=== PATIENT | female | born 1990 | race Caucasian/White ===

== ENCOUNTER 2023-03-24 23:49 | Inpatient (IN) | payer MEDICAID, SELFPAY ==
[2023-03-24] MEDS: ZIPRASIDONE MESYLATE 20 MG/ML VIAL IM (23:56)
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
[2023-03-25 00:36] LABS: Basophils Absolute Auto 0.1 10^3/uL (0.0-0.1); Basophils Percent Auto 0.4 % (0.2-2.0); Eosinophils Absolute Auto 6.9 10^3/uL (0.0-0.7); Eosinophils Percent Auto 24.6 % (0.9-7.0); Hematocrit 32.7 % (36.0-48.0); Immature Granulocytes Abs Auto 0.32 10^3/uL (0.00-0.03); Immature Granulocytes Pct Auto 1.1 % (0.0-0.5); Lymphocytes Absolute Auto 1.8 10^3/uL (1.2-3.8); Lymphocytes Percent Auto 6.6 % (20.5-60.0); Mean Corpuscular HGB Conc 33.6 g/dL (29.9-35.2); Mean Corpuscular Hemoglobin 28.9 pg (26.7-34.0); Mean Corpuscular Volume 86.1 fL (81.0-99.0); Monocytes Absolute Auto 3.8 10^3/uL (0.3-0.8); Monocytes Percent Auto 13.6 % (1.7-12.0); Neutrophils Percent Auto 53.7 % (43.0-75.0); Platelet Count 284 10^3/uL (150-450); Red Cell Distribution Width 12.6 % (11.0-15.0)
[2023-03-25] MEDS: LORAZEPAM 2 MG/ML 1 ML VIAL IV (00:46)
[2023-03-25 00:49] LABS: Anion Gap 16.4; BUN Creatinine Ratio 14.3; Calcium 9.7 mg/dL (8.5-10.1); Carbon Dioxide 22.6 mmol/L (21.0-32.0); Chloride 106 mmol/L (98-107); Estimated GFR (African America 57 (>=60); Estimated GFR (Non-African Ame 47 (>=60); Glucose 114 mg/dL (74-106); Sodium 141 mmol/L (136-145)
[2023-03-25 01:37] LABS: Bilirubin Urine NEGATIVE (NEGATIVE); Blood Urine NEGATIVE (NEGATIVE); Clarity Urine CLEAR (CLEAR); Color Urine DK. ORANGE (YELLOW); Glucose Urine UA NEGATIVE (NEGATIVE); Ketones Urine TRACE mg/dL (NEGATIVE); Leukocyte Esterase Urine NEGATIVE (NEGATIVE); Nitrite Urine NEGATIVE (NEGATIVE); Protein Urine 30 mg/dL (NEG/TRACE); Specific Gravity Urine >=1.030 (1.005-1.025); Urine Microscopic Indicated YES; Urobilinogen Urine 0.2 EU/dL (0.2-1.0)
[2023-03-25 01:44] LABS: Bacteria Urine SMALL #/HPF (NONE SEEN); Mucus Urine NONE SEEN (NONE SEEN); RBC Urine 0-2 #/HPF (0-2); Squamous Epithelial Cell Urine FEW #/LPF (NONE/RARE); WBC Urine 0-2 #/HPF (NONE SEEN)
[2023-03-25 01:45] LABS: Cast Seen? NONE SEEN #/LPF (NONE SEEN); Crystals Seen? None Seen #/HPF (None Seen); Urine Culture Indicated YES
[2023-03-25 02:16] VITALS: BP 91/62; PULSE 110; RESP 22; TEMP 36.7; O2SAT 100
[2023-03-25 02:21] LABS: Lactate/Lactic Acid 1.2 mmol/L (0.4-2.0)
--- NOTE | 2023-03-25 02:22 | PC.NURSE ---
Patient presented with multiple bruises overall in different stages of healing. On arms legs, feet and under chin.
[2023-03-25 02:39] LABS: Alanine Aminotransferase 35 U/L (14-59); Albumin Level 3.4 g/dL (3.4-5.0); Alkaline Phosphatase 50 U/L (46-116); Aspartate Amino Transferase 83 U/L (15-37); Bilirubin Direct 0.2 mg/dL (0.0-0.2); Globulin 3.4 g/dL; Total Protein 6.8 g/dL (6.4-8.2)
[2023-03-25 02:40] LABS: Myoglobin 2184 ng/mL (9-82)
[2023-03-25 03:25] LABS: Creatine Kinase 4908 U/L (26-192)
[2023-03-25 03:30] VITALS: BP 100/69; PULSE 122; RESP 18; O2SAT 100
[2023-03-25 03:48] LABS: Valproic Acid 67.2 ug/mL (50.0-100.0)
[2023-03-25] MEDS: 0.9 % SODIUM CHLORIDE 1,000 ML 999 ML IV (03:50)
[2023-03-25] MEDS: HALOPERIDOL LACTATE 5 MG/ML VIAL IM (04:44)
[2023-03-25 05:53] VITALS: BP 91/56; PULSE 113; RESP 18; RESP 20; TEMP 37; O2SAT 96; BMI 24.6
[2023-03-25 06:00] VITALS: BP 91/56; PULSE 113; RESP 18; TEMP 37; O2SAT 96
--- NOTE | 2023-03-25 06:50 | PC.NURSE ---
Pt is nonverbal, she will not open her mouth to assess oral cavity, she can become very agitated and wants to get out of bed. pt has been reaching in her mouth and touching her teeth. pt body covered in bruises of varying stages of healing. she responds when in pain or agitated by pinching or throwingherself down, accompanied by periods of no to little sleep.
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
[2023-03-25] MEDS: ZIPRASIDONE MESYLATE 20 MG/ML VIAL IM (09:46)
[2023-03-25] MEDS: 0.9 % SODIUM CHLORIDE 1,000 ML 100 ML IV ×2 (10:53→21:40)
[2023-03-25] MEDS: CEFTRIAXONE 1,000 MG in 0.9 % SODIUM CHLORIDE 50 ML 100 MG IV (10:53)
[2023-03-25] MEDS: LORAZEPAM 2 MG/ML 1 ML VIAL 1 MG IV ×2 (13:37→15:30)
--- NOTE | 2023-03-25 14:41 | PM.HP ---
H&P: HPI History of Present Illness Chief complaint: ALTERED MENTAL STATUS Narrative: 32 y/o female with history of severe MRDD and nonverbal presents from skilled nursing with altered mental status. Currently on augmentin for dental infection over past week. Increased agitation and throwing self on floor. Very combative and hitting staff and self. To ER and given medication for agitation. Labs showed elevated WBC and signs of rhabdo. UA showed possible UTI and admitted. Review of Systems ROS Narrative Unable to obtain, nonverbal. PFSH PFSH Surgical History (Updated 03/25/23 @ 06:47 by Dayton Allen) Family History (Updated 03/25/23 @ 06:50 by Dayton Allen) Grandmother Family history of cancer Grandfather Family history of hypertension Aunt Family history of hypertension Uncle Family history of hypertension Meds Home Medications and Allergies Home Medications Medication Instructions Recorded Confirmed Type acetaminophen 325 mg capsule 650 mg PO Q4H PRN fever 03/25/23 03/25/23 History amoxicillin 875 mg-potassium 1 tab PO Q12H 03/25/23 03/25/23 History clavulanate 125 mg tablet bisacodyl 10 mg rectal suppository 10 mg [place] DAILY PRN constipation 03/25/23 03/25/23 History (Laxative (bisacodyl)) bupropion HCl 100 mg tablet,12 hr 100 mg PO BID 03/25/23 03/25/23 History sustained-release calcium citrate 200 mg 2 tab PO TID 03/25/23 03/25/23 History calcium-vitamin D3 6.25 mcg (250 unit) tablet ([place] Calcium-Vitamin D3) cholecalciferol (vitamin D3) 50 2,000 unit PO DAILY 03/25/23 03/25/23 History mcg (2,000 unit) tablet (Vitamin D3) denosumab 60 mg/mL subcutaneous 60 mg subcut .6months 03/25/23 03/25/23 History syringe (Prolia) divalproex 125 mg capsule,delayed 375 mg PO Q12H 03/25/23 03/25/23 History release sprinkle fluoxetine 10 mg capsule 10 mg PO DAILY 03/25/23 03/25/23 History fluoxetine 20 mg capsule 20 mg PO DAILY 03/25/23 03/25/23 History loratadine 10 mg tablet 10 mg PO Q24H 03/25/23 03/25/23 History montelukast 10 mg tablet 10 mg PO DAILY 03/25/23 03/25/23 History risperidone 1 mg tablet 1 mg PO .QHS 03/25/23 03/25/23 History sennosides 8.6 mg tablet (senna) 17.2 mg PO BID 03/25/23 03/25/23 History Allergies Allergy/AdvReac Type Severity Reaction Status Date / Time meperidine [From Demerol] Allergy Unknown Verified 03/25/23 02:06 methylphenidate Allergy Unknown Verified 03/25/23 02:06 [From Ritalin] Exam Constitutional Vital Signs - 24 hr 03/25/23 02:16 03/25/23 03:30 03/25/23 05:53 Temperature 98.1 F 98.6 F Pulse Rate 113 H Pulse Rate [Monitor] 110 H 122 H Respiratory Rate 22 18 20 Blood Pressure [Right Arm] 91/62 100/69 91/56 L Pulse Oximetry 100 100 96 Oxygen Delivery Method Room Air Room Air Room Air 03/25/23 05:53 03/25/23 05:53 03/25/23 06:00 Temperature 98.6 F Pulse Rate 113 H Pulse Rate [Monitor] 113 H 113 H Respiratory Rate 18 18 Blood Pressure [Right Arm] 91/56 L Pulse Oximetry 96 Oxygen Delivery Method Room Air Room Air Documenting provider has reviewed patient's vital signs: yes Common normals: no apparent distress and alert HENIN Common normals: normocephalic Eye Common normals: PERRL and EOMs intact bilaterally Respiratory Common normals: normal respiratory effort and clear to auscultation bilaterally Cardio Common normals: regular rate, regular rhythm, no gallops, no murmurs and no rub GI Common normals: Normal to inspection, nondistended, normoactive bowel sounds present and non-tender Extremity General: no edema Results Labs Labs: Short CBC 03/25/23 Range/Units 00:27 WBC 28.0 H (4.0-11.0) 10^3/uL Hgb 11.0 L (12.0-16.0) g/dL Hct 32.7 L (36.0-48.0) % Plt Count 284 (150-450) 10^3/uL BMP 03/25/23 00:27 Sodium 141 Potassium 4.0 Chloride 106 Carbon Dioxide 22.6 BUN 19.0 H Creatinine 1.33 H Glucose 114 H Calcium 9.7 Cardiac Enzymes 03/25/23 Range/Units 01:55 Total Creatine Kinase 4908 H* (26-192) U/L Liver Function 03/25/23 Range/Units 01:55 Total Bilirubin 1.0 (0.2-1.0) mg/dL Direct Bilirubin 0.2 (0.0-0.2) mg/dL AST 83 H (15-37) U/L ALT 35 (14-59) U/L Alkaline Phosphatase 50 (46-116) U/L Albumin 3.4 (3.4-5.0) g/dL Urine 03/25/23 Range/Units 01:16 Urine Color Dk. orange (YELLOW) Urine Clarity Clear (CLEAR) Urine pH 6.0 (5.0-9.0) Ur Specific Speed >=1.030 A (1.005-1.025) Urine Protein 30 A (NEG/TRACE) mg/dL Urine Glucose (UA) Negative (NEGATIVE) mg/dL Assessment and Plan Assessment and Plan (1) UTI (urinary tract infection): (2) Rhabdomyolysis: (3) Acute renal failure (ARF): (4) Acute dehydration: (5) Severe intellectual disability: (6) Altered mental status: (7) Seizures: Plan Altered mental status likely related to UTI and rhabdo. Start IV fluids. Start rocephin for UTI. Resume home medication. Will need to sedate with geodon and ativan due to agitation. Monitor labs and vitals. Anticipate 2-3 days in the hospital.
[2023-03-25 15:24] VITALS: BP 96/60; PULSE 102; RESP 18; TEMP 37.2; O2SAT 93
[2023-03-25] MEDS: ACETAMINOPHEN 500 MG TABLET 1000 MG PO (15:30)
[2023-03-25 21:11] VITALS: BP 96/62; PULSE 107; RESP 18; TEMP 37.3; O2SAT 96
[2023-03-25] MEDS: risperiDONE 1 MG TABLET PO (22:54)
[2023-03-25] MEDS: SENNOSIDES 8.6 MG TABLET 17.2 MG PO (22:55)
[2023-03-25] MEDS: BUPROPION HCL 100 MG SR TABLET 12H PO (22:55)
[2023-03-26 05:00] VITALS: RESP 18
[2023-03-26 05:05] LABS: Basophils Percent Auto 0.2 % (0.2-2.0); Eosinophils Absolute Auto 0.1 10^3/uL (0.0-0.7); Eosinophils Percent Auto 0.8 % (0.9-7.0); Hemoglobin 8.5 g/dL (12.0-16.0); Immature Granulocytes Abs Auto 0.08 10^3/uL (0.00-0.03); Immature Granulocytes Pct Auto 0.8 % (0.0-0.5); Lymphocytes Absolute Auto 1.7 10^3/uL (1.2-3.8); Lymphocytes Percent Auto 15.6 % (20.5-60.0); Mean Corpuscular HGB Conc 32.7 g/dL (29.9-35.2); Mean Corpuscular Hemoglobin 28.9 pg (26.7-34.0); Mean Corpuscular Volume 88.4 fL (81.0-99.0); Mean Platelet Volume 9.8 fL (9.5-13.5); Monocytes Absolute Auto 1.4 10^3/uL (0.3-0.8); Monocytes Percent Auto 13.6 % (1.7-12.0); Neutrophils Absolute Auto 7.3 10^3/uL (1.4-6.5); Platelet Count 182 10^3/uL (150-450); Red Blood Count 2.94 10^6/uL (4.20-5.40); Red Cell Distribution Width 12.9 % (11.0-15.0); White Blood Count 10.6 10^3/uL (4.0-11.0)
[2023-03-26 05:23] LABS: Anion Gap 9.8; BUN Creatinine Ratio 16.7; Calcium 7.6 mg/dL (8.5-10.1); Carbon Dioxide 24.6 mmol/L (21.0-32.0); Chloride 110 mmol/L (98-107); Estimated GFR (African America >60 (>=60); Estimated GFR (Non-African Ame >60 (>=60); Glucose 108 mg/dL (74-106); Myoglobin 162 ng/mL (9-82); Potassium 3.4 mmol/L (3.5-5.1); Sodium 141 mmol/L (136-145)
[2023-03-26 05:28] LABS: Creatine Kinase 2363 U/L (26-192)
[2023-03-26 06:33] VITALS: BP 98/64; PULSE 105; RESP 18; TEMP 36.8; O2SAT 92
[2023-03-26] MEDS: 0.9 % SODIUM CHLORIDE 1,000 ML 100 ML IV (08:01)
[2023-03-26] MEDS: CEFTRIAXONE 1,000 MG in 0.9 % SODIUM CHLORIDE 50 ML 100 MG IV (09:12)
[2023-03-26] MEDS: MONTELUKAST SODIUM 10 MG TABLET PO (09:33)
[2023-03-26] MEDS: FLUOXETINE HCL 10 MG CAPSULE PO (09:33)
[2023-03-26] MEDS: CHOLECALCIFEROL (VITAMIN D3) 25 MCG/1,000 UNITS TABLET 50 MCG PO (09:33)
[2023-03-26] MEDS: SENNOSIDES 8.6 MG TABLET 17.2 MG PO (09:33)
[2023-03-26] MEDS: FLUOXETINE HCL 20 MG CAPSULE PO (09:34)
[2023-03-26] MEDS: BUPROPION HCL 100 MG SR TABLET 12H PO (09:34)
[2023-03-26] MEDS: CETIRIZINE HCL 10 MG TABLET PO (09:34)
[2023-03-26] MEDS: ACETAMINOPHEN 500 MG TABLET 1000 MG PO (09:41)
--- NOTE | 2023-03-26 10:24 | PC.NURSE ---
On 03/26/2023 at 0944 [facility] was called. Doctor notified
--- NOTE | 2023-03-26 11:50 | P.DS_ITS ---
DS: Providers Provider Date of admission: 03/25/23 04:17 Primary care physician: MACI HAAS DO DS: Diagnosis Discharge Diagnosis (1) UTI (urinary tract infection): (2) Rhabdomyolysis: (3) Acute renal failure (ARF): (4) Acute dehydration: (5) Severe intellectual disability: (6) Altered mental status: (7) Seizures: Plan Primary diagnosis: Rhabdomyolysis Secondary diagnosis: 1. UTI 2. PITO 3. Dehydration 4. Sever MRDD 5. Altered mental sttus 6. Seizure disorder DS: Summary Hospital Course Hospital Course: Reason for admission: See H&P for details. 32 y/o female with history of severe MRDD and nonverbal presents from senior care with altered mental status.? Currently on augmentin for dental infection over past week.? Increased agitation and throwing self on floor.? Very combative and hitting staff and self.? To ER and given medication for agitation.? Labs showed elevated WBC and signs of rhabdo. UA showed possible UTI and admitted Hospital course: Started IV fluids for rhabdo and Rocehpin for UTI. REsumed home medication. Patient improved. Labs improved and close to normal. Afebrile. Normal WBC. Patient close to baseline and discharged in stable condition. Urine culture negative. Continue home medication as directed including augmentin. Time Spent with Patient Time attestation: Total time spent providing and/or coordinating discharge services: Exam Constitutional Vital Signs - 24 hr 03/25/23 15:24 03/26/23 05:00 03/25/23 21:11 Temperature 99.0 F 99.2 F Pulse Rate 102 H 107 H Pulse Rate [Monitor] Respiratory Rate 18 18 18 Blood Pressure [Right Arm] 96/60 96/62 Pulse Oximetry 93 L 96 Oxygen Delivery Method Room Air Room Air 03/25/23 21:11 03/26/23 06:33 Temperature 98.3 F Pulse Rate 105 H Pulse Rate [Monitor] 107 H Respiratory Rate 18 18 Blood Pressure [Right Arm] 98/64 Pulse Oximetry 92 L Oxygen Delivery Method Room Air Documenting provider has reviewed patient's vital signs: yes Common normals: no apparent distress and alert HENMT Common normals: normocephalic Eye Common normals: PERRL and EOMs intact bilaterally Respiratory Common normals: normal respiratory effort and clear to auscultation bilaterally Cardio Common normals: regular rate, regular rhythm, no gallops, no murmurs and no rub GI Common normals: Normal to inspection, nondistended, normoactive bowel sounds present and non-tender Extremity General: no edema DS: Data Data Completed and Pending Labs on day of discharge: Labs from last 24 hours 03/26/23 04:37 WBC 10.6 RBC 2.94 L Hgb 8.5 L Hct 26.0 L MCV 88.4 MCH 28.9 MCHC 32.7 RDW 12.9 Plt Count 182 MPV 9.8 Neut % (Auto) 69.0 Lymph % (Auto) 15.6 L [place] % (Auto) 13.6 H Eos % (Auto) 0.8 L Baso % (Auto) 0.2 Neut # (Auto) 7.3 H Lymph # (Auto) 1.7 [place] # (Auto) 1.4 H Eos # (Auto) 0.1 Baso # (Auto) 0.0 Abs Immat Gran (auto) 0.08 H Imm/Tot Granulo (auto) 0.8 H Sodium 141 Potassium 3.4 L Chloride 110 H Carbon Dioxide 24.6 Anion Gap 9.8 BUN 10.0 Creatinine 0.60 Est GFR ( Amer) >60 Est GFR (Non-Af Amer) >60 BUN/Creatinine Ratio 16.7 Glucose 108 H Calcium 7.6 L Total Creatine Kinase 2363 H* Myoglobin 162 H Discharge Plan Discharge Disposition: Home, Self-Care Discharge Medications: Continued amoxicillin-pot clavulanate 875-125 mg tablet 1 tab PO Q12H Patient Comments: for 7 days.Started 03/23 bupropion HCl 100 mg tablet sustained-release 12 hr 100 mg PO BID calcium citrate-vitamin D3 [[place] Calcium-Vitamin D3] 200 mg-6.25 mcg (250 unit) tablet 2 tab PO TID Prolia 60 mg/mL syringe 60 mg SUBCUT .6months divalproex 125 mg capsule, delayed rel sprinkle 375 mg PO Q12H fluoxetine 10 mg capsule 10 mg PO DAILY Patient Comments: at HS fluoxetine 20 mg capsule 20 mg PO DAILY loratadine 10 mg tablet 10 mg PO Q24H montelukast 10 mg tablet 10 mg PO DAILY risperidone 1 mg tablet 1 mg PO .QHS Rx Instructions: at HS sennosides [senna] 8.6 mg tablet 17.2 mg PO BID cholecalciferol (vitamin D3) [Vitamin D3] 50 mcg (2,000 unit) tablet 2,000 unit PO DAILY acetaminophen 325 mg capsule 650 mg PO Q4H PRN (Reason: fever) bisacodyl [Laxative (bisacodyl)] 10 mg suppository 10 mg [place] DAILY PRN (Reason: constipation) Rx Instructions: If no BM in 5days Activity: resume usual activities as tolerated Diet: advance to your usual diet Patient Instructions: Urinary Tract Infection in Women (DC) Forms: Portal Instructions Follow Up Appointments: follow up with dr maci haas . [facility] office staff member Stephania states he will be rounding tomorrow and will see pt
[2023-03-26 11:51] VITALS: BMI 24.6
--- NOTE | 2023-03-26 14:07 | SWNOTE1 ---
Pt is from [facility]. Pt discharged before SW could complete assessment with pt or family.
--- NOTE | 2023-03-26 16:03 | CM.NOTE ---
0900- Rounds made with faraz Dalton for discharge back to [facility]. Family will transport pt. No discharge needs identified.
== END 2023-03-26 13:08 | disposition home or self-care (01) | DRG 463 ==
LOC: ER 03-25 04:39 → MS 03-25 05:48
PROVIDERS: Admitting Provider Family Medicine; Emergency Provider Internal Medicine; PCP Family Medicine; Visit Provider Family Medicine
DX: N39.0 Urinary tract infection, site not specified (principal); M62.82 Rhabdomyolysis; N17.9 Acute kidney failure, unspecified; E86.0 Dehydration; F72 Severe intellectual disabilities; R41.82 Altered mental status, unspecified; G40.909 Epilepsy, unspecified, not intractable, without status epilepticus; R45.1 Restlessness and agitation; Z79.899 Other long term (current) drug therapy; Z88.8 Allergy status to other drugs, medicaments and biological substances; Z82.49 Family history of ischemic heart disease and other diseases of the circulatory system; Z80.9 Family history of malignant neoplasm, unspecified; Z78.1 Physical restraint status
CPT/HCPCS: 36415; 51701; 80048; 80076; 80164; 81003; 81015; 82550; 83605; 83874; 85025; 87086; 96361; 96365; 96366; 96372; 96375; 96376; 99285

== ENCOUNTER 2023-03-27 11:18 | Outpatient (REF) | payer MEDICAID, SELFPAY ==
[2023-03-27 11:31] LABS: Bilirubin Urine NEGATIVE (NEGATIVE); Blood Urine NEGATIVE (NEGATIVE); Clarity Urine CLEAR (CLEAR); Color Urine YELLOW (YELLOW); Glucose Urine UA NEGATIVE (NEGATIVE); Ketones Urine NEGATIVE (NEGATIVE); Leukocyte Esterase Urine NEGATIVE (NEGATIVE); Nitrite Urine NEGATIVE (NEGATIVE); Protein Urine NEGATIVE (NEG/TRACE); pH Urine 7.5 (5.0-9.0)
[2023-03-27 11:32] LABS: Urine Microscopic Indicated NO
== END 2023-03-27 11:19 | disposition home or self-care (01) ==
LOC: LAB 11:18
PROVIDERS: PCP Family Medicine; Visit Provider Family Medicine
DX: R34 Anuria and oliguria (principal); R41.82 Altered mental status, unspecified; R82.90 Unspecified abnormal findings in urine
CPT/HCPCS: 81003

== ENCOUNTER 2023-04-04 06:59 | Outpatient (OUT) | payer MEDICAID, SELFPAY ==
[2023-04-04 07:24] LABS: Basophils Absolute Auto 0.1 10^3/uL (0.0-0.1); Basophils Percent Auto 0.7 % (0.2-2.0); Eosinophils Absolute Auto 0.3 10^3/uL (0.0-0.7); Eosinophils Percent Auto 3.1 % (0.9-7.0); Hematocrit 33.3 % (36.0-48.0); Hemoglobin 10.8 g/dL (12.0-16.0); Immature Granulocytes Abs Auto 0.21 10^3/uL (0.00-0.03); Immature Granulocytes Pct Auto 2.4 % (0.0-0.5); Lymphocytes Absolute Auto 2.6 10^3/uL (1.2-3.8); Lymphocytes Percent Auto 29.6 % (20.5-60.0); Mean Corpuscular HGB Conc 32.4 g/dL (29.9-35.2); Mean Corpuscular Volume 89.5 fL (81.0-99.0); Mean Platelet Volume 8.1 fL (9.5-13.5); Monocytes Absolute Auto 0.9 10^3/uL (0.3-0.8); Monocytes Percent Auto 10.8 % (1.7-12.0); Neutrophils Absolute Auto 4.7 10^3/uL (1.4-6.5); Neutrophils Percent Auto 53.4 % (43.0-75.0); Platelet Count 466 10^3/uL (150-450); Red Blood Count 3.72 10^6/uL (4.20-5.40); Red Cell Distribution Width 14.3 % (11.0-15.0); White Blood Count 8.7 10^3/uL (4.0-11.0)
[2023-04-04 07:40] LABS: Alanine Aminotransferase 23 U/L (14-59); Albumin Globulin Ratio 0.9; Albumin Level 3.2 g/dL (3.4-5.0); Alkaline Phosphatase 79 U/L (46-116); Anion Gap 10.8; Aspartate Amino Transferase 15 U/L (15-37); BUN Creatinine Ratio 10.4; Bilirubin Total 0.4 mg/dL (0.2-1.0); Calcium 8.9 mg/dL (8.5-10.1); Carbon Dioxide 29.5 mmol/L (21.0-32.0); Chloride 104 mmol/L (98-107); Creatine Kinase 75 U/L (26-192); Estimated GFR (African America >60 (>=60); Estimated GFR (Non-African Ame >60 (>=60); Globulin 3.6 g/dL; Glucose 105 mg/dL (74-106); Potassium 4.3 mmol/L (3.5-5.1); Sodium 140 mmol/L (136-145); Total Protein 6.8 g/dL (6.4-8.2)
[2023-04-06 17:52] LABS: Myoglobin 34 ng/mL (9-82)
== END 2023-04-04 07:00 | disposition home or self-care (01) ==
LOC: LAB 06:59
PROVIDERS: PCP Family Medicine; Visit Provider Family Medicine
DX: D89.89 Other specified disorders involving the immune mechanism, not elsewhere classified (principal)
CPT/HCPCS: 36415; 80053; 82550; 83874; 85025

== ENCOUNTER 2024-02-27 09:42 | Outpatient (OUT) | payer MEDICAID, SELFPAY ==
--- NOTE | 2024-02-27 09:49 | XR_ITS ---
[place] [id number] Patient Name: NIC SANDHU MRN: [id number] date: 1990 Sex: F Assigned Patient Location: [facility] Current Patient Location: [facility] Accession/Order Number: [id number] Exam Date: 02/27/2024 10:10 Report Date: 02/27/2024 10:35 At the request of: KIANA HAAS Procedure: XR DEXA axial skeleton EXAMINATION: XR DEXA axial skeleton HISTORY: Osteoporosis COMPARISON: DEXA bone densitometry 01/15/2019 TECHNIQUE: Dual-energy X-ray absorptiometry (DXA) was performed. FINDINGS: SPINE ANALYSIS: Average bone mineral density is 1.162 g/cm2. T-score (standard deviation relative to young adult mean): -0.3 . +6.0% change since prior study. HIP ANALYSIS: Lowest bone mineral density is within the left femoral neck, 0.806 g/cm2. T-score (standard deviation relative to young adult mean): -1.7 . XR/XR DEXA axial skeleton IMPRESSION: [employer] Classification: Osteopenia - Moderate Fracture Risk FRAX: Cannot be calculated. Electronically authenticated by: RINA CARRANZA Date: 02/27/2024 10:35
== END 2024-02-27 09:43 | disposition home or self-care (01) ==
LOC: RAD 09:44
PROVIDERS: PCP Family Medicine; Visit Provider Family Medicine
DX: M81.0 Age-related osteoporosis without current pathological fracture (principal); M85.80 Other specified disorders of bone density and structure, unspecified site
CPT/HCPCS: 77080

== ENCOUNTER 2024-05-02 09:08 | Outpatient (OUT) | payer MEDICAID, SELFPAY ==
--- NOTE | 2024-05-02 09:13 | US_ITS ---
[address] [address] Patient Name: NIC SANDHU MRN: [id number] date: 1990 Sex: F Assigned Patient Location: [place] Current Patient Location: Accession/Order Number: [id number] Exam Date: 05/02/2024 09:15 Report Date: 05/06/2024 06:23 At the request of: KIANA HAAS Procedure: US thyroid EXAMINATION: US thyroid HISTORY: Autoimmune Disorder, History Goiter COMPARISON: No relevant comparison available. FINDINGS: RIGHT LOBE: Grossly normal size and echotexture. Contains a 9 mm TR 4 nodule within mid body. Lobe size: Could not fully obtain. LEFT LOBE: Grossly normal size and echotexture. No appreciable nodules. Lobe size: Could not fully obtain. ISTHMUS: Normal thickness and echogenicity. Thickness: 4 mm US/US thyroid IMPRESSION: 1. Very limited examination due to patient's altered mental status and noncooperative. 2. Right lobe contains a 9 mm TR 4 nodule. TR4 (moderately suspicious): If > 1.0 cm, follow-up ultrasound in 1, 2, 3, and 5 years. If > 1.5 cm, fine needle aspiration (FNA). Electronically authenticated by: RINA CARRANZA Date: 05/06/2024 06:23
--- OUTSIDE RECORDS SUMMARY | 2024-05-02 09:29 | XMS_ITS | CCD ---
Author Organization [facility] Care Team Providers Care Collarette Separator Name Role Phone Cruz Adler Unavailable Unavailable HaasSimon Unavailable Unavailable Emma Plummer Unavailable Unavailable HaasSimon Unavailable Unavailable Unavailable Unavailable Primary Care Provider Unavailabl e HAAS, DR SIMON Louis Primary Care Unavailable HAAS, DR SIMON Louis Admitting Unavailable HAAS, DR SIMON Louis Attending Unavailable HAAS, DR SIMON Luois Primary Care Unavailable HAAS, DR SIMON Louis Admitting Unavailable HAAS, DR SIMON Louis Attending Unavailable HAAS, DR SIMON Louis Consulting Unavailable ZIEBER, DR RINA Shoemaker Consulting Unavailable HAAS, DR SIMON Louis Primary Care Unavailable HAAS, DR SIMON Louis Admitting Unavailable HAAS, DR SIMON Louis Attending Unavailable HAAS, DR SIMON Louis Consulting Unavailable HAAS, DR SIMON Louis Primary Care Unavailable HAAS, DR SIMON Louis Admitting Unavailable HAAS, DR SIMON Louis Attending Unavailable HAAS, DR SIMON Louis Consulting Unavailable HAAS, DR SIMON Louis Primary Care Unavailable MISC, DR BERTRAND Attending Unavailable MISC, DR BERTRAND Consulting Unavailable MISC, DR BERTRAND Admitting Unavailable HaasDO Simon Primary Care Provider [phone] MD Vanessa Munoz Emergency Provider Simon Haas Primary Care Unavailable Vanessa Munoz Admitting Unavailable Vanessa Munoz Attending Unavailable Haas, Dr. Simon Beckwith Referring Unava blake PEDRO, REENA GUILLEN Attending Unavailable Haas, Dr. Simon Beckwith Primary Care Unava ilDr. Cruz Castillo Attending Unavailable Haas, Dr. Simon Beckwith Primary Care Unava ilable Dr. Cruz Adler Attending Unavailable Dr. Simon Haas Primary Care Unava ilable Unavailable Primary Care Provider Unavailabl e PROVIDER, UNKNOWN Attending Unavailable PROVIDER, UNKNOWN Admitting Unavailable SIMON HAAS Attending Unavailable SIMON HAAS Admitting Unavailable Simon Haas DO Primary Care Provider Cruz Adler MD Unavailable CRUZ ADLER Attending Unavailable SIMON HAAS Primary Care Unavailab le Allergies Allergy Classification Reported Allergen(s) Allergy Type Date of Onset Reaction(s) Facility (14 sources) Meperidine; Translations: [Demerol TABS] Drug Allergy 06-03-20 15 Other [facility] (1 source) Meperidine Drug Allergy 10-10-19 22 [facility] (1 source) Methylphenidate Drug Allergy 10-10-19 22 [facility] (1 source) Pseudoephedrine Drug Allergy 10-10-19 22 [facility] (3 sources) Meperidine; Translations: [meperidine] Drug Allergy 06-03-20 15 Unknown Reaction [facility] (2 sources) Methylphenidate; Translations: [methylphenidate] Drug Allergy 03-29-20 23 Unknown Reaction [facility] (1 source) Meperidine; Translations: [Demerol HCl] Drug Allergy [facility] Rep[facility] (1 source) ALLERGIES NOT ON FILE; Translations: [ALLERGIES NOT ON FILE] Propensity to adverse reactions (disorder) [facility] Medications Current Medications Medication Drug Class(es) Dates Sig (Normalized) Sig (Original) acetaminophen 300 mg / HYDROcodone bitartrate 5 mg oral tablet (1 source) Opioid Agonist Start: 03-30-2023 take 1 tablet by mouth every eight hours Hydrocodone-Aceta minophen Active 1 TAB PO Q8H 6 March 30, 2023 Start: 03-30-2023 take 1 tablet by lee th every eight hours Hydrocodone-Acetaminophen Active 1 TAB P O Q8H 6 March 30, 2023 bisacodyl 10 mg rectal suppository (2 sources) Stimulant Laxative take 10 mg rectal route once daily as needed for constipation bisacodyl (BISCOLAX) 10 MG suppository Insert 10 mg in the rectum daily as needed for Constipation. 0 Active buPROPion hydrochloride 100 mg oral tablet (15 sources) Aminoketone take 1 tablet by mouth twice daily buPROPion (Wellbutrin) 100 mg tablet Take 1 tablet (100 mg) by mouth twice a day. 0 Active take 1 tablet by mouth twice justo ly buPROPion HCl ER (SR) 100 MG Oral Tablet Extended Release 12 Hour TAKE 1 TABLET TWICE DAILY. Quantity: 0 Refills: 0 Ordered: 03-Sep-2014 DO Active cholecalciferol 0.05 mg oral capsule (15 sources) Vitamin D cholecalciferol (Vitamin D-3) 50 mcg (2,000 unit) capsule Take by mouth. 0 Active Cholecalciferol (VITAMIN D3) 2000 UNITS CAPS Take by mouth. 0 Active Vitamin D3 50 MC G (2000 UT) Oral Tablet Quantity: 0 Refills: 0 Ordered: 03-Sep-2014 DO Active 1 ml denosumab 60 mg/ml prefilled syringe (9 sources) RANK Ligand Inhibitor Start: 07-12-2021 Prolia 6 0 mg/mL syringe Inject under the skin. 0 07/12/2021 Active docusate sodium 100 mg oral capsule (9 sources) docusate sodium (Colace) 100 mg capsule Take by mouth. 0 Active Docusate Sodium 100 MG Oral Capsule Quantity: 0 Refills: 0 Ordered: 03-Sep-2014 DO Active FLUoxetine 40 mg oral capsule (17 sources) Serotonin Reuptake Inhibitor Start: 12-04-2023 take 1 capsule by mouth at bedtime FLUoxetine (PROzac) 40 mg capsule TAKE ONE CAPSULE BY MOUTH AT BEDTIME PROZAC 0 12/04/2023 Active take 1 tablet by mouth once [place]in[place] y fluoxetine (PROZAC) 20 MG tablet Take 20 mg by mouth daily. 0 Active take 1 capsule by mouth twice da colette fluoxetine (PROZAC) 10 MG capsule Take 10 mg by mouth 2 times daily. 0 Active take 2 capsules by mouth once da colette FLUoxetine HCl - 20 MG Oral Capsule TAKE 2 CAPSULE Daily Quantity: 60 Refills: 0 Ordered: 01-Feb-2017 Vitor BENTLEY, Max Active 60 actuat fluticasone propionate 0.1 mg/actuat / salmeterol 0.05 mg/actuat dry powder inhaler (2 sources) Corticosteroid, beta2-Adrenergic Agonist take 1 puff(s) by inhalation twice daily fluticasone-salmeterol (ADVAIR DISKUS) 100-50 MCG/DOSE inhaler Inhale 1 Puff 2 times daily. 0 Active ibuprofen 800 mg oral tablet (3 sources) Nonsteroidal Anti-inflammatory Drug Start : 03-30 take 800 mg by mouth three times daily Ibuprofen Active 800 MG PO Three times daily March 30, 2023 12:00am ibuprofen (MOTRI N) 200 MG tablet Take 200-400 mg by mouth every 6 hours as needed for Pain. 0 Active LORazepam 1 mg oral tablet (2 sources) Benzodiazepine Start: 03-29-2023 take 1 tablet by mouth three times daily as needed LORazepam (Ativan) 1 mg tablet TAKE ONE TABLET BY MOUTH THREE TIMES A DAY NEEDED FOR AGITATION 0 03/30/2023 Active Sennosides (SENNA LAX ORAL) (2 sources) take 2 tablets by mouth twice daily Sennosides (SENNA LAX ORAL) Indications: take two tablets twice a day Take by mouth Indications: take two tablets twice a day. 0 Active Completed/Discontinued Medications Medication Drug Class(es) Dates Sig (Normalized) Sig (Original) calcium citrate 950 mg / cholecalciferol 250 unt oral tablet (8 sources) Vitamin D Start: 08-30-2021 take 200-250 tablets by mouth three times daily [place] Calcium/Vitamin D 200-250 MG-UNIT TABS TAKE TWO TABLETS BY MOUTH 3 TIMES DAILY Quantity: 84 Refills: 0 Ordered: 02-Jan-2022 DO Start : 30-Aug-2021 Active fluticasone propionate 0.05 mg/actuat metered dose nasal spray (3 sources) Corticosteroid Start: 07-04-2022 take 2 spray(s) nasal route once daily Fluticasone Propionate 50 MCG/ACT Nasal Suspension INSTILL 2 SPRAYS INTO EACH NOSTRIL ONCE DAILY FOR 2 WEEKS Quantity: 16 Refills: 0 Ordered: 04-Jul-2022 DO Start : 04-Jul-2022 Active guaiFENesin 400 mg oral tablet (10 sources) Start: 05-20-2021 take 1 tablet by mouth twice daily as needed for cough Chest Congestion Relief 400 MG Oral Tablet TAKE ONE TABLET BY MOUTH TWICE A DAY NEEDED FOR CONGESTION OR COUGH Quantity: 20 Refills: 0 Ordered: 20-May-2021 DO Start : 20-May-2021 Active take 1 tablet by mouth twice justo ly guaifenesin (MUCINEX) 600 MG SR tablet Take 600 mg by mouth 2 times daily. 0 Active loratadine 10 mg oral tablet (10 sources) Start: 08-30-2021 take 1 tablet by mouth once daily Loratadine 10 MG Oral Tablet TAKE ONE TABLET BY MOUTH ONCE DAILY Quantity: 14 Refills: 0 Ordered: 02-Jan-2022 DO Start : 30-Aug-2021 Active 1 ml medroxyPROGESTERone acetate 150 mg/ml prefilled syringe (20 sources) Progestin Start: 05-11-2020 inject 1 mL by intramuscular injection every three months medroxyPROGESTERone Acetate 150 MG/ML Intramuscular Suspension Prefilled Syringe INJECT 1ML INTRAMUSCULARLY EVERY 3 MONTHS Quantity: 1 Refills: 0 Ordered: 24-Jan-2021 DO Start : 11-May-2020 Active medroxyPROGESTER one (DEPO-PROVERA) 150 MG/ML injection Inject 150 mg into the muscle once. 0 Active MedroxyPROGESTER one Acetate 150 MG/ML Intramuscular Suspension Quantity: 0 Refills: 0 Ordered: 03-Sep-2014 DO Active MedroxyPROGESTER one Acetate 150 MG/ML Intramuscular Suspension Quantity: 0 Refills: 0 Ordered: 03-Sep-2014 DO Active MedroxyPROGESTER one Acetate 150 MG/ML Intramuscular Suspension Refills: 0 Active montelukast 10 mg oral tablet (14 sources) Leukotriene Receptor Antagonist Start: 10-01-2014 Montelukast Sodium 1 0 MG Oral Tablet Quantity: 7 Refills: 0 Start : 01-Oct-2014 Active Start: 10-01-2014 Montelukast So dium 10 MG Oral Tablet Quantity: 7 Refills: 0 Ordered: 01-Oct-2014 DO Start : 01-Oct-2014 Active risperiDONE 0.5 mg oral tablet (20 sources) Atypical Antipsychotic Start: 04-05-2021 risperi DONE 0.5 MG Oral Tablet TAKE ONE TABLET BY MOUTH AT 8AM AND ONE TABLET AT 4PM RISPERDAL Quantity: 28 Refills: 0 Ordered: 02-Jan-2022 DO Start : 05-Apr-2021 Active take 1 tablet by mouth at bedtim e risperiDONE (RisperDAL) 1 mg tablet TAKE ONE TABLET BY MOUTH AT BEDTIME RISPERDAL 0 Active take 1 tablet by mouth three patricia es daily risperiDONE 1 MG Oral Tablet TAKE 1 TABLET 3 times daily Quantity: 0 Refills: 0 Ordered: 03-Sep-2014 DO Active Senna Leaves (10 sources) Senna Lax TABS Quantity: 0 Refills: 0 Ordered: 03-Sep-2014 DO Active Senna Lax TABS (2 sources) Senna Lax TABS Refills: 0 Active divalproex sodium 125 mg delayed release oral capsule (15 sources) Mood Stabilizer, Anti-epileptic Agent Start: 04-05-2021 take 3 capsules by mouth twice daily Divalproex Sodium 125 MG Oral Capsule Delayed Release Sprinkle TAKE 3 CAPSULES BY MOUTH TWICE A DAY DEPAKOTE Quantity: 84 Refills: 0 Ordered: 02-Jan-2022 DO Start : 05-Apr-2021 Active take 3 tablets by mouth twice da colette divalproex (Depakote) 125 mg EC tablet Take 3 tablets (375 mg) by mouth twice a day. 0 Active Divalproex Sodiu m 125 MG CPSP SPRINKLE 4 CAPSULE Twice daily Quantity: 0 Refills: 0 Ordered: 03-Sep-2014 DO Active Problems Active Problems Problem Classification Problem Date Documented Da te Episodic/Chronic Anxiety disorders (18 sources) Anxiety disorder; Translations: [Anxiety state, unspecified] Onset: 10-06-2022 12-06-2023 Chronic Comment on above: Added by Problem Lis t Migration; 2013-09-21; Attention-deficit conduct and disruptive behavior disorders (13 sources) Disruptive behavior disorder; Translations: [Unspecified disturbance of conduct] Onset: 12-06-2023 12-06-2023 Chronic Comment on above: Added by Problem Lis t Migration; 2013-09-21; Attention-deficit, conduct, and disruptive behavior disorders (1 source) Conduct disorder, unspecified; Translations: [Conduct disorder, unspecified] Onset: 11-30-2022 Chronic Developmental disorders (12 sources) Intellectual disability; Translations: [Unspecified intellectual disabilities] Onset: 11-30-2022 12-06-2023 Chronic Diseases of white blood cells (1 source) Leukocytosis; Translations: [Elevated white blood cell count, unspecified] 10-19-2021 Chronic Disorders usually diagnosed in infancy, childhood, or adolescence (1 source) Autistic disorder; Translations: [Autistic disorder] 03-29-2023 Chronic Epilepsy; convulsions (18 sources) Epilepsy; Translations: [Epilepsy, unspecified, without mention of intractable epilepsy] Onset: 10-06-2022 12-06-2023 Chronic Epilepsy; convulsions (12 sources) Seizure; Translations: [Other convulsions] Episodic Mood disorders (16 sources) Mood disorder; Translations: [Unspecified episodic mood disorder] Onset: 12-06-2023 12-06-2023 Chronic Osteoporosis (5 sources) Age-related osteoporosis without current pathological fracture; Translations: [AGE-REL OSTEOPOR W/O CURR PATH FX] Onset: 09-02-2022 Chronic Other female genital disorders (12 sources) H/O: dysmenorrhea; Translations: [Personal history of other genital system and obstetric disorders] Episodic Other fractures (1 source) Fracture of rib; Translations: [Fracture of one rib, unspecified side, initial encounter for closed fracture] 03-30-2023 Episodic Other fractures (1 source) Fracture of sacrum; Translations: [Unspecified fracture of sacrum, initial encounter for closed fracture] 03-30-2023 Episodic Other fractures (1 source) Fracture of one rib, unspecified side, initial encounter for closed fracture; Translations: [Fracture of one rib, unspecified side, initial encounter for closed fracture] Onset: 03-29-2023 Episodic Other fractures (1 source) Unspecified fracture of sacrum, initial encounter for closed fracture; Translations: [Unspecified fracture of sacrum, initial encounter for closed fracture] Onset: 03-29-2023 Episodic Other gastrointestinal disorders (5 sources) Constipation; Translations: [Constipation, unspecified] Episodic Other nutritional; endocrine; and metabolic disorders (2 sources) Developmental delay; Translations: [History of Development delay] Chronic Other nutritional; endocrine; and metabolic disorders (10 sources) Developmental delay; Translations: [Lack of normal physiological development, unspecified] Episodic Other screening for suspected conditions (not mental disorders or infectious disease) (1 source) Abnormal findings on diagnostic imaging of other specified body structures; Translations: [ABNORML FIND DX IMG OTH BODY STRUC] Onset: 02-21-2023 Chronic Residual codes; unclassified (6 sources) Restlessness and agitation; Translations: [RESTLESSNESS AND AGITATION] Onset: 08-25-2022 Chronic Residual codes; unclassified (1 source) Restlessness and agitation; Translations: [Restlessness and agitation] 03-29-2023 Chronic Residual codes; unclassified (12 sources) Impulsive character; Translations: [Impulsiveness] Episodic Thyroid disorders (4 sources) Iodine-deficiency related diffuse (endemic) goiter; Translations: [IODINE-DEFIC REL DIFFUSE GOITER] Onset: 02-13-2023 Chronic Past or Other Problems Problem Classification Problem Date Documented Da te Episodic/Chronic Disorders of teeth and jaw (2 sources) Dental caries; Translations: [Dental caries, unspecified] Onset: 11-25-2020 11-25-2020 Episodic Genitourinary symptoms and ill-defined conditions (5 sources) Anuria and oliguria; Translations: [ANURIA AND OLIGURIA] Onset: 08-26-2022 Episodic Other aftercare (5 sources) Other intermediate (current) drug therapy; Translations: [OTH PRISON CURRENT DRUG THERAPY] Onset: 08-29-2022 Episodic Other nervous system disorders (1 source) Unsteadiness on feet; Translations: [UNSTEADINESS ON FEET] Onset: 09-02-2022 Episodic Unclassified (2 sources) Intellectual disability; Translations: [Intellectual disability] NEGATED: Highlighted row has not occurred!Residual codes; unclassified (11 sources) Disease Episodic Results Test Name Value Interpretation Reference Range Facility T3 Freeon 09-28-2023 Free T3 [Mass/Vol] 2.8 pg/mL Invalid Interpretation Code 2.0-4.4 [facility] Comment on above: Result Comment: Perf ormed at: [facility] [address] [id number] PhD Zhang Connell Performed By: #### 2 876328, 13728702, 61529708, 5028757, [id number], 9655724, 1698891, 5817970, 7896272 ####[facility] [address] [place] [address] CMPon 09-27-2023 Albumin [Mass/Vol] 4.0 g/dL Normal 3.3-5.0 [facility] Comment on above: Performed By: #### 2 466667, 46255286, 36261830, 6345127, 884307970, 0701601, 6501136, 0193400, 9055082 #### [facility] [address] [place] [address] Albumin/Globulin [Mass ratio] 1.5 {ratio} Normal 1.1-2.2 [facility] Comment on above: Performed By: #### 2 914294, 31713332, 96868877, 6029567, 561287483, 0505732, 6923889, 5988977, 5459692 #### [facility] [address] [place] [address] Alk Phos 40 Int._Unit/L Normal 21-98 [facility] Comment on above: Performed By: #### 2 365157, 09935791, 34403957, 9175355, 613649708, 5344472, 9924770, 6259394, 8363566 #### [facility] [address] [place] [address] ALT 12 Int._Unit/L Normal 6-46 [facility] Comment on above: Performed By: #### 2 434601, 86119039, 14808283, 4285730, 530566836, 7552653, 1857162, 7431331, 8982838 #### [facility] [address] [place] [address] Anion gap [Moles/Vol] 14 mmol/L Normal 6-16 [facility] Comment on above: Performed By: #### 2 892665, 69451026, 73384148, 5408857, 830709917, 5054543, 6848026, 8034486, 0320789 #### [facility] [address] [place] [address] AST 18 Int._Unit/L Normal 5-43 [facility] Comment on above: Performed By: #### 2 763424, 71892628, 42653593, 1322397, 254088566, 7690444, 6350960, 5289600, 7045521 #### [facility] [address] [place] [address] Bili Total 0.5 mg/dL Normal 0.0-1.1 [facility] Comment on above: Performed By: #### 2 660456, 64680494, 34107901, 5089498, 290632376, 5885140, 0734451, 8955130, 6259431 #### [facility] [address] [place] [address] BUN/Creat Ratio 16 No Units Normal 10-20 [facility] Comment on above: Performed By: #### 2 900032, 52845055, 26734190, 9850840, 421177573, 4942030, 7993713, 3951276, 0118939 #### [facility] [address] [place] [address] Calcium [Mass/Vol] 9.4 mg/dL Normal 8.9-11.1 [facility] Comment on above: Performed By: #### 2 762795, 19727703, 18467794, 0226798, 309606524, 7797884, 6044315, 9488844, 3416050 #### [facility] [address] [place] [address] Chloride [Moles/Vol] 106 mmol/L Normal 101-111 [facility] Comment on above: Performed By: #### 2 483863, 23173715, 53956598, 9638527, 369851309, 4571161, 8389837, 0935175, 8954602 #### [facility] [address] [place] [address] CO2 [Moles/Vol] 25 mmol/L Normal 21-31 [facility] Comment on above: Performed By: #### 2 053074, 02457523, 97082330, 6005710, 511781739, 5146525, 4084448, 8730344, 7669245 #### [facility] [address] [place] [address] Creatinine [Mass/Vol] 0.7 mg/dL Normal 0.5-1.3 [facility] Comment on above: Performed By: #### 2 281164, 30769339, 26449618, 7597176, 798288929, 4138256, 9343444, 5320200, 0880840 #### [facility] [address] [place] [address] Globulin (S) [Mass/Vol] 2.7 g/dL Normal 1.4-4.0 [facility] Comment on above: Performed By: #### 2 448201, 65803932, 75693760, 3082090, 632510378, 2081879, 0263432, 7391695, 3909949 #### [facility] [address] [place] [address] Glucose [Mass/Vol] 86 mg/dL Normal 55-199 [facility] Comment on above: Performed By: #### 2 011971, 26813647, 69723713, 6693481, 730746243, 7298129, 4880409, 5177955, 6038924 #### [facility] [address] [place] [address] Potassium [Moles/Vol] 4.5 mmol/L Normal 3.5-5.3 [facility] Comment on above: Performed By: #### 2 447928, 35416346, 08793737, 2697733, 622393087, 2351693, 6233292, 5679757, 5261682 #### [facility] [address] [place] [address] Protein [Mass/Vol] 6.7 g/dL Normal 6.0-7.8 [facility] Comment on above: Performed By: #### 2 391880, 46227509, 83556400, 8060158, 702908798, 3291966, 9696177, 1037125, 7276992 #### [facility] [address] [place] [address] Sodium [Moles/Vol] 140 mmol/L Normal 135-145 [facility] Comment on above: Performed By: #### 2 606845, 68201496, 26826041, 3125774, 106714183, 4116900, 0284928, 0717857, 4405123 #### [facility] [address] [place] [address] Urea nitrogen [Mass/Vol] 11 mg/dL Normal 5-21 [facility] Comment on above: Performed By: #### 2 551146, 51985862, 69598102, 8908471, 973815344, 9821227, 5216308, 9943868, 9541706 #### [facility] [address] [place] [address] Free T4on 09-27-2023 Free T4 [Mass/Vol] 0.80 ng/dL Normal 0.58-1.64 [facility] Comment on above: Performed By: #### 2 994234, 79077952, 87021755, 1360303, 955233740, 6216799, 5851046, 5488999, 4872932 #### [facility] [address] [place] [address] Prealbuminon 09-27-2023 Prealbumin [Mass/Vol] 24 mg/dL Normal 17-42 [facility] Comment on above: Performed By: #### 2 822511, 69753105, 36121258, 9185668, 661032797, 0234963, 9209678, 0823200, 6415940 #### [facility] [address] [place] [address] TSHon 09-27-2023 TSH Qn 0.97 m[IU]/L Normal 0.34-5.60 [facility] Comment on above: Performed By: #### 2 214659, 25893356, 89505020, 4824283, 502300401, 9063059, 8018311, 5622894, 4166755 #### [facility] [address] [place] [address] Vitamin D 25 Hydroxyon 09-27 Vitamin D 25 Hydroxy 44.5 ng/mL Normal 30.0-100.0 [facility] Comment on above: Performed By: #### 2 054831, 94678223, 70368747, 6496218, 545909800, 1472767, 0038688, 8226883, 7345625 #### [facility] [address] [place] [address] eGFRon 09-27-2023 GFR/1.73 sq M.predicted among non-blacks MDRD (S/P/Bld) [Vol rate/Area] mL/min/{1.73_m2} Normal >=59 [facility] Comment on above: Order Comment: Order added by Discern Expert. Performed By: #### 2 517225, 92965304, 81166942, 1209422, 541415220, 8893975, 7105090, 3577028, 0573871 #### [facility] [address] [place] [address] CBC w/Indiceson 09-26-2023 Erythrocyte distribution width (RBC) [Ratio] 13.8 % Normal 10.9-14.2 [facility] Comment on above: Performed By: #### 2 751330, 35081055, 74383680, 6134364, 841754185, 4662749, 5133054, 1119040, 6645418 #### [facility] [address] [place] [address] Hematocrit (Bld) [Volume fraction] 40.2 % Normal 34.0-46.0 [facility] Comment on above: Performed By: #### 2 600117, 17433312, 27731077, 1051290, 517219876, 4033481, 4013616, 6913580, 4921877 #### [facility] [address] [place] [address] Hemoglobin (Bld) [Mass/Vol] 13.6 g/dL Normal 12.0-16.0 [facility] Comment on above: Performed By: #### 2 522756, 65462706, 06658694, 5627759, 488786381, 3842488, 8480265, 1259435, 3186678 #### [facility] [address] [place] [address] MCH (RBC) [Entitic mass] 30.3 pg Normal 27.0-34.0 [facility] Comment on above: Performed By: #### 2 645348, 21792744, 21293930, 9103262, 572172433, 5915519, 2136450, 1826129, 2658291 #### [facility] [address] [place] [address] MCHC (RBC) [Mass/Vol] 34.0 g/dL Normal 31.4-36.0 [facility] Comment on above: Performed By: #### 2 116483, 32092488, 62400233, 8827698, 388898920, 7428781, 2899259, 5539232, 7542101 #### [facility] [address] [place] [address] MCV (RBC) [Entitic vol] 89.0 fL Normal 80.0-100.0 [facility] Comment on above: Performed By: #### 2 014362, 99052856, 54343981, 7654569, 787154972, 6811523, 5192188, 0969847, 5586891 #### [facility] [address] [place] [address] Platelet mean volume (Bld) [Entitic vol] 7.9 fL Normal 6.4-10.8 [facility] Comment on above: Performed By: #### 2 334993, 82563368, 00132540, 9027538, 173506948, 9481399, 5528626, 3692710, 5392535 #### [facility] [address] [place] [address] Platelets (Bld) [#/Vol] 336.0 E9/L Normal 150.0-500.0 [facility] Comment on above: Performed By: #### 2 945907, 95073967, 04316777, 4791858, 884958787, 7226161, 4021790, 9807428, 2143995 #### [facility] [address] [place] [address] RBC (Bld) [#/Vol] 4.5 E12/L Normal 4.3-5.9 [facility] Comment on above: Performed By: #### 2 668694, 90209922, 13775582, 4961407, 520486519, 4379233, 1879806, 8868653, 3272702 #### [facility] Laboratory [address] [place] [address] WBC corrected for nucl RBC Auto (Bld) [#/Vol] 9.6 E9/L Normal 4.0-11.0 [facility] Comment on above: Performed By: #### 2 [id number], [id number], [id number], [id number], [id number], [id number], [id number], [id number], [id number] #### [facility] Laboratory [address] [place] [address] Physician Orderon 09-26-2023 Physician Order [id number] 6#1.00TIFF Normal [facility] Valproic Acidon 09-26-2023 Valpro Acid Lvl 50 microgram/mL Normal 50-99 [facility] Comment on above: Performed By: #### 2 [id number], [id number], [id number], [id number], [id number], [id number], [id number], [id number], [id number] #### [facility] Laboratory [address] [place] [address] [employer] 024 Workers Comp Forms [id number] 4#1.00TIFF Normal [facility] Progress Noteson 08-09-2023 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 N/C per pt. Patient is accompanied by caregiver for today's appointment. Patient did not cooperate for any examination. It is best suited that this patient have full comprehensive examination, radiographs and treatment completed in the OR setting. Explained that the patient will be added to our OR waiting list, and the legal guardian will be contacted once a time slot becomes available. Legal Guardian: Brody and/or Altagracia Sandhu home;[phone] dad; [phone] 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 No seizures are noted. Upsets were likely related to her dental problems and associated discomfort. She has a later bedtime on some days (related to staffing) that may make her tired. These factors may be contributing to the behavioral change reported by her parents.. 1. No change in medication except consider using the fluoxetine 40 mg capsule to lessen pill number (unless there is a cost issue). 2. After her dental work, consider decreasing nighttime risperidone to 0.5 mg and seeing what happens. 3. See how the dental work and a normal sleep pattern impact her behaviors when home. 4. Follow up in 6 months.. Chief Complaint An interactive audio and video telecommunication system which permits real time communications between the patient (at the originating site) and provider (at the distant site) was utilized to provide this telehealth service. Verbal consent was requested and obtained for minor from Mother (parent/guardian) on this date, 06/07/2023 10:40 AM , for a telehealth visit. follow up office visit Accompanied by mother and [facility] staff. History of Present Illness [facility]. All issues as below were discussed and addressed but no physical exam was performed. If it was felt that the patient should be evaluated in clinic then they were directed there. The patient's mother verbally consented to the visit. Amena is a 33 year old young woman with seizures, cognitive impairment and anxiety. Affect and anxiety are stable. She is normally in a good mood. She is sensitive to commotion and change in the [facility] house and different/changing staff members. She is in a day program 2 days weekly (Sunday and Sunday). She eats and sleeps well. Parents are concerned about her behavior at home. She spends more time in her room (and may open/close the door) rather than with the family when she visits. She sits with the family at mealtime and plays with her toys (less play than in the past). Amena gets Colace and Senna for bowel function with improved function. She is seizure free. She takes bupropion 100 mg SR BID, Depakote sprinkles 3 BID (level 53.5 ugm/ml), Risperidone 1 mg qHS (lower dose with no change), and fluoxetine 40 mg daily. No medication side effects (with the exception of an increased appetite) are noted. Amena was in the hospital early 2021 due to a problem with her right leg and a diagnosis of rhabdomyolysis. She received IV fluids and medications. within a few days after discharge, she had a refusal to walk and was agitated. She was taken to [facility]. During this time, she was not sleeping at night and was more upset. She slept last Sunday night after receiving Ambien. Testing at [facility] was except an increased WBC count She was better after a fluid load. She was on cefdinir. Amena was admitted to [facility] due to worsening behavior (throw self down, aggression, hitting self). She had a tooth/dental abscess treated with antibiotics. She was readmitted to [facility] for worsening behavior and was found to have a fractured rib and tailbone. Behavior is better at this time. She has a scheduled dental surgery on June 27, 2023. Eber had a gastrointestinal illness in October 2022. Review of Systems A review of systems finds no pertinent positives. She gets Depo-Provera every 3 months. She gets loratadine, montelukast and fluticasone for respiratory issues. 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) Added by Problem List Migration; 2013-09-21 Epilepsy (345.90) (G40.909) Intellectual disability (319) (F79) Mood disorder (296.90) (F39) Past Medical History History of Development delay (783.40) (R62.50) History of Impulsive (799.23) (R45.87) Personal history of dysmenorrhea (V13.29) (Z87.42) History of Seizure (780.39) (R56.9) Family History Family history of mood disorder (V17.0) (Z81.8) Family history of Anxiety Social History Depo-Provera shot Lives in [facility] (V60.6) (Z59.3) Never smoker No alcohol use Allergies Demerol TABS Recorded By: Vanessa Castro; 01/06/2014 2:44:07 PM Current Meds Medication NameInstruction buPROPion HCl ER (SR) 100 MG Oral Tablet Extended Release 12 HourTAKE 1 TABLET TWICE DAILY. Chest Congestion Relief 400 MG Oral TabletTAKE ONE TABLET BY MOUTH TWICE A DAY NEEDED FOR CONGESTION OR COUGH [place] Calcium/Vitamin D 200-250 MG-UNIT TABSTAKE TWO TABLETS BY MOUTH 3 TIMES DAILY Divalproex Sodium 125 MG Oral Capsule (more content not included)... Normal [facility] abdomen pelvis w [facility] CT abdomen pelvis w [facility] [place] [address] [place] [address] CT Scan Report Signed Patient: Amena Sandhu MR#: [id number] : 1990 Acct:[id number] Age/Sex: 32 / F ADM Date: 03/29/23 Loc: ER Room: Type: [facility] ER Attending Dr: Copies to: MD Rocio Durbin APRN Ordering Provider: Rocio Emmanuel APRN Date of Service: 03/29/23 CT/CT abdomen pelvis w con: pain CT Abdomen and Pelvis withcontrast TECHNIQUE: Axial imaging with 2-D reconstruction.90 cc of Isovue-300. The CT exam was performed using one or more the following dose reduction techniques: Automated exposure control, adjustment of the MA and/or Kv according to patient size, or use of the iterative reconstruction technique. COMPARISON: None History: Chest again unremarkable. Agitated. UTI. Leukocytosis. LIMITATIONS: None LOWER THORAX tiny bilateral pleural effusions. Adjacent atelectasis. LIVER: Focal fatty infiltration near the falciform ligament. GALLBLADDER: No gallbladder abnormality identified. BILE DUCTS: No dilatation SPLEEN: Unremarkable PANCREAS: Unremarkable ADRENAL GLANDS: Unremarkable KIDNEYS:Unremarkable AORTA: No abdominal aortic aneurysm identified. RETROPERITONEUM: No significant retroperitoneal abnormalities identified. MESENTERY:Unremarkab le SMALL BOWEL: The small bowel loops are nondistended. APPENDIX: The appendix is normal. COLON: Unremarkable URINARY BLADDER: Urinary bladder is unremarkable. REPRODUCTIVE SYSTEM: Reproductive structures are unremarkable. PNEUMOPERITONEUM: None PERITONEAL FLUID:None BONY STRUCTURES: Acute buckle fracture of the S3 vertebral body with small presacral hematoma. A tiny air bubbles posterior to the S3 vertebral body ABDOMINAL WALL: Unremarkable CT/CT abdomen pelvis w con IMPRESSION: Acute buckle fracture of S3 vertebral body with small presacral hematoma. Acute RIGHT 11th rib fracture. No basilar pneumothorax. Superficial contusion LEFT lateral thigh subcutaneous fat. Trace bilateral pleural effusions. Impression dictated by: Kei Jordan M.D.03/30/2023 8:37 AM Dictation Location: [place] [address] Transcribed By: [facility] 03/30/23 0837 Dictated By: Kei Jordan DO 03/30/23 0832 Signed By: 03/30/23 0837 Normal [facility] XR femur LT 2V*on 03-30-2023 XR femur LT 2V* [facility] [place] [address] [place] [address] XRay Report Signed Patient: Amena Sandhu MR#: [id number] : 1990 Acct:[id number] Age/Sex: 32 / F ADM Date: 03/29/23 Loc: ER Room: Type: [facility] ER Attending Dr: Copies to: Vanessa Munoz MD Ordering Provider: Vanessa Munoz MD Date of Service: 03/30/23 XR/XR femur LT 2V*: Psychiatric Symptoms 2 views LEFTfemur plain film COMPARISON: None HISTORY: LEFT anterior knee bruising. ACUTE FINDINGS: None DEGENERATIVE CHANGE: Unremarkable SOFT TISSUE FINDINGS: Lateral soft tissue swelling. JOINT EFFUSION: None POSTOP CHANGES: None BONE MINERALIZATION: Adequate XR/XR femur LT 2V* IMPRESSION: No acute bony findings. Impression dictated by: Kei Jordan M.D.03/30/2023 8:53 AM Dictation Location: [place] [address] Transcribed By: [facility] 03/30/23 0853 Dictated By: Kei Jordan DO 03/30/23 0852 Signed By: 03/30/23 0853 Normal [facility] Alanine aminotransferase [En zymatic activity/volume] in Serum or PlasmaOrdered By: Rocio Emmanuel on 03-29-2023 ALT [Catalytic activity/Vol] 28 U/L 7-52 [facility] Albumin [Mass/volume] in Ser um or Plasma by Bromocresol green (BCG) dye binding methoOrdered By: Rocio Emmanuel on 03-29-2023 Albumin BCG dye [Mass/Vol] 3.9 g/dL 3.5-5.7 [facility] Alkaline phosphatase [Enzyma tic activity/volume] in Serum or PlasmaOrdered By: Rocio Emmanuel on 03-29-2023 ALP [Catalytic activity/Vol] 47 U/L 34-104 [facility] Amphetamine Screen Ql (U)Ord ered By: Rocio Emmanuel on 03-29-2023 Amphetamines Ql (U) Negative Negative [facility] Aspartate aminotransferase [ Enzymatic activity/volume] in Serum or PlasmaOrdered By: Rocio Emmanuel on 03-29-2023 AST [Catalytic activity/Vol] 25 U/L 13-39 [facility] Automated erythrocytes count in urine sediment (number/area)Ordered By: Rocio Emmanuel on 03-29-2023 RBC Auto (Urine sed) [#/Area] 3-4 [HPF] 0-4 [facility] Automated leukocytes count i n urine sediment (number/area)Ordered By: Rocio Emmanuel on 03-29-2023 WBC Auto (Urine sed) [#/Area] 3-4 [HPF] 0-4 [facility] Band form neutrophils/100 WB C Manual cnt (Bld)Ordered By: Rocio Emmanuel on 03-29-2023 Band form neutrophils/100 WBC (Bld) 1 % 0-5 [facility] Barbiturates [Presence] in U rine by Screen methodOrdered By: Rocio Emmanuel on 03-29-2023 Barbiturates Screen Ql (U) Negative Negative [facility] Basophils Auto (Bld) [#/Vol] Ordered By: Rocio Emmanuel on 03-29-2023 Basophils (Bld) [#/Vol] N/A [facility] Basophils/100 WBC Auto (Bld) Ordered By: Rocio Emmanuel on 03-29-2023 Basophils/100 WBC (Bld) N/A [facility] Basophils/100 WBC Manual cnt (Bld)Ordered By: Rocio Emmanuel on 03-29-2023 Basophils/100 WBC (Bld) 0 % 0-2 [facility] Benzodiazepines Screen Ql (U )Ordered By: Rocio Emmanuel on 03-29-2023 Benzodiazepines Ql (U) Negative Negative [facility] Benzoylecgonine [Presence] i n Urine by Screen methodOrdered By: Rocio Emmanuel on 03-29-2023 Benzoylecgonine Screen Ql (U) Negative Negative [facility] Bilirubin Test strip Ql (U)O rdered By: Rocio Emmanuel on 03-29-2023 Bilirubin Ql (U) Negative Negative [facility] Bilirubin.total [Mass/volume ] in Serum or PlasmaOrdered By: Rocio Emmanuel on 03-29-2023 Bilirubin [Mass/Vol] 1.2 mg/dL 0.3-1.0 [facility] Calcium [Mass/volume] in Ser um or PlasmaOrdered By: Rocio Emmanuel on 03-29-2023 Calcium [Mass/Vol] 9.6 mg/dL 8.6-10.3 [facility] Cannabinoids [Presence] in U rine by Screen methodOrdered By: Rocio Emmanuel on 03-29-2023 Cannabinoids Screen Ql (U) Negative Negative [facility] Comment on above: These are unconfirme d results and should not be used for legal purposes. Drug Cut-Off Concentration: AMPH 1000 ng/mL ADRIA 200 ng/mL MARAH 200 ng/mL COCM 300 ng/mL OP 300 ng/mL PCP 25 ng/mL THC 20 ng/mL Carbon dioxide, total [Moles /volume] in Serum or PlasmaOrdered By: Rocio Emmanuel on 03-29-2023 CO2 [Moles/Vol] 27.9 mmol/L 21.0-31.0 [facility] Casts typing in urine sedime nt by light microscopyOrdered By: Rocio Emmanuel on 03-29-2023 Casts LM Nom (Urine sed) None seen [LPF] None Seen [facility] Chloride [Moles/volume] in S nayana or PlasmaOrdered By: Rocio Emmanuel on 03-29-2023 Chloride [Moles/Vol] 103 mmol/L 98-107 [facility] Color Auto (U)Ordered By: aCnde Emmanuel on 03-29-2023 Color (U) Dark yellow Yellow [facility] Comprehensive Metabolic Pane alexi 03-29-2023 Albumin [Mass/Vol] 3.9 g/dL Normal 3.5-5.7 [facility] Comment on above: Performed By: #### D IFF CBC, CMP, ETOH #### [facility] [address] [place] [address] [place] Albumin/Globulin [Mass ratio] 1.6 {ratio} Normal [facility] Comment on above: Performed By: #### D IFF CBC, CMP, ETOH #### [facility] [address] [place] [id number] [facility] ALP [Catalytic activity/Vol] 47 U/L Normal 34-104 [facility] Comment on above: Performed By: #### D IFF CBC, CMP, ETOH #### [facility] [address] [place] [address] [place] ALT [Catalytic activity/Vol] 28 U/L Normal 7-52 [facility] Comment on above: Performed By: #### D IFF CBC, CMP, ETOH #### [facility] [address] Anion gap [Moles/Vol] 13.0 mmol/L Normal 6.0-15.0 [facility] Comment on above: Performed By: #### D IFF CBC, CMP, ETOH #### [facility] [address] AST [Catalytic activity/Vol] 25 U/L Normal 13-39 [facility] Comment on above: Performed By: #### D IFF CBC, CMP, ETOH #### [facility] [address] Bilirubin [Mass/Vol] 1.2 mg/dL High 0.3-1.0 [facility] Comment on above: Performed By: #### D IFF CBC, CMP, ETOH #### [facility] [address] [place] [address] [place] Calcium [Mass/Vol] 9.6 mg/dL Normal 8.6-10.3 [facility] Comment on above: Performed By: #### D IFF CBC, CMP, ETOH #### [facility] [address] [place] [address] [place] Chloride [Moles/Vol] 103 mmol/L Normal 98-107 [facility] Comment on above: Performed By: #### D IFF CBC, CMP, ETOH #### [facility] [address] [place] [address] [place] CO2 [Moles/Vol] 27.9 mmol/L Normal 21.0-31.0 [facility] Comment on above: Performed By: #### D IFF CBC, CMP, ETOH #### [facility] [address] [place] [address] [place] Creatinine [Mass/Vol] 0.57 mg/dL Low 0.60-1.20 [facility] Comment on above: Performed By: #### D IFF CBC, CMP, ETOH #### [facility] [address] Creatinine Clr Calc Pharmacy 123.48 [facility] Comment on above: Result Comment: PERF ORMED BY: [place] [address] PATHOLOGIST ARMATURE REWINDER BRENDON KANG M.D. Performed By: #### D IFF CBC, CMP, ETOH #### [facility] [address] GFR/1.73 sq M.predicted MDRD (S/P/Bld) [Vol rate/Area] mL/min/{1.73_m2} [facility] Comment on above: Performed By: #### D IFF CBC, CMP, ETOH #### [facility] [address] Globulin (S) [Mass/Vol] 2.4 g/dL Normal [facility] Comment on above: Performed By: #### D IFF CBC, CMP, ETOH #### [address] Glucose [Mass/Vol] 112 mg/dL High 70-100 [facility] Comment on above: Result Comment: [place] Glucose Reference Range is dependent on time and content of last meal. Glucose of more than 200 mg/dL in a nonstressed, ambulatory subject supports the diagnosis of Diabetes Mellitus. ADA recommended reference range Performed By: #### D IFF CBC, CMP, ETOH #### [facility] [address] [place] [address] Potassium [Moles/Vol] 4.9 mmol/L Normal 3.5-5.1 [facility] Comment on above: Performed By: #### D IFF CBC, CMP, ETOH #### [facility] [address] Protein [Mass/Vol] 6.3 g/dL Low 6.4-8.9 [facility] Comment on above: Performed By: #### D IFF CBC, CMP, ETOH #### [facility] [address] [place] [address] Sodium [Moles/Vol] 139 mmol/L Normal 136-145 [facility] Comment on above: Performed By: #### D IFF CBC, CMP, ETOH #### [address] Urea nitrogen [Mass/Vol] 9 mg/dL Normal 7-25 [facility] Comment on above: Performed By: #### D IFF CBC, CMP, ETOH #### [address] Creatine Kinaseon 03-29-2023 CK [Catalytic activity/Vol] 528 U/L High 30 [facility] Comment on above: Result Comment: PERF ORMED BY: [place] [address] PATHOLOGIST ARMATURE REWINDER BRENDON KANG M.D. Performed By: #### C K #### [address] Creatine kinase [Enzymatic a ctivity/volume] in Serum or PlasmaOrdered By: Rocio Emmanuel on 03-29-2023 CK [Catalytic activity/Vol] 528 U/L [facility] Creatinine [Mass/volume] in Serum or PlasmaOrdered By: Rocio Emmanuel on 03-29-2023 Creatinine [Mass/Vol] 0.57 mg/dL 0.60-1.20 [facility] Diff and CBCon 03-29-2023 Band form neutrophils/100 WBC (Bld) 1 % Normal 0-5 [facility] Comment on above: Performed By: #### D IFF CBC, CMP, ETOH #### [facility] [address] [place] [address] [place] Basophils/100 WBC (Bld) 0 % Normal 0-2 [facility] Comment on above: Performed By: #### D IFF CBC, CMP, ETOH #### [facility] [address] [place] [address] [place] Eosinophils/100 WBC (Bld) 1 % Normal 1-3 [facility] Comment on above: Performed By: #### D IFF CBC, CMP, ETOH #### [facility] [address] [place] [address] Erythrocyte distribution width (RBC) [Ratio] 13.2 % Normal 11.9-15.3 [facility] Comment on above: Performed By: #### D IFF CBC, CMP, ETOH #### [address] Hematocrit (Bld) [Volume fraction] 31.5 % Low 34.0-46.4 [facility] Comment on above: Performed By: #### D IFF CBC, CMP, ETOH #### [address] Hemoglobin (Bld) [Mass/Vol] 10.4 g/dL Low 11.8-15.4 [facility] Comment on above: Performed By: #### D IFF CBC, CMP, ETOH #### [address] Lymphocytes/100 WBC (Bld) 25 % Normal 18-42 [facility] Comment on above: Performed By: #### D IFF CBC, CMP, ETOH #### [address] MCH (RBC) [Entitic mass] 28.9 pg Normal 24.7-34.3 [facility] Comment on above: Performed By: #### D IFF CBC, CMP, ETOH #### [address] MCV (RBC) [Entitic vol] 87.2 fL Normal 80-100 [facility] Comment on above: Performed By: #### D IFF CBC, CMP, ETOH #### [address] Mean Corpuscular HGB Conc 33.1 g/dL Normal 32.0-35.0 [facility] Comment on above: Performed By: #### D IFF CBC, CMP, ETOH #### [address] Metamyelocytes 1 % High 0-0 [facility] Comment on above: Performed By: #### D IFF CBC, CMP, ETOH #### [facility] [address] [place] [address] [place] Monocytes/100 WBC (Bld) 7 % Normal 2-11 [facility] Comment on above: Performed By: #### D IFF CBC, CMP, ETOH #### [facility] [address] Myelocytes 1 % High 0-0 [facility] Comment on above: Performed By: #### D IFF CBC, CMP, ETOH #### [facility] [address] Platelet Estimate Increased Normal Normal [facility] Comment on above: Performed By: #### D IFF CBC, CMP, ETOH #### [facility] [address] Platelet mean volume (Bld) [Entitic vol] 6.8 fL Normal 6.3-10.7 [facility] Comment on above: Performed By: #### D IFF CBC, CMP, ETOH #### [address] Platelet Morphology Normal Normal Normal [facility] Comment on above: Result Comment: PERF ORMED BY: [place] [address] PATHOLOGIST ARMATURE REWINDER BRENDON KANG M.D. Performed By: #### D IFF CBC, CMP, ETOH #### [facility] [address] [place] [address] [place] Platelets (Bld) [#/Vol] 525 10*3/uL High 150-450 [facility] Comment on above: Performed By: #### D IFF CBC, CMP, ETOH #### [facility] [address] [place] [address] [place] Polychromasia Slight Normal [facility] Comment on above: Performed By: #### D IFF CBC, CMP, ETOH #### [facility] [address] [place] [address] [place] Promyelocytes 1 % High 0-0 [facility] Comment on above: Performed By: #### D IFF CBC, CMP, ETOH #### [facility] [address] RBC (Bld) [#/Vol] 3.61 10*6/uL Normal 3.60-5.00 [facility] Comment on above: Performed By: #### D IFF CBC, CMP, ETOH #### [facility] [address] [place] [address] Segmented neutrophils/100 WBC (Bld) 63 % Normal 50-70 [facility] Comment on above: Performed By: #### D IFF CBC, CMP, ETOH #### [address] Stomatocytes Slight Normal [facility] Comment on above: Performed By: #### D IFF CBC, CMP, ETOH #### [address] WBC (Bld) [#/Vol] 16.8 10*3/uL High 3.8-11.6 [facility] Comment on above: Performed By: #### D IFF CBC, CMP, ETOH #### [address] Dipstick and Microscopicon 0 03-29-2023 Appearance (U) Clear Normal Clear [facility] Comment on above: Order Comment: Name Collection Type:: Clean-Voided Midstream Performed By: #### U HCG, URDS, ADDONUAPLUS #### [address] Bacteria,Urine None Seen Normal None Seen [facility] Comment on above: Order Comment: Name Collection Type:: Clean-Voided Midstream Performed By: #### U HCG, URDS, ADDONUAPLUS #### [address] Bilirubin,Urine Negative Normal Negative [facility] Comment on above: Order Comment: Name Collection Type:: Clean-Voided Midstream Performed By: #### U HCG, URDS, ADDONUAPLUS #### [address] [place] [address] [place] Color (U) Dark Yellow Critically abnormal Yellow [facility] Comment on above: Order Comment: Name Collection Type:: Clean-Voided Midstream Performed By: #### U HCG, URDS, ADDONUAPLUS #### [facility] [address] [place] [address] Glucose Ql (U) Normal Normal Normal [facility] Comment on above: Order Comment: Name Collection Type:: Clean-Voided Midstream Performed By: #### U HCG, URDS, ADDONUAPLUS #### [address] Hyaline Casts,Urine 1-2 Normal 0-8 [facility] Comment on above: Order Comment: Name Collection Type:: Clean-Voided Midstream Performed By: #### U HCG, URDS, ADDONUAPLUS #### [facility] [address] [place] [address] Ketones Ql (U) Trace High Negative [facility] Comment on above: Order Comment: Name Collection Type:: Clean-Voided Midstream Performed By: #### U HCG, URDS, ADDONUAPLUS #### [facility] [address] [place] [address] Leukocyte esterase Test strip Ql (U) 1+ High Negative [facility] Comment on above: Order Comment: Name Collection Type:: Clean-Voided Midstream Performed By: #### U HCG, URDS, ADDONUAPLUS #### [facility] [address] [place] [address] [place] Nitrite,Urine Negative Normal Negative [facility] Comment on above: Order Comment: Name Collection Type:: Clean-Voided Midstream Performed By: #### U HCG, URDS, ADDONUAPLUS #### [facility] [address] [place] [address] Occult Blood,Urine Negative Normal Negative [facility] Comment on above: Order Comment: Name Collection Type:: Clean-Voided Midstream Performed By: #### U HCG, URDS, ADDONUAPLUS #### [address] Other Casts,Urine None Seen Normal None Seen [facility] Comment on above: Order Comment: Name Collection Type:: Clean-Voided Midstream Performed By: #### U HCG, URDS, ADDONUAPLUS #### [address] pH (U) 6.5 [pH] Normal 5.0-9.0 [facility] Comment on above: Order Comment: Name Collection Type:: Clean-Voided Midstream Performed By: #### U HCG, URDS, ADDONUAPLUS #### [address] Protein,Urine Trace High Negative [facility] Comment on above: Order Comment: Name Collection Type:: Clean-Voided Midstream Performed By: #### U HCG, URDS, ADDONUAPLUS #### [address] RBC,Urine 3-4 Normal 0-4 [facility] Comment on above: Order Comment: Name Collection Type:: Clean-Voided Midstream Performed By: #### U HCG, URDS, ADDONUAPLUS #### [address] Specificy Viola,Urine 1.028 Normal 1.001-1.030 [facility] Comment on above: Order Comment: Name Collection Type:: Clean-Voided Midstream Performed By: #### U HCG, URDS, ADDONUAPLUS #### [address] Squamous Epithelial Cell,Urine 3-4 High 0-2 [facility] Comment on above: Order Comment: Name Collection Type:: Clean-Voided Midstream Performed By: #### U HCG, URDS, ADDONUAPLUS #### [address] Urobilinogen,Urine Normal Normal Normal [facility] Comment on above: Order Comment: Name Collection Type:: Clean-Voided Midstream Performed By: #### U HCG, URDS, ADDONUAPLUS #### [facility] [address] [place] [address] WBC,Urine 3-4 Normal 0-4 [facility] Comment on above: Order Comment: Name Collection Type:: Clean-Voided Midstream Performed By: #### U HCG, URDS, ADDONUAPLUS #### [address] Drug Screen,Urineon 03-29-20 Amphetamine Screen,Urine Negative Normal Negative [facility] Comment on above: Performed By: #### U HCG, URDS, ADDONUAPLUS #### [address] Barbiturate Screen,Urine Negative Normal Negative [facility] Comment on above: Performed By: #### U HCG, URDS, ADDONUAPLUS #### [address] Benzodiazepines Screen,Urine Negative Normal Negative [facility] Comment on above: Performed By: #### U HCG, URDS, ADDONUAPLUS #### [address] Cannabinoid Screen,Urine Negative Normal Negative [facility] Comment on above: Result Comment: Thes e are unconfirmed results and should not be used for legal purposes. Drug Cut-Off Concentration: AMPH 1000 ng/mL ADRIA 200 ng/mL MARAH 200 ng/mL COCM 300 ng/mL OP 300 ng/mL PCP 25 ng/mL THC 20 ng/mL PERFORMED BY: [place] [address] PATHOLOGIST ARMATURE REWINDER BRENDON KANG M.D. Performed By: #### U HCG, URDS, ADDONUAPLUS #### [address] Cocaine Screen,Urine Negative Normal Negative [facility] Comment on above: Performed By: #### U HCG, URDS, ADDONUAPLUS #### [address] Opiate Screen,Urine Negative Normal Negative [facility] Comment on above: Performed By: #### U HCG, URDS, ADDONUAPLUS #### [facility] [address] Phencyclidine Screen,Urine Negative Normal Negative [facility] Comment on above: Performed By: #### U HCG, URDS, ADDONUAPLUS #### [facility] [address] Eosinophils Auto (Bld) [#/Vo l]Ordered By: Rocio Emmanuel on 03-29-2023 Eosinophils (Bld) [#/Vol] N/A [facility] Eosinophils/100 WBC Auto (Bl d)Ordered By: Rocio Emmanuel on 03-29-2023 Eosinophils/100 WBC (Bld) N/A [facility] Eosinophils/100 WBC Manual c nt (Bld)Ordered By: Rocio Emmanuel on 03-29-2023 Eosinophils/100 WBC (Bld) 1 % 1-3 [facility] Erythrocyte distribution wid th Auto (RBC) [Ratio]Ordered By: Rocio Emmanuel on 03-29-2023 Erythrocyte distribution width (RBC) [Ratio] 13.2 % 11.9-15.3 [facility] Ethanol [Mass/volume] in Ser um or PlasmaOrdered By: Rocio Emmanuel on 03-29-2023 Ethanol [Mass/Vol] mg/dL [facility] Ethanol [Mass/Vol] TNP [facility] Comment on above: Test not performed Ethyl Alcohol Profileon Ethanol [Mass/Vol] mg/dL Normal [facility] Comment on above: Performed By: #### D IFF CBC, CMP, ETOH #### [facility] [address] Percent Ethanol Not performed Normal [facility] Comment on above: Result Comment: PERF ORMED BY: [place] [address] PATHOLOGIST ARMATURE REWINDER BRENDON KANG M.D. Performed By: #### D IFF CBC, CMP, ETOH #### [facility] [address] [place] [address] Globulin Calc (S) [Mass/Vol] Ordered By: Rocio Emmanuel on 03-29-2023 Globulin (S) [Mass/Vol] 2.4 g/dL [facility] Glucose [Mass/volume] in Ser um or PlasmaOrdered By: Rocio Emmanuel on 03-29-2023 Glucose [Mass/Vol] 112 mg/dL 70-100 [facility] Comment on above: ADA recommended refe rence rangeRandom Glucose Reference Range is dependent on time and content of last meal. Glucose of more than 200 mg/dL in a nonstressed, ambulatory subject supports the diagnosis of Diabetes Mellitus. HCG ( test) IA.rapi d Ql (U)Ordered By: Rocio Emmanuel on 03-29-2023 HCG ( test) Ql (U) Negative [facility] HCG,Urineon 03-29-2023 Beta HCG ( test) Ql (U) Negative Normal [facility] Comment on above: Order Comment: Name Collection Type:: Clean-Voided Midstream Result Comment: PERF ORMED BY: [place] [address] PATHOLOGIST ARMATURE REWINDER BRENDON KANG M.D. Performed By: #### U HCG, URDS, ADDONUAPLUS #### [address] Hematocrit Auto (Bld) [Volum e fraction]Ordered By: Rocio Emmanuel on 03-29-2023 Hematocrit (Bld) [Volume fraction] 31.5 % 34.0-46.4 [facility] Hemoglobin [Mass/volume] in BloodOrdered By: Rocio Emmanuel on 03-29-2023 Hemoglobin (Bld) [Mass/Vol] 10.4 g/dL 11.8-15.4 [facility] Ketones Auto test strip (U) [Mass/Vol]Ordered By: Rocio Emmanuel on 03-29-2023 Ketones (U) [Mass/Vol] Trace Negative Fi [facility] - UrinalysisOrder ed By: Rocio Emmanuel on 03-29-2023 Hyaline casts LM Ql (Urine sed) 1-2 [LPF] 0-8 [facility] Leukocytes [#/volume] correc leanna for nucleated erythrocytes in Blood by Automated counOrdered By: Rocio Emmanuel on 03-29-2023 WBC corrected for nucl RBC Auto (Bld) [#/Vol] 16.8 10*3/uL 3.8-11.6 [facility] Lymphocytes Auto (Bld) [#/Vo l]Ordered By: Rocio Emmanuel on 03-29-2023 Lymphocytes (Bld) [#/Vol] N/A [facility] Lymphocytes/100 WBC Auto (Bl d)Ordered By: Rocio Emmanuel on 03-29-2023 Lymphocytes/100 WBC (Bld) N/A [facility] Lymphocytes/100 WBC Manual c nt (Bld)Ordered By: Rocio Emmanuel on 03-29-2023 Lymphocytes/100 WBC (Bld) 25 % 18-42 [facility] MCH Auto (RBC) [Entitic mass ]Ordered By: Rocio Emmanuel on 03-29-2023 MCH (RBC) [Entitic mass] 28.9 pg 24.7-34.3 [facility] MCHC Auto (RBC) [Mass/Vol]Or dered By: Rocio Emmanuel on 03-29-2023 MCHC (RBC) [Mass/Vol] 33.1 g/dL 32.0-35.0 [facility] MCV Auto (RBC) [Entitic vol] Ordered By: Rocio Emmanuel on 03-29-2023 MCV (RBC) [Entitic vol] 87.2 fL 80-100 [facility] Metamyelocytes/100 WBC Manua l cnt (Bld)Ordered By: Rocio Emmanuel on 03-29-2023 Metamyelocytes/100 WBC (Bld) 1 % 0-0 [facility] Monocytes Auto (Bld) [#/Vol] Ordered By: Rocio Emmanuel on 03-29-2023 Monocytes (Bld) [#/Vol] N/A [facility] Monocytes/100 WBC Auto (Bld) Ordered By: Rocio Emmanuel on 03-29-2023 Monocytes/100 WBC (Bld) N/A [facility] Monocytes/100 WBC Manual cnt (Bld)Ordered By: Rocio Emmanuel on 03-29-2023 Monocytes/100 WBC (Bld) 7 % 2-11 [facility] Myelocytes/100 WBC Manual cn t (Bld)Ordered By: Rocio Emmanuel on 03-29-2023 Myelocytes/100 WBC (Bld) 1 % 0-0 [facility] Neutrophils Auto (Bld) [#/Vo l]Ordered By: Rocio Emmanuel on 03-29-2023 Neutrophils (Bld) [#/Vol] N/A [facility] Neutrophils/100 WBC Auto (Bl d)Ordered By: Rocio Emmanuel on 03-29-2023 Neutrophils/100 WBC (Bld) N/A [facility] Nitrite Test strip Ql (U)Ord ered By: Rocio Emmanuel on 03-29-2023 Nitrite Ql (U) Negative Negative [facility] No Panel InformationOrdered By: Rocio Emmanuel on 03-29-2023 Estimated GFR (CKD-EPI) > 60.0 mL/Min [facility] Creatinine Clearance (Chem 123.48 [facility] Nucleated erythrocytes [Pres ence] in Blood by Automated countOrdered By: Rocio Emmanuel on 03-29-2023 Nucleated RBC Auto Ql (Bld) N/A [facility] Opiates [Presence] in Urine by Screen methodOrdered By: Rocio Emmanuel on 03-29-2023 Opiates Screen Ql (U) Negative Negative [facility] Phencyclidine Screen Ql (U)O rdered By: Rocio Emmanuel on 03-29-2023 Phencyclidine Ql (U) Negative Negative [facility] Platelet adequacy [Presence] in Blood by Light microscopyOrdered By: Rocio Emmanuel on 03-29-2023 Platelets LM Ql (Bld) Increased Normal [facility] Platelet mean volume Auto (B ld) [Entitic vol]Ordered By: Rocio Emmanuel on 03-29-2023 Platelet mean volume (Bld) [Entitic vol] 6.8 fL 6.3-10.7 [facility] Platelet morphology finding [Identifier] in BloodOrdered By: Rocio Emmanuel on 03-29-2023 Platelet morphology finding Nom (Bld) Normal Normal [facility] Platelets Auto (Bld) [#/Vol] Ordered By: Rocio Emmanuel on 03-29-2023 Platelets (Bld) [#/Vol] 525 10*3/uL 150-450 [facility] Polychromasia [Presence] in Blood by Light microscopyOrdered By: Rocio Emmanuel on 03-29-2023 Polychromasia LM Ql (Bld) Slight [facility] Potassium [Moles/volume] in Serum or PlasmaOrdered By: Rocio Emmanuel on 03-29-2023 Potassium [Moles/Vol] 4.9 mmol/L 3.5-5.1 [facility] Promyelocytes/100 WBC Manual cnt (Bld)Ordered By: Rocio Emmanuel on 03-29-2023 Promyelocytes/100 WBC (Bld) 1 % 0-0 [facility] Protein Auto test strip (U) [Mass/Vol]Ordered By: Rocio Emmanuel on 03-29-2023 Protein (U) [Mass/Vol] Trace mg/dL Negative [facility] Protein [Mass/volume] in Ser um or PlasmaOrdered By: Rocio Emmanuel on 03-29-2023 Protein [Mass/Vol] 6.3 g/dL 6.4-8.9 [facility] RBC Auto (Bld) [#/Vol]Ordere d By: Rocio Emmanuel on 03-29-2023 RBC (Bld) [#/Vol] 3.61 10*6/uL 3.60-5.00 [facility] RBC morphologyOrdered By: Cande Emmanuel on 03-29-2023 RBC morphology finding Nom (Bld) N/A [facility] Red blood cell stomatocyte d etectionOrdered By: Rocio Emmanuel on 03-29-2023 Stomatocytes LM Ql (Bld) Slight [facility] Segmented neutrophils/100 WB C Manual cnt (Bld)Ordered By: Rocio Emmanuel on 03-29-2023 Segmented neutrophils/100 WBC (Bld) 63 % 50-70 [facility] Serum or plasma albumin/glob ulin mass ratioOrdered By: Rocio Emmanuel on 03-29-2023 Albumin/Globulin [Mass ratio] 1.6 {ratio} [facility] Serum or plasma anion gap de terminationOrdered By: Rocio Emmanuel on 03-29-2023 Anion gap [Moles/Vol] 13.0 mmol/L 6.0-15.0 [facility] Sodium [Moles/volume] in Ser um or PlasmaOrdered By: Rocio Emmanuel on 03-29-2023 Sodium [Moles/Vol] 139 mmol/L 136-145 [facility] Specific gravity Auto test s trip (U) [Rel density]Ordered By: Rocio Emmanuel on 03-29-2023 Specific gravity (U) [Rel density] 1.028 1.001-1.030 [facility] Squamous epithelial cells de tection in urine sediment by light microscopyOrdered By: Rocio Emmanuel on 03-29-2023 Epithelial cells.squamous LM Ql (Urine sed) 3-4 [HPF] 0-2 [facility] Urea nitrogen [Mass/volume] in Serum or PlasmaOrdered By: Rocio Emmanuel on 03-29-2023 Urea nitrogen [Mass/Vol] 9 mg/dL 7-25 [facility] Urine bacteria detection by automated methodOrdered By: Rocio Emmanuel on 03-29-2023 Bacteria Auto Ql (U) None seen None Seen [facility] Urine clarity by refractomet ry automatedOrdered By: Rocio Emmanuel on 03-29-2023 Clarity Refractometry automated (U) Clear Clear [facility] Urine glucose measurement by automated test strip (mass/volume)Ordered By: Rocio Emmanuel on 03-29-2023 Glucose Auto test strip (U) [Mass/Vol] Normal mg/dL Normal [facility] Urine hemoglobin detection b y automated test stripOrdered By: Rocio Emmanuel on 03-29-2023 Hemoglobin Auto test strip Ql (U) Negative Negative [facility] Urine leukocyte esterase det ection by automated test stripOrdered By: Rocio Emmanuel on 03-29-2023 Leukocyte esterase Auto test strip Ql (U) 1+ Negative [facility] Urobilinogen Auto test strip (U) [Mass/Vol]Ordered By: Rocio Emmanuel on 03-29-2023 Urobilinogen (U) [Mass/Vol] Normal mg/dL Normal [facility] WBC Auto (Bld) [#/Vol]Ordere d By: Rocio Emmanuel on 03-29-2023 WBC (Bld) [#/Vol] 16.8 10*3/uL 3.8-11.6 [facility] pH Auto test strip (U)Ordere d By: Rocio Emmanuel on 03-29-2023 pH (U) 6.5 [pH] 5.0-9.0 [facility] US THYROIDon 02-13-2023 US THYROID EXAMINATION: US THYROID HISTORY: Goiter COMPARISON: Ultrasound thyroid 02/02/2022 FINDINGS: RIGHT LOBE: Colloid cyst within mid body, 1.5 x 1.3 x 1.0 cm in size; otherwise normal size and echotexture. Lobe size: 4.3 x 2.3 x 1.4 cm LEFT LOBE: Normal size and echotexture. Lobe size: 4.2 x 1.5 x 0.9 cm ISTHMUS: Absent. Thickness: IMPRESSION: 1. Normal thyroid size and echotexture. No suspicious nodules. 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 No seizures are noted. Constipation is better controlled. Upsets can focus on getting food. 1. Consider decreasing risperidone to 0.5 mg in the morning and 1 mg at night. See how she does for 1 month. If stable, then stop the morning dose and keep her on 1 mg at night. If worse, resume the old dose. 2. No change in other medications. 3. For gynecological exams, she may need lorazepam 2 mg. 4. Follow up in 6 months.. Chief Complaint follow up office visit Accompanied by mother and [facility] staff. History of Present Illness Amena is a 32 year old young woman with seizures, cognitive impairment and anxiety. Affect and anxiety are stable. She is normally in a good mood. She is sensitive to commotion in the house and different staff member. She is in a day program 2 days weekly (Sunday and Sunday). Upsets/SIB rarely occur. She eats and sleeps well. She likes to eat. Amena gets Colace and Senna for bowel function with improved function. She is seizure free. She takes bupropion 100 mg SR BID, Depakote sprinkles 3 BID (level 53.5 ugm/ml), Risperidone 0.5-0.5-1 mg, and fluoxetine 30 mg daily. No medication side effects (with the exception of an increased appetite) are noted. Amena was in the hospital early 2021 due to a problem with her right leg and a diagnosis of rhabdomyolysis. She received IV fluids and medications. within a few days after discharge, she had a refusal to walk and was agitated. She was taken to [facility]. During this time, she was not sleeping at night and was more upset. She slept last Sunday night after receiving Ambien. Testing at [facility] was except an increased WBC count She was better after a fluid load. She was on cefdinir. Eber had a gastrointestinal illness in October 2022. Review of Systems A review of systems finds no pertinent positives. She gets Depo-Provera every 3 months. She gets loratadine, montelukast and fluticasone for respiratory issues. 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) Added by Problem List Migration; 2013-09-21 Epilepsy (345.90) (G40.909) Intellectual disability (319) (F79) Mood disorder (296.90) (F39) Past Medical History History of Development delay (783.40) (R62.50) History of Impulsive (799.23) (R45.87) Personal history of dysmenorrhea (V13.29) (Z87.42) History of Seizure (780.39) (R56.9) Family History Family history of mood disorder (V17.0) (Z81.8) Family history of Anxiety Social History Depo-Provera shot Lives in [facility] (V60.6) (Z59.3) Never smoker No alcohol use Allergies Demerol TABS Recorded By: Vanessa Castro; 01/06/2014 2:44:07 PM Current Meds Medication NameInstruction buPROPion HCl ER (SR) 100 MG Oral Tablet Extended Release 12 HourTAKE 1 TABLET TWICE DAILY. Chest Congestion Relief 400 MG Oral TabletTAKE ONE TABLET BY MOUTH TWICE A DAY NEEDED FOR CONGESTION OR COUGH [place]on Calcium/Vitamin D 200-250 MG-UNIT TABSTAKE TWO TABLETS BY MOUTH 3 TIMES DAILY Divalproex Sodium 125 MG Oral Capsule Delayed Release SprinkleTAKE 3 CAPSULES BY MOUTH TWICE A DAY DEPAKOTE FLUoxetine HCl - 20 MG Oral CapsuleTAKE 2 CAPSULE Daily Fluticasone Propionate 50 MCG/ACT Nasal SuspensionINSTILL 2 SPRAYS INTO EACH NOSTRIL ONCE DAILY FOR 2 WEEKS Loratadine 10 MG Oral TabletTAKE ONE TABLET BY MOUTH ONCE DAILY medroxyPROGESTERone Acetate 150 MG/ML Intramuscular Suspension Prefilled SyringeINJECT 1ML INTRAMUSCULARLY EVERY 3 MONTHS MedroxyPROGESTERone Acetate 150 MG/ML Intramuscular Suspension Montelukast Sodium 10 MG Oral Tablet Prolia 60 MG/ML Subcutaneous Solution Prefilled SyringeINJECT SUBCUTANEOUSLY EVERY 6 MONTHS risperiDONE 0.5 MG Oral TabletTAKE ONE TABLET BY MOUTH AT 8AM AND ONE TABLET AT 4PM RISPERDAL risperiDONE 1 MG Oral TabletTAKE 1 TABLET 3 times daily Senna Lax TABS Vitamin D3 50 MCG (1999) Oral Tablet Vitals Vital Signs Recorded: 30Nov2022 10:00AM Height5 ft 3 in Pkjbim564 lb 5.02 oz BMI Pzgyuzhacm07.03 kg/m2 BSA Calculated1.67 Tobacco Usec) Screening not indicated Falls Screening (Age 18+)a) No falls within the last year Physical Exam Awake and alert Eats snacks (looks for the food) Moves well FROM Lets me examine her Signatures Electronically signed by : Cruz Adler MD; Dec 01 2022 9:47AM EST (Author) Normal [employer] CBC AUTO DIFFon 10-04-2022 BASO # 0.0 103/ul Normal 0.0-0.1 [facility] Comment on above: Performed By: #### C BC ####[facility] [address] [place] [address]Dr. Jonathan Garcia Basophils/100 WBC (Bld) 0.4 % Normal 0.2-2.0 [facility] Comment on above: Performed By: #### C BC ####[facility] [address] [place], [place] [address]Dr. Jonathan Garcia EO # 0.1 103/ul Normal 0.0-0.7 [facility] Comment on above: Performed By: #### C BC ####[facility] [address] [place], [place] [address]Dr. Jonathan Garcia Eosinophils/100 WBC (Bld) 1.2 % Normal 0.9-7.0 [facility] Comment on above: Performed By: #### C BC ####[facility] [address] [place], [place] [address]Dr. Jonathan Garcia Erythrocyte distribution width (RBC) [Ratio] 12.5 % Normal 11.0-15.0 [facility] Comment on above: Performed By: #### C BC ####[facility] [address] [place], [place] [address]Dr. Jonathan Garcai Hematocrit (Bld) [Volume fraction] 41.6 % Normal 36.0-48.0 [facility] Comment on above: Performed By: #### C BC ####[facility] [address] [place], [place] [address]Dr. Jonathan Garcia Hemoglobin (Bld) [Mass/Vol] 13.9 g/dL Normal 12.0-16.0 [facility] Comment on above: Performed By: #### C BC ####[facility] [address] [place] [id number]. Jonathan Garcia IG # 0.08 10e3/ul Critically high 0.00-0.03 [facility] Comment on above: Performed By: #### C BC ####[facility] [address] [place] [address]Dr. Jonathan Garcia IG % 0.9 % Critically high 0.0-0.5 [facility] Comment on above: Performed By: #### C BC ####[facility] [address] [place] [address]Dr. Jonathan Jose LYMPH # 3.1 103/ul Normal 1.2-3.8 [facility] Comment on above: Performed By: #### C BC ####[facility] [address] [place] [address]Dr. Jonathan Garcia Lymphocytes/100 WBC (Bld) 33.4 % Normal 20.5-60.0 [facility] Comment on above: Performed By: #### C BC ####[facility] [address] [place] [address]Dr. Shirleylamar Garcia MANUAL DIFF REQ NO Normal [facility] Comment on above: Performed By: #### C BC ####[facility] [address] [place] [address]Dr. Jonathan Garcia MCH (RBC) [Entitic mass] 28.9 pg Normal 26.7-34.0 [facility] Comment on above: Performed By: #### C BC ####[facility] [address] [place] [address]Dr. Jonathan Jose MCHC (RBC) [Mass/Vol] 33.4 g/dL Normal 29.9-35.2 [facility] Comment on above: Performed By: #### C BC ####[facility] [address] [place] [address]Dr. Jonathan Jose MCV (RBC) [Entitic vol] 86.5 fL Normal 81.0-99.0 [facility] Comment on above: Performed By: #### C BC ####[facility] [address] [place] [id number]. Jonathan Garcia MONO # 0.6 103/ul Normal 0.3-0.8 [facility] Comment on above: Performed By: #### C BC ####[facility] [address] [place] [id number]. Jonathan Garcia Monocytes/100 WBC (Bld) 5.9 % Normal 1.7-12.0 [facility] Comment on above: Performed By: #### C BC ####[facility] [address] [place] [id number]. Jonathan Garcia NEUT # 5.4 103/ul Normal 1.4-6.5 [facility] Comment on above: Performed By: #### C BC ####[facility] [address] [place], [place] [address]Dr. Jonathan Garcia Neutrophils/100 WBC (Bld) 58.2 % Normal 43.0-75.0 [facility] Comment on above: Performed By: #### C BC ####[facility] [address] [place] [id number]. Jonathan Garcia Platelet mean volume (Bld) [Entitic vol] 9.4 fL Critically low 9.5-13.5 [facility] Comment on above: Performed By: #### C BC ####[facility] [id number] [id number]. Jonathan Garcia PLT 327 103/ul Normal 150-450 [facility] Comment on above: Performed By: #### C BC ####[facility] [id number] [place], [place] [id number]. Jonathan Garcia RBC 4.81 106/ul Normal 4.20-5.40 [facility] Comment on above: Performed By: #### C BC ####[facility] [id number] [place], [place] [id number]. Jonathan Garcia WBC 9.3 103/ul Normal 4.0-11.0 [facility] Comment on above: Performed By: #### C BC ####[facility] [id number] [place], [place] [address]Dr. Jonathan Garcia DEPAKENE/ VALPROIC ACIDon DEPAKENE 55.8 ug/ml Normal 50.0-100.0 [facility] Comment on above: Performed By: #### C MP, VALP #### [facility] [address] [place] [address] Dr. Jonathan Garcia PROF 14(COMP METB)on 023 Albumin [Mass/Vol] 3.6 g/dL Normal 3.4-5.0 [facility] Comment on above: Performed By: #### C MP, VALP #### [facility] [address] [address] [address] Jonathan Garcia Albumin/Globulin [Mass ratio] 1.0 {ratio} Normal [facility] Comment on above: Performed By: #### C ZOEY, VALP #### [facility] [address] [place] [address] Dr. Jonathan Garcia ALP [Catalytic activity/Vol] 50 U/L Normal 46-116 [facility] Comment on above: Performed By: #### C MP, VALP #### [facility] [address] [address] [address] Jonathan Garcia ALT [Catalytic activity/Vol] 11 U/L Critically low 14-59 [facility] Comment on above: Performed By: #### C ZOEY, VALP #### [facility] [address] [address] [address] Jonathan Garcia Anion gap [Moles/Vol] 10.5 mmol/L Normal [facility] Comment on above: Performed By: #### C MP, VALP #### [facility] [address] [address] [address] Jonathan Garcia AST [Catalytic activity/Vol] 10 U/L Critically low 15-37 [facility] Comment on above: Performed By: #### C MP, VALP #### [facility] [address] [place] [address] Dr. Jonathan Garcia Bilirubin [Mass/Vol] 0.5 mg/dL Normal 0.2-1.0 [facility] Comment on above: Performed By: #### C MP, VALP #### [facility] [address] [address] [address] Jonathan Garcia Calcium [Mass/Vol] 9.1 mg/dL Normal 8.5-10.1 [facility] Comment on above: Performed By: #### C MP, VALP #### [facility] [address] [place] [address] Dr. Jonathan Garcia Chloride [Moles/Vol] 102 mmol/L Normal 98-107 [facility] Comment on above: Performed By: #### C MP, VALP #### [facility] [address] [place] [address] Dr. Jonathan Garcia CO2 [Moles/Vol] 30.7 mmol/L Normal 21.0-32.0 [facility] Comment on above: Performed By: #### C MP, VALP #### [facility] [address] [place] [address] Dr. Jonathan Garcia Creatinine [Mass/Vol] 0.72 mg/dL Normal 0.55-1.02 [facility] Comment on above: Performed By: #### C MP, VALP #### [facility] [address] [place] [address] Dr. Jonathan Garcia EGFR-AF GERMAN >60 Normal >=60 [facility] Comment on above: Performed By: #### C MP, VALP #### [facility] [address] [place] [address] Dr. Jonathan Garcia EGFR-NON AF GERMAN >60 Normal >=60 [facility] Comment on above: Performed By: #### C MP, VALP #### [facility] [address] [place] [address] Dr. Jonathan Garcia Globulin (S) [Mass/Vol] 3.6 g/dL Normal T [facility] Comment on above: Performed By: #### C MP, VALP #### [facility] [address] [place] [address] Dr. Jonathan Garcia Glucose [Mass/Vol] 102 mg/dL Normal 74-106 [facility] Comment on above: Performed By: #### C MP, VALP #### [facility] [address] [address] [address] Jonathan Garcia Potassium [Moles/Vol] 4.2 mmol/L Normal 3.5-5.1 [facility] Comment on above: Performed By: #### C MP, VALP #### [facility] [address] [address] [address] Jonathan Garcia Protein [Mass/Vol] 7.2 g/dL Normal 6.4-8.2 [facility] Comment on above: Performed By: #### C MP, VALP #### [facility] [address] [address] [address] Jonathan Garcia Sodium [Moles/Vol] 139 mmol/L Normal 136-145 [facility] Comment on above: Performed By: #### C MP, VALP #### [facility] [address] [place] [address] Dr. Jonathan Garcia Urea nitrogen [Mass/Vol] 8.0 mg/dL Normal 7.0-18.0 [facility] Comment on above: Performed By: #### C MP, VALP #### [facility] [address] [address] [address] Jonathan Garcia Urea nitrogen/Creatinine [Mass ratio] 11.1 mg/mg Normal [facility] Comment on above: Performed By: #### C MP, VALP #### [facility] [address] [place] [address] Dr. Jonathan Garcia VITAMIN D 25 OHon 10-04-2022 VIT D 25-OH 42.3 ng/mL Normal [facility] Comment on above: Performed By: #### V ITAD ####[facility] [id number] [address]Dr. Jonathan Garcia VIT D RANGES SEE BELOW Normal [facility] Comment on above: Result Comment: <20 ng/mL Vit D deficient 20 - <30 ng/mL Vit D insufficient 30 - 100 ng/mL Vit D sufficient >100 ng/mL Potential Toxicity Performed By: #### V ITAD ####[facility] [id number] [address]Dr. Jonathan Garcia CBC AUTO DIFFon 08-29-2022 BASO # 0.0 103/ul Normal 0.0-0.1 [facility] Comment on above: Performed By: #### C BC #### [facility] [address] [address] [address] Jonathan Garcia Basophils/100 WBC (Bld) 0.4 % Normal 0.2-2.0 [facility] Comment on above: Performed By: #### C BC #### [facility] [address] [address] [address] Jonathan Garcia EO # 0.1 103/ul Normal 0.0-0.7 [facility] Comment on above: Performed By: #### C BC #### [facility] [address] [address] [address] Jonathan Garcia Eosinophils/100 WBC (Bld) 1.0 % Normal 0.9-7.0 [facility] Comment on above: Performed By: #### C BC #### [facility] [address] [address] [address] Jonathan Garcia Erythrocyte distribution width (RBC) [Ratio] 12.6 % Normal 11.0-15.0 [facility] Comment on above: Performed By: #### C BC #### [facility] [address] [place] [address] Dr. Jonathan Garcia Hematocrit (Bld) [Volume fraction] 40.7 % Normal 36.0-48.0 [facility] Comment on above: Performed By: #### C BC #### [facility] [address] [address] [address] Jonathan Garcia Hemoglobin (Bld) [Mass/Vol] 13.6 g/dL Normal 12.0-16.0 [facility] Comment on above: Performed By: #### C BC #### [facility] [address] [address] [address] Jonathan Garcia IG # 0.08 10e3/ul Critically high 0.00-0.03 [facility] Comment on above: Performed By: #### C BC #### [facility] [address] [place] [address] Dr. Jonathan Garcia IG % 0.8 % Critically high 0.0-0.5 [facility] Comment on above: Performed By: #### C BC #### [facility] [address] [place] [address] Dr. Jonathan Garcia LYMPH # 3.7 103/ul Normal 1.2-3.8 [facility] Comment on above: Performed By: #### C BC #### [facility] [address] [place] [address] Dr. Jonathan Garcia Lymphocytes/100 WBC (Bld) 35.9 % Normal 20.5-60.0 [facility] Comment on above: Performed By: #### C BC #### [facility] [address] [place] [address] Dr. Jonathan Garcia MANUAL DIFF REQ NO Normal [facility] Comment on above: Performed By: #### C BC #### [facility] [address] [place] [address] Dr. Jonathan Garcia MCH (RBC) [Entitic mass] 29.1 pg Normal 26.7-34.0 [facility] Comment on above: Performed By: #### C BC #### [facility] [address] [place] [address] Dr. Jonathan Garcia MCHC (RBC) [Mass/Vol] 33.4 g/dL Normal 29.9-35.2 [facility] Comment on above: Performed By: #### C BC #### [facility] [address] [place] [address] Dr. Jonathan Garcia MCV (RBC) [Entitic vol] 87.0 fL Normal 81.0-99.0 [facility] Comment on above: Performed By: #### C BC #### [facility] [address] [place] [address] Dr. Jonathan Garcia MONO # 0.7 103/ul Normal 0.3-0.8 [facility] Comment on above: Performed By: #### C BC #### [facility] [address] [place] [address] Dr. Jonathan Garcia Monocytes/100 WBC (Bld) 6.3 % Normal 1.7-12.0 [facility] Comment on above: Performed By: #### C BC #### [facility] [address] [place] [address] Dr. Jonathan Garcia NEUT # 5.8 103/ul Normal 1.4-6.5 [facility] Comment on above: Performed By: #### C BC #### [facility] [address] [place] [address] Dr. Jonathan Garcia Neutrophils/100 WBC (Bld) 55.6 % Normal 43.0-75.0 [facility] Comment on above: Performed By: #### C BC #### [facility] [address] [place] [address] Dr. Jonathan Garcia Platelet mean volume (Bld) [Entitic vol] 9.4 fL Critically low 9.5-13.5 [facility] Comment on above: Performed By: #### C BC #### [facility] [address] [place] [address] Dr. Jonathan Garcia PLT 317 103/ul Normal 150-450 [facility] Comment on above: Performed By: #### C BC #### [facility] [address] [place] [address] Dr. Jonathan Garcia RBC 4.68 106/ul Normal 4.20-5.40 [facility] Comment on above: Performed By: #### C BC #### [facility] [address] [place] [address] Dr. Jonathan Garcia WBC 10.4 103/ul Normal 4.0-11.0 [facility] Comment on above: Performed By: #### C BC #### [facility] [address] [place] [address] Dr. Jonathan Garcia DEPAKENE/ VALPROIC ACIDon DEPAKENE 59.8 ug/ml Normal 50.0-100.0 [facility] Comment on above: Performed By: #### V ALP, CMP, TSH #### [facility] [address] [place] [address] Dr. Jonathan Garcia FREE T4on 08-29-2022 Free T4 [Mass/Vol] 0.72 ng/dL Critically low 0.76-1.46 Th e [facility] Comment on above: Performed By: #### F T4, VITAD #### [facility] [address] [address] [address] Jonathan Garcia PROF 14(COMP METB)on 022 Albumin [Mass/Vol] 3.6 g/dL Normal 3.4-5.0 [facility] Comment on above: Performed By: #### V ALP, CMP, TSH #### [facility] [address] [address] [address] Jonathan Garcia Albumin/Globulin [Mass ratio] 1.0 {ratio} Normal [facility] Comment on above: Performed By: #### V ALP, CMP, TSH #### [facility] [address] [address] [address] Jonathan Garcia ALP [Catalytic activity/Vol] 56 U/L Normal 46-116 [facility] Comment on above: Performed By: #### V ALP, CMP, TSH #### [facility] [address] [address] [address] Jonathan Garcia ALT [Catalytic activity/Vol] 12 U/L Critically low 14-59 [facility] Comment on above: Performed By: #### V ALP, CMP, TSH #### [facility] [address] [address] [address] Jonathan Garcia Anion gap [Moles/Vol] 7.9 mmol/L Normal [facility] Comment on above: Performed By: #### V ALP, CMP, TSH #### [facility] [address] [address] [address] Jonathan Garcia AST [Catalytic activity/Vol] 12 U/L Critically low 15-37 [facility] Comment on above: Performed By: #### V ALP, CMP, TSH #### [facility] [address] [address] [address] Jonathan Garcia Bilirubin [Mass/Vol] 0.3 mg/dL Normal 0.2-1.0 [facility] Comment on above: Performed By: #### V ALP, CMP, TSH #### [facility] [address] [address] [address] Jonathan Garcia Calcium [Mass/Vol] 9.0 mg/dL Normal 8.5-10.1 [facility] Comment on above: Performed By: #### V ALP, CMP, TSH #### [facility] [address] [address] [address] Jonathan Garcia Chloride [Moles/Vol] 102 mmol/L Normal 98-107 [facility] Comment on above: Performed By: #### V ALP, CMP, TSH #### [facility] [address] [place] [address] Dr. Jonathan Garcia CO2 [Moles/Vol] 32.1 mmol/L Critically high 21.0-32.0 [facility] Comment on above: Performed By: #### V ALP, CMP, TSH #### [facility] [address] [place] [address] Dr. Jonathan Garcia Creatinine [Mass/Vol] 0.77 mg/dL Normal 0.55-1.02 [facility] Comment on above: Performed By: #### V ALP, CMP, TSH #### [facility] [address] [place] [address] Dr. Jonathan Garcia EGFR-AF GERMAN >60 Normal >=60 [facility] Comment on above: Performed By: #### V ALP, CMP, TSH #### [facility] [address] [place] [address] Dr. Jonathan Garcia EGFR-NON AF GERMAN >60 Normal >=60 [facility] Comment on above: Performed By: #### V ALP, CMP, TSH #### [facility] [address] [address] [address] Jonathan Garcia Globulin (S) [Mass/Vol] 3.7 g/dL Normal T [facility] Comment on above: Performed By: #### V ALP, CMP, TSH #### [facility] [address] [address] [address] Jonathan Garcia Glucose [Mass/Vol] 99 mg/dL Normal 74-106 [facility] Comment on above: Performed By: #### V ALP, CMP, TSH #### [facility] [address] [place] [address] Dr. Jonathan Garcia Potassium [Moles/Vol] 4.0 mmol/L Normal 3.5-5.1 [facility] Comment on above: Performed By: #### V ALP, CMP, TSH #### [facility] [address] [place] [address] Dr. Jonathan Garcia Protein [Mass/Vol] 7.3 g/dL Normal 6.4-8.2 [facility] Comment on above: Performed By: #### V ALP, CMP, TSH #### [facility] [address] [place] [address] Dr. Jonathan Garcia Sodium [Moles/Vol] 138 mmol/L Normal 136-145 [facility] Comment on above: Performed By: #### V ALP, CMP, TSH #### [facility] [address] [place] [address] Dr. Jonathan Garcia Urea nitrogen [Mass/Vol] 4.0 mg/dL Critically low 7.0-18.0 [facility] Comment on above: Performed By: #### V ALP, CMP, TSH #### [facility] [address] [place] [address] Dr. Jonathan Garcia Urea nitrogen/Creatinine [Mass ratio] 5.2 mg/mg Normal [facility] Comment on above: Performed By: #### V ALP, CMP, TSH #### [facility] [address] [place] [address] Dr. Jonathan Garcia TSHon 08-29-2022 TSH 1.034 uIU/mL Normal 0.358-3.740 [facility] Comment on above: Performed By: #### V ALP, CMP, TSH #### [facility] [address] [place] [address] Dr. Jonathan Garcia VITAMIN D 25 OHon 08-29-2022 VIT D 25-OH 44.9 ng/mL Normal [facility] Comment on above: Performed By: #### F T4, VITAD #### [facility] [address] [place] [address] Dr. Jonathan Garcia VIT D RANGES SEE BELOW Normal [facility] Comment on above: Result Comment: <20 ng/mL Vit D deficient 20 - <30 ng/mL Vit D insufficient 30 - 100 ng/mL Vit D sufficient >100 ng/mL Potential Toxicity Performed By: #### F T4, VITAD #### [facility] [address] [place] [address] Dr. 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 Jonathan Garcia Clarity (U) CLEAR Normal CLEAR [facility] Comment on above: Performed By: #### U ACSIND #### [facility] [address] [place] [address] Dr. Jonathan Garcia Color (U) DK. YELLOW Normal YELLOW [facility] Comment on above: Performed By: #### U ACSIND #### [facility] [address] [place] [address] Dr. Jonathan Garcia Glucose Ql (U) Negative Normal NEGATIVE [facility] Comment on above: Performed By: #### U ACSIND #### [facility] [address] [place] [address] Dr. Jonathan Garcia Hemoglobin Ql (U) Negative Normal NEGATIVE [facility] Comment on above: Performed By: #### U ACSIND #### [facility] [address] [place] [address] Dr. Jonathan Garcia Ketones Ql (U) TRACE Abnormal NEGATIVE [facility] Comment on above: Performed By: #### U ACSIND #### [facility] [address] [place] [address] Dr. Jonathan Garcia LEUKOCYTES Negative Normal NEGATIVE [facility] Comment on above: Performed By: #### U ACSIND #### [facility] [address] [place] [address] Dr. Jonathan Garcia Nitrite Ql (U) Negative Normal NEGATIVE [facility] Comment on above: Performed By: #### U ACSIND #### [facility] [address] [address] [address] Jonathan Garcia pH (U) 7.0 [pH] Normal 5-9 [facility] Comment on above: Performed By: #### U ACSIND #### [facility] [address] [address] [address] Jonathan Garcia SPEC GRAVITY 1.020 Normal 1.005-<=1.02 5 [facility] Comment on above: Performed By: #### U ACSIND #### [facility] [address] [address] [address] Jonathan Garcia UA PROTEIN Negative Normal NEGATIVE/ TRACE [facility] Comment on above: Performed By: #### U ACSIND #### [facility] [address] [place] [address] Dr. Jonathan Garcia UR MICRO IND NOT INDICATED Normal [facility] Comment on above: Performed By: #### U ACSIND #### [facility] [address] [address] [address] Jonathan Garcia Urobilinogen Qn (U) 0.2 {Christos'U}/dL Normal 0.2 - 1. 0 [facility] Comment on above: Performed By: #### U ACSIND #### [facility] [address] [place] [address] Dr. Jonathan Garcia Peds Gastroenterology - Paresh patrick 07-20-2022 Peds Gastroenterology - Established Diagnoses/Problems Assessed Constipation (564.00) (K59.00) Patient Discussion/Summary Amena Sandhu is a 32 year old young woman with seizures, cognitive impairment and anxiety. I am seeing her for the first time today, July 20, 2022 at the request of Dr. Cruz Adler for concerns of behavioral changes secondary to constipation. Today Cyndi seems to be doing very well with stooling and behavior; improved from her visit with Dr. Adler at the time of referral. For now, we discussed continued use of: Senna 8.8 mg twice a day. If no BM in three days (72 hours) please give an extra 1-2 dose of senna to prevent overfilling of the rectal vault If no BM n 5 days please give a Bisacodyl suppository. Please continue with regular toileting schedule. Please continue with daily fruits and vegetables. Daily exercise. Follow up as needed. Office phone [phone] Office fax [phone] Email [email or web address] Please note: After hours and planning division superintendent [phone] and ask for Pediatric Gastroenterology Fellow second class welder Office visit Scheduling [phone] Radiology Scheduling [phone] I am in clinic M, T, W and may not be able to return call until . Phone calls and email to our office are returned by one of our nurses within 48 business hours. Please call for prescription renewals when you have one week of medication remaining. Please call if you have trouble with insurance company coverage of any medications we prescribe. Reference Documentation See scanned note Fax from care facility. History of Present Illness Amena Sandhu is a 32 year old young woman with seizures, cognitive impairment and anxiety. I am seeing her for the first time today, July 20, 2022 at the request of Dr. Cruz Adler for concerns of behavioral changes secondary to constipation. This visit was completed via [employer]. The patient's mother verbally consented to and participated in the visit. Both parents, Cyndi, and the Caregivers from her Care Center were present for the visit. Her nursing caregiver states that overall, her stooling has improved since previous visit. Her behaviors have improved since previous visit - largely due to ability to get more exercise and interact with the community. Medication and stooling logs were faxed and reviewed. Current medication regimen includes Senna 8.8 m pills twice daily. PRN order for additional senna if no BM in 4 days. PRN order for bisacodyl suppository if no BM in 6 days. Currently passing stool 1-2 times per day in brief. Stool is soft and formed. No streaking in between BM. Will occasionally go for a streak of not passing stool for 2-3 days and then will pass stool. Rarely has to give additional senna. No stool softeners right now. Has used Colace in the past. Uses briefs to pass stool but is on a toileting schedule and will occasionally pass urine and stool in the toilet. No visible signs of withholding. No distress passing stool. Nutrition - Hungry all the time. Eats a fruits and vegetables. Has access to healthy vegetables most of the time. Weight is stable. Meals are carefully monitored for calories, nutrition, and safety. GI symptoms - denies nausea, vomiting, abdominal distension, and gassiness. Neuro - has history of seizures but has been doing well with medications. Sleeping well. Comfortable. Mobility - no issues. Communication - non verbal. Uses some signs. Has a sign for toileting but does not always use. Review of Systems Gastrointestinal: constipation, but as noted in HPI, no dysphagia, no odynophagia, no nausea, no vomiting, no hematemesis, no heartburn, no abdominal pain, no diarrhea, no soiling, no hematochezia and no melena . wears diapers (ongoing). Neurological: as noted in HPI. Psychiatric: as noted in HPI. 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) Added by Problem List Migration; 2013-09-21 Epilepsy (345.90) (G40.909) Intellectual disability (319) (F79) Mood disorder (296.90) (F39) Past Medical History Problems History of Development delay (783.40) (R62.50) History of Impulsive (799.23) (R45.87) Personal history of dysmenorrhea (V13.29) (Z87.42) History of Seizure (780.39) (R56.9) Family History Mother Family history of mood disorder (V17.0) (Z81.8) Sister Family history of Anxiety Social History Problems Depo-Provera shot Lives in [place] (V60.6) (Z59.3) Never smoker No alcohol use Allergies Medication Demerol TABS Recorded By: Vanessa Castro; 01/06/2014 2:44:07 PM Current Meds Medication NameInstruction buPROPion HCl ER (SR) 100 MG Oral Tablet Extended Release 12 HourTAKE 1 TABLET TWICE DAILY. Chest Congestion Relief 400 MG Oral TabletTAKE ONE TABLET BY MOUTH TWICE A DAY NEEDED FOR CONGESTION OR COUGH [place] Calcium/Vitamin (more content not included)... Normal [facility] COMPMETAon 10-21-2021 Albumin/Globulin [Mass ratio] 1.1 {ratio} Normal [facility] Comment on above: Performed By: #### 1 [id number], [id number], [id number] #### [facility] [address] [place] [address] Packing Machine Feeder: Rudy Posey MD GFR AA >60 Normal [facility] Comment on above: Result Comment: Afri can Malaysian GFR Calc Medical judgement is necessary to interpret GFR. The calculated GFR may not accurately reflect renal status in patients >70 years, women, acutely ill hospitalized patients and patients with acute renal failure or known renal disease. The MDRD GFR formula is valid only for adults greater than 18 years of age. Note: Creatinine clearance (not GFR) should be used for drug dosing. Performed By: #### 1 61055, 342329, 339493 #### [facility] [address] [place] [address]76 Packing Machine Feeder: Rudy Posey MD Glomerular Filtration Rate >60 Normal [facility] Comment on above: Result Comment: Non GFR Calc Medical judgement is necessary to interpret GFR. The calculated GFR may not accurately reflect renal status in patients >70 years, women, acutely ill hospitalized patients and patients with acute renal failure or known renal disease. The MDRD GFR formula is valid only for adults greater than 18 years of age. Note: Creatinine clearance (not GFR) should be used for drug dosing. Performed By: #### 1 33151, 570776, 305728 #### [facility] [address] [place] [address] Packing Machine Feeder: Rudy Posey MD Osmolality [Osmolality] 277 mosm/kg Normal 275-295 [facility] Comment on above: Performed By: #### 1 41501, 557205, [id number] #### [facility] [address] [place] [address] Packing Machine Feeder: Rudy Posey MD Urea nitrogen/Creatinine [Mass ratio] 15.9 mg/mg Normal [facility] Comment on above: Performed By: #### 1 10980, 434826, 115033 #### [facility] [address] [place] [address] 95792 Packing Machine Feeder: Rudy Posey MD Albumin [Mass/Vol] 3.6 g/dL Normal 3.4-5.0 [facility] Comment on above: Performed By: #### 1 87816, 656467, 167605 #### [facility] [address] [place] [address]45 Packing Machine Feeder: Rudy Posey MD Alk Phos 60 unit/L Normal 45-117 [facility] Comment on above: Performed By: #### 1 18792, 100598, 881733 #### [facility] [address] [place] [address]456 Packing Machine Feeder: Rudy Posey MD Bilirubin [Mass/Vol] 0.45 mg/dL Normal 0.20-1.00 [facility] Comment on above: Result Comment: Use of this assay is not recommended for patients undergoing treatment with eltrombopag due to the potential for falsely elevated results. Performed By: #### 1 31057, 923721, 280188 #### [facility] [address] [place] [address]19 Packing Machine Feeder: Rudy Posey MD Calcium [Mass/Vol] 9.3 mg/dL Normal 8.5-10.5 [facility] Comment on above: Performed By: #### 1 85737, 775022, 750824 #### [facility] [address] [place] [address] Packing Machine Feeder: Rudy Posey MD Chloride [Moles/Vol] 104 mmol/L Normal 100-109 [facility] Comment on above: Performed By: #### 1 37037, 585935, 410924 #### [facility] [address] [place] [address]15 Packing Machine Feeder: Rudy Posey MD CO2 [Moles/Vol] 28.6 mmol/L Normal 21.0-32.0 [facility] Comment on above: Performed By: #### 1 61503, 323347, 722121 #### [facility] [address] [place] [address]64 Packing Machine Feeder: Rudy Posey MD Creatinine [Mass/Vol] 0.7 mg/dL Normal 0.6-1.0 [facility] Comment on above: Performed By: #### 1 77488, 208070, 373617 #### [facility] [address] [place] [address] Packing Machine Feeder: Rudy Posey MD Globulin (S) [Mass/Vol] 3.2 g/dL Normal [facility] Comment on above: Performed By: #### 1 06806, 226884, 911689 #### [facility] [address] [place], [place] [id number] Packing Machine Feeder: Rudy Posey MD Glucose [Mass/Vol] 106 mg/dL High 72-100 [facility] Comment on above: Result Comment: Charlene puncture should occur prior to sulfasalazine administration due to the potential for falsely depressed results. Venipuncture should occur prior to sulfapyridine administration due to the potential falsely elevated results. Baseline assay values before administration of sulfasalazine and sulfapyridine therapy would not be affected. Performed By: #### 1 13105, 833179, 983530 #### [facility] [address] [place] [address] Packing Machine Feeder: Rudy Posey MD GOT 32 unit/L Normal 15-37 [facility] Comment on above: Result Comment: Charlene puncture should occur prior to sulfasalazine and/or sulfapyridine administration due to the potential for falsely depressed results. Baseline assay values before administration of sulfasalazine and sulfapyridine therapy would not be affected. Performed By: #### 1 55149, 742862, 817880 #### [facility] [address] [place] [address] Packing Machine Feeder: Rudy Posey MD GPT 95 unit/L High 13-56 [facility] Comment on above: Result Comment: Charlene puncture should occur prior to sulfasalazine and/or sulfapyridine administration due to the potential for falsely depressed results. Baseline assay values before administration of sulfasalazine and sulfapyridine therapy would not be affected. Performed By: #### 1 20204, 224246, 148788 #### [facility] [address] [place] [address]658 Packing Machine Feeder: Rudy Posey MD Potassium [Moles/Vol] 4.3 mmol/L Normal 3.5-5.1 [facility] Comment on above: Performed By: #### 1 90374, 355703, 783631 #### [facility] [address] [place] [address] Packing Machine Feeder: Rudy Posey MD Protein [Mass/Vol] 6.8 g/dL Normal 6.0-8.5 [facility] Comment on above: Performed By: #### 1 04924, 448566, 040403 #### [facility] [address] [place] [address] Packing Machine Feeder: Rudy Posey MD Sodium [Moles/Vol] 139 mmol/L Normal 135-145 [facility] Comment on above: Performed By: #### 1 06558, 842371, 850291 #### [facility] [address] [place] [address]23 Packing Machine Feeder: Rudy Posey MD Urea nitrogen [Mass/Vol] 11 mg/dL Normal 10-20 [facility] Comment on above: Performed By: #### 1 83082, 763851, 706369 #### [facility] [address] [place] [address]71 Packing Machine Feeder: Rudy Posey MD HEMOon 10-21-2021 Nucleated RBC 0 /100WBC Normal [facility] Comment on above: Performed By: #### 1 84995, 487626, 961862 #### [facility] [address] [place] [address]60 Packing Machine Feeder: Rudy Posey MD DIFF? Yes Normal [facility] Comment on above: Performed By: #### 1 99915, 545777, 237908 #### [facility] [address] [place] [address]476 Packing Machine Feeder: Rudy Posey MD DxH Actions See Notes Abnormal [facility] Comment on above: Result Comment: Scan Slide. Perform manual diff if needed. Scan. [place] # Path Review if Required. SNV Performed By: #### 1 79175, 678397, 252465 #### [facility] [address] [place] [address] 36689 Packing Machine Feeder: Rudy Posey MD Erythrocyte distribution width (RBC) [Ratio] 14.0 % Normal 11.5-14.5 [facility] Comment on above: Performed By: #### 1 37333, 956542, 789922 #### [facility] [address] [place] [address] 24714 Packing Machine Feeder: Rudy Posey MD Hematocrit (Bld) [Volume fraction] 40.1 % Normal 36.0-46.0 [facility] Comment on above: Performed By: #### 1 67252, 279823, 350013 #### [facility] [address] [place] [address] 29187 Packing Machine Feeder: Rudy Posey MD Hemoglobin (Bld) [Mass/Vol] 13.4 g/dL Normal 12.0-16.0 [facility] Comment on above: Performed By: #### 1 27815, 286938, 300744 #### [facility] [address] [place] [address]27 Packing Machine Feeder: Rudy Posey MD Instr WBC 9.0 Normal [facility] Comment on above: Performed By: #### 1 04892, 232435, 615568 #### [facility] [address] [place] [address] 90783 Packing Machine Feeder: Rudy Posey MD MCH (RBC) [Entitic mass] 29.1 pg Normal 27.0-34.0 [facility] Comment on above: Performed By: #### 1 36943, 496412, 895691 #### [facility] [address] [place] [address] 74125 Packing Machine Feeder: Rudy Posey MD [facility] (RBC) [Mass/Vol] 33.3 g/dL Normal 32.0-37.0 [facility] Comment on above: Performed By: #### 1 97747, 330142, 559788 #### [facility] [address] [place] [address]15 Packing Machine Feeder: Rudy Posey MD MCV (RBC) [Entitic vol] 87.2 fL Normal 80.0-100.0 [facility] Comment on above: Performed By: #### 1 09769, 839619, 131961 #### [facility] [address] [place] [address] 47055 Packing Machine Feeder: Rudy Posey MD Platelet 402 x1000 Normal 150-450 [facility] Comment on above: Performed By: #### 1 97500, 438199, 600115 #### [facility] [address] [place] [address] 93424 Packing Machine Feeder: Rudy Posey MD Platelet mean volume (Bld) [Entitic vol] 7.2 fL Low 7.4-10.4 [facility] Comment on above: Performed By: #### 1 18615, 308983, 061954 #### [facility] [address] [place] [address] 70983 Packing Machine Feeder: Rudy Posey MD RBC 4.60 x10 Normal 4.20-5.40 [facility] Comment on above: Result Comment: Note : RBC morphology is normal unless otherwise stated. Evaluation performed only if differential is requested. Performed By: #### 1 73424, 049721, 879363 #### [facility] [address] [place] [address] 39706 Packing Machine Feeder: Rudy Posey MD WBC 9.0 x10 Normal 4.5-11.0 [facility] Comment on above: Performed By: #### 1 94509, 607019, 726207 #### [facility] [address] [place] [address] 13827 Packing Machine Feeder: Rudy Posey MD CARLISLE DIFFon 10-21-[address] 0.36 x1000 Normal 0.00-0.70 [facility] Comment on above: Performed By: #### 1 21974, 335261, 682686 #### [facility] [address] [place] [address] 33813 Packing Machine Feeder: Rudy Posey MD Absolute Eos Ct 0.18 x1000 Normal 0.00-0.50 [facility] Comment on above: Performed By: #### 1 96586, 246060, 188273 #### [facility] [address] [place] [address] 72699 Packing Machine Feeder: Rudy Posey MD Absolute Lymph Ct 2.07 x1000 Normal 1.20-4.80 [facility] Comment on above: Performed By: #### 1 51140, 470287, 118231 #### [facility] [address] [place] [address] 36300 Packing Machine Feeder: Rudy Posey MD Absolute [place] Ct 0.72 x1000 Normal 0.10-1.00 [facility] Comment on above: Performed By: #### 1 65097, 347459, 390934 #### [facility] [address] [place] [address] 96221 Packing Machine Feeder: Rudy Posey MD Absolute Neutrophil Ct 5.94 x1000 Normal 1.40-8.80 [facility] Comment on above: Performed By: #### 1 24780, 609456, 280843 #### [facility] [address] [place] [address] Packing Machine Feeder: Rudy Posey MD Absolute Seg Ct 5.58 x1000 Normal 1.40-8.80 [facility] Comment on above: Performed By: #### 1 78598, 645149, 548356 #### [facility] [address] [place] [address] 29981 Packing Machine Feeder: Rudy Posey MD Band form neutrophils/100 WBC (Bld) 4 % Normal [facility] Comment on above: Performed By: #### 1 01233, 548001, 576640 #### [facility] [address] [place] [address] 94829 Packing Machine Feeder: Rudy Posey MD Eosinophils/100 WBC (Bld) 2 % Normal [facility] Comment on above: Performed By: #### 1 02121, 356545, 574886 #### [facility] [address] [place] [address] 57392 Packing Machine Feeder: Rudy Posey MD Left Shift Present Abnormal [facility] Comment on above: Performed By: #### 1 01313, 733820, 018681 #### [facility] [address] [place] [address] 93226 Packing Machine Feeder: Rudy Posey MD Lymphocytes/100 WBC (Bld) 23 % Normal [facility] Comment on above: Performed By: #### 1 37348, 438054, 225746 #### [facility] [address] [place] [address] 77836 Packing Machine Feeder: Rudy Posey MD Monocytes/100 WBC (Bld) 8 % Normal [facility] Comment on above: Performed By: #### 1 06265, 777106, 877253 #### [facility] [address] [place] [address] 88993 Packing Machine Feeder: Rudy Posey MD Myelocyte % 1 % Normal [facility] Comment on above: Performed By: #### 1 13506, 485727, 967510 #### [facility] [address] [place] [address] 67046 Packing Machine Feeder: Rudy Posey MD Segmented neutrophils/100 WBC (Bld) 62 % Normal [facility] Comment on above: Performed By: #### 1 27100, 485420, 651481 #### [facility] [address] [place] [address] 64050 Packing Machine Feeder: Rudy Posey MD TAMANNA ACID LEVELon 10-21-2021 Date Last Dose 10/20/2021 Normal [facility] Comment on above: Result Comment: VERI FIED by Discern Expert. Performed By: #### 9 [id number] #### [facility] [address] [place] [address] 79987 Packing Machine Feeder: Rudy Posey MD Time Last Dose 17:00 [facility] Comment on above: Result Comment: VERI FIED by Discern Expert. Performed By: #### 9 [id number] #### [facility] [address] [place] [address] 53187 Packing Machine Feeder: Rudy Posey MD Valproic Acid 58.8 ug/ml Normal 50.0-100.0 [facility] Comment on above: Performed By: #### 9 [id number] #### [facility] [address] [place] [address] 85533 Packing Machine Feeder: Rudy Posey MD Vital Signs Date Time Vital Sign Value Performing Clinician Becca benavides 03-30-2023 02:21-0400 Diastolic blood pressure 59 mm[Hg] DO Simon Haas Work Phone: [facility] 03-30-2023 02:[id number] Heart rate 94 /min DO Simon Haas Work Phone: [facility] 03-30-2023 02:21-0400 Respiratory rate 20 /min DO Simon Haas Work Phone: [facility] 03-30-2023 02:21-0400 SaO2% (BldA) [Mass fraction] 100 % DO Simon Haas Work Phone: [facility] 03-30-2023 02:21-0400 Systolic blood pressure 105 mm[Hg] DO Simon Hasa Work Phone: [facility] 03-30-2023 00:06-0400 Body temperature 97.2 [degF] DO Simon Haas Work Phone: [facility] 03-29-2023 16:32-0400 Body height 157.48 cm DO Simon Haas Work Phone: [facility] 03-29-2023 16:32-0400 Body weight 60.35 kg DO Simon Haas Work Phone: [facility] 11-30-2022 10:00-0500 Body height 160.02 cm Simonryanne Haas Work Phone: ET-Yvbnqkohlb-Nbct na 220 Work Phone: 11-30-2022 10:00-0500 Body mass index (BMI) [Ratio] 25.03 kg/m2 Simonryanne Haas Work Phone: AV-Ifnhppeabe-Ehbo na 220 Work Phone: 11-30-2022 10:00-0500 Body surface area Derived from formula 1.67 m2 Simonryanne Haas Work Phone: VH-Dimnkvetwa-Drza na 220 Work Phone: 11-30-2022 10:00-0500 Body weight 64.1 kg Simonryanne Martinezring Work Phone: ZX-Xrawetxmmv-Ftzb na 220 Work Phone: 01-19-2022 14:38-0400 Body height 160.02 cm Simon Haas Work Phone: BA-Emtytaplth-Cryl na 220 Work Phone: 01-19-2022 14:38-0400 Body mass index (BMI) [Ratio] 25.15 kg/m2 Simon Haas Work Phone: FA-Hnbrdeemnh-Vecb na 220 Work Phone: 01-19-2022 14:38-0400 Body surface area Derived from formula 1.67 m2 Simon Haas Work Phone: LA-Wklxzysmbf-Kttr na 220 Work Phone: 01-19-2022 14:38-0400 Body weight 64.41 kg Simon Haas Work Phone: GU-Hzpzbdzrzp-Vvhc na 220 Work Phone: 07-21-2021 14:30-0400 Body mass index (BMI) [Ratio] 26.35 kg/m2 Simon Haas Work Phone: BJ-Ppbzhwwvps-Fvwk na 220 Work Phone: 07-21-2021 14:30-0400 Body surface area Derived from formula 1.71 m2 Simon Haas Work Phone: GG-Umbgacjcgk-Ikow na 220 Work Phone: 07-21-2021 14:30-0400 Body weight 67.47 kg Simon Haas Work Phone: YF-Zapkiwkjaa-Byqd na 220 Work Phone: 07-03-2019 12:01-0400 BMI (Body Mass Index) 27.86 kg/m2 Max Wiznitzer MG-Pediatr ics-Neur olog-Admin RBC 585 Work Phone: 07-03-2019 12:01-0400 Body weight 70.7 kg Max Wiznitzer NL-Tmedkwldgz-Io ur olog-Admin RBC 585 Work Phone: 07-03-2019 12:01-0400 BSA (Body Surface Area) 1.73 m2 Max Wiznitzer GA-Nggyuatswi-Dxtw olog-Admin RBC 585 Work Phone: 07-03-2019 12:01-0400 Height 159.31 cm Cruz GARNERPediatrics-Ne ur olog-Admin RBC 585 Work Phone: Encounters Encounter Date Encounter Type Care Provider Facility Start: 12-06-2023 End: 12-06-2023 ambulatory CRUZ ADLER [facility] Start: 12-06-2023 End: 12-06-2023 Office outpatient visit 15 minutes Cruz Adler MD Work Phone: [facility] Comment on above: Anxiety disorder, un specified type (Primary Dx); Mood disorder (CMS/HCC); Nonintractable epilepsy without status epilepticus, unspecified epilepsy type (CMS/HCC) Start: 09-26-2023 End: 09-27-2023 ambulatory SIMON HAAS [facility] Start: 08-09-2023 End: 08-14-2023 ambulatory UNKNOWN PROVIDER Facility:[facility] Start: 08-09-2023 End: 08-14-2023 Patient encounter procedure Carolina Trevizo [facility] Work Phone: [facility] Start: 06-07-2023 Office outpatient vi sit 25 minutes Simon Haas Work Phone: YQ-Shenztynul-Xjacylla -Admin RBC 585 Work Phone: Start: 06-07-[address] Cruz Adler [facility] ity:[id number] Start: 03-29-2023 End: 03-30-2023 Emergency department patient visit Simon Haas Facility:[facility] Start: 03-29-2023 End: 03-30-2023 Emergency department patient visit DO Simon Haas Work Phone: [facility] Work Phone: Start: 02-13-2023 End: 02-14-[address] SIMON HAAS Facility: Start: 11-30-2022 Office outpatient vi sit 15 minutes Simon Haas Work Phone: [facility]-Ijszlpjbjj-Rubvpxvo Work Phone: Start: 11-30-2022 Patient encounter procedure Simon Haas Work Phone: BX-Edvekooisz-Szsxcf 220 Work Phone: Start: 11-30-[address] Cruz Adler Facil ity:[id number] Start: 11-03-2022 Letter encounter [facility] Start: 10-04-2022 End: 10-05-[address] SIMON HAAS Facility:[facility] Start: 08-29-2022 End: 08-30-[address] SIMON HAAS Facility:[facility] Start: 08-26-2022 End: 08-26-[address] SIMON HAAS Facility:[facility] Start: 08-25-2022 End: 08-25-[address] SIMON HAAS Facility:[facility] Start: 07-20-2022 Office consultation new/estab patient 40 min Simon Haas Work Phone: [facility] Work Phone: Start: 07-20-[address] Mariela Haas Facility:[facility] Start: 06-01-2022 Office outpatient vi sit 15 minutes Simon Haas Work Phone: VU-Lkeovfoauz-Mxlttdhb y-Admin RBC 585 Work Phone: Start: 06-01-2022 Patient encounter procedure Simon Haas Work Phone: NB-Iasjlgrsed-Qbvdvm 220 Work Phone: Start: 01-19-2022 Office outpatient vi sit 15 minutes Simon Haas Work Phone: SN-Mglxsnvgin-Gsuefqpp y-Admin RBC 585 Work Phone: Start: 01-19-2022 Patient encounter procedure Simon Haas Work Phone: XK-Cnsgbtytcr-Rzatxz 220 Work Phone: Start: 10-20-2021 Office outpatient vi sit 15 minutes Simon Haas Work Phone: BS-Luxkhdbvmx-Caycnhem ook 220 Work Phone: Start: 07-21-2021 Patient encounter procedure Simon Haas Work Phone: LZ-Ywsgispsbm-Dsvpdc 220 Work Phone: Start: 01-22-2020 Patient encounter procedure Max Wiznitzer ZF-Heoxtcwkkr-Nxrazy 220 Work Phone: Start: 07-03-2019 Patient encounter procedure Max Wiznitzer DU-Vuznmlngio-Ibvwpjfu -Admin RBC 585 Work Phone: Start: 01-02-2019 Patient encounter procedure Max Wiznitzer QL-Lzomjcbsub-Awbrfbmx -Admin RBC 585 Work Phone: Start: 11-25-2018 Patient encounter procedure Max Wiznitzer RY-Mqysesykqg-Dlsrtalf -Admin RBC 585 Work Phone: Start: 07-04-2018 Patient encounter procedure Max Wiznitzer TM-Dmonwrnenx-Wtxfiumf -Admin RBC 585 Work Phone: Start: 01-17-2018 Patient encounter procedure Max Wiznitzer OK-Rokkzulnhf-Hbrzcvdp -Admin RBC 585 Work Phone: Start: 07-19-2017 Patient encounter procedure Max Wiznitzer RO-Dkjhyatkma-Pixwqbch -Admin RBC 585 Work Phone: Plan of Treatment Date Care Activity Detail Author Start: 2042 Shingles (RZV) Vaccine (1 of 2) Shingles (RZV) Vaccine (1 of 2) [facility] Start: 2042 Zoster Vaccines (1 of 2) Zoster Vaccines (1 of 2) [facility] Start: 10-31-2026 DTaP/Tdap/Td Vaccines (2 - Td or Tdap) DTaP/Tdap/Td Vaccines (2 - Td or Tdap) [facility] Start: 10-31-2026 Tetanus vaccination Tetanus (Td or Tdap) [facility] Start: 12-06-2023 FUV, Provider: Cruz Adler, Status: Pen, Time: 10:00 AM FUV, Provider: Cruz Adler, Status: Pen, Time: 10:00 AM MV-Gdueemghat-Omkzazlsf -Admin RBC 585 Work Phone: Start: 06-07-2023 FUV, Provider: Cruz Adler, Status: Pen, Time: 10:40 AM FUV, Provider: Cruz Adler, Status: Pen, Time: 10:40 AM ZC-Kchbuthysx-Rwhijz 220 Work Phone: Start: 05-25-2023 COVID-19 Vaccine ( season) COVID-19 Vaccine () [facility] Start: 05-25-2023 COVID-19 Vaccine () COVID-19 Vaccine () [facility] Start: 05-25-2023 Influenza vaccination Influenza Vaccine (#1) [facility] Start: 03-30-2023 Plain X-ray of left femur XR femur LT 2V* [facility] Start: 03-30-2023 XR Femur - left 2 Views [facility] Start: 03-29-2023 [facility] Start: 03-29-2023 Computed tomography of abdomen and pelvis with contrast CT abdomen pelvis w con [facility] Start: 03-29-2023 CT Abdomen and Pelvis W contrast IV [facility] Start: 12-25-2022 End: 12-25-2022 Patient encounter procedure 12/25/2022 Procedure Visit Dentistry Carolina Trevizo, [facility] [address] [place] [address] [facility] Start: 11-30-2022 FUV, Provider: Crzu Adler, Status: Pen, Time: 10:00 AM FUV, Provider: Cruz Adler, Status: Pen, Time: 10:00 AM DT-Uucbhjgyjx-Lwjdjefou -Admin RBC 585 Work Phone: Start: 07-20-2022 FUV, Provider: Yadi Pedro, Status: Pen, Time: 10:00 AM FUV, Provider: Yadi Pedro, Status: Pen, Time: 10:00 AM IJ-Chlwlwxzdo-Kqdwvqubv -Admin RBC 585 Work Phone: Start: 06-24-2022 Influenza vaccination Influenza Vaccine (#1) [facility] Start: 06-01-2022 FUV, Provider: Cruz Adler, Status: Pen, Time: 10:40 AM FUV, Provider: Cruz Adler, Status: Pen, Time: 10:40 AM NH-Tkksugckgt-Mgpochuyi -Admin RBC 585 Work Phone: Start: 05-23-2022 VIRFUVHOME, Provider: Cruz Adler, Status: Pen, Time: 10:20 AM VIRFUVHOME, Provider: Cruz Adler, Status: Pen, Time: 10:20 AM IL-Rtcenkqrxa-Vozgnf 220 Work Phone: Start: 01-19-2022 FUV, Provider: Cruz Adler, Status: Pen, Time: 2:20 PM FUV, Provider: Cruz Adler, Status: Pen, Time: 2:20 PM PX-Ufzqgcoqfw-Wukfnfxty ok 220 Work Phone: Start: 2019 HPV Vaccine (optional start 27-45 years) HPV Vaccine (optional start 27-45 years) [facility] Start: 2013 Screening for malignant neoplasm of cervix [facility] Start: 2010 Hepatitis C screening [facility] Start: 09-08-2009 MMR Vaccines (1 of 1 - Standard series) MMR Vaccines (1 of 1 - Standard series) [facility] Start: 09-08-2009 Varicella vaccination Varicella Vaccines (1 of 2 - 2-dose childhood series) [facility] Start: 2007 HIV screening HIV Test [facility] Start: 1992 Hepatitis B Vaccines (1 of 3 - 3-dose series) Hepatitis B Vaccines (1 of 3 - 3-dose series) [facility] Start: 1992 HIV screening HIV Screening [facility] Start: 1992 Lipid panel Lipid Panel [facility] Start: 1992 Yearly Adult Physical Yearly Adult Physical [facility] Patient Education Rib Fracture (DC) [facility] Work Phone: Patient referral [facility] Work Phone: Immunizations Immunization Date Immunization Notes Care Provider Lois reid 07-20-2021 influenza, injectabl e, quadrivalent, preservative free [facility] 07-20-2021 influenza virus vacc ine, unspecified formulation [facility] 10-26-2020 Pfizer (12+ yrs) CEASAR S-COV-2 (COVID-19) vaccine, mRNA, spike protein, LNP, pres. free, 30 mcg/0.3mL dose (IXT=862) [facility] 10-05-2020 Pfizer (12+ yrs) CEASAR S-COV-2 (COVID-19) vaccine, mRNA, spike protein, LNP, pres. free, 30 mcg/0.3mL dose (CUY=083) [facility] 06-30-2020 influenza, injectabl e, quadrivalent, preservative free [facility] 07-18-2019 influenza, injectabl e, quadrivalent, preservative free [facility] 07-03-2018 influenza, injectabl e, quadrivalent, contains preservative [facility] 07-18-2017 influenza, injectabl e, quadrivalent, contains preservative [facility] 10-31-2016 tetanus toxoid, redu amauri diphtheria toxoid, and acellular pertussis vaccine, adsorbed [facility] 06-28-2016 influenza, seasonal, injectable [facility] 07-15-2015 influenza, injectabl e, quadrivalent, preservative free [facility] 07-30-2014 influenza, injectabl e, quadrivalent, preservative free [facility] 07-22-2013 influenza, seasonal, injectable [facility] 07-17-2012 influenza, seasonal, injectable [facility] 06-07-2011 influenza, seasonal, injectable [facility] 07-20-2010 influenza virus vacc ine, whole virus [facility] 08-11-2009 novel influenza-H1N1 -09, preservative-free, injectable [facility] 06-23-2009 influenza, seasonal, injectable [facility] 07-20-2008 influenza, seasonal, injectable [facility] 07-16-2008 influenza virus vacc ine, whole virus [facility] Payers Date Payer Category Payer Self-pay [id number] 2014 Medicaid [id number] 1992 Unknown [id number] 2.16.84 [id number] 1992 Unknown [id number] 2.16.84 [id number] 1992 Unknown [id number] 2.16.84 [id number] 1992 Unknown [id number] 2.16.84 [id number] 1992 Unknown [id number] 2.16.84 [id number] 1992 Unknown [id number] 2.16. [id number] 1992 Unknown [id number] 2.16.8 [id number] 1992 Unknown [id number] 2.16.8 [id number] 1962 Unknown [id number] 2.16. [id number] 1962 Unknown [id number] 2.16. [id number] 1962 Unknown [id number] 2.16. [id number] 1959 Medicaid [id number] Unknown Unknown [id number] 2.16.8 [id number] Social History Date Type Detail Facility Depo-Provera shot Depo-Provera shot [facility] 220 Work Phone: Tobacco smoking status NHIS [facility] Start: [facility] Start: 03-29-2023 End: 12-06-2023 Tobacco smoking status NHIS Never smoked tobacco (finding) [facility] Start: 1992 Sex Assigned At Female [facility] Gender identity Not on file [facility] Start: 12-06-2023 Tobacco use and exposure Smokeless tobacco non-user [facility] Work Phone: Start: 12-06-2023 Alcohol intake Lifetime non-d juan (finding) [facility] Work Phone: NEGATED: Highlighted row - - JS-Iffqtuyjnh-Tpcewb og -Admin RBC 585 Work Phone: Functional Status Date Assessment Result Facility NEGATED: Highlighted row Functional performance Functional status health issues are not documented Disease FY-Yksupserhm-Vdxom log-Admin RBC 585 Work Phone: Mental Status Date Assessment Result Facility NEGATED: Highlighted row Cognitive function [Interpretation] Cognitive status health issues are not documented Disease IV-Epjzloszjq-Hrnxz log-Admin RBC 585 Work Phone: Clinical Notes 07-21-2021 to 12-06-2023 Cruz Adler MD - 12/06/2023 10:00 AM EDTPatient Felisa Argueta DDS - 08/09/2023 11:21 AM EST Note Date & Type Note Facility 12-06-2023 History of Present illness Narrative An interactive audio and video telecommunication system which permits real time communications between the patient (at the originating site) and provider (at the distant site) was utilized to provide this telehealth service. Verbal consent was requested and obtained from Mother (parent/guardian) on this date for a telehealth visit. Toshia Sandhu is a 33 y.o. woman with anxiety. ELENI Beckwith is a 33 year old young woman with seizures, cognitive impairment and anxiety. Affect and anxiety are stable. She is normally in a good mood. She is sensitive to commotion and change in the [facility] house, such as different/changing staff members. She is in a day program 2 days weekly (Sunday and Sunday). She eats and sleeps well. Parents report good behavior at home. She sits with the family at mealtime and plays with her toys. Amena gets Colace and Senna for bowel function with improved function. She has no seizures. She takes bupropion 100 mg SR BID, Depakote sprinkles 3 BID (level 53.5 ugm/ml), Risperidone 1 mg qHS (lower dose with no change), and fluoxetine 40 mg daily. No medication side effects (with the exception of an increased appetite) are noted. Amena was in the hospital early 2021 due to a problem with her right leg and a diagnosis of rhabdomyolysis. Amena was admitted to [facility] due to worsening behavior (throw self down, aggression, hitting self). She had a tooth/dental abscess treated with antibiotics. She was readmitted to [facility] for worsening behavior and was found to have a fractured rib and tailbone. Behavior is better at this time, including after scheduled dental surgery on June 27, 2023. Review of Systems A review of systems finds no pertinent positives. She gets Depo-Provera every 3 months. She gets loratadine, montelukast and fluticasone for respiratory issues. Objective Neurological Exam Mental Status Awake and alert. Sits quietly . Physical Exam Constitutional: General: She is awake. Neurological: Mental Status: She is alert. Assessment/Plan Jorges mood and behaviors are stable. No seizures are noted. 1. No change in medication 2. Check Depakote level, CBC, CMP and lipids yearly 3. Follow up in 6 months.. documented in this encounter [facility] Work Phone: 12-06-2023 Instructions Cruz Adler MD - 12/06/2023 10:00 AM EDT Jorges mood and behaviors are stable. No seizures are noted. 1. No change in medication 2. Check Depakote level, CBC, CMP and lipids yearly 3. Follow up in 6 months.. 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 N/C per pt. Patient is accompanied by caregiver for today's appointment. Patient did not cooperate for any examination. It is best suited that this patient have full comprehensive examination, radiographs and treatment completed in the OR setting. Explained that the patient will be added to our OR waiting list, and the legal guardian will be contacted once a time slot becomes available. Legal Guardian: Brody and/or Altagracia Sandhu [place];[phone] dad; [phone] [facility]; [phone] Next Visit: OR ----- Signed on July at 1:47:32 PM ----- ----- Provider: [id number] Max Samson DDS -- Clinic: [place] ----- documented in this encounter [facility] 06-07-2023 Chief complaint Narrative - Reported An interactive audio and video telecommunication system which permits real time communications between the patient (at the originating site) and provider (at the distant site) was utilized to provide this telehealth service.Verbal consent was requested and obtained for minor from Mother (parent/guardian) on this date, 06/07/2023 10:40 AM , for a telehealth visit.follow up office visitAccompanied by mother and [facility] staff. QX-Khymycenpj-Ujexfjqkd-Ad min RBC 585 Work Phone: 11-28-2022 History of Present illness Narrative Amena is a 32 year old young woman with seizures, cognitive impairment and anxiety. Affect and anxiety are stable. She is normally in a good mood. She is sensitive to commotion in the house and different staff member. She is in a day program 2 days weekly (Sunday and Sunday). Upsets/SIB rarely occur. She eats and sleeps well. She likes to eat.Amena gets Colace and Senna for bowel function with improved function. She is seizure free. She takes bupropion 100 mg SR BID, Depakote sprinkles 3 BID (level 53.5 ugm/ml), Risperidone 0.5-0.5-1 mg, and fluoxetine 30 mg daily. No medication side effects (with the exception of an increased appetite) are noted.Amena was in the hospital early 2021 due to a problem with her right leg and a diagnosis of rhabdomyolysis. She received IV fluids and medications. within a few days after discharge, she had a refusal to walk and was agitated. She was taken to [facility]. During this time, she was not sleeping at night and was more upset. She slept last Sunday night after receiving Ambien. Testing at [facility] was except an increased WBC count She was better after a fluid load. She was on cefdinir.Eber had a gastrointestinal illness in October 2022. [facility] Work Phone: 11-27-2022 History of Present illness Narrative Amena is a 32 year old young woman with seizures, cognitive impairment and anxiety. Affect and anxiety are stable. She is normally in a good mood. She is sensitive to commotion in the house and different staff member. She is in a day program 2 days weekly (Sunday and Sunday). Upsets/SIB rarely occur. She eats and sleeps well. She likes to eat.Amena gets Colace and Senna for bowel function with improved function. She is seizure free. She takes bupropion 100 mg SR BID, Depakote sprinkles 3 BID (level 53.5 ugm/ml), Risperidone 0.5-0.5-1 mg, and fluoxetine 30 mg daily. No medication side effects (with the exception of an increased appetite) are noted.Amena was in the hospital early 2021 due to a problem with her right leg and a diagnosis of rhabdomyolysis. She received IV fluids and medications. within a few days after discharge, she had a refusal to walk and was agitated. She was taken to [facility]. During this time, she was not sleeping at night and was more upset. She slept last Sunday night after receiving Ambien. Testing at [facility] was except an increased WBC count She was better after a fluid load. She was on cefdinir.Eber had a gastrointestinal illness in October 2022. BX-Vpgwmfpqkv-Bnnezg 220 Work Phone: 07-20-2022 History of Present illness Narrative Amena Sandhu is a 32 year old young woman with seizures, cognitive impairment and anxiety. I am seeing her for the first time today, July 20, 2022 at the request of Dr. Cruz Adler for concerns of behavioral changes secondary to constipation.This visit was completed via [employer].The patient's mother verbally consented to and participated in the visit.Both parents, Cyndi, and the Caregivers from her Care Center were present for the visit.Her nursing caregiver states that overall, her stooling has improved since previous visit.Her behaviors have improved since previous visit - largely due to ability to get more exercise and interact with the community.Medication and stooling logs were faxed and reviewed.Current medication regimen includesSenna 8.8 m pills twice daily.PRN order for additional senna if no BM in 4 days.PRN order for bisacodyl suppository if no BM in 6 days.Currently passing stool 1-2 times per day in brief. Stool is soft and formed. No streaking in between BM. Will occasionally go for a streak of not passing stool for 2-3 days and then will pass stool. Rarely has to give additional senna. No stool softeners right now. Has used Colace in the past.Uses briefs to pass stool but is on a toileting schedule and will occasionally pass urine and stool in the toilet. No visible signs of withholding. No distress passing stool.Nutrition - Hungry all the time. Eats a fruits and vegetables. Has access to healthy vegetables most of the time.Weight is stable. Meals are carefully monitored for calories, nutrition, and safety.GI symptoms - denies nausea, vomiting, abdominal distension, and gassiness.Neuro - has history of seizures but has been doing well with medications. Sleeping well. Comfortable.Mobility - no issues.Communication - non verbal. Uses some signs. Has a sign for toileting but does not always use. [facility] Work Phone: 06-01-2022 Chief complaint Narrative - Reported An interactive audio and video telecommunication system which permits real time communications between the patient (at the originating site) and provider (at the distant site) was utilized to provide this telehealth service.Verbal consent was requested and obtained for minor from Mother and Father (parent/guardian) on this date, 06/01/2022 03:40 PM , for a telehealth visit.Seizure and behavior FUAccompanied by mother and Staff. [facility] 220 Work Phone: 06-01-2022 Chief complaint Narrative - Reported An interactive audio and video telecommunication system which permits real time communications between the patient (at the originating site) and provider (at the distant site) was utilized to provide this telehealth service.Verbal consent was requested and obtained for minor from Mother and Father (parent/guardian) on this date, 06/01/2022 03:40 PM , for a telehealth visit.Seizure and behavior FUAccompanied by mother and Staff. PK-Qrpxkhrjco-Baocestxr-Ad min RBC 585 Work Phone: 01-19-2022 Chief complaint Narrative - Reported An interactive audio and video telecommunication system which permits real time communications between the patient (at the originating site) and provider (at the distant site) was utilized to provide this telehealth service.Verbal consent was requested and obtained for minor from Mother and Father (parent/guardian) on this date, 01/19/2022 02:20 PM , for a telehealth visit.Seizure and behavior FUAccompanied by mother and Staff. [facility] 220 Work Phone: 01-19-2022 Chief complaint Narrative - Reported An interactive audio and video telecommunication system which permits real time communications between the patient (at the originating site) and provider (at the distant site) was utilized to provide this telehealth service.Verbal consent was requested and obtained for minor from Mother and Father (parent/guardian) on this date, 01/19/2022 02:20 PM , for a telehealth visit.Seizure and behavior FUAccompanied by Staff. RV-Jkvtrfujec-Vpnawzgqa-Ad min RBC 585 Work Phone: 10-20-2021 Chief complaint Narrative - Reported An interactive audio and video telecommunication system which permits real time communications between the patient (at the originating site) and provider (at the distant site) was utilized to provide this telehealth service.Verbal consent was requested and obtained for minor from Mother and Father (parent/guardian) on this date, 10/20/2021 02:40 PM , for a telehealth visit.Seizure and behavior FUAccompanied by mother and Staff. OU-Jgsqtocuqe-Bbbgseanjyl 220 Work Phone: 07-21-2021 Chief complaint Narrative - Reported An interactive audio and video telecommunication system which permits real time communications between the patient (at the originating site) and provider (at the distant site) was utilized to provide this telehealth service.Verbal consent was requested and obtained for minor from Mother and Father (parent/guardian) on this date, 07/21/2021 02:00 PM , for a telehealth visit.Seizure and behavior FUAccompanied by mother and Staff. UW-Gcpczdghoo-Jfwish 220 Work Phone: Evaluation note No assessment inform ation available [facility] Work Phone: Evaluation note Diagnosis Anxiety disorder, unspecified type- Primary Mood disorder (CMS/HCC) Unspecified episodic mood disorder Nonintractable epilepsy without status epilepticus, unspecified epilepsy type (CMS/HCC) documented in this encounter [facility] Work Phone: History of Present illness Narrative* This visit was completed via [employer] due to the restrictions of the COVID-19 pandemic. All issues as below were discussed and addressed but no physical exam was performed. If it was felt that the patient should be evaluated in clinic then they were directed there. The patient's mother verbally consented to and participated in the visit. * Amena is a 31 year old young woman with seizures, cognitive impairment and anxiety. Affect is stable. Anxiety is an issue when moving between different surfaces (occasional drops to the floor). When she had a lack of home visits, she did not appear as happy. This also happened when her sister and nephew were present. She was happier at the last visit. At her residential placement, she likes to go to the store. She had her COVID 19 vaccine and is now doing van trips and is allowed to walk inhallways. She eats and sleeps well. * Amena gets Colace and Senna for bowel function but has frequent constipation (with a set treatment plan) She is seizure free. She takes bupropion 100 mg ER BID, Depakote sprinkles 3 BID (level 53.5 ugm/ml), Risperidone 0.5-0.5-1 mg, and fluoxetine 30 mg daily. No medication side effects (with the exception of an increased appetite) are noted. RQ-Rbvwpgevby-Afcctl 220 Work Phone: History of Present illness Narrative* This visit was completed via [employer] due to the restrictions of the COVID-19 pandemic. All issues as below were discussed and addressed but no physical exam was performed. If it was felt that the patient should be evaluated in clinic then they were directed there. The patient's mother verbally consented to and participated in the visit. * Amena is a 31 year old young woman with seizures, cognitive impairment and anxiety. Affect is stable. Anxiety is an issue when moving between different surfaces (occasional drops to the floor). When she had a lack of home visits, she did not appear as happy. This also happened when her sister and nephew were present. She was happier at the last visit. At her residential placement, she likes to go to the store. She had her COVID 19 vaccine and is now doing van trips and is allowed to walk inhallways. She eats and sleeps well. * Amena gets Colace and Senna for bowel function but has frequent constipation (with a set treatment plan) She is seizure free. She takes bupropion 100 mg ER BID, Depakote sprinkles 3 BID (level 53.5 ugm/ml), Risperidone 0.5-0.5-1 mg, and fluoxetine 30 mg daily. No medication side effects (with the exception of an increased appetite) are noted. * Amena was in the hospital due to a problem with her right leg and a diagnosis of rhabdomyolysis. She received IV fluids and medications. within a few days after discharge, she had a refusal to walk and was agitated. She was taken to [facility]. During this time, she was not sleeping at night and was more upset. She slept last Sunday night after receiving Ambien. [facility] She was better after a fluid load.She was on cefdinir. She has been sleeping. Today, she is walking well. [place] [id number] Work Phone: History of Present illness Narrative* This visit was completed via [employer] due to the restrictions of the COVID-19 pandemic. All issues as below were discussed and addressed but no physical exam was performed. If it was felt that the patient should be evaluated in clinic then they were directed there. The patient's mother verbally consented to and participated in the visit. * Amena is a 31 year old young woman with seizures, cognitive impairment and anxiety. Affect and anxiety are stable. She is sensitive to commotion in the house and different staff member. She has not returned to her day program due to COVID restrictions so the home is implementing a program in the home. She is in a good mood. She hesitates with wet floors. Upsets/SIB rarely occur. She eats and sleeps well. * Amena gets Colace and Senna for bowel function but has frequent constipation (with a set treatment plan) She is seizure free. She takes bupropion 100 mg SR BID, Depakote sprinkles 3 BID (level 53.5 ugm/ml), Risperidone 0.5-0.5-1 mg, and fluoxetine 30 mg daily. No medication side effects (with the exception of an increased appetite) are noted. * Amena was in the hospital early 2021 due to a problem with her right leg and a diagnosis of rhabdomyolysis. She received IV fluids and medications. within a few days after discharge, she had a refusal to walk and was agitated. She was taken to [facility]. During this time, she was not sleeping at night and was more upset. She slept last Sunday night after receiving Ambien. Testing at [facility] was except an increased WBC count She was better after a fluid load.She was on cefdinir.She has been sleeping. Today, she is walking well. UI-Tkohbvfqxm-Jorvvm 220 Work Phone: History of Present illness Narrative* This visit was completed via [employer] due to the restrictions of the COVID-19 pandemic. All issues as below were discussed and addressed but no physical exam was performed. If it was felt that the patient should be evaluated in clinic then they were directed there. The patient's mother verbally consented to and participated in the visit. * Amena is a 31 year old young woman with seizures, cognitive impairment and anxiety. Affect and anxiety are stable. She is sensitive to commotion in the house and different staff member. She has not returned to her day program due to COVID restrictions so the home is implementing a program in the home. She is in a good mood. She hesitates with wet floors. Upsets/SIB rarely occur. She eats and sleeps well. * Amena gets Colace and Senna for bowel function but has frequent constipation (with a set treatment plan) She is seizure free. She takes bupropion 100 mg SR BID, Depakote sprinkles 3 BID (level 53.5 ugm/ml), Risperidone 0.5-0.5-1 mg, and fluoxetine 30 mg daily. No medication side effects (with the exception of an increased appetite) are noted. * Amena was in the hospital early 2021 due to a problem with her right leg and a diagnosis of rhabdomyolysis. She received IV fluids and medications. within a few days after discharge, she had a refusal to walk and was agitated. She was taken to [facility]. During this time, she was not sleeping at night and was more upset. She slept last Sunday night after receiving Ambien. Testing at [facility] was except an increased WBC count She was better after a fluid load.She was on cefdinir.She has been sleeping. Today, she is walking well. YZ-Hwotmoprbx-Pfuuhxllo-Admin RBC 585 Work Phone: History of Present illness Narrative* This visit was completed via [employer] due to the restrictions of the COVID-19 pandemic. All issues as below were discussed and addressed but no physical exam was performed. If it was felt that the patient should be evaluated in clinic then they were directed there. The patient's mother verbally consented to and participated in the visit. * Amena is a 32 year old young woman with seizures, cognitive impairment and anxiety. Affect and anxiety are stable. She is normally in a good mood but may slap a caregiver's arm if they don;t movefast enough with her request. She appears more irritable in the mid afternoon with a question if she is hungry due to her activities. She is sensitive to commotion in the house and different staff member. She is in a day program 2 days (Sunday and Sunday). Upsets/SIB rarely occur. She eats and sleeps well. * Amena gets Colace and Senna for bowel function but has frequent constipation (with no bowel movement for the last 5 days) She is seizure free. She takes bupropion 100 mg SR BID, Depakote sprinkles 3 BID (level 53.5 ugm/ml), Risperidone 0.5-0.5-1 mg, and fluoxetine 30 mg daily. No medication side effects (with the exception of an increased appetite) are noted. * Amena was in the hospital early 2021 due to a problem with her right leg and a diagnosis of rhabdomyolysis. She received IV fluids and medications. within a few days after discharge, she had a refusal to walk and was agitated. She was taken to [facility]. During this time, she was not sleeping at night and was more upset. She slept last Sunday night after receiving Ambien. Testing at [facility] was except an increased WBC count She was better after a fluid load. She was on cefdinir. ZJ-Xwgoftlfdw-Mkdtza 220 Work Phone: History of Present illness Narrative* This visit was completed via [employer] due to the restrictions of the COVID-19 pandemic. All issues as below were discussed and addressed but no physical exam was performed. If it was felt that the patient should be evaluated in clinic then they were directed there. The patient's mother verbally consented to and participated in the visit. * Amena is a 32 year old young woman with seizures, cognitive impairment and anxiety. Affect and anxiety are stable. She is normally in a good mood but may slap a caregiver's arm if they don;t movefast enough with her request. She appears more irritable in the mid afternoon with a question if she is hungry due to her activities. She is sensitive to commotion in the house and different staff member. She is in a day program 2 days wekkly (Sunday and Sunday). Upsets/SIB rarely occur. She eats and sleeps well. * Amena gets Colace and Senna for bowel function but has frequent constipation (with no bowel movement for the last 5 days) She is seizure free. She takes bupropion 100 mg SR BID, Depakote sprinkles 3 BID (level 53.5 ugm/ml), Risperidone 0.5-0.5-1 mg, and fluoxetine 30 mg daily. No medication side effects (with the exception of an increased appetite) are noted. * Amena was in the hospital early 2021 due to a problem with her right leg and a diagnosis of rhabdomyolysis. She received IV fluids and medications. within a few days after discharge, she had a refusal to walk and was agitated. She was taken to [facility]. During this time, she was not sleeping at night and was more upset. She slept last Sunday night after receiving Ambien. Testing at [facility] was except an increased WBC count She was better after a fluid load. She was on cefdinir. KJ-Eipipytipl-Ypyzmvnlk-Admin RBC 585 Work Phone: History of Present illness Narrative* This visit was completed [facility]. All issues as below were discussed and addressed but no physicalexam was performed. If it was felt that the patient should be evaluated in clinic then they were directed there. The patient's mother verbally consented to the visit. * Amena is a 33 year old young woman with seizures, cognitive impairment and anxiety. Affect and anxiety are stable. She is normally in a good mood. She is sensitive to commotion and change in the [facility] house and different/changing staff members. She is in a day program 2 days weekly (Sunday and Sunday). She eats and sleeps well. * Parents are concerned about her behavior at home. She spends more time in her room (and may open/close the door) rather than with the family when she visits. She sits with the family at mealtime and plays with her toys (less play than in the past). * Amena gets Colace and Senna for bowel function with improved function. She is seizure free. Shetakes bupropion 100 mg SR BID, Depakote sprinkles 3 BID (level 53.5 ugm/ml), Risperidone 1 mg qHS (lower dose with no change), and fluoxetine 40 mg daily. No medication side effects (with the exception of an increased appetite) are noted. * Amena was in the hospital early 2021 due to a problem with her right leg and a diagnosis of rhabdomyolysis. She received IV fluids and medications. within a few days after discharge, she had a refusal to walk and was agitated. She was taken to [facility]. During this time, she was not sleeping at night and was more upset. She slept last Sunday night after receiving Ambien. Testing at [facility] was except an increased WBC count She was better after a fluid load. She was on cefdinir. * Amena was admitted to [facility] due to worsening behavior (throw self down, aggression,hitting self). She had a tooth/dental abscess treated with antibiotics. She was readmitted to [facility] for worsening behavior and was found to have a fractured rib and tailbone. Behavior isbetter at this time. She has a scheduled dental surgery on June 27, 2023. * Eber had a gastrointestinal illness in October 2022. WM-Hyymqfjeba-Mktlbwxlr-Admin RBC 585 Work Phone: Hospital Discharge instructions Additional Instructions Take Ativan if needed for anxiety/aggression Rest Push fluids Continue home medications as scheduled This important that you follow-up with PCP to see about any further adjustments of medications Continue antibiotics as prescribed Return for any difficulty breathing, vomiting, fever, low blood pressure. [facility] Work Phone: Reason for referral (narrative)* Consultation (Routine) - Authorized Specialty Diagnoses / Procedures Referred By Joann acevse Referred To Contact Pediatric Neurology Diagnoses Anxiety disorder, unspecified type Mood disorder ([facility]/HCC) Procedures Follow [place] [id number] Department [place] [address] Referral ID Status Reason Start Date Expiration Date V isits Requested Visits Authorized [id number] Authorized 12/06/2023 12/05/2024 1 1 [facility] Work Phone: Family History No Family History Records Found Mother Name Dates Details Family history of mood disor murray(V17.0, Z81.8) Status:Active Sister Name Dates Details Family history of Anxiety(30 0.00, F41.9) Status:Active Mother Name Dates Details Family history of mood disor murray(V17.0, Z81.8) Status:Active Sister Name Dates Details Family history of Anxiety(30 0.00, F41.9) Status:Active Unknown Family Member Name Dates Details Anxiety: Sister Status:Active Family history of mood disor murray: Mother(V17.0, Z81.8) Status:Active Unknown Family Member Name Dates Details Anxiety: Sister Status:Active Family history of mood disor murray: Mother(V17.0, Z81.8) Status:Active Unknown Family Member Name Dates Details Family history of mood disor murray: Mother(V17.0, Z81.8) Status:Active Anxiety: Sister Status:Active Unknown Family Member Name Dates Details Family history of mood disor murray: Mother(V17.0, Z81.8) Status:Active Anxiety: Sister Status:Active Unknown Family Member Name Dates Details Family history of mood disor murray: Mother(V17.0, Z81.8) Status:Active Anxiety: Sister Status:Active Unknown Family Member Name Dates Details Family history of mood disor murray: Mother(V17.0, Z81.8) Status:Active Anxiety: Sister Status:Active Unknown Family Member Name Dates Details Anxiety: Sister Status:Active Family history of mood disor murray: Mother(V17.0, Z81.8) Status:Active Unknown Family Member Name Dates Details Anxiety: Sister Status:Active Family history of mood disor murray: Mother(V17.0, Z81.8) Status:Active Unknown Family Member Name Dates Details Anxiety: Sister Status:Active Family history of mood disor murray: Mother(V17.0, Z81.8) Status:Active Summary Purpose Advance Directives No Advanced Directives Records Found Advance Directive Response Recorded Date/ Time Advance Directives No October 19, 2021 6:54pm Chief Complaint * follow up office visit * Accompanied by mother and [facility] staff. * follow up office visit * Accompanied by mother and [facility] staff. Chief Complaint and Reason for Visit Chief Complaint MHP ( UTI ) Additional Source Comments INFORMATION SOURCE (unrecogn ized section and content) DATE CREATED AUTHOR 11/09/2021 [facility] DATE CREATED AUTHOR AUTHOR'S ORGANIZ ATION 03/02/2023 [facility] DATE CREATED AUTHOR AUTHOR'S ORGANIZ ATION 04/05/2023 [facility] DATE CREATED AUTHOR AUTHOR'S ORGANIZ ATION 06/09/2023 [facility] DATE CREATED AUTHOR AUTHOR'S ORGANIZ ATION 06/09/2023 [employer] DATE CREATED AUTHOR AUTHOR'S ORGANIZ ATION 08/16/2023 [facility] DATE CREATED AUTHOR AUTHOR'S ORGANIZ ATION [facility]29/2023 [facility] DATE CREATED AUTHOR AUTHOR'S ORGANIZ ATION 12/07/2023 [facility] Care Teams (unrecognized sec tion and content) Team Status: Active Member Role Status Dates Simon Haas DO Primary Care Provider Active Team Status: Inactive Member Role Status Dates Simon Haas DO Primary Care Provider Active Vanessa Munoz MD Emergency Provider Active Collarette Separator Relationship Specialty Start Date End Date Simon Haas DO [address] [place] [address] PCP - General 12/12/10 [place] [id number] Department [place] [address] PCP - CONTRACT PROJECT MANAGER Medicaid PCP 12/23/22 Goals (unrecognized section and content) Goals may be documented in a n alternate section FOR RECORDS PERTAINING TO PATIENTS WHO ARE OR HAVE BEEN ENROLLED IN A CHEMICAL DEPENDENCY/SUBSTANCEABUSE PROGRAM, SOME INFORMATION MAY BE OMITTED. This clinical summary was aggregated from multiple sources. Caution should be exercised in using it in the provision of clinical care. This summary normalizes information from multiple sources, and as a consequence, information in this document may materially change the coding, format and clinical context of patient data. In addition, data may be omitted in some cases. CLINICAL DECISIONS SHOULD BE BASED ON THE PRIMARY CLINICAL RECORDS. [facility] [employer] [facility]. provides no warranty or guarantee of the accuracy or completeness of information in this document.
== END 2024-05-02 09:09 | disposition home or self-care (01) ==
LOC: US 09:08
PROVIDERS: PCP Family Medicine; Visit Provider Family Medicine
DX: E04.9 Nontoxic goiter, unspecified (principal); D89.89 Other specified disorders involving the immune mechanism, not elsewhere classified
CPT/HCPCS: 76536

== ENCOUNTER 2024-10-07 06:55 | Outpatient (OUT) | payer MEDICAID, SELFPAY ==
--- OUTSIDE RECORDS SUMMARY | 2024-10-07 06:58 | XMS_ITS | CCD ---
Author Organization [facility] Care Team Providers Care Public Information Coordinator Name Role Phone Cruz Adler Unavailable Unavailable HaasSimon Unavailable Unavailable ElianEmma rueda Unavailable Unavailable Haas, Simon Louis Unavailable Unavailable Unavailable Unavailable Primary Care Provider Unavailabl e HAAS, DR SIMON Louis Primary Care Unavailable HAAS, DR SIMON Louis Admitting Unavailable HAAS, DR SIMON Louis Attending Unavailable HAAS, DR SIMON Louis Primary Care [...] Consulting Unavailable MISC, DR BERTRAND Admitting Unavailable Haas, DO Simon Louis Primary Care Provider MD Vanessa Munoz Emergency Provider Simon Haas Primary Care Unavailable Vanessa Munoz Admitting Unavailable Vanessa Munoz Attending Unavailable Haas, Dr. Simon Beckwith Referring Giselleva blake PEDRO, REENA GUILLEN Attending Unavailable Haas, Dr. Simon Beckwith Primary Care Unava blake Adler, Dr. Arroyo Attending Unavailable Haas, Dr. Simon Beckwith Primary Care Unava blake Adler, Dr. Arroyo Attending Unavailable Haas, Dr. Simon Beckwith Primary Care Unava ilable Unavailable Primary Care Provider Unavailabl e PROVIDER, UNKNOWN Attending Unavailable PROVIDER, UNKNOWN Admitting Unavailable SIMON HAAS Attending Unavailable SIMON HAAS Admitting Unavailable HaasSimon berger DO Primary Care Provider Cruz Adler MD Unavailable CRUZ ADLER Attending Unavailable SIMON HAAS Primary Care Unavailab le CRUZ ADLER Attending Unavailable SIMON HAAS Primary Care Unavailab le Allergies Allergy Classification Reported Allergen(s) Allergy Type Date of Onset Reaction(s) Facility (14 sources) Meperidine; Translations: [Demerol TABS] Drug Allergy 06-03-20 15 Other [facility] (1 source) Meperidine Drug Allergy 10-10-19 22 [facility] Rep[facility] (1 source) Methylphenidate Drug Allergy 10-10-19 22 [facility] (1 source) Pseudoephedrine Drug Allergy 10-10-19 22 [facility] (3 sources) Meperidine; Translations: [meperidine] Drug Allergy 06-03-20 15 Unknown Reaction [facility] (2 sources) Methylphenidate; Translations: [methylphenidate] Drug Allergy 03-29-20 23 Unknown Reaction [facility] (1 source) Meperidine; Translations: [Demerol HCl] Drug Allergy [facility] Repository (1 source) ALLERGIES NOT ON FILE; Translations: [ALLERGIES NOT ON FILE] Propensity to adverse reactions (disorder) [facility] Medications Current Medications Medication Drug Class(es) [...] Active buPROPion hydrochloride 100 mg oral tablet (16 sources) Aminoketone take 1 tablet by mouth twice daily buPROPion (Wellbutrin) 100 mg tablet Take 1 tablet (100 mg) by mouth twice a day. Active take 1 tablet by mouth twice justo ly buPROPion HCl ER (SR) 100 MG Oral Tablet Extended Release 12 Hour TAKE 1 TABLET TWICE DAILY. Quantity: 0 Refills: 0 Ordered: 03-Sep-2014 DO Active cholecalciferol 0.05 mg oral capsule (16 sources) Vitamin D cholecalciferol (Vitamin D-3) 50 mcg (2,000 unit) capsule Take by mouth. Active Cholecalciferol (VITAMIN D3) 2000 UNITS CAPS Take by mouth. 0 Active Vitamin D3 50 MC G (2000 UT) Oral Tablet Quantity: 0 Refills: 0 Ordered: 03-Sep-2014 DO Active 1 ml denosumab 60 mg/ml prefilled syringe (10 sources) RANK Ligand Inhibitor Start: 07-12-2021 Prolia 6 0 mg/mL syringe Inject under the skin. 07/12/2021 Active docusate sodium 100 mg oral capsule (10 sources) docusate sodium (Colace) 100 mg capsule Take by mouth. Active Docusate Sodium 100 MG Oral Capsule Quantity: 0 Refills: 0 Ordered: 03-Sep-2014 DO Active FLUoxetine 40 mg oral capsule (18 sources) Serotonin Reuptake Inhibitor Start: 12-04-2023 take 1 capsule by mouth at bedtime FLUoxetine (PROzac) 40 mg capsule TAKE ONE CAPSULE BY MOUTH AT BEDTIME PROZAC 12/04/2023 Active take 1 tablet by mouth [...] 0 Active LORazepam 1 mg oral tablet (3 sources) Benzodiazepine Start: 03-29-2023 take 1 tablet by mouth three times daily as needed LORazepam (Ativan) 1 mg tablet TAKE ONE TABLET BY MOUTH THREE TIMES A DAY NEEDED FOR AGITATION 03/30/2023 Active Sennosides (SENNA LAX ORAL) (2 [...] 200-250 tablets by mouth three times daily [place] Calcium/Vitamin D 200-250 MG-UNIT TABS TAKE TWO [...] ONE TABLET BY MOUTH AT BEDTIME RISPERDAL Active take 1 tablet by mouth three patricia es daily risperiDONE 1 MG Oral Tablet TAKE 1 TABLET 3 times daily Quantity: 0 Refills: 0 Ordered: 03-Sep-2014 DO Active Senna Leaves (10 sources) Senna Lax TABS Quantity: 0 Refills: 0 Ordered: 03-Sep-2014 DO Active Senna Lax TABS (2 sources) Senna Lax TABS Refills: 0 Active divalproex sodium 125 mg delayed release oral capsule (16 sources) Mood Stabilizer, Anti-epileptic Agent Start: 04-05-2021 [...] (375 mg) by mouth twice a day. Active Divalproex Sodiu m 125 MG CPSP SPRINKLE 4 CAPSULE Twice daily Quantity: 0 Refills: 0 Ordered: 03-Sep-2014 DO Active Problems Active Problems Problem Classification Problem Date Documented Da te Episodic/Chronic Anxiety disorders (20 sources) Anxiety disorder; Translations: [Anxiety state, unspecified] Onset: 10-06-2022 12-06-2023 Chronic Comment on above: Added by Problem Lis t Migration; 2013-09-21; Attention-deficit conduct and disruptive behavior disorders (14 sources) Disruptive behavior disorder; Translations: [Unspecified disturbance of conduct] Onset: 12-06-2023 12-06-2023 Chronic Comment on above: Added by Problem Lis t Migration; 2013-09-21; Attention-deficit, conduct, and disruptive behavior disorders (1 source) Conduct disorder, unspecified; Translations: [Conduct disorder, unspecified] Onset: 11-30-2022 Chronic Developmental disorders (14 sources) Intellectual disability; Translations: [Unspecified intellectual disabilities] Onset: 11-30-2022 12-06-2023 Chronic Diseases of white blood cells (1 source) Leukocytosis; Translations: [Elevated white blood cell count, unspecified] 10-19-2021 Chronic Disorders usually diagnosed in infancy, childhood, or adolescence (1 source) Autistic disorder; Translations: [Autistic disorder] 03-29-2023 Chronic Epilepsy; convulsions (20 sources) Epilepsy; Translations: [Epilepsy, unspecified, without mention of intractable epilepsy] Onset: 10-06-2022 12-06-2023 Chronic Epilepsy; convulsions (12 sources) Seizure; Translations: [Other convulsions] Episodic Mood disorders (18 sources) Mood disorder; Translations: [Unspecified episodic mood [...] 08-26-2022 Episodic Other aftercare (5 sources) Other longitudinal float operator (current) drug therapy; Translations: [OTH SAMPLE TESTER CURRENT DRUG THERAPY] Onset: 08-29-2022 Episodic Other nervous system disorders (1 source) Unsteadiness on feet; Translations: [UNSTEADINESS ON FEET] Onset: 09-02-2022 Episodic Unclassified (2 sources) Intellectual disability; Translations: [Intellectual disability] NEGATED: Highlighted row has not occurred!Residual codes; unclassified (11 sources) Disease Episodic Results Test Name Value Interpretation Reference Range Facility T3 Freeon 09-28-2023 Free T3 [Mass/Vol] 2.8 pg/mL Invalid Interpretation Code 2.0-4.[address] [facility] Comment on above: Result Comment: Perf ormed at: [facility] [address] [id number] PhD Zhang Connell Performed By: #### 2 550765, 58093804, 44823916, 0633560, 179156177, 8028171, 3912719, 4774492, 8268794 ####[facility] [address] [place] [address] CMPon 09-27-2023 Albumin [Mass/Vol] 4.0 g/dL Normal 3.3-5.[address] [facility] Comment on above: Performed By: #### 2 592031, 55229582, 84619825, 9616115, 316765573, 6941098, 2072056, 9841926, 0628508 #### [facility] [address] [place] [address] Albumin/Globulin [Mass ratio] 1.5 {ratio} Normal 1.1-2.[address] [facility] Comment on above: Performed By: #### 2 613347, 96456395, 31064956, 0671209, 591352161, 6569775, 5558620, 7002415, 5830337 #### [facility] [address] [place] [address] Alk Phos 40 Int._Unit/L Normal 21-98 [facility] Comment on above: Performed By: #### 2 146431, 95508335, 21744712, 5007186, 842202232, 2978568, 8567430, 4110914, 9221310 #### [facility] [address] [place] [id number] ALT 12 Int._Unit/L Normal 6-46 [facility] Comment on above: Performed By: #### 2 788463, 34337690, 27407650, 9711754, 022000876, 6654153, 6707201, 3264750, 7920062 #### [facility] [address] [place] [address] Anion gap [Moles/Vol] 14 mmol/L Normal 6-16 [facility] Comment on above: Performed By: #### 2 529196, 54423380, 03487260, 9951683, 154374835, 9140217, 0818883, 5182029, 3392994 #### [facility] [address] [place] [address] AST 18 Int._Unit/L Normal 5-43 [facility] Comment on above: Performed By: #### 2 608367, 60785493, 71867345, 5352863, 991436172, 9087766, 2696192, 3683699, 1253395 #### [facility] [address] [place] [address] Bili Total 0.5 mg/dL Normal 0.0-1.[address] [facility] Comment on above: Performed By: #### 2 658972, 75882146, 59126485, 4768284, 511889645, 6424340, 3068452, 5850603, 9484301 #### [facility] [address] [place] [address] BUN/Creat Ratio 16 No Units Normal 10-20 [facility] Comment on above: Performed By: #### 2 431916, 65464941, 89782691, 1991856, 652877521, 7037262, 5614255, 8898568, 5378186 #### [facility] [address] [place] [address] Calcium [Mass/Vol] 9.4 mg/dL Normal 8.9-11.[address] [facility] Comment on above: Performed By: #### 2 066425, 69941920, 28834896, 7179697, 163250206, 0227742, 0388875, 8994069, 9849996 #### [facility] [address] [place] [address] Chloride [Moles/Vol] 106 mmol/L Normal 101-111 [facility] Comment on above: Performed By: #### 2 727780, 72603781, 92380957, 9271599, 656810698, 1640054, 5552604, 6625890, 3928652 #### [facility] [address] [place] [address] CO2 [Moles/Vol] 25 mmol/L Normal 21-31 [facility] Comment on above: Performed By: #### 2 787631, 69979483, 79683193, 9751998, 227893432, 3875113, 9109751, 7621804, 6683186 #### [facility] [address] [place] [address] Creatinine [Mass/Vol] 0.7 mg/dL Normal 0.5-1.3 [facility] Comment on above: Performed By: #### 2 966079, 53505645, 31746777, 5450550, 615230790, 7237281, 2422842, 1209319, 7070701 #### [facility] [address] [place] [address] Globulin (S) [Mass/Vol] 2.7 g/dL Normal 1.4-4.0 [facility] Comment on above: Performed By: #### 2 790675, 17618120, 76328651, 4846714, 008297105, 0447056, 7573450, 5354575, 2503588 #### [facility] [address] [place] [address] Glucose [Mass/Vol] 86 mg/dL Normal 55-[address] [facility] Comment on above: Performed By: #### 2 706455, 10926091, 79561675, 2240231, 899838731, 0543570, 2634971, 2395210, 3621252 #### [facility] [address] [place] [address] Potassium [Moles/Vol] 4.5 mmol/L Normal 3.5-5.3 [facility] Comment on above: Performed By: #### 2 057651, 18834848, 02224689, 4103967, 385838905, 7573103, 5917283, 8245558, 4312110 #### [facility] [address] [place] [address] Protein [Mass/Vol] 6.7 g/dL Normal 6.0-7.[address] [facility] Comment on above: Performed By: #### 2 561814, 20481359, 33393387, 9126638, 259981245, 2931049, 9109406, 1651029, 9585180 #### [facility] [address] [place] [address] Sodium [Moles/Vol] 140 mmol/L Normal 135-[address] [facility] Comment on above: Performed By: #### 2 216771, 68929846, 91833956, 8301000, 660460806, 1506639, 0262802, 8501326, 8169830 #### [facility] [address] [place] [address] Urea nitrogen [Mass/Vol] 11 mg/dL Normal 5-[address] [facility] Comment on above: Performed By: #### 2 991201, 63810520, 59026331, 7483679, 936591158, 8601161, 3963728, 4472950, 8983487 #### [facility] [address] [place] [address] Free T4on 09-27-2023 Free T4 [Mass/Vol] 0.80 ng/dL Normal 0.58-1.[address] [facility] Comment on above: Performed By: #### 2 715578, 77820724, 11407389, 5963177, 714224310, 1288290, 3114188, 3996040, 8445503 #### [facility] [address] [place] [address] Prealbuminon 09-27-2023 Prealbumin [Mass/Vol] 24 mg/dL Normal 17-42 [facility] Comment on above: Performed By: #### 2 220473, 31651189, 15056674, 5613734, 024050120, 4937236, 9225888, 1555276, 1086779 #### [facility] [address] [place] [address] TSHon 09-27-2023 TSH Qn 0.97 m[IU]/L Normal 0.34-5.[address] [facility] Comment on above: Performed By: #### 2 810404, 18018675, 97512469, 8019692, 100930750, 5416534, 0184966, 5894658, 5319506 #### [facility] [address] [place] [address] Vitamin D 25 Hydroxyon 09-27 Vitamin D 25 Hydroxy 44.5 ng/mL Normal 30.0-100.0 [facility] Comment on above: Performed By: #### 2 775641, 06549916, 54278554, 9175505, 784002553, 9334461, 7195228, 4293127, 7211985 #### [facility] [address] [place] [address] eGFRon 09-27-2023 GFR/1.73 sq M.predicted among non-blacks MDRD (S/P/Bld) [Vol rate/Area] mL/min/{1.73_m2} Normal >=[address] [facility] Comment on above: Order Comment: Order added by Discern Expert. Performed By: #### 2 736452, 19911499, 58374849, 0212747, 673882300, 9673849, 4476517, 4477542, 2290433 #### [facility] [address] [place] [address] CBC w/Indiceson 09-26-2023 Erythrocyte distribution width (RBC) [Ratio] 13.8 % Normal 10.9-14.[address] [facility] Comment on above: Performed By: #### 2 734622, 87086614, 77779741, 1383582, 835717987, 5533426, 4142523, 5875429, 2280244 #### [facility] [address] [place] [address] Hematocrit (Bld) [Volume fraction] 40.2 % Normal 34.0-46.[address] [facility] Comment on above: Performed By: #### 2 469826, 70622280, 91771777, 0853908, 279677676, 9353643, 8033328, 3041839, 3359194 #### [facility] [address] [place] [address] Hemoglobin (Bld) [Mass/Vol] 13.6 g/dL Normal 12.0-16.[address] [facility] Comment on above: Performed By: #### 2 803892, 76618782, 69248272, 6262039, 796718242, 4443499, 6739748, 0443252, 9230684 #### [facility] [address] [place] [address] MCH (RBC) [Entitic mass] 30.3 pg Normal 27.0-34.[address] [facility] Comment on above: Performed By: #### 2 444041, 06279670, 53476884, 2261629, 298369838, 3849168, 0558903, 6095500, 6468204 #### [facility] [address] [place] [address] MCHC (RBC) [Mass/Vol] 34.0 g/dL Normal 31.4-36.0 [facility] Comment on above: Performed By: #### 2 988728, 40474238, 74456030, 2237999, 489064642, 6810654, 9388904, 9148990, 2422229 #### [facility] [address] [place] [address] MCV (RBC) [Entitic vol] 89.0 fL Normal 80.0-100.0 [facility] Comment on above: Performed By: #### 2 116133, 69797532, 09613781, 6717431, 611745106, 1601307, 1933034, 1228142, 7643778 #### [facility] [address] [place] [address] Platelet mean volume (Bld) [Entitic vol] 7.9 fL Normal 6.4-10.[address] [facility] Comment on above: Performed By: #### 2 767692, 17793442, 73249832, 4251341, 009560245, 5193632, 2358098, 3127689, 1642887 #### [facility] [address] [place] [address] Platelets (Bld) [#/Vol] 336.0 E9/L Normal 150.0-500.[address] [facility] Comment on above: Performed By: #### 2 289637, 30606483, 82529894, 9668414, 398385455, 0507039, 3394259, 7996010, 6015167 #### [facility] [address] [place] [address] RBC (Bld) [#/Vol] 4.5 E12/L Normal 4.3-5.[address] [facility] Comment on above: Performed By: #### 2 970429, 11880268, 02409809, 3467210, 017815807, 9344475, 1646726, 8879805, 8401306 #### [facility] [address] [place] [address] WBC corrected for nucl RBC Auto (Bld) [#/Vol] 9.6 E9/L Normal 4.0-11.0 [facility] Comment on above: Performed By: #### 2 891684, 79954072, 16804849, 2297746, 046951206, 3752829, 6867846, 9564304, 3639499 #### [facility] [address] [place] [address] Physician Orderon 09-26-2023 Physician Order [id number] 6#1.00TIFF Normal [facility] Valproic Acidon 09-26-2023 Valpro Acid Lvl 50 microgram/mL Normal 50-99 [facility] Comment on above: Performed By: #### 2 850270, 85574166, 62679357, 3056477, 281341022, 1126496, 8347408, 5100648, 4423903 #### [facility] [address] [place] [address] [employer] Forms [id number] 4#1.00TIFF Normal [facility] Progress Noteson 08-09-2023 Color Developer Authentication Interface Message Text ----- July at 12:29:46 PM ----- ----- Provider: Graham Bradshaw, Resident -- Clinic: [place] ----- OR EVALUATION Patient presents for evaluation [...] becomes available. Legal Guardian: Brody and/or Altagracia Singleton home;[phone] dad; [phone] [facility]; [phone] Next Visit: OR ----- Signed on , August 09, 2023 at 1:47:32 PM ----- ----- Provider: Dev Samson DDS -- Clinic: [place] ----- Normal [facility] Office Visit (Pediatric Neur ology)on 06-07-2023 Follow-up visit Diagnoses/Problems Anxiety disorder (300.00) [...] up office visit Accompanied by mother and jail staff. History of Present Illness This visit was completed [facility]. All issues as below were discussed and [...] and was agitated. She was taken to [facility]. During this time, she was not sleeping at night and was more upset. She slept last Sunday night after receiving Ambien. Testing at [facility] was except an increased WBC count She was better after a fluid load. She was on cefdinir. Amena was admitted to [facility] due to worsening behavior (throw self down, aggression, hitting self). She had a tooth/dental abscess treated with antibiotics. She was readmitted to [facility] for worsening behavior and was found to [...] Anxiety Social History Depo-Provera shot Lives in jail (V60.6) (Z59.3) Never smoker No alcohol use Allergies Demerol TABS Recorded By: Vanessa Castro; 01/06/2014 2:44:07 PM Current Meds Medication NameInstruction buPROPion HCl ER (SR) 100 MG Oral Tablet Extended Release 12 HourTAKE 1 TABLET TWICE DAILY. Chest Congestion Relief 400 MG Oral TabletTAKE ONE TABLET BY MOUTH TWICE A DAY NEEDED FOR CONGESTION OR COUGH [place] Calcium/Vitamin D 200-250 MG-UNIT TABSTAKE TWO TABLETS BY MOUTH 3 TIMES DAILY Divalproex Sodium 125 MG Oral Capsule (more content not included)... Normal [place] [facility] abdomen pelvis w [facility] [place] [address] [place] [address] CT Scan Report Signed Patient: Amena Singleton MR#: [id number] : 1990 Acct:[id number] Age/Sex: 32 / F ADM Date: 03/29/23 Loc: ER Room: Type: [facility] ER Attending Dr: Copies to: [...] Kei Jordan M.D.03/30/2023 8:37 AM Dictation Location: [place] [address] Transcribed By: [facility] 03/30/23 0837 Dictated By: Kei Jordan DO 03/30/23 0832 Signed By: 03/30/23 0837 Normal [facility] XR femur LT 2V*on 03-30-2023 XR femur LT 2V* [facility] [place] [address] [place], [place] [address] XRay Report Signed Patient: Amena Singleton MR#: [id number] : 1990 Acct:[id number] Age/Sex: 32 / F ADM Date: 03/29/23 Loc: ER Room: Type: [facility] ER Attending Dr: Copies to: [...] Kei Jordan M.D.03/30/2023 8:53 AM Dictation Location: [place] [address] Transcribed By: [facility] 03/30/23 0853 Dictated By: Kei Jordan DO 03/30/23 0852 Signed By: 03/30/2353 Normal [facility] Alanine aminotransferase [En zymatic activity/volume] in Serum or PlasmaOrdered By: Rocio Emmanuel on 03-29-2023 ALT [Catalytic activity/Vol] 28 U/L 7-52 [facility] Albumin [Mass/volume] in Ser um or Plasma by Bromocresol green (BCG) dye binding methoOrdered By: Rocio Emmanuel on 03-29-2023 Albumin BCG dye [Mass/Vol] 3.9 g/dL 3.5-5.7 [facility] Alkaline phosphatase [Enzyma tic activity/volume] in Serum or PlasmaOrdered By: Rocio Emmanuel on 03-29-2023 ALP [Catalytic activity/Vol] 47 U/L 34-104 [facility] Amphetamine Screen Ql (U)Ord ered By: Rocio Emmanuel on 03-29-2023 Amphetamines Ql (U) Negative Negative [facility] Aspartate aminotransferase [ Enzymatic activity/volume] in Serum or PlasmaOrdered By: Rocio Emmanuel on 03-29-2023 AST [Catalytic activity/Vol] 25 U/L 13-39 [facility] Automated erythrocytes count in urine sediment (number/area)Ordered By: Rocio Emmanuel on 03-29-2023 RBC Auto (Urine sed) [#/Area] 3-4 [HPF] 0-4 [facility] Automated leukocytes count i n urine sediment (number/area)Ordered By: Rocio Emmanuel on 03-29-2023 WBC Auto (Urine sed) [#/Area] 3-4 [HPF] 0-4 [facility] Band form neutrophils/100 WB C Manual cnt (Bld)Ordered By: Rocio Emmanuel on 03-29-2023 Band form neutrophils/100 WBC (Bld) 1 % 0-5 [facility] Barbiturates [Presence] in U rine by Screen methodOrdered By: Rocio Emmanuel on 03-29-2023 Barbiturates Screen Ql (U) Negative Negative [facility] Basophils Auto (Bld) [#/Vol] Ordered By: Rocio Emmanuel on 03-29-2023 Basophils (Bld) [#/Vol] N/A F [facility] Basophils/100 WBC Auto (Bld) Ordered By: Rocio Emmanuel on 03-29-2023 Basophils/100 WBC (Bld) N/A F [facility] Basophils/100 WBC Manual cnt (Bld)Ordered By: Rocio Emmanuel on 03-29-2023 Basophils/100 WBC (Bld) 0 % 0-2 F [facility] Benzodiazepines Screen Ql (U )Ordered By: Rocio Emmanuel on 03-29-2023 Benzodiazepines Ql (U) Negative Negative [facility] Benzoylecgonine [Presence] i n Urine by Screen methodOrdered By: Rocio Emmanuel on 03-29-2023 Benzoylecgonine Screen Ql (U) Negative Negative [facility] Bilirubin Test strip Ql (U)O rdered By: Rocio Emmanuel on 03-29-2023 Bilirubin Ql (U) Negative Negative [facility] Bilirubin.total [Mass/volume ] in Serum or PlasmaOrdered By: Rocio Emmanuel on 03-29-2023 Bilirubin [Mass/Vol] 1.2 mg/dL 0.3-1.0 [facility] Calcium [Mass/volume] in Ser um or PlasmaOrdered By: Rocio Emmanuel on 03-29-2023 Calcium [Mass/Vol] 9.6 mg/dL 8.6-10.3 [facility] Cannabinoids [Presence] in U rine by Screen methodOrdered By: Rocio Emmanuel on 03-29-2023 Cannabinoids Screen Ql (U) Negative Negative [facility] Comment on above: These are unconfirme d results and should not be used for legal purposes. Drug Cut-Off Concentration: AMPH 1000 ng/mL ADRIA 200 ng/mL MARAH 200 ng/mL COCM 300 ng/mL OP 300 ng/mL PCP 25 ng/mL THC 20 ng/mL Carbon dioxide, total [Moles /volume] in Serum or PlasmaOrdered By: Rocio Emmanuel on 03-29-2023 CO2 [Moles/Vol] 27.9 mmol/L 21.0-31.0 [facility] Casts typing in urine sedime nt by light microscopyOrdered By: Rocio Emmanuel on 03-29-2023 Casts LM Nom (Urine sed) None seen [LPF] None Seen [facility] Chloride [Moles/volume] in S nayana or PlasmaOrdered By: Rocio Emmanuel on 03-29-2023 Chloride [Moles/Vol] 103 mmol/L 98-107 [facility] Color Auto (U)Ordered By: Cande Emmanuel on 03-29-2023 Color (U) Dark yellow Yellow [facility] Comprehensive Metabolic Pane alexi 03-29-2023 Albumin [Mass/Vol] 3.9 g/dL Normal 3.5-5.7 [facility] Comment on above: Performed By: #### D IFF CBC, CMP, ETOH #### [facility] [address] Albumin/Globulin [Mass ratio] 1.6 {ratio} Normal [facility] Comment on above: Performed By: #### D IFF CBC, CMP, ETOH #### [facility] [address] ALP [Catalytic activity/Vol] 47 U/L Normal 34-104 [facility] Comment on above: Performed By: #### D IFF CBC, CMP, ETOH #### [place] [facility] [address] ALT [Catalytic activity/Vol] 28 U/L Normal 7-52 [facility] Comment on above: Performed By: #### D IFF CBC, CMP, ETOH #### [facility] [address] Anion gap [Moles/Vol] 13.0 mmol/L Normal 6.0-15.0 [facility] Comment on above: Performed By: #### D IFF CBC, CMP, ETOH #### [facility] [address] AST [Catalytic activity/Vol] 25 U/L Normal 13-39 [facility] Comment on above: Performed By: #### D IFF CBC, CMP, ETOH #### [facility] [address] Bilirubin [Mass/Vol] 1.2 mg/dL High 0.3-1.0 [facility] Comment on above: Performed By: #### D IFF CBC, CMP, ETOH #### [facility] [address] Calcium [Mass/Vol] 9.6 mg/dL Normal 8.6-10.3 [facility] Comment on above: Performed By: #### D IFF CBC, CMP, ETOH #### [place] [address] [place] Chloride [Moles/Vol] 103 mmol/L Normal 98-107 [facility] Comment on above: Performed By: #### D IFF CBC, CMP, ETOH #### [facility] [address] [place] [address] [place] CO2 [Moles/Vol] 27.9 mmol/L Normal 21.0-31.0 [facility] Comment on above: Performed By: #### D IFF CBC, CMP, ETOH #### [facility] [address] [place] [address] [place] Creatinine [Mass/Vol] 0.57 mg/dL Low 0.60-1.20 [facility] Comment on above: Performed By: #### D IFF CBC, CMP, ETOH #### [facility] [address] [place] [address] [place] Creatinine Clr Calc Pharmacy 123.48 Normal [facility] Comment on above: Result Comment: PERF ORMED BY: [place] [address] PATHOLOGIST [employer] BRENDON KANG M.D. Performed By: #### D IFF CBC, CMP, ETOH #### [place] [address] [place] GFR/1.73 sq M.predicted MDRD (S/P/Bld) [Vol rate/Area] mL/min/{1.73_m2} Normal [facility] Comment on above: Performed By: #### D IFF CBC, CMP, ETOH #### [address] Globulin (S) [Mass/Vol] 2.4 g/dL Normal [facility] Comment on above: Performed By: #### D IFF CBC, CMP, ETOH #### [address] Glucose [Mass/Vol] 112 mg/dL High 70-100 [facility] Comment on above: Result Comment: [place] Glucose Reference Range is dependent on time and content of last meal. Glucose of more than 200 mg/dL in a nonstressed, ambulatory subject supports the diagnosis of Diabetes Mellitus. ADA recommended reference range Performed By: #### D IFF CBC, CMP, ETOH #### [place] [address] [place] Potassium [Moles/Vol] 4.9 mmol/L Normal 3.5-5.1 [facility] Comment on above: Performed By: #### D IFF CBC, CMP, ETOH #### [place] [address] [place] Protein [Mass/Vol] 6.3 g/dL Low 6.4-8.9 [facility] Comment on above: Performed By: #### D IFF CBC, CMP, ETOH #### [place] [address] [place] Sodium [Moles/Vol] 139 mmol/L Normal 136-145 [facility] Comment on above: Performed By: #### D IFF CBC, CMP, ETOH #### [facility] [address] [place] [address] Urea nitrogen [Mass/Vol] 9 mg/dL Normal 7-25 [facility] Comment on above: Performed By: #### D IFF CBC, CMP, ETOH #### [address] Creatine Kinaseon 03-29-2023 CK [Catalytic activity/Vol] 528 U/L High [facility] Comment on above: Result Comment: PERF ORMED BY: [place] [address] PATHOLOGIST [employer] BRENDON KANG M.D. Performed By: #### C K #### [address] Creatine kinase [Enzymatic a ctivity/volume] in Serum or PlasmaOrdered By: Rocio Emmanuel on 03-29-2023 CK [Catalytic activity/Vol] 528 U/L [facility] Creatinine [Mass/volume] in Serum or PlasmaOrdered By: Rocio Emmanuel on 03-29-2023 Creatinine [Mass/Vol] 0.57 mg/dL 0.60-1.20 [facility] Diff and CBCon 03-29-2023 Band form neutrophils/100 WBC (Bld) 1 % Normal 0-5 [facility] Comment on above: Performed By: #### D IFF CBC, CMP, ETOH #### [facility] [address] [place] [address] [place] Basophils/100 WBC (Bld) 0 % Normal 0-2 [facility] Comment on above: Performed By: #### D IFF CBC, CMP, ETOH #### [facility] [address] [place] [address] [place] Eosinophils/100 WBC (Bld) 1 % Normal 1-3 [facility] Comment on above: Performed By: #### D IFF CBC, CMP, ETOH #### [facility] [address] Erythrocyte distribution width (RBC) [Ratio] 13.2 % Normal 11.9-15.3 [facility] Comment on above: Performed By: #### D IFF CBC, CMP, ETOH #### [address] Hematocrit (Bld) [Volume fraction] 31.5 % Low 34.0-46.4 [facility] Comment on above: Performed By: #### D IFF CBC, CMP, ETOH #### [address] Hemoglobin (Bld) [Mass/Vol] 10.4 g/dL Low 11.8-15.4 [facility] Comment on above: Performed By: #### D IFF CBC, CMP, ETOH #### [address] Lymphocytes/100 WBC (Bld) 25 % Normal 18-42 [facility] Comment on above: Performed By: #### D IFF CBC, CMP, ETOH #### [address] MCH (RBC) [Entitic mass] 28.9 pg Normal 24.7-34.3 [facility] Comment on above: Performed By: #### D IFF CBC, CMP, ETOH #### [address] MCV (RBC) [Entitic vol] 87.2 fL Normal 80-100 [facility] Comment on above: Performed By: #### D IFF CBC, CMP, ETOH #### [facility] [address] [place] [address] Mean Corpuscular HGB Conc 33.1 g/dL Normal 32.0-35.0 [facility] Comment on above: Performed By: #### D IFF CBC, CMP, ETOH #### [facility] [address] [place] [address] [place] Metamyelocytes 1 % High 0-0 [facility] Comment on above: Performed By: #### D IFF CBC, CMP, ETOH #### [facility] [address] [place] [address] [place] Monocytes/100 WBC (Bld) 7 % Normal 2-11 [facility] Comment on above: Performed By: #### D IFF CBC, CMP, ETOH #### [address] Myelocytes 1 % High 0-0 [facility] Comment on above: Performed By: #### D IFF CBC, CMP, ETOH #### [facility] [address] [place] [address] Platelet Estimate Increased Normal Normal [facility] Comment on above: Performed By: #### D IFF CBC, CMP, ETOH #### [address] Platelet mean volume (Bld) [Entitic vol] 6.8 fL Normal 6.3-10.7 [facility] Comment on above: Performed By: #### D IFF CBC, CMP, ETOH #### [address] Platelet Morphology Normal Normal Normal [facility] Comment on above: Result Comment: PERF ORMED BY: [place] [address] PATHOLOGIST [employer] BRENDON KANG M.D. Performed By: #### D IFF CBC, CMP, ETOH #### [place] [address] [place] Platelets (Bld) [#/Vol] 525 10*3/uL High 150-450 [facility] Comment on above: Performed By: #### D IFF CBC, CMP, ETOH #### [address] Polychromasia Slight Normal [facility] Comment on above: Performed By: #### D IFF CBC, CMP, ETOH #### [place] [address] [place] Promyelocytes 1 % High 0-0 [facility] Comment on above: Performed By: #### D IFF CBC, CMP, ETOH #### [facility] [address] RBC (Bld) [#/Vol] 3.61 10*6/uL Normal 3.60-5.00 [facility] Comment on above: Performed By: #### D IFF CBC, CMP, ETOH #### [facility] [address] Segmented neutrophils/100 WBC (Bld) 63 % Normal 50-70 [facility] Comment on above: Performed By: #### D IFF CBC, CMP, ETOH #### [address] Stomatocytes Slight Normal [facility] Comment on above: Performed By: #### D IFF CBC, CMP, ETOH #### [address] WBC (Bld) [#/Vol] 16.8 10*3/uL High 3.8-11.6 [facility] Comment on above: Performed By: #### D IFF CBC, CMP, ETOH #### [address] Dipstick and Microscopicon 0 03-29-2023 Appearance (U) Clear Normal Clear [facility] Comment on above: Order Comment: Name Collection Type:: Clean-Voided Midstream Performed By: #### U HCG, URDS, ADDONUAPLUS #### [address] Bacteria,Urine None Seen Normal None Seen [facility] Comment on above: Order Comment: Name Collection Type:: Clean-Voided Midstream Performed By: #### U HCG, URDS, ADDONUAPLUS #### [address] Bilirubin,Urine Negative Normal Negative [facility] Comment on above: Order Comment: Name Collection Type:: Clean-Voided Midstream Performed By: #### U HCG, URDS, ADDONUAPLUS #### [address] Color (U) Dark Yellow Critically abnormal Yellow [facility] Comment on above: Order Comment: Name Collection Type:: Clean-Voided Midstream Performed By: #### U HCG, URDS, ADDONUAPLUS #### [facility] [address] [place] [address] Glucose Ql (U) Normal Normal Normal [facility] Comment on above: Order Comment: Name Collection Type:: Clean-Voided Midstream Performed By: #### U HCG, URDS, ADDONUAPLUS #### [facility] [address] [place] [address] Hyaline Casts,Urine 1-2 Normal 0-8 [facility] Comment on above: Order Comment: Name Collection Type:: Clean-Voided Midstream Performed By: #### U HCG, URDS, ADDONUAPLUS #### [facility] [address] [place] [address] Ketones Ql (U) Trace High Negative [facility] Comment on above: Order Comment: Name Collection Type:: Clean-Voided Midstream Performed By: #### U HCG, URDS, ADDONUAPLUS #### [facility] [address] [place] [address] Leukocyte esterase Test strip Ql (U) 1+ High Negative [facility] Comment on above: Order Comment: Name Collection Type:: Clean-Voided Midstream Performed By: #### U HCG, URDS, ADDONUAPLUS #### [facility] [address] [place] [address] [place] Nitrite,Urine Negative Normal Negative [facility] Comment on above: Order Comment: Name Collection Type:: Clean-Voided Midstream Performed By: #### U HCG, URDS, ADDONUAPLUS #### [facility] [address] [place] [address] [place] Occult Blood,Urine Negative Normal Negative [facility] Comment on above: Order Comment: Name Collection Type:: Clean-Voided Midstream Performed By: #### U HCG, URDS, ADDONUAPLUS #### [facility] [address] [place] [address] [place] Other Casts,Urine None Seen Normal None Seen [facility] Comment on above: Order Comment: Name Collection Type:: Clean-Voided Midstream Performed By: #### U HCG, URDS, ADDONUAPLUS #### [address] pH (U) 6.5 [pH] Normal 5.0-9.0 [facility] Comment on above: Order Comment: Name Collection Type:: Clean-Voided Midstream Performed By: #### U HCG, URDS, ADDONUAPLUS #### [address] Protein,Urine Trace High Negative [facility] Comment on above: Order Comment: Name Collection Type:: Clean-Voided Midstream Performed By: #### U HCG, URDS, ADDONUAPLUS #### [address] RBC,Urine 3-4 Normal 0-4 [facility] Comment on above: Order Comment: Name Collection Type:: Clean-Voided Midstream Performed By: #### U HCG, URDS, ADDONUAPLUS #### [address] Specificy [place],Urine 1.028 Normal 1.001-1.030 [facility] Comment on above: Order Comment: Name Collection Type:: Clean-Voided Midstream Performed By: #### U HCG, URDS, ADDONUAPLUS #### [address] Squamous Epithelial Cell,Urine 3-4 High 0-2 [facility] Comment on above: Order Comment: Name Collection Type:: Clean-Voided Midstream Performed By: #### U HCG, URDS, ADDONUAPLUS #### [address] Urobilinogen,Urine Normal Normal Normal [facility] Comment on above: Order Comment: Name Collection Type:: Clean-Voided Midstream Performed By: #### U HCG, URDS, ADDONUAPLUS #### [address] [address] [place] WBC,Urine 3-4 Normal 0-4 [facility] Comment on above: Order Comment: Name Collection Type:: Clean-Voided Midstream Performed By: #### U HCG, URDS, ADDONUAPLUS #### [place] [address] [place] Drug Screen,Urineon 03-29-20 Amphetamine Screen,Urine Negative Normal Negative [facility] Comment on above: Performed By: #### U HCG, URDS, ADDONUAPLUS #### [facility] [address] [place] [address] Barbiturate Screen,Urine Negative Normal Negative [facility] Comment on above: Performed By: #### U HCG, URDS, ADDONUAPLUS #### [facility] [address] [place] [address] Benzodiazepines Screen,Urine Negative Normal Negative [facility] Comment on above: Performed By: #### U HCG, URDS, ADDONUAPLUS #### [facility] [address] [place] [address] Cannabinoid Screen,Urine Negative Normal Negative [facility] Comment on above: Result Comment: Thes e are unconfirmed results and should not be used for legal purposes. Drug Cut-Off Concentration: AMPH 1000 ng/mL ADRIA 200 ng/mL MARAH 200 ng/mL COCM 300 ng/mL OP 300 ng/mL PCP 25 ng/mL THC 20 ng/mL PERFORMED BY: [place] [address] PATHOLOGIST [employer] BRENDON KANG M.D. Performed By: #### U HCG, URDS, ADDONUAPLUS #### [facility] [address] [place] [address] Cocaine Screen,Urine Negative Normal Negative [facility] Comment on above: Performed By: #### U HCG, URDS, ADDONUAPLUS #### [address] Opiate Screen,Urine Negative Normal Negative [facility] Comment on above: Performed By: #### U HCG, URDS, ADDONUAPLUS #### [facility] [address] Phencyclidine Screen,Urine Negative Normal Negative [facility] Comment on above: Performed By: #### U HCG, URDS, ADDONUAPLUS #### [facility] [address] Eosinophils Auto (Bld) [#/Vo l]Ordered By: Rocio Emmanuel on 03-29-2023 Eosinophils (Bld) [#/Vol] N/A [facility] Eosinophils/100 WBC Auto (Bl d)Ordered By: Rocio Emmanuel on 03-29-2023 Eosinophils/100 WBC (Bld) N/A [facility] Eosinophils/100 WBC Manual c nt (Bld)Ordered By: Rocio Emmanuel on 03-29-2023 Eosinophils/100 WBC (Bld) 1 % 1-3 [facility] Erythrocyte distribution wid th Auto (RBC) [Ratio]Ordered By: Rocio Emmanuel on 03-29-2023 Erythrocyte distribution width (RBC) [Ratio] 13.2 % 11.9-15.3 [facility] Ethanol [Mass/volume] in Ser um or PlasmaOrdered By: Rocio Emmanuel on 03-29-2023 Ethanol [Mass/Vol] mg/dL [facility] Ethanol [Mass/Vol] TNP [facility] Comment on above: Test not performed Ethyl Alcohol Profileon Ethanol [Mass/Vol] mg/dL Normal [facility] Comment on above: Performed By: #### D IFF CBC, CMP, ETOH #### [facility] [address] Percent Ethanol Not performed Normal [facility] Comment on above: Result Comment: PERF ORMED BY: [place] [address] PATHOLOGIST [employer] BRENDON KANG M.D. Performed By: #### D IFF CBC, CMP, ETOH #### [facility] [address] Globulin Calc (S) [Mass/Vol] Ordered By: Rocio Emmanuel on 03-29-2023 Globulin (S) [Mass/Vol] 2.4 g/dL F [facility] Glucose [Mass/volume] in Ser um or PlasmaOrdered By: Rocio Emmanuel on 03-29-2023 Glucose [Mass/Vol] 112 mg/dL 70-100 [facility] Comment on above: ADA recommended refe rence rangeRandom Glucose Reference Range is dependent on time and content of last meal. Glucose of more than 200 mg/dL in a nonstressed, ambulatory subject supports the diagnosis of Diabetes Mellitus. HCG ( test) IA.rapi d Ql (U)Ordered By: Rocio Emmanuel on 03-29-2023 HCG ( test) Ql (U) Negative [facility] HCG,Urineon 03-29-2023 Beta HCG ( test) Ql (U) Negative Normal [facility] Comment on above: Order Comment: Name Collection Type:: Clean-Voided Midstream Result Comment: PERF ORMED BY: [place] [address] PATHOLOGIST [employer] BRENDON KANG M.D. Performed By: #### U HCG, URDS, ADDONUAPLUS #### [address] Hematocrit Auto (Bld) [Volum e fraction]Ordered By: Rocio Emmanuel on 03-29-2023 Hematocrit (Bld) [Volume fraction] 31.5 % 34.0-46.4 [facility] Hemoglobin [Mass/volume] in BloodOrdered By: Rocio Emmanuel on 03-29-2023 Hemoglobin (Bld) [Mass/Vol] 10.4 g/dL 11.8-15.4 [facility] Ketones Auto test strip (U) [Mass/Vol]Ordered By: Rocio Emmanuel on 03-29-2023 Ketones (U) [Mass/Vol] Trace Negative Fi [facility] - UrinalysisOrder ed By: Rocio Emmanuel on 03-29-2023 Hyaline casts LM Ql (Urine sed) 1-2 [LPF] 0-8 [facility] Leukocytes [#/volume] correc leanna for nucleated erythrocytes in Blood by Automated counOrdered By: Rocio Emmanuel on 03-29-2023 WBC corrected for nucl RBC Auto (Bld) [#/Vol] 16.8 10*3/uL 3.8-11.6 [facility] Lymphocytes Auto (Bld) [#/Vo l]Ordered By: Rocio Emmanuel on 03-29-2023 Lymphocytes (Bld) [#/Vol] N/A [facility] Lymphocytes/100 WBC Auto (Bl d)Ordered By: Rocio Emmanuel on 03-29-2023 Lymphocytes/100 WBC (Bld) N/A [facility] Lymphocytes/100 WBC Manual c nt (Bld)Ordered By: Rocio Emmanuel on 03-29-2023 Lymphocytes/100 WBC (Bld) 25 % 18-42 [facility] MCH Auto (RBC) [Entitic mass ]Ordered By: Rocio Emmanuel on 03-29-2023 MCH (RBC) [Entitic mass] 28.9 pg 24.7-34.3 [facility] MCHC Auto (RBC) [Mass/Vol]Or dered By: Rocio Emmanuel on 03-29-2023 MCHC (RBC) [Mass/Vol] 33.1 g/dL 32.0-35.0 [facility] MCV Auto (RBC) [Entitic vol] Ordered By: Rocio Emmanuel on 03-29-2023 MCV (RBC) [Entitic vol] 87.2 fL 80-100 [facility] Metamyelocytes/100 WBC Manua l cnt (Bld)Ordered By: Rocio Emmanuel on 03-29-2023 Metamyelocytes/100 WBC (Bld) 1 % 0-0 [facility] Monocytes Auto (Bld) [#/Vol] Ordered By: Rocio Emmanuel on 03-29-2023 Monocytes (Bld) [#/Vol] N/A [facility] Monocytes/100 WBC Auto (Bld) Ordered By: Rocio Emmanuel on 03-29-2023 Monocytes/100 WBC (Bld) N/A [facility] Monocytes/100 WBC Manual cnt (Bld)Ordered By: Rocio Emmanuel on 03-29-2023 Monocytes/100 WBC (Bld) 7 % 2-11 [facility] Myelocytes/100 WBC Manual cn t (Bld)Ordered By: Rocio Emmanuel on 03-29-2023 Myelocytes/100 WBC (Bld) 1 % 0-0 [facility] Neutrophils Auto (Bld) [#/Vo l]Ordered By: Rocio Emmanuel on 03-29-2023 Neutrophils (Bld) [#/Vol] N/A [facility] Neutrophils/100 WBC Auto (Bl d)Ordered By: Rocio Emmanuel on 03-29-2023 Neutrophils/100 WBC (Bld) N/A [facility] Nitrite Test strip Ql (U)Ord ered By: Rocio Emmanuel on 03-29-2023 Nitrite Ql (U) Negative Negative [facility] No Panel InformationOrdered By: Rocio Emmanuel on 03-29-2023 Estimated GFR (CKD-EPI) > 60.0 mL/Min [facility] Creatinine Clearance (Chem 123.48 [facility] Nucleated erythrocytes [Pres ence] in Blood by Automated countOrdered By: Rocio Emmanuel on 03-29-2023 Nucleated RBC Auto Ql (Bld) N/A [facility] Opiates [Presence] in Urine by Screen methodOrdered By: Rocio Emmanuel on 03-29-2023 Opiates Screen Ql (U) Negative Negative [facility] Phencyclidine Screen Ql (U)O rdered By: Rocio Emmanuel on 03-29-2023 Phencyclidine Ql (U) Negative Negative [facility] Platelet adequacy [Presence] in Blood by Light microscopyOrdered By: Rocio Emmanuel on 03-29-2023 Platelets LM Ql (Bld) Increased Normal [facility] Platelet mean volume Auto (B ld) [Entitic vol]Ordered By: Rocio Emmanuel on 03-29-2023 Platelet mean volume (Bld) [Entitic vol] 6.8 fL 6.3-10.7 [facility] Platelet morphology finding [Identifier] in BloodOrdered By: Rocio Emmanuel on 03-29-2023 Platelet morphology finding Nom (Bld) Normal Normal [facility] Platelets Auto (Bld) [#/Vol] Ordered By: Rocio Emmanuel on 03-29-2023 Platelets (Bld) [#/Vol] 525 10*3/uL 150-450 [facility] Polychromasia [Presence] in Blood by Light microscopyOrdered By: Rocio Emmanuel on 03-29-2023 Polychromasia LM Ql (Bld) Slight [facility] Potassium [Moles/volume] in Serum or PlasmaOrdered By: Rocio Emmanuel on 03-29-2023 Potassium [Moles/Vol] 4.9 mmol/L 3.5-5.1 [facility] Promyelocytes/100 WBC Manual cnt (Bld)Ordered By: Rocio Emmanuel on 03-29-2023 Promyelocytes/100 WBC (Bld) 1 % 0-0 [facility] Protein Auto test strip (U) [Mass/Vol]Ordered By: Rocio Emmanuel on 03-29-2023 Protein (U) [Mass/Vol] Trace mg/dL Negative [facility] Protein [Mass/volume] in Ser um or PlasmaOrdered By: Rocio Emmanuel on 03-29-2023 Protein [Mass/Vol] 6.3 g/dL 6.4-8.9 [facility] RBC Auto (Bld) [#/Vol]Ordere d By: Rocio Emmanuel on 03-29-2023 RBC (Bld) [#/Vol] 3.61 10*6/uL 3.60-5.00 [facility] RBC morphologyOrdered By: Cande Emmanuel on 03-29-2023 RBC morphology finding Nom (Bld) N/A [facility] Red blood cell stomatocyte d etectionOrdered By: Rocio Emmanuel on 03-29-2023 Stomatocytes LM Ql (Bld) Slight [facility] Segmented neutrophils/100 WB C Manual cnt (Bld)Ordered By: Rocio Emmanuel on 03-29-2023 Segmented neutrophils/100 WBC (Bld) 63 % 50-70 [facility] Serum or plasma albumin/glob ulin mass ratioOrdered By: Rocio Emmanuel on 03-29-2023 Albumin/Globulin [Mass ratio] 1.6 {ratio} [facility] Serum or plasma anion gap de terminationOrdered By: Rocio Emmanuel on 03-29-2023 Anion gap [Moles/Vol] 13.0 mmol/L 6.0-15.0 [facility] Sodium [Moles/volume] in Ser um or PlasmaOrdered By: Rocio Emmanuel on 03-29-2023 Sodium [Moles/Vol] 139 mmol/L 136-145 [facility] Specific gravity Auto test s trip (U) [Rel density]Ordered By: Rocio Emmanuel on 03-29-2023 Specific gravity (U) [Rel density] 1.028 1.001-1.030 [facility] Squamous epithelial cells de tection in urine sediment by light microscopyOrdered By: Rocio Emmanuel on 03-29-2023 Epithelial cells.squamous LM Ql (Urine sed) 3-4 [HPF] 0-2 [facility] Urea nitrogen [Mass/volume] in Serum or PlasmaOrdered By: Rocio Emmanuel on 03-29-2023 Urea nitrogen [Mass/Vol] 9 mg/dL 7-25 [facility] Urine bacteria detection by automated methodOrdered By: Rocio Emmanuel on 03-29-2023 Bacteria Auto Ql (U) None seen None Seen [facility] Urine clarity by refractomet ry automatedOrdered By: Rocio Emmanuel on 03-29-2023 Clarity Refractometry automated (U) Clear Clear [facility] Urine glucose measurement by automated test strip (mass/volume)Ordered By: Rocio Emmanuel on 03-29-2023 Glucose Auto test strip (U) [Mass/Vol] Normal mg/dL Normal [facility] Urine hemoglobin detection b y automated test stripOrdered By: Rocio Emmanuel on 03-29-2023 Hemoglobin Auto test strip Ql (U) Negative Negative [facility] Urine leukocyte esterase det ection by automated test stripOrdered By: Rocio Emmanuel on 03-29-2023 Leukocyte esterase Auto test strip Ql (U) 1+ Negative [facility] Urobilinogen Auto test strip (U) [Mass/Vol]Ordered By: Rocio Emmanuel on 03-29-2023 Urobilinogen (U) [Mass/Vol] Normal mg/dL Normal [facility] WBC Auto (Bld) [#/Vol]Ordere d By: Rocio Emmanuel on 03-29-2023 WBC (Bld) [#/Vol] 16.8 10*3/uL 3.8-11.6 [facility] pH Auto test strip (U)Ordere d By: Rocio Emmanuel on 03-29-2023 pH (U) 6.5 [pH] 5.0-9.0 [facility] US THYROIDon 02-13-2023 US THYROID EXAMINATION: US [...] RINA CARRANZA Date: 2023-02-13 13:32 Normal [facility] Falls Screening (Age 18+)on 11-30-2022 Fall risk assessment a) No falls within the last year -Pediatrics -[place] [address] Work Phone: Tobacco use status [facility] c) Screening not indicated [facility] [facility] Work Phone: Office Visit (Pediatric Neur ology)on 11-30-2022 Follow-up visit Diagnoses/Problems Epilepsy (345.90) (G40.909) 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 No seizures [...] up office visit Accompanied by mother and jail staff. History of Present Illness Amena is [...] and was agitated. She was taken to [facility]. During this time, she was not sleeping at night and was more upset. She slept last Sunday night after receiving Ambien. Testing at [facility] was except an increased WBC count [...] Anxiety Social History Depo-Provera shot Lives in jail (V60.6) (Z59.3) Never smoker No alcohol use Allergies Demerol TABS Recorded By: Vanessa Castro; 01/06/2014 2:44:07 PM Current Meds Medication NameInstruction buPROPion HCl ER (SR) 100 MG Oral Tablet Extended Release 12 HourTAKE 1 TABLET TWICE DAILY. Chest Congestion Relief 400 MG Oral TabletTAKE ONE TABLET BY MOUTH TWICE A DAY NEEDED FOR CONGESTION OR COUGH [place] Calcium/Vitamin D 200-250 MG-UNIT TABSTAKE TWO TABLETS [...] Recorded: 30Nov2022 10:00AM Height5 ft 3 in Kpotcy994 lb 5.02 oz BMI Lvoadldukv39.03 kg/m2 BSA Calculated1.67 Tobacco Usec) Screening not indicated Falls Screening (Age 18+)a) No falls within the last year Physical Exam Awake and alert Eats snacks (looks for the food) Moves well FROM Lets me examine her Signatures Electronically signed by : Cruz Adler MD; Dec 01 2022 9:47AM EST (Author) Normal Touchworks CBC AUTO DIFFon 10-04-2022 BASO # 0.0 103/ul Normal 0.0-0.1 [facility] Comment on above: Performed By: #### C BC ####[facility] [address] [address]Dr. Jonathan Garcia Basophils/100 WBC (Bld) 0.4 % Normal 0.2-2.0 [facility] Comment on above: Performed By: #### C BC ####[facility] [address] [place], [place] [address]Dr. Jonathan Garcia EO # 0.1 103/ul Normal 0.0-0.7 [facility] Comment on above: Performed By: #### C BC ####[facility] [address] [place], [place] [address]Dr. Jonathan Garcia Eosinophils/100 WBC (Bld) 1.2 % Normal 0.9-7.0 [facility] Comment on above: Performed By: #### C BC ####[facility] [address] [place], [place] [address]Dr. Jonathan Garcia Erythrocyte distribution width (RBC) [Ratio] 12.5 % Normal 11.0-15.0 [facility] Comment on above: Performed By: #### C BC ####[facility] Ghfmb[address] [place], [place] [address]Dr. Jonathan Garcia Hematocrit (Bld) [Volume fraction] 41.6 % Normal 36.0-48.0 [facility] Comment on above: Performed By: #### C BC ####[facility] [address] [place], [place] [address]Dr. Jonathan Garcia Hemoglobin (Bld) [Mass/Vol] 13.9 g/dL Normal 12.0-16.0 [facility] Comment on above: Performed By: #### C BC ####[facility] [address] [place], [place] [id number]. Jonathan Garcia IG # 0.08 10e3/ul Critically high 0.00-0.03 [facility] Comment on above: Performed By: #### C BC ####[facility] [address] [address]DrIan Jonathan Jose IG % 0.9 % Critically high 0.0-0.5 [facility] Comment on above: Performed By: #### C BC ####[facility] [address] [place], [place] [address]DrIan Jonathan Jose LYMPH # 3.1 103/ul Normal 1.2-3.8 [facility] Comment on above: Performed By: #### C BC ####[facility] [address] [place], [place] [address]DrIan Jonathan Jose Lymphocytes/100 WBC (Bld) 33.4 % Normal 20.5-60.0 [facility] Comment on above: Performed By: #### C BC ####[facility] [address] [place], [place] [address]DrIan Jonathan Jose MANUAL DIFF REQ NO Normal [facility] Comment on above: Performed By: #### C BC ####[facility] [address] [place], [place] [address]DrIan Jonathan Garcia MCH (RBC) [Entitic mass] 28.9 pg Normal 26.7-34.0 [facility] Comment on above: Performed By: #### C BC ####[facility] T[address] [place], [place] [address]DrIan Jonathan Jose MCHC (RBC) [Mass/Vol] 33.4 g/dL Normal 29.9-35.2 [facility] Comment on above: Performed By: #### C BC ####[facility] [address] [place], [place] [address]DrIan Jonathan Jose MCV (RBC) [Entitic vol] 86.5 fL Normal 81.0-99.0 [facility] Comment on above: Performed By: #### C BC ####[facility] R[address] [place], [place] [address]Dr. Jonathan Garcia MONO # 0.6 103/ul Normal 0.3-0.8 [facility] Comment on above: Performed By: #### C BC ####[facility] [address] [address]Dr. Jonathan Garcia Monocytes/100 WBC (Bld) 5.9 % Normal 1.7-12.0 [facility] Comment on above: Performed By: #### C BC ####[facility] [address] [address]Dr. Jonathan Garcia NEUT # 5.4 103/ul Normal 1.4-6.5 [facility] Comment on above: Performed By: #### C BC ####[facility] [address] [place], [place] [address]Dr. Jonathan Garcia Neutrophils/100 WBC (Bld) 58.2 % Normal 43.0-75.0 [facility] Comment on above: Performed By: #### C BC ####[facility] [address] [place], [place] [address]Dr. Jonathan Garcia Platelet mean volume (Bld) [Entitic vol] 9.4 fL Critically low 9.5-13.5 [facility] Comment on above: Performed By: #### C BC ####[facility] [address] [address]Dr. Jonathan Garcia PLT 327 103/ul Normal 150-450 [facility] Comment on above: Performed By: #### C BC ####[facility] [address] [place], [place] [address]Dr. Jonathan Garcia RBC 4.81 106/ul Normal 4.20-5.40 [facility] Comment on above: Performed By: #### C BC ####[facility] [address] [place], [place] [address]Dr. Jonathan Garcia WBC 9.3 103/ul Normal 4.0-11.0 [facility] Comment on above: Performed By: #### C BC ####[facility] [address] [place], [place] [address]Dr. Jonathan Garcia DEPAKENE/ VALPROIC ACIDon 01 -11-2023 DEPAKENE 55.8 ug/ml Normal 50.0-100.0 [facility] Comment on above: Performed By: #### C MP, VALP #### [facility] [address] [place] [address] Dr. Jonathan Garcia PROF 14(COMP METB)on 023 Albumin [Mass/Vol] 3.6 g/dL Normal 3.4-5.[address] [facility] Comment on above: Performed By: #### C MP, VALP #### [facility] [address] [place] [address] Dr. Jonathan Garcia Albumin/Globulin [Mass ratio] 1.0 {ratio} Normal [facility] Comment on above: Performed By: #### C ZOEY, VALP #### [facility] [address] [place] [address] Dr. Jonathan Garcia ALP [Catalytic activity/Vol] 50 U/L Normal 46-116 [facility] Comment on above: Performed By: #### C MP, VALP #### [facility] [address] [place] [address] Dr. Jonathan Garcia ALT [Catalytic activity/Vol] 11 U/L Critically low 14-59 [facility] Comment on above: Performed By: #### C ZOEY, VALP #### [facility] [address] [place] [address] Dr. Jonathan Garcia Anion gap [Moles/Vol] 10.5 mmol/L Normal [facility] Comment on above: Performed By: #### C MP, VALP #### [facility] [address] [place] [address] Dr. Jonathan Garcia AST [Catalytic activity/Vol] 10 U/L Critically low 15-37 [facility] Comment on above: Performed By: #### C MP, VALP #### [facility] [address] [place] [address] Dr. Jonathan Garcia Bilirubin [Mass/Vol] 0.5 mg/dL Normal 0.2-1.0 [facility] Comment on above: Performed By: #### C MP, VALP #### [facility] [address] [address] [address] Jonathan Garcia Calcium [Mass/Vol] 9.1 mg/dL Normal 8.5-10.1 [facility] Comment on above: Performed By: #### C MP, VALP #### [facility] [address] [place] [address] Dr. Jonathan Garcia Chloride [Moles/Vol] 102 mmol/L Normal 98-107 [facility] Comment on above: Performed By: #### C MP, VALP #### [facility] [address] [place] [address] Dr. Jonathan Garcia CO2 [Moles/Vol] 30.7 mmol/L Normal 21.0-32.0 [facility] Comment on above: Performed By: #### C MP, VALP #### [facility] [address] [place] [address] Dr. Jonathan Garcia Creatinine [Mass/Vol] 0.72 mg/dL Normal 0.55-1.02 [facility] Comment on above: Performed By: #### C MP, VALP #### [facility] [address] [place] [address] Dr. Jonathan Garcia EGFR-AF DUTCH >60 Normal >=60 [facility] Comment on above: Performed By: #### C MP, VALP #### [facility] [address] [place] [address] Dr. Jonathan Garcia EGFR-NON AF DUTCH >60 Normal >=60 [facility] Comment on above: Performed By: #### C MP, VALP #### [facility] [address] [place] [address] Dr. Jonathan Garcia Globulin (S) [Mass/Vol] 3.6 g/dL Normal [facility] Comment on above: Performed By: #### C MP, VALP #### [facility] [address] [place] [address] Dr. Jonathan Garcia Glucose [Mass/Vol] 102 mg/dL Normal 74-106 [facility] Comment on above: Performed By: #### C MP, VALP #### [facility] [address] [address] [address] Jonathan Garcia Potassium [Moles/Vol] 4.2 mmol/L Normal 3.5-5.1 [facility] Comment on above: Performed By: #### C MP, VALP #### [facility] [address] [address] [address] Jonathan Garcia Protein [Mass/Vol] 7.2 g/dL Normal 6.4-8.2 [facility] Comment on above: Performed By: #### C MP, VALP #### [facility] [address] [address] [address] Jonathan Garcia Sodium [Moles/Vol] 139 mmol/L Normal 136-[address] [facility] Comment on above: Performed By: #### C MP, VALP #### [facility] [address] [address] [address] Jonathan Garcia Urea nitrogen [Mass/Vol] 8.0 mg/dL Normal 7.0-18.0 [facility] Comment on above: Performed By: #### C MP, VALP #### [facility] [address] [address] [address] Jonathan Garcia Urea nitrogen/Creatinine [Mass ratio] 11.1 mg/mg Normal [facility] Comment on above: Performed By: #### C MP, VALP #### [facility] [address] [address] [address] Jonathan Garcia VITAMIN D 25 OHon 10-04-2022 VIT D 25-OH 42.3 ng/mL Normal [facility] Comment on above: Performed By: #### V ITAD ####[facility] [address] [address]Dr. Jonathan Garcia VIT D RANGES SEE BELOW Normal [facility] Comment on above: Result Comment: <20 ng/mL Vit D deficient 20 - <30 ng/mL Vit D insufficient 30 - 100 ng/mL Vit D sufficient >100 ng/mL Potential Toxicity Performed By: #### V ITAD ####[facility] [address] [address]Dr. Jonathan Garcia CBC AUTO DIFFon 08-29-2022 BASO # 0.0 103/ul Normal 0.0-0.1 [facility] Comment on above: Performed By: #### C BC #### [facility] [address] [place] [address] Dr. Jonathan Garcia Basophils/100 WBC (Bld) 0.4 % Normal 0.2-2.0 [facility] Comment on above: Performed By: #### C BC #### [facility] [address] [place] [address] Dr. Jonathan Garcia EO # 0.1 103/ul Normal 0.0-0.7 [facility] Comment on above: Performed By: #### C BC #### [facility] [address] [place] [address] Dr. Jonathan Garcia Eosinophils/100 WBC (Bld) 1.0 % Normal 0.9-7.0 [facility] Comment on above: Performed By: #### C BC #### [facility] [address] [place] [address] Dr. Jonathan Garcia Erythrocyte distribution width (RBC) [Ratio] 12.6 % Normal 11.0-15.0 [facility] Comment on above: Performed By: #### C BC #### [facility] [address] [place] [address] Dr. Jonathan Garcia Hematocrit (Bld) [Volume fraction] 40.7 % Normal 36.0-48.0 [facility] Comment on above: Performed By: #### C BC #### [facility] [address] [place] [address] Dr. Jonathan Garcia Hemoglobin (Bld) [Mass/Vol] 13.6 g/dL Normal 12.0-16.0 [facility] Comment on above: Performed By: #### C BC #### [facility] [address] [place] [address] Dr. Jonathan Garcia IG # 0.08 10e3/ul Critically high 0.00-0.03 [facility] Comment on above: Performed By: #### C BC #### [facility] [address] [place] [address] Dr. Jonathan Garcia IG % 0.8 % Critically high 0.0-0.5 [facility] Comment on above: Performed By: #### C BC #### [facility] [address] [place] [address] Dr. Jonathan Garcia LYMPH # 3.7 103/ul Normal 1.2-3.8 [facility] Comment on above: Performed By: #### C BC #### [facility] [address] [place] [address] Dr. Jonathan Garcia Lymphocytes/100 WBC (Bld) 35.9 % Normal 20.5-60.0 [facility] Comment on above: Performed By: #### C BC #### [facility] [address] [place] [address] Dr. Jonathan Garcia MANUAL DIFF REQ NO Normal [facility] Comment on above: Performed By: #### C BC #### [facility] [address] [place] [address] Dr. Jonathan Garcia MCH (RBC) [Entitic mass] 29.1 pg Normal 26.7-34.0 [facility] Comment on above: Performed By: #### C BC #### [facility] [address] [place] [address] Dr. Jonathan Garcia MCHC (RBC) [Mass/Vol] 33.4 g/dL Normal 29.9-35.2 [facility] Comment on above: Performed By: #### C BC #### [facility] [address] [place] [address] Dr. Jonathan Garcia MCV (RBC) [Entitic vol] 87.0 fL Normal 81.0-99.0 [facility] Comment on above: Performed By: #### C BC #### [facility] [address] [place] [address] Dr. Jonathan Garcia MONO # 0.7 103/ul Normal 0.3-0.8 [facility] Comment on above: Performed By: #### C BC #### [facility] [address] [place] [address] Dr. Jonathan Garcia Monocytes/100 WBC (Bld) 6.3 % Normal 1.7-12.0 [facility] Comment on above: Performed By: #### C BC #### [facility] [address] [place] [address] Dr. Jonathan Garcia NEUT # 5.8 103/ul Normal 1.4-6.5 [facility] Comment on above: Performed By: #### C BC #### [facility] [address] [place] [address] Dr. Jonathan Garcia Neutrophils/100 WBC (Bld) 55.6 % Normal 43.0-75.0 [facility] Comment on above: Performed By: #### C BC #### [facility] [address] [place] [address] Dr. Jonathan Garcia Platelet mean volume (Bld) [Entitic vol] 9.4 fL Critically low 9.5-13.5 [facility] Comment on above: Performed By: #### C BC #### [facility] [address] [place] [address] Dr. Jonathan Garcia PLT 317 103/ul Normal 150-450 [facility] Comment on above: Performed By: #### C BC #### [facility] [address] [place] [address] Dr. Jonathan Garcia RBC 4.68 106/ul Normal 4.20-5.40 [facility] Comment on above: Performed By: #### C BC #### [facility] [address] [place] [address] Dr. Jonathan Garcia WBC 10.4 103/ul Normal 4.0-11.0 [facility] Comment on above: Performed By: #### C BC #### [facility] [address] [place] [address] Dr. Jonathan Garcia DEPAKENE/ VALPROIC ACIDon DEPAKENE 59.8 ug/ml Normal 50.0-100.0 [facility] Comment on above: Performed By: #### V ALP, CMP, TSH #### [facility] [address] [place] [address] Dr. Jonathan Garcia FREE T4on 08-29-2022 Free T4 [Mass/Vol] 0.72 ng/dL Critically low 0.76-1.46 Th e [facility] Comment on above: Performed By: #### F T4, VITAD #### [facility] [address] [address] [address] Jonathan Garcia PROF 14(COMP METB)on 022 Albumin [Mass/Vol] 3.6 g/dL Normal 3.4-5.[address] [facility] Comment on above: Performed By: #### V ALP, CMP, TSH #### [facility] [address] [address] [address] Jonathan Garcia Albumin/Globulin [Mass ratio] 1.0 {ratio} Normal [facility] Comment on above: Performed By: #### V ALP, CMP, TSH #### [facility] [address] [address] [address] Jonathan Garcia ALP [Catalytic activity/Vol] 56 U/L Normal 46-116 [facility] Comment on above: Performed By: #### V ALP, CMP, TSH #### [facility] [address] [address] [address] Jonathan Garcia ALT [Catalytic activity/Vol] 12 U/L Critically low 14-59 [facility] Comment on above: Performed By: #### V ALP, CMP, TSH #### [facility] [address] [address] [address] Jonathan Garcia Anion gap [Moles/Vol] 7.9 mmol/L Normal [facility] Comment on above: Performed By: #### V ALP, CMP, TSH #### [facility] [address] [address] [address] Jonathan Garcia AST [Catalytic activity/Vol] 12 U/L Critically low 15-37 [facility] Comment on above: Performed By: #### V ALP, CMP, TSH #### [facility] [address] [address] [address] Jonathan Garcia Bilirubin [Mass/Vol] 0.3 mg/dL Normal 0.2-1.0 [facility] Comment on above: Performed By: #### V ALP, CMP, TSH #### [facility] [address] [address] [address] Jonathan Garcia Calcium [Mass/Vol] 9.0 mg/dL Normal 8.5-10.[address] [facility] Comment on above: Performed By: #### V ALP, CMP, TSH #### [facility] [address] [address] [address] Jonathan Garcia Chloride [Moles/Vol] 102 mmol/L Normal 98-107 [facility] Comment on above: Performed By: #### V ALP, CMP, TSH #### [facility] [address] [address] [address] Jonathan Garcia CO2 [Moles/Vol] 32.1 mmol/L Critically high 21.0-32.0 [facility] Comment on above: Performed By: #### V ALP, CMP, TSH #### [facility] [address] [address] [address] Jonathan Garcia Creatinine [Mass/Vol] 0.77 mg/dL Normal 0.55-1.02 [facility] Comment on above: Performed By: #### V ALP, CMP, TSH #### [facility] [address] [address] [address] Jonathan Garcia EGFR-AF DUTCH >60 Normal >=60 [facility] Comment on above: Performed By: #### V ALP, CMP, TSH #### [facility] [address] [address] [address] Jonathan Garcia EGFR-NON AF DUTCH >60 Normal >=60 [facility] Comment on above: Performed By: #### V ALP, CMP, TSH #### [facility] [address] [address] [address] Jonathan Garcia Globulin (S) [Mass/Vol] 3.7 g/dL Normal T [facility] Comment on above: Performed By: #### V ALP, CMP, TSH #### [facility] [address] [address] [address] Jonathan Garcia Glucose [Mass/Vol] 99 mg/dL Normal 74-106 [facility] Comment on above: Performed By: #### V ALP, CMP, TSH #### [facility] [address] [address] [address] Jonathna Garcia Potassium [Moles/Vol] 4.0 mmol/L Normal 3.5-5.1 [facility] Comment on above: Performed By: #### V ALP, CMP, TSH #### [facility] [address] [address] [address] Jonathan Garcia Protein [Mass/Vol] 7.3 g/dL Normal 6.4-8.2 [facility] Comment on above: Performed By: #### V ALP, CMP, TSH #### [facility] [address] [address] [address] Jonathan Garcia Sodium [Moles/Vol] 138 mmol/L Normal 136-[address] [facility] Comment on above: Performed By: #### V ALP, CMP, TSH #### [facility] [address] [address] [address] Jonathan Garcia Urea nitrogen [Mass/Vol] 4.0 mg/dL Critically low 7.0-18.0 [facility] Comment on above: Performed By: #### V ALP, CMP, TSH #### [facility] [address] [place] [address] Dr. Jonathan Garcia Urea nitrogen/Creatinine [Mass ratio] 5.2 mg/mg Normal [facility] Comment on above: Performed By: #### V ALP, CMP, TSH #### [facility] [address] [address] [address] Jonathan Garcia TSHon 08-29-2022 TSH 1.034 uIU/mL Normal 0.358-3.740 [facility] Comment on above: Performed By: #### V ALP, CMP, TSH #### [facility] [address] [place] [address] Dr. Jonathan Garcia VITAMIN D 25 OHon 08-29-2022 VIT D 25-OH 44.9 ng/mL Normal [facility] Comment on above: Performed By: #### F T4, VITAD #### [facility] [address] [place] [address] Dr. Jonathan Garcia VIT D RANGES SEE BELOW Normal [facility] Comment on above: Result Comment: <20 ng/mL Vit D deficient 20 - <30 ng/mL Vit D insufficient 30 - 100 ng/mL Vit D sufficient >100 ng/mL Potential Toxicity Performed By: #### F T4, VITAD #### [facility] [address] [address] [address] 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 Jonathan Garcia Clarity (U) CLEAR Normal CLEAR [facility] Comment on above: Performed By: #### U ACSIND #### [facility] [address] [place] [address] Dr. Jonathan Garcia Color (U) DK. YELLOW Normal YELLOW [facility] Comment on above: Performed By: #### U ACSIND #### [facility] [address] [place] [address] Dr. Jonathan Garcia Glucose Ql (U) Negative Normal NEGATIVE [facility] Comment on above: Performed By: #### U ACSIND #### [facility] [address] [place] [address] Dr. Jonathan Garcia Hemoglobin Ql (U) Negative Normal NEGATIVE [facility] Comment on above: Performed By: #### U ACSIND #### [facility] [address] [place] [address] Dr. Jonathan Garcia Ketones Ql (U) TRACE Abnormal NEGATIVE [facility] Comment on above: Performed By: #### U ACSIND #### [facility] [address] [place] [address] Dr. Jonathan Garcia LEUKOCYTES Negative Normal NEGATIVE [facility] Comment on above: Performed By: #### U ACSIND #### [facility] [address] [place] [address] Dr. Jonathan Garcia Nitrite Ql (U) Negative Normal NEGATIVE [facility] Comment on above: Performed By: #### U ACSIND #### [facility] [address] [address] [address] Jonathan Garcia pH (U) 7.0 [pH] Normal 5-9 [facility] Comment on above: Performed By: #### U ACSIND #### [facility] [address] [address] [address] Jonathan Garcia SPEC GRAVITY 1.020 Normal 1.005-<=1.02 5 [facility] Comment on above: Performed By: #### U ACSIND #### [facility] [address] [address] [address] Jonathan Garcia UA PROTEIN Negative Normal NEGATIVE/ TRACE [facility] Comment on above: Performed By: #### U ACSIND #### [facility] [address] [place] [address] Dr. Jonathan Garcia UR MICRO IND NOT INDICATED Normal [facility] Comment on above: Performed By: #### U ACSIND #### [facility] [address] [address] [address] Jonathan Garcia Urobilinogen Qn (U) 0.2 {Christos'U}/dL Normal 0.2 - 1. 0 [facility] Comment on above: Performed By: #### U ACSIND #### [facility] [address] [place] [address] Dr. Jonathan Garcia Peds Gastroenterology - Paresh patrick 07-20-2022 Peds Gastroenterology - Established Diagnoses/Problems Assessed Constipation (564.00) (K59.00) Patient Discussion/Summary Amena Singleton is a 32 year old young woman [...] exercise. Follow up as needed. 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 History of Present Illness Amena Singleton is a 32 year old young woman with seizures, cognitive impairment and anxiety. I am seeing her for the first time today, July 20, 2022 at the request of Dr. Cruz Adler for concerns of behavioral changes secondary to constipation. This visit was completed via [employer]. The patient's mother verbally consented to and [...] Social History Problems Depo-Provera shot Lives in jail (V60.6) (Z59.3) Never smoker No alcohol use Allergies Medication Demerol TABS Recorded By: Vanessa Castro; 01/06/2014 2:44:07 PM Current Meds Medication NameInstruction buPROPion HCl ER (SR) 100 MG Oral Tablet Extended Release 12 HourTAKE 1 TABLET TWICE DAILY. Chest Congestion Relief 400 MG Oral TabletTAKE ONE TABLET BY MOUTH TWICE A DAY NEEDED FOR CONGESTION OR COUGH [place] Calcium/Vitamin (more content not included)... Normal [facility] COMPMET[facility]on 10-21-2021 Albumin/Globulin [Mass ratio] 1.1 {ratio} Normal [facility] Comment on above: Performed By: #### 1 86620, [id number], [id number] #### [facility] [address] [place] [address]759 Neuropsychologist: Rudy Posey MD GFR AA >60 Normal [facility] Comment on above: Result Comment: Afri can Brazilian GFR Calc Medical judgement is necessary to [...] for drug dosing. Performed By: #### 1 60342, [id number], 820182 #### [facility] [address] [place] [address] 42136 Neuropsychologist: Rudy Posey MD Glomerular Filtration Rate >60 Normal [facility] Comment on above: Result Comment: Non GFR [...] for drug dosing. Performed By: #### 1 03109, 399895, 071707 #### [facility] [address] [place] [address] 73820 Neuropsychologist: Rudy Posey MD Osmolality [Osmolality] 277 mosm/kg Normal 275-295 [facility] Comment on above: Performed By: #### 1 14723, 593668, 962391 #### [facility] [address] [place] [address] 78275 Neuropsychologist: Rudy Posey MD Urea nitrogen/Creatinine [Mass ratio] 15.9 mg/mg Normal [facility] Comment on above: Performed By: #### 1 13307, 540452, 205141 #### [facility] [address] [place] [address] 89058 Neuropsychologist: Rudy Posey MD Albumin [Mass/Vol] 3.6 g/dL Normal 3.4-5.0 [facility] Comment on above: Performed By: #### 1 34208, 894229, 727645 #### [facility] [address] [place] [address] 16114 Neuropsychologist: Rudy Posey MD Alk Phos 60 unit/L Normal 45-117 [facility] Comment on above: Performed By: #### 1 00372, 804200, 099397 #### [facility] [address] [place] [address] 54369 Neuropsychologist: Rudy Posey MD Bilirubin [Mass/Vol] 0.45 mg/dL Normal 0.20-1.00 [facility] Comment on above: Result Comment: Use of this assay is not recommended for patients undergoing treatment with eltrombopag due to the potential for falsely elevated results. Performed By: #### 1 12039, 794236, 803036 #### [facility] [address] [place] [address] 07591 Neuropsychologist: Rudy Posey MD Calcium [Mass/Vol] 9.3 mg/dL Normal 8.5-10.5 [facility] Comment on above: Performed By: #### 1 83361, 674900, 081617 #### [facility] [address] [place] [address] 71423 Neuropsychologist: Rudy Posey MD Chloride [Moles/Vol] 104 mmol/L Normal 100-109 [facility] Comment on above: Performed By: #### 1 58391, 434019, 147992 #### [facility] [address] [place] [address] 39027 Neuropsychologist: Rudy Posey MD CO2 [Moles/Vol] 28.6 mmol/L Normal 21.0-32.0 [facility] Comment on above: Performed By: #### 1 18989, 230643, 273307 #### [facility] [address] [place] [address] 75061 Neuropsychologist: Rudy Posey MD Creatinine [Mass/Vol] 0.7 mg/dL Normal 0.6-1.0 [facility] Comment on above: Performed By: #### 1 64944, 524303, 526314 #### [facility] [address] [place] [address] 89912 Neuropsychologist: Rudy Posey MD Globulin (S) [Mass/Vol] 3.2 g/dL Normal [facility] Comment on above: Performed By: #### 1 65716, 336148, 691328 #### [facility] Services [address] [place], [place] [id number] Neuropsychologist: Rudy Posey MD Glucose [Mass/Vol] 106 mg/dL High 72-100 [facility] Comment on above: Result Comment: Charlene puncture should occur prior to sulfasalazine administration due to the potential for falsely depressed results. Venipuncture should occur prior to sulfapyridine administration due to the potential falsely elevated results. Baseline assay values before administration of sulfasalazine and sulfapyridine therapy would not be affected. Performed By: #### 1 43020, 470521, 587271 #### [facility] [address] [place] [address] 06977 Neuropsychologist: Rudy Posey MD GOT 32 unit/L Normal 15-37 [facility] Comment on above: Result Comment: Charlene puncture should occur prior to sulfasalazine and/or sulfapyridine administration due to the potential for falsely depressed results. Baseline assay values before administration of sulfasalazine and sulfapyridine therapy would not be affected. Performed By: #### 1 30773, 289931, 684467 #### [facility] [address] [place] [address] 11200 Neuropsychologist: Rudy Posey MD GPT 95 unit/L High 13-56 [facility] Comment on above: Result Comment: Charlene puncture should occur prior to sulfasalazine and/or sulfapyridine administration due to the potential for falsely depressed results. Baseline assay values before administration of sulfasalazine and sulfapyridine therapy would not be affected. Performed By: #### 1 20812, 039855, 682908 #### [facility] [address] [place] [address] 09251 Neuropsychologist: Rudy Posey MD Potassium [Moles/Vol] 4.3 mmol/L Normal 3.5-5.1 [facility] Comment on above: Performed By: #### 1 90808, 376936, 276510 #### [facility] [address] [place] [address]605 Neuropsychologist: Rudy Posey MD Protein [Mass/Vol] 6.8 g/dL Normal 6.0-8.5 [facility] Comment on above: Performed By: #### 1 35088, 969020, 089966 #### [facility] [address] [place] [address] 92619 Neuropsychologist: Rudy Posey MD Sodium [Moles/Vol] 139 mmol/L Normal 135-145 [facility] Comment on above: Performed By: #### 1 12775, 085966, 216081 #### [facility] [address] [place] [address] 74332 Neuropsychologist: Rudy Posey MD Urea nitrogen [Mass/Vol] 11 mg/dL Normal 10-20 [facility] Comment on above: Performed By: #### 1 91275, 306053, 987261 #### [facility] [address] [place] [address] 21183 Neuropsychologist: Rudy Posey MD HEMOon 10-21-2021 Nucleated RBC 0 /100WBC Normal [facility] Comment on above: Performed By: #### 1 85383, 905237, 380921 #### [facility] [address] [place] [address] 44281 Neuropsychologist: Rudy Posey MD DIFF? Yes Normal [facility] Comment on above: Performed By: #### 1 23027, 922678, 053394 #### [facility] [address] [place] [address] 21551 Neuropsychologist: Rudy Posey MD DxH Actions See Notes Abnormal [facility] Comment on above: Result Comment: Scan Slide. Perform manual diff if needed. Scan. [place] # Path Review if Required. SNV Performed By: #### 1 03089, 839725, 766416 #### [facility] [address] [place] [address] 99928 Neuropsychologist: Rudy Posey MD Erythrocyte distribution width (RBC) [Ratio] 14.0 % Normal 11.5-14.5 [facility] Comment on above: Performed By: #### 1 31170, 479295, 046989 #### [facility] [address] [place] [address] 91890 Neuropsychologist: Rudy Posey MD Hematocrit (Bld) [Volume fraction] 40.1 % Normal 36.0-46.0 [facility] Comment on above: Performed By: #### 1 36145, 477979, 380442 #### [facility] [address] [place] [address] 96999 Neuropsychologist: Rudy Posey MD Hemoglobin (Bld) [Mass/Vol] 13.4 g/dL Normal 12.0-16.0 [facility] Comment on above: Performed By: #### 1 62682, 614521, 896389 #### [facility] [address] [place] [address] 24115 Neuropsychologist: Rudy Posey MD Instr WBC 9.0 Normal [facility] Comment on above: Performed By: #### 1 65256, 496728, 491215 #### [facility] [address] [place] [address] 23493 Neuropsychologist: Rudy Posey MD MCH (RBC) [Entitic mass] 29.1 pg Normal 27.0-34.0 [facility] Comment on above: Performed By: #### 1 83692, 543038, 932050 #### [facility] [address] [place] [address] 50221 Neuropsychologist: Rudy Posey MD MCHC (RBC) [Mass/Vol] 33.3 g/dL Normal 32.0-37.0 [facility] Comment on above: Performed By: #### 1 37702, 077495, 691500 #### [facility] [address] [place] [address] 24797 Neuropsychologist: Rudy Posey MD MCV (RBC) [Entitic vol] 87.2 fL Normal 80.0-100.0 [facility] Comment on above: Performed By: #### 1 62733, 598879, 141369 #### [facility] [address] [place] [address] 95238 Neuropsychologist: Rudy Posey MD Platelet 402 x1000 Normal 150-450 [facility] Comment on above: Performed By: #### 1 02601, 248004, 183496 #### [facility] [address] [place] [address] 01427 Neuropsychologist: Rudy Posey MD Platelet mean volume (Bld) [Entitic vol] 7.2 fL Low 7.4-10.4 [facility] Comment on above: Performed By: #### 1 62130, 096983, 244830 #### [facility] [address] [place] [address] 46614 Neuropsychologist: Rudy Posey MD RBC 4.60 x10 Normal 4.20-5.40 [facility] Comment on above: Result Comment: Note : RBC morphology is normal unless otherwise stated. Evaluation performed only if differential is requested. Performed By: #### 1 40922, 013672, 681258 #### [facility] [address] [place] [address] 36160 Neuropsychologist: Rudy Posey MD WBC 9.0 x10 Normal 4.5-11.0 [facility] Comment on above: Performed By: #### 1 28396, 018940, 414850 #### [facility] [address] [place] [address] 24737 Neuropsychologist: Rudy Posey MD BRANSON DIFFon 10-21-[address] 0.36 x1000 Normal 0.00-0.70 [facility] Comment on above: Performed By: #### 1 18164, 374922, 518110 #### [facility] [address] [place] [address] 45825 Neuropsychologist: Rudy Posey MD Absolute Eos Ct 0.18 x1000 Normal 0.00-0.50 [facility] Comment on above: Performed By: #### 1 12587, 326160, 222571 #### [facility] [address] [place] [address] 99486 Neuropsychologist: Rudy Posey MD Absolute Lymph Ct 2.07 x1000 Normal 1.20-4.80 [facility] Comment on above: Performed By: #### 1 71997, 074725, 783950 #### [facility] [address] [place] [address] 88257 Neuropsychologist: Rudy Posey MD Absolute [address] 0.72 x1000 Normal 0.10-1.00 [facility] Comment on above: Performed By: #### 1 91042, 753829, 323845 #### [facility] [address] [place] [address] 56812 Neuropsychologist: Rudy Posey MD Absolute Neutrophil Ct 5.94 x1000 Normal 1.40-8.80 [facility] Comment on above: Performed By: #### 1 96981, 878749, 189674 #### [facility] [address] [place] [address] Neuropsychologist: Rudy Posey MD Absolute Seg Ct 5.58 x1000 Normal 1.40-8.80 [facility] Comment on above: Performed By: #### 1 32031, 420492, 680717 #### [facility] [address] [place] [address] 46453 Neuropsychologist: Rudy Posey MD Band form neutrophils/100 WBC (Bld) 4 % Normal [facility] Comment on above: Performed By: #### 1 86201, 535292, 063222 #### [facility] [address] [place] [address] 36125 Neuropsychologist: Rudy Posey MD Eosinophils/100 WBC (Bld) 2 % Normal [facility] Comment on above: Performed By: #### 1 20485, 343546, 720229 #### [facility] [address] [place] [address] 01084 Neuropsychologist: Rudy Posey MD Left Shift Present Abnormal [facility] Comment on above: Performed By: #### 1 71203, 150423, 002288 #### [facility] [address] [place] [address] 20565 Neuropsychologist: Rudy Posey MD Lymphocytes/100 WBC (Bld) 23 % Normal [facility] Comment on above: Performed By: #### 1 59860, 112322, 814017 #### [facility] [address] [place] [address] 20267 Neuropsychologist: Rudy Posey MD Monocytes/100 WBC (Bld) 8 % Normal [facility] Comment on above: Performed By: #### 1 97779, 359548, 033777 #### [facility] [address] [place] [address] 41142 Neuropsychologist: Rudy Posey MD Myelocyte % 1 % Normal [facility] Comment on above: Performed By: #### 1 61140, 282501, 425776 #### [facility] [address] [place] [address] 82255 Neuropsychologist: Rudy Posey MD Segmented neutrophils/100 WBC (Bld) 62 % Normal [facility] Comment on above: Performed By: #### 1 08377, 563401, 170422 #### [facility] [address] [place] [address] 07536 Neuropsychologist: Rudy Posey MD TAMANNA ACID LEVELon 10-21-2021 Date Last Dose 10/20/2021 Normal [facility] Comment on above: Result Comment: VERI FIED by Discern Expert. Performed By: #### 9 [id number] #### [facility] [address] [place] [address] 47975 Neuropsychologist: Rudy Posey MD Time Last Dose 17:00 [facility] Comment on above: Result Comment: VERI FIED by Discern Expert. Performed By: #### 9 [id number] #### [facility] [address] [place] [address] 58374 Neuropsychologist: Rudy Posey MD Valproic Acid 58.8 ug/ml Normal 50.0-100.0 [facility] Comment on above: Performed By: #### 9 [id number] #### [facility] [address] [place] [address] 48131 Neuropsychologist: Rudy Posey MD Vital Signs Date Time Vital Sign Value Performing Clinician Facility 05-15-2024 10:52040 Body height 160 cm Cruz Adler MD Work Phone: [facility] 05-15-2024 10:52-0400 Body mass index (BMI) [Ratio] 22.73 kg/m2 Cruz Adler MD Work Phone: [facility] 05-15-2024 10:52-0400 Body weight 58.2 kg Cruz Adler MD Work Phone: [facility] 03-30-2023 02:21-0400 Diastolic blood pressure 59 mm[Hg] DO Simon Haas Work Phone: [facility] 03-30-2023 02:21-0400 Heart rate 94 /min DO Simon Haas Work Phone: [facility] 03-30-2023 02:21-0400 Respiratory rate 20 /min DO Simon Haas Work Phone: [facility] 03-30-2023 02:21-0400 SaO2% (BldA) [Mass fraction] 100 % DO Simon Haas Work Phone: [facility] 03-30-2023 02:21-0400 Systolic blood pressure 105 mm[Hg] DO Simon Haas Work Phone: [facility] 03-30-2023 00:06-0400 Body temperature 97.2 [degF] DO Simon Haas Work Phone: [facility] 03-29-2023 16:32-0400 Body height 157.48 cm DO Simon Haas Work Phone: [facility] 03-29-2023 16:32-0400 Body weight 60.35 kg DO Simon Haas Work Phone: [facility] 11-30-2022 10:00-0500 Body height 160.02 cm Simon Haas Work Phone: [facility] Work Phone: 11-30-2022 10:00-0500 Body mass index (BMI) [Ratio] 25.03 kg/m2 Simon Martinezring Work Phone: [facility] Work Phone: 11-30-2022 10:00-0500 Body surface area Derived from formula 1.67 m2 Simon Martinezring Work Phone: [facility] 220 Work Phone: 11-30-2022 10:00-0500 Body weight 64.1 kg Simon Haas Work Phone: TC-Qqvcafdspv-Ruzgf a 220 Work Phone: 01-19-2022 14:38-0400 Body height 160.02 cm Simon Haas Work Phone: HY-Esfmlqwngk-Vthxa a 220 Work Phone: 01-19-2022 14:38-0400 Body mass index (BMI) [Ratio] 25.15 kg/m2 Simon Haas Work Phone: HZ-Bagseamhzf-Ezowr a 220 Work Phone: 01-19-2022 14:38-0400 Body surface area Derived from formula 1.67 m2 Simon Haas Work Phone: MK-Baymxfeuze-Xvsdz a 220 Work Phone: 01-19-2022 14:38-0400 Body weight 64.41 kg Simon Haas Work Phone: BL-Evkfbadvhh-Dxdtt a 220 Work Phone: 07-21-2021 14:30-0400 Body mass index (BMI) [Ratio] 26.35 kg/m2 Simon Haas Work Phone: LA-Xhbmzmezjo-Admzk a 220 Work Phone: 07-21-2021 14:30-0400 Body surface area Derived from formula 1.71 m2 Simon Haas Work Phone: EB-Swbfhdyisw-Lbhsq a 220 Work Phone: 07-21-2021 14:30-0400 Body weight 67.47 kg Simon Haas Work Phone: PO-Qyxvfmvlaq-Vblse a 220 Work Phone: 07-03-2019 12:01-0400 BMI (Body Mass Index) 27.86 kg/m2 Max Wiznitzer MG-Pediatr ics-Neuro log-Admin RBC 585 Work Phone: 07-03-2019 12:01-0400 Body weight 70.7 kg Max Wiznitzer PH-Yktgboinqq-Uh uro log-Admin RBC 585 Work Phone: 07-03-2019 12:01-0400 BSA (Body Surface Area) 1.73 m2 Max Wiznitzer KR-Dopwytifbk-Mugvd log-Admin RBC 585 Work Phone: 07-03-2019 12:-0400 Height 159.31 cm Max Wiznitzer JX-Zysqladfkf-Cs uro log-Admin RBC 585 Work Phone: Encounters Encounter Date Encounter Type Care Provider Facility Start: 05-15-2024 End: 05-15-2024 Office outpatient visit 15 minutes Cruz Adler MD Work Phone: [facility] Comment on above: Intellectual disabil ity (Primary Dx); Nonintractable epilepsy without status epilepticus, unspecified epilepsy type (Multi); Anxiety disorder, unspecified type; Mood disorder (CMS-HCC) Start: 05-15-2024 End: 05-15-2024 ambulatory [facility] Start: 12-06-2023 End: 12-06-2023 ambulatory [facility] Start: 12-06-2023 End: 12-06-2023 Office outpatient visit 15 minutes Cruz Adler MD Work Phone: [facility] Comment on above: Anxiety disorder, un specified type (Primary Dx); Mood disorder (CMS/HCC); Nonintractable epilepsy without status epilepticus, unspecified epilepsy type (CMS/HCC) Start: 09-26-2023 End: 09-27-2023 ambulatory SIMON HAAS Facility:[facility] Start: 08-09-2023 End: 08-14-2023 ambulatory UNKNOWN PROVIDER Facility:[facility] Start: 08-09-2023 End: 08-14-2023 Patient encounter procedure Carolina Trevizo RDH Work Phone: [facility] Start: 06-07-2023 Office outpatient vi sit 25 minutes Simon Haas Work Phone: VD-Sfuufaezjo-Orhcmwfv y-Admin RBC 585 Work Phone: Start: 06-07-[address] Cruz Adler Facil ity:[id number] Start: 03-29-2023 End: 03-30-2023 Emergency department patient visit Simon Haas Facility:[facility] Start: 03-29-2023 End: 03-30-2023 Emergency department patient visit DO Simon Haas Work Phone: [facility] Work Phone: Start: 02-13-2023 End: 02-14-[address] SIMON HAAS Facility:[facility] Start: 11-30-2022 Office outpatient vi sit 15 minutes Simon Haas Work Phone: UX-Dxthheuxhr-Yzyqjeka Work Phone: Start: 11-30-2022 Patient encounter procedure Simon Haas Work Phone: VB-Agaewarucf-Kdmuke 220 Work Phone: Start: 11-30-[address] Cruz Adler Facil ity:[id number] Start: 11-03-2022 Letter encounter [facility] Start: 10-04-2022 End: 10-05-[address] SIMON HAAS Facility:[facility] Start: 08-29-2022 End: 08-30-[address] SIMON HAAS Facility:[facility] Start: 08-26-2022 End: 08-26-[address] SIMON HAAS Facility:[facility] Start: 08-25-2022 End: 08-25-[address] SIMON HAAS Facility:[facility] Start: 07-20-2022 Office consultation new/estab patient 40 min Simon Haas Work Phone: HG-Orrjkwcgnn-Syhghv [facility] Work Phone: Start: 07-20-[address] Montes And emily Haas Facility:[facility] Start: 06-01-2022 Office outpatient vi sit 15 minutes Simon Haas Work Phone: RG-Knijqodoyt-Pbyfbylo y-Admin RBC 585 Work Phone: Start: 06-01-2022 Patient encounter procedure Simon Haas Work Phone: PR-Ihrdmirkwi-Gspvkf 220 Work Phone: Start: 01-19-2022 Office outpatient vi sit 15 minutes Simon Haas Work Phone: NW-Xjhkyjkmou-Brnlhnfl y-Admin RBC 585 Work Phone: Start: 01-19-2022 Patient encounter procedure Simon Haas Work Phone: PY-Uomctehfvf-Xlnbgb 220 Work Phone: Start: 10-20-2021 Office outpatient vi sit 15 minutes Simon Haas Work Phone: AC-Psgospbast-Jymtteks ook 220 Work Phone: Start: 07-21-2021 Patient encounter procedure Simon Haas Work Phone: MX-Qpoodvszft-Hpwkbu 220 Work Phone: Start: 01-22-2020 Patient encounter procedure Max Wiznitzer WP-Eiwzmtjtgh-Qflzrp 220 Work Phone: Start: 07-03-2019 Patient encounter procedure Max Wiznitzer IW-Adafhladks-Ecehhomp -Admin RBC 585 Work Phone: Start: 01-02-2019 Patient encounter procedure Max Wiznitzer UA-Lhoelqewdq-Wdwespeg -Admin RBC 585 Work Phone: Start: 11-25-2018 Patient encounter procedure Max Wiznitzer OO-Wnzqgejmyx-Xabormze -Admin RBC 585 Work Phone: Start: 07-04-2018 Patient encounter procedure Max Wiznitzer FO-Mwvggmgpdf-Usnrrflm -Admin RBC 585 Work Phone: Start: 01-17-2018 Patient encounter procedure Cruz Vitor TN-Hqmpfdycmi-Yanjejnp -Admin RBC 585 Work Phone: Start: 07-19-2017 Patient encounter procedure Cruz Shearerkianna DP-Ftvijzgrpv-Cdauuvlb -Admin RBC 585 Work Phone: Procedures Date Procedure Procedure Detail Performing Clinician Start: 05-15-2024 Follow-up visit Follow-up CRUZ CHEYENNE SCHREIBER Plan of Treatment Date Care Activity Detail Author Start: 2042 Shingles (RZV) Vaccine (1 of 2) Shingles (RZV) Vaccine (1 of 2) [facility] Start: 2042 Zoster Vaccines (1 of 2) Zoster Vaccines (1 of 2) [facility] Start: 10-31-2026 DTaP/Tdap/Td Vaccines (2 - Td or Tdap) DTaP/Tdap/Td Vaccines (2 - Td or Tdap) [facility] Start: 10-31-2026 Tetanus vaccination Tetanus (Td or Tdap) Booster [facility] Start: 11-06-2024 End: 11-06-2024 Patient encounter procedure 11/06/2024 11:20 AM EST Office Visit [facility] [address] [place] [id number] [place] [id number] Department [place] [address] [facility] Start: 05-25-2024 Influenza vaccination Influenza Vaccine (#1) [facility] Start: 12-06-2023 FUV, Provider: Cruz Adler, Status: Pen, Time: 10:00 AM FUV, Provider: Cruz Adler, Status: Pen, Time: 10:00 AM FU-Nbpfreqpig-Tgrepxqjx -Admin RBC 585 Work Phone: Start: 06-07-2023 FUV, Provider: Cruz Adler, Status: Pen, Time: 10:40 AM FUV, Provider: Cruz dAler, Status: Pen, Time: 10:40 AM ZF-Hpumkynebw-Uisqet 220 Work Phone: Start: 05-25-2023 COVID-19 Vaccine ( season) COVID-19 Vaccine ( season) [facility] Start: 05-25-2023 COVID-19 Vaccine ( season) COVID-19 Vaccine ( season) [facility] Start: 05-25-2023 Influenza vaccination Influenza Vaccine (#1) [facility] Start: 03-30-2023 Plain X-ray of left femur XR femur LT 2V* [facility] Start: 03-30-2023 XR Femur - left 2 Views [facility] Start: 03-29-2023 [facility] Start: 03-29-2023 Computed tomography of abdomen and pelvis with contrast CT abdomen pelvis w con [facility] Start: 03-29-2023 CT Abdomen and Pelvis W contrast IV [facility] Start: 12-25-2022 End: 12-25-2022 Patient encounter procedure 12/25/2022 Procedure Visit Dentistry Carolina Trevizo, [facility] [address] [facility] [place] [address] [facility] Start: 11-30-2022 FUV, Provider: Cruz Adler, Status: Pen, Time: 10:00 AM FUV, Provider: Cruz Adler, Status: Pen, Time: 10:00 AM MK-Lyerxnmwfv-Hkpjujvqh -Admin RBC 585 Work Phone: Start: 07-20-2022 FUV, Provider: Yadi Pedro, Status: Pen, Time: 10:00 AM FUV, Provider: Yadi Pedro, Status: Pen, Time: 10:00 AM HH-Bdhebmclqg-Qubbyqwud -Admin RBC 585 Work Phone: Start: 06-24-2022 Influenza vaccination Influenza Vaccine (#1) [facility] Start: 06-01-2022 FUV, Provider: Cruz Adler, Status: Pen, Time: 10:40 AM FUV, Provider: Cruz Adler, Status: Pen, Time: 10:40 AM KV-Thsmoettrb-Kxnrulmcm -Admin RBC 585 Work Phone: Start: 05-23-2022 VIRFUVHOME, Provider: Cruz Adler, Status: Pen, Time: 10:20 AM VIRFUVHOME, Provider: Cruz Adler, Status: Pen, Time: 10:20 AM IZ-Vvbxgjqzkw-Hxtxql 220 Work Phone: Start: 01-19-2022 FUV, Provider: Cruz Adler, Status: Pen, Time: 2:20 PM FUV, Provider: Cruz Adler, Status: Pen, Time: 2:20 PM RK-Kcgvzyfetb-Yukfkrnvu ok 220 Work Phone: Start: 2019 HPV Vaccine (optional start 27-45 years) HPV Vaccine (optional start 27-45 years) [facility] Start: 2013 Screening for malignant neoplasm of cervix [facility] Start: 2011 Hepatitis B Vaccines (1 of 3 - 19+ 3-dose series) Hepatitis B Vaccines (1 of 3 - 19+ 3-dose series) [facility] Start: 2010 Hepatitis C screening [facility] Start: 09-08-2009 MMR Vaccines (1 of 1 - Standard series) MMR Vaccines (1 of 1 - Standard series) [facility] Start: 09-08-2009 Varicella vaccination [facility] Start: 2007 HIV screening HIV Test [facility] Start: 1992 Hepatitis B Vaccines (1 of 3 - 3-dose series) Hepatitis B Vaccines (1 of 3 - 3-dose series) [facility] Start: 1992 HIV screening HIV Screening [facility] Start: 1992 Lipid panel Lipid Panel [facility] Start: 1992 Yearly Adult Physical Yearly Adult Physical [facility] Patient Education Rib Fracture (DC) [facility] Work Phone: Patient referral [facility] Work Phone: Immunizations Immunization Date Immunization Notes Care Provider Fa cility 07-20-2021 influenza, injectabl e, quadrivalent, preservative free [facility] 07-20-2021 influenza virus vacc ine, unspecified formulation [facility] 10-26-2020 [facility] (12+ yrs) [facility] S-COV-2 (COVID-19) vaccine, mRNA, spike protein, LNP, pres. free, 30 mcg/0.3mL dose (PED=035) [facility] 10-05-2020 Pfizer (12+ yrs) CEASAR S-COV-2 (COVID-19) vaccine, mRNA, spike protein, LNP, pres. free, 30 mcg/0.3mL dose (UYG=888) [facility] 06-30-2020 influenza, injectabl e, quadrivalent, preservative free [facility] 07-18-2019 influenza, injectabl e, quadrivalent, preservative free [facility] 07-03-2018 influenza, injectabl e, quadrivalent, contains preservative [facility] 07-18-2017 influenza, injectabl e, quadrivalent, contains preservative [facility] 10-31-2016 tetanus toxoid, redu amauri diphtheria toxoid, and acellular pertussis vaccine, adsorbed [facility] 06-28-2016 influenza, seasonal, injectable [facility] 07-15-2015 influenza, injectabl e, quadrivalent, preservative free [facility] 07-30-2014 influenza, injectabl e, quadrivalent, preservative free [facility] 07-22-2013 influenza, seasonal, injectable [facility] 07-17-2012 influenza, seasonal, injectable [facility] 06-07-2011 influenza, seasonal, injectable [facility] 07-20-2010 influenza virus vacc ine, whole virus [facility] 08-11-2009 novel influenza-H1N1 -09, preservative-free, injectable [facility] 06-23-2009 influenza, seasonal, injectable [facility] 07-20-2008 influenza, seasonal, injectable [facility] 07-16-2008 influenza virus vacc ine, whole virus [facility] Payers Date Payer Category Payer Self-pay [id number] 2014 Medicaid [id number] 1992 Unknown [id number] 2.16.84 [id number] 1992 Unknown [id number] 2.16.84 [id number] 1992 Unknown [id number] 2.16.84 [id number] 1992 Unknown [id number] 2.16.84 [id number] 1992 Unknown [id number] 2.16.84 [id number] 1992 Unknown [id number] 2.16. [id number] 1992 Unknown [id number] 2.16.8 [id number] 1992 Unknown [id number] 2.16.8 [id number] 1992 Unknown [id number] 2.16.8 [id number] 1962 Unknown [id number] 2.16. [id number] 1962 Unknown [id number] 2.16. [id number] 1962 Unknown [id number] 2.16. [id number] 1959 Medicaid [id number] Unknown Unknown [id number] 2.16.8 [id number] Social History Date Type Detail Facility Start: 12-06-2023 Depo-Provera shot Depo-Provera shot WS-Fqjwzjhmlr-Gblkrh 220 Work Phone: Tobacco smoking status NDIS Tobacco smoking consumption unknown [facility] Start: 1992 Sex Assigned At Not on file [facility] Start: 03-29-2023 End: 12-06-2023 Tobacco smoking status NHIS Never smoked tobacco (finding) [facility] Start: 1992 Sex Assigned At Female [facility] Start: 12-06-2023 Gender identity Not on file [facility] Start: 12-06-2023 Tobacco use and exposure Smokeless tobacco non-user [facility] Work Phone: Start: 12-06-2023 Alcohol intake Lifetime non-d juan (finding) [facility] Work Phone: Start: 05-05-2024 End: 05-15-2024 Exposure to SARS-CoV-2 (event) Not sure [facility] NEGATED: Highlighted row - - DU-Btntyspjbd-Lujbnq og -Admin RBC 585 Work Phone: Functional Status Date Assessment Result Facility NEGATED: Highlighted row Functional performance Functional status health issues are not documented Disease LY-Nnwakspbfe-Vrarb log-Admin RBC 585 Work Phone: Mental Status Date Assessment Result Facility NEGATED: Highlighted row Cognitive function [Interpretation] Cognitive status health issues are not documented Disease TZ-Kqtkzjigor-Xbzig log-Admin RBC 585 Work Phone: Clinical Notes 07-21-2021 to 05-15-2024 Cruz Adler MD - 05/15/2024 11:00 AM EDTPatient InstructionsCruz Adler MD - 12/06/2023 10:00 AM EDTPatient InstructionsFelisa Langston DDS - 08/09/2023 11:21 AM EST Note Date & Type Note Facility 05-15-2024 History of Present illness Narrative Toshia Singleton is a 34 y.o. woman with IDD and seizures. ELENI Beckwith is a 34 year old young woman with seizures, cognitive impairment and anxiety. Affect and anxiety are stable. She is normally in a good mood. She is sensitive to commotion and change in the [facility], such as different/changing staff members. She has a habit of putting on and removing shoes (hers and others). She is in a day program 2 [...] diagnosis of rhabdomyolysis. Amena was admitted to [facility] due to worsening behavior (throw self down, aggression, hitting self). She had a tooth/dental abscess treated with antibiotics. She was readmitted to [facility] for worsening behavior and was found to have a fractured rib and tailbone. Behavior is better at this time, including after scheduled dental surgery on June 27, 2023. Review of Systems A review of systems finds no pertinent positives. Depo-Provera was stopped with a concern for behavioral worsening with menses. She gets loratadine, montelukast and fluticasone for respiratory issues. She gets Prolia for bone health. Objective Neurological Exam Mental Status Awake and alert. Puts on and thorws shoe repeatedly No speech Inconsistent response to prompts. Cranial Nerves CN III, IV, : Extraocular movements intact bilaterally. Motor No abnormal involuntary movements. Physical Exam Constitutional: General: She is awake. Eyes: Extraocular Movements: Extraocular movements intact. Pulmonary: Effort: Pulmonary effort is normal. Abdominal: Palpations: Abdomen is soft. Neurological: Mental Status: She is alert. Assessment/Plan Cyndi has no seizures. She has some noncompliance and upset at this time that, in part, may be related to menstrual discomfort. Overall, her behaviors are stable. No change in medication at this time. We discussed continuing ibuprofen for menstrual discomfort and noting the effect. Follow up in 6 months. Staff or parents will call if there are issues before that time. documented in this encounter [facility] Work Phone: 05-15-2024 Instructions Cruz Adler MD - 05/15/2024 11:00 AM EDT Cyndi has no seizures. She has some noncompliance and upset at this time that, in part, may be related to menstrual discomfort. Overall, her behaviors are stable. No change in medication at this time. We discussed continuing ibuprofen for menstrual discomfort and noting the effect. Follow up in 6 months. Staff or parents will call if there are issues before that time. documented in this encounter [facility] Work Phone: 12-06-2023 History of Present illness Narrative An interactive audio and video telecommunication system which permits real time communications between the patient (at the originating site) and provider (at the distant site) was utilized to provide this telehealth service. Verbal consent was requested and obtained from Mother (parent/guardian) on this date for a telehealth visit. Toshia Singleton is a 33 y.o. woman with anxiety. [...] diagnosis of rhabdomyolysis. Amena was admitted to [facility] due to worsening behavior (throw self down, aggression, hitting self). She had a tooth/dental abscess treated with antibiotics. She was readmitted to [facility] for worsening behavior and was found to [...] Neurological: Mental Status: She is alert. Assessment/Plan Amena's mood and behaviors are stable. No seizures are noted. 1. No change in medication 2. Check Depakote level, CBC, CMP and lipids yearly 3. Follow up in 6 months.. documented in this encounter [facility] Work Phone: 12-06-2023 Instructions Cruz Adler MD - 12/06/2023 10:00 AM EDT Carlita mood and behaviors are stable. No seizures are noted. 1. No change in medication 2. Check Depakote level, CBC, CMP and lipids yearly 3. Follow up in 6 months.. documented in this encounter [facility] Work Phone: 08-09-2023 History of Present illness Narrative ----- , August 09, 2023 at 12:29:46 PM ----- ----- Provider: Graham Bradshaw, -- Clinic: [place] ----- OR EVALUATION Patient presents for evaluation [...] becomes available. Legal Guardian: Brody and/or Altagracia Singleton home;[phone] dad; [phone] [facility]; [phone] Next Visit: OR ----- Signed on July at 1:47:32 PM ----- ----- Provider: Dev Samson DDS -- Clinic: [place] ----- documented in this encounter [facility] 06-07-2023 Chief complaint Narrative - Reported [...] visit.follow up office visitAccompanied by mother and jail staff. IB-Fhiiduvgvx-Htddxjqkb-Ad min RBC 585 Work Phone: 11-28-2022 History [...] and was agitated. She was taken to [facility]. During this time, she was not sleeping at night and was more upset. She slept last Sunday night after receiving Ambien. Testing at [facility] was except an increased WBC count She was better after a fluid load. She was on cefdinir.Eber had a gastrointestinal illness in October 2022. TL-Ykdkniuanz-Jgbyrseh Work Phone: 11-27-2022 History of Present illness [...] and was agitated. She was taken to [facility]. During this time, she was not sleeping at night and was more upset. She slept last Sunday night after receiving Ambien. Testing at [facility] was except an increased WBC count She was better after a fluid load. She was on cefdinir.Eber had a gastrointestinal illness in October 2022. GE-Nefdeploey-Opbwis 220 Work Phone: 07-20-2022 History of Present illness Narrative Amena Singleton is a 32 year old young woman with seizures, cognitive impairment and anxiety. I am seeing her for the first time today, July 20, 2022 at the request of Dr. Cruz Adler for concerns of behavioral changes secondary to constipation.This visit was completed via [employer].The patient's mother verbally consented to and participated [...] for toileting but does not always use. FG-Mgryuubyxx-Qafjrj [facility] Work Phone: 06-01-2022 Chief complaint Narrative - [...] and behavior FUAccompanied by mother and Staff. [facility] 220 Work Phone: 06-01-2022 Chief [...] and behavior FUAccompanied by mother and Staff. MB-Pjoubjipag-Nlxdwtqxz-Ad min RBC 585 Work Phone: 01-19-2022 Chief [...] and behavior FUAccompanied by mother and Staff. [facility] 220 Work Phone: 01-19-2022 Chief [...] telehealth visit.Seizure and behavior FUAccompanied by Staff. IW-Vrpzpibvmd-Xhlgmtpob-Ad min RBC 585 Work Phone: 10-20-2021 Chief [...] and behavior FUAccompanied by mother and Staff. CQ-Rravraethb-Lyxijrxbtts 220 Work Phone: 07-21-2021 Chief complaint Narrative [...] and behavior FUAccompanied by mother and Staff. NP-Fvrdlinnza-Mqgxxb 220 Work Phone: Evaluation note No assessment inform ation available [facility] Work Phone: Evaluation note Diagnosis Anxiety disorder, unspecified type- Primary Mood disorder (CMS/HCC) Unspecified episodic mood disorder Nonintractable epilepsy without status epilepticus, unspecified epilepsy type (CMS/HCC) documented in this encounter [facility] Work Phone: Evaluation note* Diagnosis Intellectual disability- Primary Unspecified mental retardation Nonintractable epilepsy without status epilepticus, unspecified epilepsy type (Multi) Anxiety disorder, unspecified type Mood disorder (CMS-HCC) Unspecified episodic mood disorder documented in this encounter [facility] Work Phone: History of Present illness Narrative* This visit was completed via [employer] due to the restrictions of the COVID-19 [...] exception of an increased appetite) are noted. NX-Pnakgurpda-Lwfexw 220 Work Phone: History of Present illness Narrative* This visit was completed via [employer] due to the restrictions of the COVID-19 [...] and was agitated. She was taken to [facility]. During this time, she was not sleeping at night and was more upset. She slept last Sunday night after receiving Ambien[facility] She was better after a fluid load.She was on cefdinir. She has been sleeping. Today, she is walking well. VC-Ekonpdevqg-Rtwwjyqigka 220 Work Phone: History of Present illness Narrative* This visit was completed via [employer] due to the restrictions of the COVID-19 [...] and was agitated. She was taken to [facility]. During this time, she was not sleeping at night and was more upset. She slept last Sunday night after receiving Ambien. Testing at [facility] was except an increased WBC count She was better after a fluid load.She was on cefdinir.She has been sleeping. Today, she is walking well. [facility] 220 Work Phone: History of Present illness Narrative* This visit was completed via [employer] due to the restrictions of the COVID-19 [...] and was agitated. She was taken to [facility]. During this time, she was not sleeping at night and was more upset. She slept last Sunday night after receiving Ambien. Testing at [facility] was except an increased WBC count She was better after a fluid load.She was on cefdinir.She has been sleeping. Today, she is walking well. PJ-Xslmtitkaq-Orpzkyvot-Admin RBC 585 Work Phone: History of Present illness Narrative* This visit was completed via [employer] due to the restrictions of the COVID-19 [...] and was agitated. She was taken to [facility]. During this time, she was not sleeping at night and was more upset. She slept last Sunday night after receiving Ambien. Testing at [facility] was except an increased WBC count She was better after a fluid load. She was on cefdinir. YO-Xlwymgzieu-Vujets 220 Work Phone: History of Present illness Narrative* This visit was completed via [employer] due to the restrictions of the COVID-19 [...] and was agitated. She was taken to [facility]. During this time, she was not sleeping at night and was more upset. She slept last Sunday night after receiving Ambien. Testing at [facility] was except an increased WBC count She was better after a fluid load. She was on cefdinir. HI-Otgdbvxpkx-Ffqcbpocm-Admin [facility] 585 Work Phone: History of Present illness Narrative* This visit was completed [facility]. All issues as below were discussed and [...] and was agitated. She was taken to [facility]. During this time, she was not sleeping at night and was more upset. She slept last Sunday night after receiving Ambien. Testing at [facility] was except an increased WBC count She was better after a fluid load. She was on cefdinir. * Amena was admitted to [facility] due to worsening behavior (throw self down, aggression,hitting self). She had a tooth/dental abscess treated with antibiotics. She was readmitted to [facility] for worsening behavior and was found to have a fractured rib and tailbone. Behavior isbetter at this time. She has a scheduled dental surgery on June 27, 2023. * Eber had a gastrointestinal illness in October 2022. FG-Hjmbspckqy-Vcogbrabp-Admin [facility] 585 Work Phone: Hospital Discharge instructions Additional Instructions Take Ativan if needed for anxiety/aggression Rest Push fluids Continue home medications as scheduled This important that you follow-up with PCP to see about any further adjustments of medications Continue antibiotics as prescribed Return for any difficulty breathing, vomiting, fever, low blood pressure. [facility] Work Phone: Reason for referral (narrative)* Consultation (Routine) - Authorized Specialty Diagnoses / Procedures Referred By Contac t Referred To Contact Pediatric Neurology Diagnoses Anxiety disorder, unspecified type Mood disorder ([facility] Procedures Follow [place] [id number] Department [place] [address] Referral ID Status Reason Start Date Expiration Date V isits Requested Visits Authorized [id number] Authorized 12/06/2023 12/05/2024 1 1 [facility] Work Phone: Family History Mother Name Dates Details Family history of [...] Mother(V17.0, Z81.8) Status:Active Summary Purpose Advance Directives Advance Directive Response Recorded Date/ Time Advance Directives No October 19, 2021 6:54pm Chief Complaint * follow up office visit * Accompanied by mother and jail staff. * follow up office visit * Accompanied by mother and jail staff. Chief Complaint and Reason for Visit Chief Complaint MHP ( UTI ) Additional Source Comments INFORMATION SOURCE (unrecogn ized section and content) DATE CREATED AUTHOR 11/09/2021 [facility] DATE CREATED AUTHOR AUTHOR'S ORGANIZ ATION 03/02/2023 [facility] DATE CREATED AUTHOR AUTHOR'S ORGANIZ ATION 04/05/2023 [facility] DATE CREATED AUTHOR AUTHOR'S ORGANIZ ATION 06/09/2023 [facility] DATE CREATED AUTHOR AUTHOR'S ORGANIZ ATION 06/09/2023 [employer] DATE CREATED AUTHOR AUTHOR'S ORGANIZ ATION 08/16/2023 [facility] DATE CREATED AUTHOR AUTHOR'S ORGANIZ ATION 09/29/2023 [facility] DATE CREATED AUTHOR AUTHOR'S ORGANIZ ATION 05/24/2024 [facility] Care Teams (unrecognized sec tion and content) Team Status: Active Member Role Status Dates Simon Haas DO Primary Care Provider Active Team Status: Inactive Member Role Status Dates Simon Haas DO Primary Care Provider Active Vanessa Munoz MD Emergency Provider Active Public Information Coordinator Relationship Specialty Start Date End Date Simon Haas DO [address] [place] [address] PCP - General 12/12/10 [place] [id number] [facility] Department [place] [address] PCP - [facility] Medicaid PCP 12/23/22 Public Information Coordinator Relationship Specialty Start Date End Date Simon Haas DO [address] [place] [address] PCP - General 12/12/10 [place] [id number] [facility] Department [place] [address] PCP - [facility] Medicaid PCP 12/23/22 Goals (unrecognized section and content) Goals may be documented in a n alternate section Reason for Visit (unrecogniz ed section and content) Reason Comments Follow-up FOR RECORDS PERTAINING TO PATIENTS WHO ARE [...] BE BASED ON THE PRIMARY CLINICAL RECORDS. [facility] [employer] [facility]. provides no warranty or guarantee of the accuracy or completeness of information in this document.
[2024-10-07 07:19] LABS: Basophils Percent Auto 0.5 % (0.2-2.0); Eosinophils Absolute Auto 0.1 10^3/uL (0.0-0.7); Eosinophils Percent Auto 1.5 % (0.9-7.0); Hematocrit 38.3 % (36.0-48.0); Hemoglobin 12.9 g/dL (12.0-16.0); Immature Granulocytes Pct Auto 1.2 % (0.0-0.5); Lymphocytes Absolute Auto 2.9 10^3/uL (1.2-3.8); Lymphocytes Percent Auto 34.9 % (20.5-60.0); Mean Corpuscular HGB Conc 33.7 g/dL (29.9-35.2); Mean Corpuscular Hemoglobin 29.7 pg (26.7-34.0); Mean Platelet Volume 9.1 fL (9.5-13.5); Monocytes Absolute Auto 0.6 10^3/uL (0.3-0.8); Monocytes Percent Auto 7.4 % (1.7-12.0); Neutrophils Absolute Auto 4.5 10^3/uL (1.4-6.5); Neutrophils Percent Auto 54.5 % (43.0-75.0); Platelet Count 298 10^3/uL (150-450); Red Blood Count 4.35 10^6/uL (4.20-5.40); Red Cell Distribution Width 12.5 % (11.0-15.0); White Blood Count 8.3 10^3/uL (4.0-11.0)
[2024-10-07 08:31] LABS: Alanine Aminotransferase 11 U/L (14-59); Albumin Level 3.2 g/dL (3.4-5.0); Alkaline Phosphatase 55 U/L (46-116); Anion Gap 12.9; Aspartate Amino Transferase 11 U/L (15-37); BUN Creatinine Ratio 11.9; Bilirubin Total 0.3 mg/dL (0.2-1.0); Calcium 8.2 mg/dL (8.5-10.1); Carbon Dioxide 26.3 mmol/L (21.0-32.0); Chloride 105 mmol/L (98-107); Chol HDL Ratio 2.6; Cholesterol 176 mg/dL (<=200); Estimated GFR (African America >60 (>=60 mL/min/1.73m^2); Estimated GFR (Non-African Ame >60 (>=60 mL/min/1.73m^2); Globulin 3.3 g/dL; Glucose 96 mg/dL (74-106); HDL Cholesterol 67 mg/dL (40-60); Potassium 4.2 mmol/L (3.5-5.1); Sodium 140 mmol/L (136-145); Total Protein 6.5 g/dL (6.4-8.2); Triglycerides 71 mg/dL (<=150); VLDL CHOLESTEROL 14.2 mg/dL
[2024-10-07 08:51] LABS: Valproic Acid 50.4 ug/mL (50.0-100.0)
== END 2024-10-07 06:56 | disposition home or self-care (01) ==
LOC: LAB 06:56
PROVIDERS: PCP Family Medicine; Visit Provider Family Medicine
DX: M85.88 Other specified disorders of bone density and structure, other site (principal); D89.89 Other specified disorders involving the immune mechanism, not elsewhere classified; F41.8 Other specified anxiety disorders; F39 Unspecified mood [affective] disorder; K59.00 Constipation, unspecified; G40.89 Other seizures
CPT/HCPCS: 36415; 80053; 80061; 80164; 82306; 84443; 85025

== ENCOUNTER 2025-05-07 10:20 | Outpatient (OUT) | payer MEDICAID, SELFPAY ==
--- NOTE | 2025-05-07 10:21 | US_ITS ---
The [address] [address] Patient Name: NIC SANDHU MRN: [id number] date: 1990 Sex: F Assigned Patient Location: [place] Current Patient Location: Accession/Order Number: [id number] Exam Date: 05/07/2025 10:54 Report Date: 05/07/2025 10:56 At the request of: KIANA HAAS DO Procedure: US thyroid Thyroid ultrasound Reason for exam: Autoimmune disorder. History of goiter. Comparison: Thyroid ultrasound 05/02/2024 Technique: Grayscale and color Doppler images of the thyroid gland were obtained. Findings: Suboptimal examination due to patient condition. Right lobe 4.6 x 1.3 x 1.6 cm. Left lobe 2.8 x 1.0 x 1.1 cm. Isthmus could not be measured. Hypoechoic nodule mid aspect of the right lobe measuring 8 x 8 x 6 mm similar to the prior ultrasound study. No new or enlarging nodules are seen. US/US thyroid Impression: Hypoechoic nodule mid aspect of the right lobe measuring 8 x 8 x 6 mm similar to the prior study from 2023. Repeat ultrasound in one year is suggested. Impression dictated by: Shankar Myers Jr., D.O. 05/07/2025 10:56 AM Dictation Location: [place] [address] Electronically authenticated by: [id number] Date: 05/07/2025 10:56
--- OUTSIDE RECORDS SUMMARY | 2025-05-07 10:24 | XMS_ITS | CCD ---
Author Organization [facility] CliniSyme Care Team Providers Care Wares Sorter Name Role Phone Cruz Adler Unavailable Unavailable [...] Care Provider MD Vanessa Munoz Emergency Provider [phone] Simon Haas Primary Care Unavailable Vanessa Munoz Admitting Unavailable Vanessa Munoz Attending Unavailable Haas, Dr. Simon Beckwith Referring Giselleva blake PEDRO, REENA GUILLEN Attending Unavailable Haas, Dr. Simon Beckwith Primary Care Unava blake Adler, Dr. Arroyo Attending Unavailable Haas, Dr. Simon Beckwith Primary Care Unava blake Adler, Dr. Arroyo Attending Dr. Simon Bowen Primary Care Unava ilable Unavailable Primary Care Provider Unavailabl e PROVIDER, UNKNOWN Attending Unavailable PROVIDER, UNKNOWN Admitting Unavailable SIMON HAAS Attending Unavailable SIMON HAAS Admitting Unavailable HaasSimon berger DO Primary Care Provider Cruz Adler MD Unavailable Simon Haas DO Primary Care Provider Vitor BENTLEY, Cruz Unavailable CRUZ ADLER Attending Unavailable SIMON HAAS Primary Care Unavailab le CRUZ ADLER Attending Unavailable SIMON HAAS Primary Care Unavailab le Allergies Allergy Classification Reported Allergen(s) Allergy Type Date of Onset Reaction(s) Facility (14 sources) Meperidine; Translations: [Demerol TABS] [facility] Meperidine Drug Allergy [address] [facility] (1 source) Methylphenidate Drug Allergy [address] [facility] (1 source) Pseudoephedrine Drug Allergy [address] [facility] (3 sources) Meperidine; Translations: [meperidine] Drug Allergy 5 Unknown Reaction [facility] (2 sources) Methylphenidate; Translations: [methylphenidate] Drug Allergy 3 Unknown Reaction [facility] (1 source) Meperidine; Translations: [Demerol HCl] Drug Allergy [facility] Medications Current Medications Medication Drug Class(es) Dates [...] Active buPROPion hydrochloride 100 mg oral tablet (17 sources) Aminoketone take 1 tablet by mouth twice daily buPROPion (Wellbutrin) 100 mg tablet Take 1 tablet (100 mg) by mouth twice a day. Active take 1 tablet by mouth twice justo ly buPROPion HCl ER (SR) 100 MG Oral Tablet Extended Release 12 Hour TAKE 1 TABLET TWICE DAILY. Quantity: 0 Refills: 0 Ordered: 03-Sep-2014 DO Active cholecalciferol 0.05 mg oral capsule (17 sources) Vitamin D cholecalciferol (Vitamin D-3) 50 mcg (2,000 unit) capsule Take by mouth. Active Cholecalciferol (VITAMIN D3) 2000 UNITS CAPS Take by mouth. 0 Active Vitamin D3 50 MC G (2000 UT) Oral Tablet Quantity: 0 Refills: 0 Ordered: 03-Sep-2014 DO Active 1 ml denosumab 60 mg/ml prefilled syringe (11 sources) RANK Ligand Inhibitor Start: 07-12-2021 Prolia 6 0 mg/mL syringe Inject under the skin. 07/12/2021 Active docusate sodium 100 mg oral capsule (11 sources) docusate sodium (Colace) 100 mg capsule Take by mouth. Active Docusate Sodium 100 MG Oral Capsule Quantity: 0 Refills: 0 Ordered: 03-Sep-2014 DO Active FLUoxetine 40 mg oral capsule (19 sources) Serotonin Reuptake Inhibitor Start: 12-04-2023 take [...] 0 Active LORazepam 1 mg oral tablet (4 sources) Benzodiazepine Start: 03-29-2023 take 1 tablet [...] 200-250 tablets by mouth three times daily [place] Calcium/Vitamin D 200-250 MG-UNIT TABS TAKE TWO [...] sodium 125 mg delayed release oral capsule (17 sources) Mood Stabilizer, Anti-epileptic Agent Start: 04-05-2021 [...] 2013-09-21; Attention-deficit conduct and disruptive behavior disorders (15 sources) Disruptive behavior disorder; Translations: [Unspecified disturbance of conduct] Onset: 12-06-2023 12-06-2023 Chronic Comment on above: Added by Problem Lis t Migration; 2013-09-21; Attention-deficit, conduct, and disruptive behavior disorders (1 source) Conduct disorder, unspecified; Translations: [Conduct disorder, unspecified] Onset: 11-30-2022 Chronic Developmental disorders (16 sources) Intellectual disability; Translations: [Unspecified intellectual disabilities] [...] Seizure; Translations: [Other convulsions] Episodic Mood disorders (17 sources) Mood disorder; Translations: [Unspecified episodic mood [...] 08-26-2022 Episodic Other aftercare (5 sources) Other fdc (current) drug therapy; Translations: [OTH 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 CURRENT DRUG THERAPY] Onset: 08-29-2022 Episodic Other nervous system disorders (1 source) Unsteadiness on feet; Translations: [UNSTEADINESS ON FEET] Onset: 09-02-2022 Episodic Unclassified (2 sources) Intellectual disability; Translations: [Intellectual disability] NEGATED: Highlighted row has not occurred!Residual codes; unclassified (11 sources) Disease Episodic Results Test Name Value Interpretation Reference Range Facility T3 Freeon 09-28-2023 Free T3 [Mass/Vol] 2.8 pg/mL Invalid Interpretation Code 2.0-4.4 [facility] Comment on above: Result Comment: Perf ormed at: [facility] [address] [id number] PhD Zhang Connell Performed By: #### 2 736611, 50876533, 24200168, 7415260, 656696732, 7856869, 4526588, 9183986, 6752417 ####[facility] [address] [place] [address] CMPon 09-27-2023 Albumin [Mass/Vol] 4.0 g/dL Normal 3.3-5.0 [facility] Comment on above: Performed By: #### 2 266176, 87819113, 28798652, 5879246, 386113489, 4678292, 3696328, 7246555, 5222483 #### [facility] [address] [place] [address] Albumin/Globulin [Mass ratio] 1.5 {ratio} Normal 1.1-2.2 [facility] Comment on above: Performed By: #### 2 863985, 32507976, 29392440, 3153264, 017582222, 9602605, 1809768, 7161261, 4397430 #### [facility] [address] [place] [address] Alk Phos 40 Int._Unit/L Normal 21-98 [facility] Comment on above: Performed By: #### 2 026021, 94425621, 34213394, 0995015, 331020445, 1114967, 1490198, 1416630, 2256456 #### [facility] [address] [place] [address] ALT 12 Int._Unit/L Normal 6-46 [facility] Comment on above: Performed By: #### 2 673299, 74041482, 74015167, 3208816, 628108863, 6248685, 1347807, 8871379, 8233601 #### [facility] [address] [place] [address] Anion gap [Moles/Vol] 14 mmol/L Normal 6-16 [facility] Comment on above: Performed By: #### 2 477510, 48403609, 77667163, 3330381, 019504764, 3486012, 5004997, 8584545, 3904919 #### [facility] [address] [place] [address] AST 18 Int._Unit/L Normal 5-43 [facility] Comment on above: Performed By: #### 2 743837, 82559487, 17440013, 6290667, 645437646, 7252541, 8525583, 6509097, 5555361 #### [facility] [address] [place] [address] Bili Total 0.5 mg/dL Normal 0.0-1.1 [facility] Comment on above: Performed By: #### 2 677308, 99347300, 74412408, 8023584, 490402701, 9228186, 6774061, 1139050, 1548267 #### [facility] [address] [place] [address] BUN/Creat Ratio 16 No Units Normal 10-20 [facility] Comment on above: Performed By: #### 2 921942, 88852190, 04207591, 8490353, 301363871, 8594413, 2885243, 3459735, 9444607 #### [facility] [address] [place] [address] Calcium [Mass/Vol] 9.4 mg/dL Normal 8.9-11.1 [facility] Comment on above: Performed By: #### 2 418568, 47030956, 52243127, 5443206, 332963437, 4672141, 3417829, 9894564, 6778263 #### [facility] [address] [place] [address] Chloride [Moles/Vol] 106 mmol/L Normal 101-111 [facility] Comment on above: Performed By: #### 2 758926, 18098984, 51290534, 2256153, 032237157, 9173601, 7080435, 3261624, 1335647 #### [facility] [address] [place] [address] CO2 [Moles/Vol] 25 mmol/L Normal 21-31 [facility] Comment on above: Performed By: #### 2 329319, 86184526, 49148922, 0965976, 050126395, 2788333, 0638893, 8480595, 2534027 #### [facility] [address] [place] [address] Creatinine [Mass/Vol] 0.7 mg/dL Normal 0.5-1.3 [facility] Comment on above: Performed By: #### 2 981651, 39475312, 60059472, 8198313, 898550488, 5863913, 7557150, 2639807, 6591904 #### [facility] [address] [place] [address] Globulin (S) [Mass/Vol] 2.7 g/dL Normal 1.4-4.0 [facility] Comment on above: Performed By: #### 2 315952, 34492627, 55881922, 3256497, 311287093, 3843873, 6829232, 3528203, 7320938 #### [facility] [address] [place] [address] Glucose [Mass/Vol] 86 mg/dL Normal 55-199 [facility] Comment on above: Performed By: #### 2 884032, 78405458, 90836373, 7792989, 339424530, 4515019, 0770885, 6926259, 1164945 #### [facility] [address] [place] [address] Potassium [Moles/Vol] 4.5 mmol/L Normal 3.5-5.3 [facility] Comment on above: Performed By: #### 2 217671, 34155139, 98862670, 6353315, 315211903, 3361688, 7218180, 6343935, 8791558 #### [facility] [address] [place] [address] Protein [Mass/Vol] 6.7 g/dL Normal 6.0-7.8 [facility] Comment on above: Performed By: #### 2 607976, 61164681, 25484284, 7983105, 213962601, 4011763, 8006864, 3127201, 2679363 #### [facility] [address] [place] [address] Sodium [Moles/Vol] 140 mmol/L Normal 135-145 [facility] Comment on above: Performed By: #### 2 080543, 20441981, 99503860, 0705967, 244985267, 2285305, 1872246, 8564387, 5818814 #### [facility] [address] [place] [address] Urea nitrogen [Mass/Vol] 11 mg/dL Normal 5-21 [facility] Comment on above: Performed By: #### 2 851917, 65610065, 98107630, 0649989, 186759529, 8304180, 4512738, 7890563, 5856212 #### [facility] [address] [place] [address] Free T4on 09-27-2023 Free T4 [Mass/Vol] 0.80 ng/dL Normal 0.58-1.64 [facility] Comment on above: Performed By: #### 2 059600, 72283262, 76379507, 8726542, 594768048, 2861904, 3038746, 7952324, 3051502 #### [facility] [address] [place] [address] Prealbuminon 09-27-2023 Prealbumin [Mass/Vol] 24 mg/dL Normal 17-42 [facility] Comment on above: Performed By: #### 2 468056, 55686009, 56730911, 2369230, 115560092, 4726823, 8261589, 6330553, 0009819 #### [facility] [address] [place] [address] TSHon 09-27-2023 TSH Qn 0.97 m[IU]/L Normal 0.34-5.60 [facility] Comment on above: Performed By: #### 2 089069, 56595512, 56928744, 1939602, 123392540, 9265073, 6059833, 5108636, 3707472 #### [facility] [address] [place] [address] Vitamin D 25 Hydroxyon 09-27 Vitamin D 25 Hydroxy 44.5 ng/mL Normal 30.0-100.0 [facility] Comment on above: Performed By: #### 2 291190, 80570541, 99464824, 6198383, 176245768, 3841756, 0522295, 8905558, 6472681 #### [facility] [address] [place] [address] eGFRon 09-27-2023 GFR/1.73 sq M.predicted among non-blacks MDRD (S/P/Bld) [Vol rate/Area] mL/min/{1.73_m2} Normal >=59 [facility] Comment on above: Order Comment: Order added by Discern Expert. Performed By: #### 2 000366, 77145584, 12663810, 0811396, 057414208, 7014496, 6592117, 9721935, 1995089 #### [facility] [address] [place] [address] CBC w/Indiceson 09-26-2023 Erythrocyte distribution width (RBC) [Ratio] 13.8 % Normal 10.9-14.2 [facility] Comment on above: Performed By: #### 2 355102, 57889189, 32103815, 8490881, 158272421, 9812863, 3698119, 3753775, 4534559 #### [facility] [address] [place] [address] Hematocrit (Bld) [Volume fraction] 40.2 % Normal 34.0-46.0 [facility] Comment on above: Performed By: #### 2 988506, 03979372, 12416017, 0149477, 088420170, 8885864, 8782488, 8420876, 1181207 #### [facility] [address] [place] [address] Hemoglobin (Bld) [Mass/Vol] 13.6 g/dL Normal 12.0-16.0 [facility] Comment on above: Performed By: #### 2 908307, 02485246, 98310699, 2651277, 651683932, 5143544, 5525237, 1268945, 7135497 #### [facility] [address] [place] [address] MCH (RBC) [Entitic mass] 30.3 pg Normal 27.0-34.0 [facility] Comment on above: Performed By: #### 2 184871, 86175995, 23719510, 4481365, 593352069, 3293264, 1178582, 7583949, 1323453 #### [facility] [address] [place] [address] MCHC (RBC) [Mass/Vol] 34.0 g/dL Normal 31.4-36.0 [facility] Comment on above: Performed By: #### 2 186645, 48870843, 18723663, 9232709, 601435917, 4190429, 5064586, 8074015, 9170342 #### [facility] [address] [place] [address] MCV (RBC) [Entitic vol] 89.0 fL Normal 80.0-100.0 [facility] Comment on above: Performed By: #### 2 198278, 53523527, 23659297, 4959230, 625435443, 2378125, 1801363, 4107629, 9789221 #### [facility] [address] [place] [address] Platelet mean volume (Bld) [Entitic vol] 7.9 fL Normal 6.4-10.8 [facility] Comment on above: Performed By: #### 2 974496, 12755422, 34519861, 6739304, 233475603, 1289913, 1980215, 4000690, 1087337 #### [facility] [address] [place] [address] Platelets (Bld) [#/Vol] 336.0 E9/L Normal 150.0-500.0 [facility] Comment on above: Performed By: #### 2 800142, 95014960, 71683229, 3882681, 844782366, 2149160, 8918766, 9735155, 9660490 #### [facility] [address] [place] [address] RBC (Bld) [#/Vol] 4.5 E12/L Normal 4.3-5.9 [facility] Comment on above: Performed By: #### 2 277596, 20242008, 15435780, 3940998, 694770106, 0493777, 0129130, 7538207, 9510333 #### [facility] [address] [place] [address] WBC corrected for nucl RBC Auto (Bld) [#/Vol] 9.6 E9/L Normal 4.0-11.0 [facility] Comment on above: Performed By: #### 2 412967, 31684986, 80570080, 6964675, 893026855, 2925721, 8040784, 0173148, 8873023 #### [facility] [address] [place] [address] Physician Orderon 09-26-2023 Physician Order [id number] 6#1.00TIFF Normal [facility] Valproic Acidon 09-26-2023 Valpro Acid Lvl 50 microgram/mL Normal 50-99 [facility] Comment on above: Performed By: #### 2 567016, 15916412, 48355190, 1896010, 787370014, 6326549, 8202490, 4450779, 7162238 #### [facility] [address] [place] [address] [employer] Forms [id number] 4#1.00TIFF Normal [facility] Progress Noteson 08-09-2023 Curb Machine Operator Authentication Interface Message Text ----- July at 12:29:46 PM ----- ----- Provider: Graham Bradshaw, -- Clinic: [place] ----- OR EVALUATION Patient presents for evaluation [...] available. Legal Guardian: Brody and/or Altagracia Singleton home;[phone] dad; [phone] [facility]; [phone] Next Visit: OR ----- Signed on July at 1:47:32 PM ----- ----- Provider: Dev Samson DDS -- Clinic: [place] ----- Normal [facility] Office Visit (Pediatric Neur ogy)on 06-07-2023 Follow-up visit Diagnoses/Problems Anxiety disorder (300.00) [...] up office visit Accompanied by mother and fdc staff. History of Present Illness This visit [facility]. All issues as below were discussed and [...] and was agitated. She was taken to [facility]. During this time, she was not sleeping at night and was more upset. She slept last Sunday night after receiving Ambien. Testing at [facility] was except an increased WBC count She was better after a fluid load. She was on cefdinir. Amena was admitted to [facility] due to worsening behavior (throw self down, aggression, hitting self). She had a tooth/dental abscess treated with antibiotics. She was readmitted to [facility] for worsening behavior and was found [...] Anxiety Social History Depo-Provera shot Lives in fdc (V60.6) (Z59.3) Never smoker No alcohol use Allergies Demerol TABS Recorded By: Vanessa Castro; 01/06/2014 2:44:07 PM Current Meds Medication NameInstruction buPROPion HCl ER (SR) 100 MG Oral Tablet Extended Release 12 HourTAKE 1 TABLET TWICE DAILY. Chest Congestion Relief 400 MG Oral TabletTAKE ONE TABLET BY MOUTH TWICE A DAY NEEDED FOR CONGESTION OR COUGH [place] Calcium/Vitamin D 200-250 MG-UNIT TABSTAKE TWO TABLETS BY MOUTH 3 TIMES DAILY Divalproex Sodium 125 MG Oral Capsule (more content not included)... Normal [facility] CT abdomen pelvis w [facility] CT abdomen pelvis w [facility] Main [place] [address] [place] [address] CT Scan Report Signed Patient: Amena Singleton MR#: [id number] : 1990 Acct:[id number] Age/Sex: 32 / F ADM Date: 03/29/23 Loc: ER Room: Type: [facility] ER Attending Dr: Copies to: MD Rocio Durbin, [place] [employer] Ordering Provider: Rocio Emmanuel APRN Date of [...] Kei Jordan M.D.03/30/2023 8:37 AM Dictation Location: [place] [address] Transcribed By: [facility] 03/30/23 0837 Dictated By: Kei Jordan DO 03/30/23 0832 Signed By: 03/30/23 0837 Normal [facility] XR femur LT 2V*on 03-30-2023 XR femur LT 2V* [facility] Main [place] [address] [place], [place] [id number] XRay Report Signed Patient: Amena Singleton MR#: [id number] : 1990 Acct:[id number] Age/Sex: 32 / F ADM Date: 03/29/23 Loc: ER Room: Type: [facility] ER Attending Dr: Copies to: Vanessa Munoz [...] Kei Jordan M.D.03/30/2023 8:53 AM Dictation Location: [place] [address] Transcribed By: JOMAR 03/30/23 0853 Dictated By: Kei Jordan DO 03/30/23 0852 Signed By: 03/30/23 0853 Normal [facility] Alanine aminotransferase [En zymatic activity/volume] in Serum or PlasmaOrdered By: Rocio Emmanuel on 03-29-2023 ALT [Catalytic activity/Vol] 28 U/L 7-52 [facility] Albumin [Mass/volume] in Ser um or Plasma by Bromocresol green (BCG) dye binding methoOrdered By: Rocio Emmanuel on 03-29-2023 Albumin BCG dye [Mass/Vol] 3.9 g/dL 3.5-5.7 [facility] Alkaline phosphatase [Enzyma tic activity/volume] in Serum or PlasmaOrdered By: Rocio Emmanuel on 03-29-2023 ALP [Catalytic activity/Vol] 47 U/L 34-104 [facility] Amphetamine Screen Ql (U)Ord ered By: Rocio Emmanuel on 03-29-2023 Amphetamines Ql (U) Negative Negative [facility] Aspartate aminotransferase [ Enzymatic activity/volume] in Serum or PlasmaOrdered By: Rocio Emmanuel on 03-29-2023 AST [Catalytic activity/Vol] 25 U/L 13-39 [facility] Automated erythrocytes count in urine sediment (number/area)Ordered By: Rocio Emmanuel on 03-29-2023 RBC Auto (Urine sed) [#/Area] 3-4 [HPF] 0-4 [facility] Automated leukocytes count i n urine sediment (number/area)Ordered By: Rocio Emmanuel on 03-29-2023 WBC Auto (Urine sed) [#/Area] 3-4 [HPF] 0-4 [facility] Band form neutrophils/100 WB C Manual cnt (Bld)Ordered By: Rocio Emmanuel on 03-29-2023 Band form neutrophils/100 WBC (Bld) 1 % 0-5 [facility] Barbiturates [Presence] in U rine by Screen methodOrdered By: Rocio Emmanuel on 03-29-2023 Barbiturates Screen Ql (U) Negative Negative [facility] Basophils Auto (Bld) [#/Vol] Ordered By: Rocio Emmanuel on 03-29-2023 Basophils (Bld) [#/Vol] N/A F [facility] Basophils/100 WBC Auto (Bld) Ordered By: Rocio Emmanuel on 03-29-2023 Basophils/100 WBC (Bld) N/A [facility] Basophils/100 WBC Manual cnt (Bld)Ordered By: Rocio Emmanuel on 03-29-2023 Basophils/100 WBC (Bld) 0 % 0-2 [facility] Benzodiazepines Screen Ql (U )Ordered By: Rocio Emmanuel on 03-29-2023 Benzodiazepines Ql (U) Negative Negative [facility] Benzoylecgonine [Presence] i n Urine by Screen methodOrdered By: Rocio Emmanuel on 03-29-2023 Benzoylecgonine Screen Ql (U) Negative Negative [facility] Bilirubin Test strip Ql (U)O rdered By: Rocio Emmanuel on 03-29-2023 Bilirubin Ql (U) Negative Negative [facility] Bilirubin.total [Mass/volume ] in Serum or PlasmaOrdered By: Rocio Emmanuel on 03-29-2023 Bilirubin [Mass/Vol] 1.2 mg/dL 0.3-1.0 [facility] Calcium [Mass/volume] in Ser um or PlasmaOrdered By: Rocio Emmanuel on 07-06-2023 Calcium [Mass/Vol] 9.6 mg/dL 8.6-10.3 [facility] Cannabinoids [Presence] in U rine by Screen methodOrdered By: Rocio Emmanuel on 03-29-2023 Cannabinoids Screen Ql (U) Negative Negative [facility] Comment on above: These are unconfirme d results and should not be used for legal purposes. Drug Cut-Off Concentration: AMPH 1000 ng/mL ADRIA 200 ng/mL MARAH 200 ng/mL COCM 300 ng/mL OP 300 ng/mL PCP 25 ng/mL THC 20 ng/mL Carbon dioxide, total [Moles /volume] in Serum or PlasmaOrdered By: Rocio Emmanuel on 03-29-2023 CO2 [Moles/Vol] 27.9 mmol/L 21.0-31.0 [facility] Casts typing in urine sedime nt by light microscopyOrdered By: Rocio Emmanuel on 03-29-2023 Casts LM Nom (Urine sed) None seen [LPF] None Seen [facility] Chloride [Moles/volume] in S nayana or PlasmaOrdered By: Rocio Emmanuel on 03-29-2023 Chloride [Moles/Vol] 103 mmol/L 98-107 [facility] Color Auto (U)Ordered By: Cande Emmanuel on 03-29-2023 Color (U) Dark yellow Yellow [facility] Comprehensive Metabolic Pane alexi 03-29-2023 Albumin [Mass/Vol] 3.9 g/dL Normal 3.5-5.7 [facility] Comment on above: Performed By: #### D IFF CBC, CMP, ETOH #### [facility] [address] Albumin/Globulin [Mass ratio] 1.6 {ratio} Normal [facility] Comment on above: Performed By: #### D IFF CBC, CMP, ETOH #### [facility] [address] ALP [Catalytic activity/Vol] 47 U/L Normal 34-104 [facility] Comment on above: Performed By: #### D IFF CBC, CMP, ETOH #### [facility] [address] [place] [address] [place] ALT [Catalytic activity/Vol] 28 U/L Normal 7-52 [facility] Comment on above: Performed By: #### D IFF CBC, CMP, ETOH #### [facility] [address] Anion gap [Moles/Vol] 13.0 mmol/L Normal 6.0-15.0 [facility] Comment on above: Performed By: #### D IFF CBC, CMP, ETOH #### [facility] [address] AST [Catalytic activity/Vol] 25 U/L Normal 13-39 [facility] Comment on above: Performed By: #### D IFF CBC, CMP, ETOH #### [facility] [address] [place] [address] [place] Bilirubin [Mass/Vol] 1.2 mg/dL High 0.3-1.0 [facility] Comment on above: Performed By: #### D IFF CBC, CMP, ETOH #### [facility] [address] [place] [address] [place] Calcium [Mass/Vol] 9.6 mg/dL Normal 8.6-10.3 [facility] Comment on above: Performed By: #### D IFF CBC, CMP, ETOH #### [facility] [address] [place] [address] [place] Chloride [Moles/Vol] 103 mmol/L Normal 98-107 [facility] Comment on above: Performed By: #### D IFF CBC, CMP, ETOH #### [facility] [address] [place] [address] [place] CO2 [Moles/Vol] 27.9 mmol/L Normal 21.0-31.0 [facility] Comment on above: Performed By: #### D IFF CBC, CMP, ETOH #### [facility] [address] [place] [address] [place] Creatinine [Mass/Vol] 0.57 mg/dL Low 0.60-1.20 [facility] Comment on above: Performed By: #### D IFF CBC, CMP, ETOH #### [facility] [address] Creatinine Clr Calc Pharmacy 123.48 [facility] Comment on above: Result Comment: PERF ORMED BY: [place] [address] PATHOLOGIST MANAGER LABOR RELATIONS BRENDON KANG M.D. Performed By: #### D IFF CBC, CMP, ETOH #### [facility] [address] GFR/1.73 sq M.predicted MDRD (S/P/Bld) [Vol rate/Area] mL/min/{1.73_m2} [facility] Comment on above: Performed By: #### D IFF CBC, CMP, ETOH #### [facility] [address] Globulin (S) [Mass/Vol] 2.4 g/dL Normal [facility] Comment on above: Performed By: #### D IFF CBC, CMP, ETOH #### [address] Glucose [Mass/Vol] 112 mg/dL High 70-100 [facility] Comment on above: Result Comment: [facility][note 3] Glucose Reference Range is dependent on time and content of last meal. Glucose of more than 200 mg/dL in a nonstressed, ambulatory subject supports the diagnosis of Diabetes Mellitus. ADA recommended reference range Performed By: #### D IFF CBC, CMP, ETOH #### [facility] [address] [place] [address] Potassium [Moles/Vol] 4.9 mmol/L Normal 3.5-5.1 [facility] Comment on above: Performed By: #### D IFF CBC, CMP, ETOH #### [facility] [address] Protein [Mass/Vol] 6.3 g/dL Low 6.4-8.9 [facility] Comment on above: Performed By: #### D IFF CBC, CMP, ETOH #### [facility] [address] Sodium [Moles/Vol] 139 mmol/L Normal 136-145 [facility] Comment on above: Performed By: #### D IFF CBC, CMP, ETOH #### [facility] [address] [place] [address] Urea nitrogen [Mass/Vol] 9 mg/dL Normal 7-25 [facility] Comment on above: Performed By: #### D IFF CBC, CMP, ETOH #### [address] Creatine Kinaseon 03-29-2023 CK [Catalytic activity/Vol] 528 U/L High [facility] Comment on above: Result Comment: PERF ORMED BY: [place] [address] PATHOLOGIST MANAGER LABOR RELATIONS BRENDON KANG M.D. Performed By: #### C K #### [address] Creatine kinase [Enzymatic a ctivity/volume] in Serum or PlasmaOrdered By: Rocio Emmaneul on 03-29-2023 CK [Catalytic activity/Vol] 528 U/L [facility] Creatinine [Mass/volume] in Serum or PlasmaOrdered By: Rocio Emmanuel on 03-29-2023 Creatinine [Mass/Vol] 0.57 mg/dL 0.60-1.20 [facility] Diff and CBCon 03-29-2023 Band form neutrophils/100 WBC (Bld) 1 % Normal 0-5 [facility] Comment on above: Performed By: #### D IFF CBC, CMP, ETOH #### [facility] [address] [place] [address] [place] Basophils/100 WBC (Bld) 0 % Normal 0-2 [facility] Comment on above: Performed By: #### D IFF CBC, CMP, ETOH #### [facility] [address] [place] [address] [place] Eosinophils/100 WBC (Bld) 1 % Normal 1-3 [facility] Comment on above: Performed By: #### D IFF CBC, CMP, ETOH #### [address] Erythrocyte distribution width (RBC) [Ratio] 13.2 % Normal 11.9-15.3 [facility] Comment on above: Performed By: #### D IFF CBC, CMP, ETOH #### [address] Hematocrit (Bld) [Volume fraction] 31.5 % Low 34.0-46.4 [facility] Comment on above: Performed By: #### D IFF CBC, CMP, ETOH #### [address] Hemoglobin (Bld) [Mass/Vol] 10.4 g/dL Low 11.8-15.4 [facility] Comment on above: Performed By: #### D IFF CBC, CMP, ETOH #### [address] Lymphocytes/100 WBC (Bld) 25 % Normal 18-42 [facility] Comment on above: Performed By: #### D IFF CBC, CMP, ETOH #### [address] MCH (RBC) [Entitic mass] 28.9 pg Normal 24.7-34.3 [facility] Comment on above: Performed By: #### D IFF CBC, CMP, ETOH #### [address] MCV (RBC) [Entitic vol] 87.2 fL Normal 80-100 [facility] Comment on above: Performed By: #### D IFF CBC, CMP, ETOH #### [address] Mean Corpuscular HGB Conc 33.1 g/dL Normal 32.0-35.0 [facility] Comment on above: Performed By: #### D IFF CBC, CMP, ETOH #### [address] Metamyelocytes 1 % High 0-0 [facility] Comment on above: Performed By: #### D IFF CBC, CMP, ETOH #### [facility] [address] [place] [address] [place] Monocytes/100 WBC (Bld) 7 % Normal 2-11 [facility] Comment on above: Performed By: #### D IFF CBC, CMP, ETOH #### [facility] [address] Myelocytes 1 % High 0-0 [facility] Comment on above: Performed By: #### D IFF CBC, CMP, ETOH #### [facility] [address] Platelet Estimate Increased Normal Normal [facility] Comment on above: Performed By: #### D IFF CBC, CMP, ETOH #### [address] Platelet mean volume (Bld) [Entitic vol] 6.8 fL Normal 6.3-10.7 [facility] Comment on above: Performed By: #### D IFF CBC, CMP, ETOH #### [address] Platelet Morphology Normal Normal Normal [facility] Comment on above: Result Comment: PERF ORMED BY: [place] [address] PATHOLOGIST MANAGER [employer] RELATIONS BRENDON KANG M.D. Performed By: #### D IFF CBC, CMP, ETOH #### [facility] [address] [place] [address] [place] Platelets (Bld) [#/Vol] 525 10*3/uL High 150-450 [facility] Comment on above: Performed By: #### D IFF CBC, CMP, ETOH #### [facility] [address] [place] [address] [place] Polychromasia Slight Normal [facility] Comment on above: Performed By: #### D IFF CBC, CMP, ETOH #### [facility] [address] [place] [address] [place] Promyelocytes 1 % High 0-0 [facility] Comment on above: Performed By: #### D IFF CBC, CMP, ETOH #### [facility] [address] RBC (Bld) [#/Vol] 3.61 10*6/uL Normal 3.60-5.00 [facility] Comment on above: Performed By: #### D IFF CBC, CMP, ETOH #### [facility] [address] Segmented neutrophils/100 WBC (Bld) 63 % Normal 50-70 [facility] Comment on above: Performed By: #### D IFF CBC, CMP, ETOH #### [facility] [address] Stomatocytes Slight Normal [facility] Comment on above: Performed By: #### D IFF CBC, CMP, ETOH #### [address] WBC (Bld) [#/Vol] 16.8 10*3/uL High 3.8-11.6 [facility] Comment on above: Performed By: #### D IFF CBC, CMP, ETOH #### [address] Dipstick and Microscopicon 0 03-29-2023 Appearance (U) Clear Normal Clear [facility] Comment on above: Order Comment: Name Collection Type:: Clean-Voided Midstream Performed By: #### U HCG, URDS, ADDONUAPLUS #### [address] Bacteria,Urine None Seen Normal None Seen [facility] Comment on above: Order Comment: Name Collection Type:: Clean-Voided Midstream Performed By: #### U HCG, URDS, ADDONUAPLUS #### [address] Bilirubin,Urine Negative Normal Negative [facility] Comment on above: Order Comment: Name Collection Type:: Clean-Voided Midstream Performed By: #### U HCG, URDS, ADDONUAPLUS #### [address] [address] [place] Color (U) Dark Yellow Critically abnormal Yellow [facility] Comment on above: Order Comment: Name Collection Type:: Clean-Voided Midstream Performed By: #### U HCG, URDS, ADDONUAPLUS #### [facility] [address] Glucose Ql (U) Normal Normal Normal [facility] Comment on above: Order Comment: Name Collection Type:: Clean-Voided Midstream Performed By: #### U HCG, URDS, ADDONUAPLUS #### [facility] [address] [place] [address] Hyaline Casts,Urine 1-2 Normal 0-8 [facility] Comment on above: Order Comment: Name Collection Type:: Clean-Voided Midstream Performed By: #### U HCG, URDS, ADDONUAPLUS #### [facility] [address] [place] [address] Ketones Ql (U) Trace High Negative [facility] Comment on above: Order Comment: Name Collection Type:: Clean-Voided Midstream Performed By: #### U HCG, URDS, ADDONUAPLUS #### [facility] [address] [place] [address] Leukocyte esterase Test strip Ql (U) 1+ High Negative [facility] Comment on above: Order Comment: Name Collection Type:: Clean-Voided Midstream Performed By: #### U HCG, URDS, ADDONUAPLUS #### [facility] [address] [place] [address] [place] Nitrite,Urine Negative Normal Negative [facility] Comment on above: Order Comment: Name Collection Type:: Clean-Voided Midstream Performed By: #### U HCG, URDS, ADDONUAPLUS #### [facility] [address] [place] [address] [place] Occult Blood,Urine Negative Normal Negative [facility] Comment on above: Order Comment: Name Collection Type:: Clean-Voided Midstream Performed By: #### U HCG, URDS, ADDONUAPLUS #### [facility] [address] [place] [address] Other Casts,Urine None Seen Normal None Seen [facility] Comment on above: Order Comment: Name Collection Type:: Clean-Voided Midstream Performed By: #### U HCG, URDS, ADDONUAPLUS #### [address] pH (U) 6.5 [pH] Normal 5.0-9.0 [facility] Comment on above: Order Comment: Name Collection Type:: Clean-Voided Midstream Performed By: #### U HCG, URDS, ADDONUAPLUS #### [facility] [address] [place] [address] Protein,Urine Trace High Negative [facility] Comment on above: Order Comment: Name Collection Type:: Clean-Voided Midstream Performed By: #### U HCG, URDS, ADDONUAPLUS #### [address] RBC,Urine 3-4 Normal 0-4 [facility] Comment on above: Order Comment: Name Collection Type:: Clean-Voided Midstream Performed By: #### U HCG, URDS, ADDONUAPLUS #### [facility] [address] [place] [address] Specificy [place],Urine 1.028 Normal 1.001-1.030 [facility] Comment on above: Order Comment: Name Collection Type:: Clean-Voided Midstream Performed By: #### U HCG, URDS, ADDONUAPLUS #### [facility] [address] [place] [address] Squamous Epithelial Cell,Urine 3-4 High 0-2 [facility] Comment on above: Order Comment: Name Collection Type:: Clean-Voided Midstream Performed By: #### U HCG, URDS, ADDONUAPLUS #### [facility] [address] [place] [address] Urobilinogen,Urine Normal Normal Normal [facility] Comment on above: Order Comment: Name Collection Type:: Clean-Voided Midstream Performed By: #### U HCG, URDS, ADDONUAPLUS #### [address] [place] [address] [place] WBC,Urine 3-4 Normal 0-4 [facility] Comment on above: Order Comment: Name Collection Type:: Clean-Voided Midstream Performed By: #### U HCG, URDS, ADDONUAPLUS #### [address] Drug Screen,Urineon 03-29-20 Amphetamine Screen,Urine Negative Normal Negative [facility] Comment on above: Performed By: #### U HCG, URDS, ADDONUAPLUS #### [address] Barbiturate Screen,Urine Negative Normal Negative [facility] Comment on above: Performed By: #### U HCG, URDS, ADDONUAPLUS #### [address] Benzodiazepines Screen,Urine Negative Normal Negative [facility] Comment on above: Performed By: #### U HCG, URDS, ADDONUAPLUS #### [address] Cannabinoid Screen,Urine Negative Normal Negative [facility] Comment on above: Result Comment: Thes e are unconfirmed results and should not be used for legal purposes. Drug Cut-Off Concentration: AMPH 1000 ng/mL ADRIA 200 ng/mL MARAH 200 ng/mL COCM 300 ng/mL OP 300 ng/mL PCP 25 ng/mL THC 20 ng/mL PERFORMED BY: [place] [address] PATHOLOGIST MANAGER [employer] RELATIONS BRENDON KANG M.D. Performed By: #### U HCG, URDS, ADDONUAPLUS #### [address] Cocaine Screen,Urine Negative Normal Negative [facility] Comment on above: Performed By: #### U HCG, URDS, ADDONUAPLUS #### [address] Opiate Screen,Urine Negative Normal Negative [facility] Comment on above: Performed By: #### U HCG, URDS, ADDONUAPLUS #### [facility] [address] Phencyclidine Screen,Urine Negative Normal Negative [facility] Comment on above: Performed By: #### U HCG, URDS, ADDONUAPLUS #### [facility] [address] Eosinophils Auto (Bld) [#/Vo l]Ordered By: Rocio Emmanuel on 03-29-2023 Eosinophils (Bld) [#/Vol] N/A [facility] Eosinophils/100 WBC Auto (Bl d)Ordered By: Rocio Emmanuel on 03-29-2023 Eosinophils/100 WBC (Bld) N/A [facility] Eosinophils/100 WBC Manual c nt (Bld)Ordered By: Rocio Emmanuel on 03-29-2023 Eosinophils/100 WBC (Bld) 1 % 1-3 [facility] Erythrocyte distribution wid th Auto (RBC) [Ratio]Ordered By: Rocio Emmanuel on 03-29-2023 Erythrocyte distribution width (RBC) [Ratio] 13.2 % 11.9-15.3 [facility] Ethanol [Mass/volume] in Ser um or PlasmaOrdered By: Rocio Emmanuel on 03-29-2023 Ethanol [Mass/Vol] mg/dL [facility] Ethanol [Mass/Vol] TNP [facility] Comment on above: Test not performed Ethyl Alcohol Profileon Ethanol [Mass/Vol] mg/dL Normal [facility] Comment on above: Performed By: #### D IFF CBC, CMP, ETOH #### [facility] [address] Percent Ethanol Not performed Normal [facility] Comment on above: Result Comment: PERF ORMED BY: [place] [address] PATHOLOGIST MANAGER [employer] RELATIONS BRENDON KANG M.D. Performed By: #### D IFF CBC, CMP, ETOH #### [facility] [address] [place] [address] Globulin Calc (S) [Mass/Vol] Ordered By: Rocio Emmanuel on 03-29-2023 Globulin (S) [Mass/Vol] 2.4 g/dL [facility] Glucose [Mass/volume] in Ser um or PlasmaOrdered By: Rocio Emmanuel on 03-29-2023 Glucose [Mass/Vol] 112 mg/dL 70-100 [facility] Comment on above: ADA recommended refe rence rangeRandom Glucose Reference Range is dependent on time and content of last meal. Glucose of more than 200 mg/dL in a nonstressed, ambulatory subject supports the diagnosis of Diabetes Mellitus. HCG ( test) IA.rapi d Ql (U)Ordered By: Rocio Emmanuel on 03-29-2023 HCG ( test) Ql (U) Negative [facility] HCG,Urineon 03-29-2023 Beta HCG ( test) Ql (U) Negative Normal [facility] Comment on above: Order Comment: Name Collection Type:: Clean-Voided Midstream Result Comment: PERF ORMED BY: [place] [address] PATHOLOGIST MANAGER [employer] RELATIONS BRENDON KANG M.D. Performed By: #### U HCG, URDS, ADDONUAPLUS #### [address] Hematocrit Auto (Bld) [Volum e fraction]Ordered By: Rocio Emmanuel on 03-29-2023 Hematocrit (Bld) [Volume fraction] 31.5 % 34.0-46.4 [facility] Hemoglobin [Mass/volume] in BloodOrdered By: Rocio Emmanuel on 03-29-2023 Hemoglobin (Bld) [Mass/Vol] 10.4 g/dL 11.8-15.4 [facility] Ketones Auto test strip (U) [Mass/Vol]Ordered By: Rocio Emmanuel on 03-29-2023 Ketones (U) [Mass/Vol] Trace Negative Fi [facility] Laboratory - UrinalysisOrder ed By: Rocio Emmanuel on 03-29-2023 Hyaline casts LM Ql (Urine sed) 1-2 [LPF] 0-8 [facility] Leukocytes [#/volume] correc leanna for nucleated erythrocytes in Blood by Automated counOrdered By: Rocio Emmanuel on 03-29-2023 WBC corrected for nucl RBC Auto (Bld) [#/Vol] 16.8 10*3/uL 3.8-11.6 [facility] Lymphocytes Auto (Bld) [#/Vo l]Ordered By: Rocio Emmanuel on 03-29-2023 Lymphocytes (Bld) [#/Vol] N/A [facility] Lymphocytes/100 WBC Auto (Bl d)Ordered By: Rocio Emmanuel on 03-29-2023 Lymphocytes/100 WBC (Bld) N/A [facility] Lymphocytes/100 WBC Manual c nt (Bld)Ordered By: Rocio Emmanuel on 03-29-2023 Lymphocytes/100 WBC (Bld) 25 % 18-42 [facility] MCH Auto (RBC) [Entitic mass ]Ordered By: Rocio Emmanuel on 03-29-2023 MCH (RBC) [Entitic mass] 28.9 pg 24.7-34.3 [facility] MCHC Auto (RBC) [Mass/Vol]Or dered By: Rocio Emmanuel on 03-29-2023 MCHC (RBC) [Mass/Vol] 33.1 g/dL 32.0-35.0 [facility] MCV Auto (RBC) [Entitic vol] Ordered By: Rocio Emmanuel on 03-29-2023 MCV (RBC) [Entitic vol] 87.2 fL 80-100 [facility] Metamyelocytes/100 WBC Manua l cnt (Bld)Ordered By: Rocio Emmanuel on 03-29-2023 Metamyelocytes/100 WBC (Bld) 1 % 0-0 [facility] Monocytes Auto (Bld) [#/Vol] Ordered By: Rocio Emmanuel on 03-29-2023 Monocytes (Bld) [#/Vol] N/A [facility] Monocytes/100 WBC Auto (Bld) Ordered By: Rocio Emmanuel on 03-29-2023 Monocytes/100 WBC (Bld) N/A [facility] Monocytes/100 WBC Manual cnt (Bld)Ordered By: Rocio Emmanuel on 03-29-2023 Monocytes/100 WBC (Bld) 7 % 2-11 [facility] Myelocytes/100 WBC Manual cn t (Bld)Ordered By: Rocio Emmanuel on 03-29-2023 Myelocytes/100 WBC (Bld) 1 % 0-0 [facility] Neutrophils Auto (Bld) [#/Vo l]Ordered By: Roico Emmanuel on 03-29-2023 Neutrophils (Bld) [#/Vol] N/A [facility] Neutrophils/100 WBC Auto (Bl d)Ordered By: Rocio Emmanuel on 03-29-2023 Neutrophils/100 WBC (Bld) N/A [facility] Nitrite Test strip Ql (U)Ord ered By: Rocio Emmanuel on 03-29-2023 Nitrite Ql (U) Negative Negative [facility] No Panel InformationOrdered By: Rocio Emmanuel on 03-29-2023 Estimated GFR (CKD-EPI) > 60.0 mL/Min [facility] Creatinine Clearance (Chem 123.48 [facility] Nucleated erythrocytes [Pres ence] in Blood by Automated countOrdered By: Rocio Emmanuel on 03-29-2023 Nucleated RBC Auto Ql (Bld) N/A [facility] Opiates [Presence] in Urine by Screen methodOrdered By: Rocio Emmanuel on 03-29-2023 Opiates Screen Ql (U) Negative Negative [facility] Phencyclidine Screen Ql (U)O rdered By: Rocio Emmanuel on 03-29-2023 Phencyclidine Ql (U) Negative Negative [facility] Platelet adequacy [Presence] in Blood by Light microscopyOrdered By: Rocio Emmanuel on 03-29-2023 Platelets LM Ql (Bld) Increased Normal [facility] Platelet mean volume Auto (B ld) [Entitic vol]Ordered By: Rocio Emmanuel on 03-29-2023 Platelet mean volume (Bld) [Entitic vol] 6.8 fL 6.3-10.7 [facility] Platelet morphology finding [Identifier] in BloodOrdered By: Rocio Emmanuel on 03-29-2023 Platelet morphology finding Nom (Bld) Normal Normal [facility] Platelets Auto (Bld) [#/Vol] Ordered By: Rocio Emmanuel on 03-29-2023 Platelets (Bld) [#/Vol] 525 10*3/uL 150-450 [facility] Polychromasia [Presence] in Blood by Light microscopyOrdered By: Rocio Emmanuel on 03-29-2023 Polychromasia LM Ql (Bld) Slight [facility] Potassium [Moles/volume] in Serum or PlasmaOrdered By: Rocio Emmanuel on 03-29-2023 Potassium [Moles/Vol] 4.9 mmol/L 3.5-5.1 [facility] Promyelocytes/100 WBC Manual cnt (Bld)Ordered By: Rocio Emmanuel on 03-29-2023 Promyelocytes/100 WBC (Bld) 1 % 0-0 [facility] Protein Auto test strip (U) [Mass/Vol]Ordered By: Rocio Emmanuel on 03-29-2023 Protein (U) [Mass/Vol] Trace mg/dL Negative [facility] Protein [Mass/volume] in Ser um or PlasmaOrdered By: Rocio Emmanuel on 03-29-2023 Protein [Mass/Vol] 6.3 g/dL 6.4-8.9 [facility] RBC Auto (Bld) [#/Vol]Ordere d By: Rocio Emmanuel on 03-29-2023 RBC (Bld) [#/Vol] 3.61 10*6/uL 3.60-5.00 [facility] RBC morphologyOrdered By: Cande Emmanuel on 03-29-2023 RBC morphology finding Nom (Bld) N/A [facility] Red blood cell stomatocyte d etectionOrdered By: Rocio Emmanuel on 03-29-2023 Stomatocytes LM Ql (Bld) Slight [facility] Segmented neutrophils/100 WB C Manual cnt (Bld)Ordered By: Rocio Emmanuel on 03-29-2023 Segmented neutrophils/100 WBC (Bld) 63 % 50-70 [facility] Serum or plasma albumin/glob ulin mass ratioOrdered By: Rocio Emmanuel on 03-29-2023 Albumin/Globulin [Mass ratio] 1.6 {ratio} [facility] Serum or plasma anion gap de terminationOrdered By: Rocio Emmanuel on 03-29-2023 Anion gap [Moles/Vol] 13.0 mmol/L 6.0-15.0 [facility] Sodium [Moles/volume] in Ser um or PlasmaOrdered By: Rocio Emmanuel on 03-29-2023 Sodium [Moles/Vol] 139 mmol/L 136-145 [facility] Specific gravity Auto test s trip (U) [Rel density]Ordered By: Rocio Emmanuel on 03-29-2023 Specific gravity (U) [Rel density] 1.028 1.001-1.030 [facility] Squamous epithelial cells de tection in urine sediment by light microscopyOrdered By: Rocio Emmanuel on 03-29-2023 Epithelial cells.squamous LM Ql (Urine sed) 3-4 [HPF] 0-2 [facility] Urea nitrogen [Mass/volume] in Serum or PlasmaOrdered By: Rocio Emmanuel on 03-29-2023 Urea nitrogen [Mass/Vol] 9 mg/dL 7-25 [facility] Urine bacteria detection by automated methodOrdered By: Rocio Emmanuel on 03-29-2023 Bacteria Auto Ql (U) None seen None Seen [facility] Urine clarity by refractomet ry automatedOrdered By: Rocio Emmanuel on 03-29-2023 Clarity Refractometry automated (U) Clear Clear [facility] Urine glucose measurement by automated test strip (mass/volume)Ordered By: Rocio Emmanuel on 03-29-2023 Glucose Auto test strip (U) [Mass/Vol] Normal mg/dL Normal [facility] Urine hemoglobin detection b y automated test stripOrdered By: Rocio Emmanuel on 03-29-2023 Hemoglobin Auto test strip Ql (U) Negative Negative [facility] Urine leukocyte esterase det ection by automated test stripOrdered By: Rocio Emmanuel on 03-29-2023 Leukocyte esterase Auto test strip Ql (U) 1+ Negative [facility] Urobilinogen Auto test strip (U) [Mass/Vol]Ordered By: Rocio Emmanuel on 03-29-2023 Urobilinogen (U) [Mass/Vol] Normal mg/dL Normal [facility] WBC Auto (Bld) [#/Vol]Ordere d By: Rocio Darnellсветлана on 03-29-2023 WBC (Bld) [#/Vol] 16.8 10*3/uL 3.8-11.6 [facility] pH Auto test strip (U)Ordere d By: Rocio Emmanuel on 03-29-2023 pH (U) 6.5 [pH] 5.0-9.0 [facility] US THYROIDon 02-13-2023 US THYROID EXAMINATION: [...] RINA CARRANZA Date: 2023-02-13 13:[address] [facility] Falls Screening (Age 18+)on 11-30-2022 Fall risk assessment a) No falls within the last year -[facility] Work Phone: Tobacco use status [facility] c) Screening not indicated [facility] Work Phone: Office Visit (Pediatric [...] up office visit Accompanied by mother and fdc staff. History of Present Illness Amena is [...] and was agitated. She was taken to [facility]. During this time, she was not sleeping at night and was more upset. She slept last Sunday night after receiving Ambien. Testing at [facility] was except an increased WBC count She [...] Anxiety Social History Depo-Provera shot Lives in fdc (V60.6) (Z59.3) Never smoker No alcohol use Allergies Demerol TABS Recorded By: Vanessa Castro; 01/06/2014 2:44:07 PM Current Meds Medication NameInstruction buPROPion HCl ER (SR) 100 MG Oral Tablet Extended Release 12 HourTAKE 1 TABLET TWICE DAILY. Chest Congestion Relief 400 MG Oral TabletTAKE ONE TABLET BY MOUTH TWICE A DAY NEEDED FOR CONGESTION OR COUGH [place] Calcium/Vitamin D 200-250 MG-UNIT TABSTAKE TWO TABLETS [...] Recorded: 30Nov2022 10:00AM Height5 ft 3 in Horgzt973 lb 5.02 oz BMI Ahlhfxryso54.03 kg/m2 BSA Calculated1.67 Tobacco Usec) Screening not indicated Falls Screening (Age 18+)a) No falls within the last year Physical Exam Awake and alert [employer] snacks (looks for the food) Moves well FROM Lets me examine her Signatures Electronically signed by : Cruz Adler MD; Dec 01 2022 9:47AM EST (Author) Normal Touchworks CBC AUTO DIFFon 10-04-2022 BASO # 0.0 103/ul Normal 0.0-0.1 [facility] Comment on above: Performed By: #### C BC ####[facility] [address] [place] [address]Dr. Jonathan Garcia Basophils/100 WBC (Bld) 0.4 % Normal 0.2-2.0 [facility] Comment on above: Performed By: #### C BC ####[facility] [address] [place], [place] [address]Dr. Jonathan Garcia EO # 0.1 103/ul Normal 0.0-0.7 [facility] Comment on above: Performed By: #### C BC ####[facility] [address] [place], [place] [address]Dr. Jonathan Garcia Eosinophils/100 WBC (Bld) 1.2 % Normal 0.9-7.[address] [facility] Comment on above: Performed By: #### C BC ####[facility] [address] [place], [place] [address]Dr. Jonathan Garcia Erythrocyte distribution width (RBC) [Ratio] 12.5 % Normal 11.0-15.0 [facility] Comment on above: Performed By: #### C BC ####[facility] [address] [place], [place] [address]Dr. Jonathan Garcia Hematocrit (Bld) [Volume fraction] 41.6 % Normal 36.0-48.[address] [facility] Comment on above: Performed By: #### C BC ####[facility] [address] [place], [place] [address]Dr. Jonathan Garcia Hemoglobin (Bld) [Mass/Vol] 13.9 g/dL Normal 12.0-16.0 [facility] Comment on above: Performed By: #### C BC ####[facility] [address] [place] [id number]. Jonathan Garcia IG # 0.08 10e3/ul Critically high 0.00-0.03 [facility] Comment on above: Performed By: #### C BC ####[facility] [address] [address]Dr. Jonathan Garcia IG % 0.9 % Critically high 0.0-0.5 [facility] Comment on above: Performed By: #### C BC ####[facility] [address] [place] [address]Dr. Jonathan Jose LYMPH # 3.1 103/ul Normal 1.2-3.8 [facility] Comment on above: Performed By: #### C BC ####[facility] [address] [place], [place] [address]Dr. Shirleylamar Garcia Lymphocytes/100 WBC (Bld) 33.4 % Normal 20.5-60.0 [facility] Comment on above: Performed By: #### C BC ####[facility] [address] [address]Dr. Shirleylamar Garcia MANUAL DIFF REQ NO Normal [facility] Comment on above: Performed By: #### C BC ####[facility] [address] [place], [place] [address]Dr. Jonathan Garcia MCH (RBC) [Entitic mass] 28.9 pg Normal 26.7-34.0 [facility] Comment on above: Performed By: #### C BC ####[facility] [address] [place], [place] [address]Dr. Jonathan Garcia MCHC (RBC) [Mass/Vol] 33.4 g/dL Normal 29.9-35.2 [facility] Comment on above: Performed By: #### C BC ####[facility] [address] [place], [place] [address]Dr. Jonathan Jose MCV (RBC) [Entitic vol] 86.5 fL Normal 81.0-99.0 [facility] Comment on above: Performed By: #### C BC ####[facility] [address] [place] [address]Fn. Jonathan Garcia MONO # 0.6 103/ul Normal 0.3-0.8 [facility] Comment on above: Performed By: #### C BC ####[facility] [address] [place] [id number]. Jonathan Garcia Monocytes/100 WBC (Bld) 5.9 % Normal 1.7-12.0 [facility] Comment on above: Performed By: #### C BC ####[facility] [address] [place] [address]Dr. Jonathan Garcia NEUT # 5.4 103/ul Normal 1.4-6.5 [facility] Comment on above: Performed By: #### C BC ####[facility] [address] [place], [place] [address]Dr. Jonathan Garcia Neutrophils/100 WBC (Bld) 58.2 % Normal 43.0-75.[address] [facility] Comment on above: Performed By: #### C BC ####[facility] [address] [place], [place] [address]Dr. Jonathan Garcia Platelet mean volume (Bld) [Entitic vol] 9.4 fL Critically low 9.5-13.5 [facility] Comment on above: Performed By: #### C BC ####[facility] [address] [place], [place] [id number]. Jonathan Garcia PLT 327 103/ul Normal 150-[address] [facility] Comment on above: Performed By: #### C BC ####[facility] [address] [place], [place] [id number]. Jonathan Garcia RBC 4.81 106/ul Normal 4.20-5.[address] [facility] Comment on above: Performed By: #### C BC ####[facility] [address] [place], [place] [address]Dr. Jonathan Garcia WBC 9.3 103/ul Normal 4.0-11.[address] [facility] Comment on above: Performed By: #### C BC ####[facility] [address] [place], [place] [address]Dr. Jonathna Garcia DEPAKENE/ VALPROIC ACIDon DEPAKENE 55.8 ug/ml Normal 50.0-100.0 [facility] Comment on above: Performed By: #### C ZOEY, VALP #### [facility] [address] [place] [address] Dr. Jonathan Garcia PROF 14(COMP METB)on 023 Albumin [Mass/Vol] 3.6 g/dL Normal 3.4-5.[address] [facility] Comment on above: Performed By: #### C ZOEY, VALP #### [facility] [address] [place] [address] Dr. Jonathan Garcia Albumin/Globulin [Mass ratio] 1.0 {ratio} Normal [facility] Comment on above: Performed By: #### C ZOEY, VALP #### [facility] [address] [place] [address] Dr. Jonathan Garcia ALP [Catalytic activity/Vol] 50 U/L Normal 46-116 [facility] Comment on above: Performed By: #### C ZOEY, VALP #### [facility] [address] [place] [address] Dr. Jonathan Garcia ALT [Catalytic activity/Vol] 11 U/L Critically low 14-59 [facility] Comment on above: Performed By: #### C ZOEY, VALP #### [facility] [address] [place] [address] Dr. Jonathan Garcia Anion gap [Moles/Vol] 10.5 mmol/L Normal [facility] Comment on above: Performed By: #### C MP, VALP #### [facility] [address] [place] [address] Dr. Jonathan Garcia AST [Catalytic activity/Vol] 10 U/L Critically low 15-37 [facility] Comment on above: Performed By: #### C MP, VALP #### [facility] [address] [place] [address] Dr. Jonathan Garcia Bilirubin [Mass/Vol] 0.5 mg/dL Normal 0.2-1.0 [facility] Comment on above: Performed By: #### C ZOEY, VALP #### [facility] [address] [place] [address] Dr. Jonathan Garcia Calcium [Mass/Vol] 9.1 mg/dL Normal 8.5-10.[address] [facility] Comment on above: Performed By: #### C MP, VALP #### [facility] [address] [place] [address] Dr. Jonathan Garcia Chloride [Moles/Vol] 102 mmol/L Normal 98-107 [facility] Comment on above: Performed By: #### C MP, VALP #### [facility] [address] [place] [address] Dr. Jonathan Garcia CO2 [Moles/Vol] 30.7 mmol/L Normal 21.0-32.0 [facility] Comment on above: Performed By: #### C MP, VALP #### [facility] [address] [place] [address] Dr. Jonathan Garcia Creatinine [Mass/Vol] 0.72 mg/dL Normal 0.55-1.02 [facility] Comment on above: Performed By: #### C MP, VALP #### [facility] [address] [place] [address] Dr. Jonathan Garcia EGFR-AF NORWEGIAN >60 Normal >=60 [facility] Comment on above: Performed By: #### C MP, VALP #### [facility] [address] [place] [address] Dr. Jonathan Garcia EGFR-NON AF NORWEGIAN >60 Normal >=60 [facility] Comment on above: Performed By: #### C MP, VALP #### [facility] [address] [place] [address] Dr. Jonathan Garcia Globulin (S) [Mass/Vol] 3.6 g/dL Normal T [facility] Comment on above: Performed By: #### C MP, VALP #### [facility] [address] [place] [address] Dr. Jonathan Garcia Glucose [Mass/Vol] 102 mg/dL Normal 74-[address] [facility] Comment on above: Performed By: #### C MP, VALP #### [facility] [address] [address] [address] Jonathan Garcia Potassium [Moles/Vol] 4.2 mmol/L Normal 3.5-5.1 [facility] Comment on above: Performed By: #### C MP, VALP #### [facility] [address] [address] [address] Jonathan Garcia Protein [Mass/Vol] 7.2 g/dL Normal 6.4-8.2 [facility] Comment on above: Performed By: #### C MP, VALP #### [facility] [address] [address] [address] Jonathan Garcia Sodium [Moles/Vol] 139 mmol/L Normal 136-[address] [facility] Comment on above: Performed By: #### C MP, VALP #### [facility] [address] [place] [address] Dr. Jonathan Garcia Urea nitrogen [Mass/Vol] 8.0 mg/dL Normal 7.0-18.0 [facility] Comment on above: Performed By: #### C MP, VALP #### [facility] [address] [address] [address] Jonathan Garcia Urea nitrogen/Creatinine [Mass ratio] 11.1 mg/mg Normal [facility] Comment on above: Performed By: #### C MP, VALP #### [facility] [address] [address] [address] Jonathan Garcia VITAMIN D 25 OHon 10-04-2022 VIT D 25-OH 42.3 ng/mL Normal [facility] Comment on above: Performed By: #### V ITAD ####[facility] [address] [address]Dr. Jonathan Garcia VIT D RANGES SEE BELOW Normal [facility] Comment on above: Result Comment: <20 ng/mL Vit D deficient 20 - <30 ng/mL Vit D insufficient 30 - 100 ng/mL Vit D sufficient >100 ng/mL Potential Toxicity Performed By: #### V ITAD ####[facility] [address] [address]Dr. Jonathan Garcia CBC AUTO DIFFon 08-29-2022 BASO # 0.0 103/ul Normal 0.0-0.1 [facility] Comment on above: Performed By: #### C BC #### [facility] [address] [address] [address] Jonathan Garcia Basophils/100 WBC (Bld) 0.4 % Normal 0.2-2.0 [facility] Comment on above: Performed By: #### C BC #### [facility] [address] [address] [address] Jonathan Garcia EO # 0.1 103/ul Normal 0.0-0.7 [facility] Comment on above: Performed By: #### C BC #### [facility] [address] [address] [address] Jonathan Garcia Eosinophils/100 WBC (Bld) 1.0 % Normal 0.9-7.0 [facility] Comment on above: Performed By: #### C BC #### [facility] [address] [address] [address] Jonathan Garcia Erythrocyte distribution width (RBC) [Ratio] 12.6 % Normal 11.0-15.0 [facility] Comment on above: Performed By: #### C BC #### [facility] [address] [address] [address] Jonathan Garcia Hematocrit (Bld) [Volume fraction] 40.7 % Normal 36.0-48.0 [facility] Comment on above: Performed By: #### C BC #### [facility] [address] [address] [address] Jonathan Garcia Hemoglobin (Bld) [Mass/Vol] 13.6 g/dL Normal 12.0-16.0 [facility] Comment on above: Performed By: #### C BC #### [facility] [address] [address] [address] Jonathan Garcia IG # 0.08 10e3/ul Critically high 0.00-0.03 [facility] Comment on above: Performed By: #### C BC #### [facility] [address] [place] [address] Dr. Jonathan Garcia IG % 0.8 % Critically high 0.0-0.5 [facility] Comment on above: Performed By: #### C BC #### [facility] [address] [place] [address] Dr. Jonathan Garcia LYMPH # 3.7 103/ul Normal 1.2-3.8 [facility] Comment on above: Performed By: #### C BC #### [facility] [address] [place] [address] Dr. Jonathan Garcia Lymphocytes/100 WBC (Bld) 35.9 % Normal 20.5-60.0 [facility] Comment on above: Performed By: #### C BC #### [facility] [address] [place] [address] Dr. Jonathan Garcia MANUAL DIFF REQ NO Normal [facility] Comment on above: Performed By: #### C BC #### [facility] [address] [place] [address] Dr. Jonathan Garcia MCH (RBC) [Entitic mass] 29.1 pg Normal 26.7-34.0 [facility] Comment on above: Performed By: #### C BC #### [facility] [address] [place] [address] Dr. Jonathan Garcia MCHC (RBC) [Mass/Vol] 33.4 g/dL Normal 29.9-35.2 [facility] Comment on above: Performed By: #### C BC #### [facility] [address] [place] [address] Dr. Jonathan Garcia MCV (RBC) [Entitic vol] 87.0 fL Normal 81.0-99.0 [facility] Comment on above: Performed By: #### C BC #### [facility] [address] [place] [address] Dr. Jonathan Garcia MONO # 0.7 103/ul Normal 0.3-0.8 [facility] Comment on above: Performed By: #### C BC #### [facility] [address] [place] [address] Dr. Jonathan Garcia Monocytes/100 WBC (Bld) 6.3 % Normal 1.7-12.0 [facility] Comment on above: Performed By: #### C BC #### [facility] [address] [place] [address] Dr. Jonathan Garcia NEUT # 5.8 103/ul Normal 1.4-6.5 [facility] Comment on above: Performed By: #### C BC #### [facility] [address] [place] [address] Dr. Jonathan Garcia Neutrophils/100 WBC (Bld) 55.6 % Normal 43.0-75.0 [facility] Comment on above: Performed By: #### C BC #### [facility] [address] [place] [address] Dr. Jonathan Garcia Platelet mean volume (Bld) [Entitic vol] 9.4 fL Critically low 9.5-13.5 [facility] Comment on above: Performed By: #### C BC #### [facility] [address] [place] [address] Dr. Jonathan Garcia PLT 317 103/ul Normal 150-450 [facility] Comment on above: Performed By: #### C BC #### [facility] [address] [place] [address] Dr. Jonathan Garcia RBC 4.68 106/ul Normal 4.20-5.40 [facility] Comment on above: Performed By: #### C BC #### [facility] [address] [place] [address] Dr. Jonathan Garcia WBC 10.4 103/ul Normal 4.0-11.0 [facility] Comment on above: Performed By: #### C BC #### [facility] [address] [place] [address] Dr. Jonathan Garcia DEPAKENE/ VALPROIC ACIDon DEPAKENE 59.8 ug/ml Normal 50.0-100.0 [facility] Comment on above: Performed By: #### V ALP, CMP, TSH #### [facility] [address] [place] [address] Dr. Jonathan Garcia FREE T4on 08-29-2022 Free T4 [Mass/Vol] 0.72 ng/dL Critically low 0.76-1.[address] [facility] Comment on above: Performed By: #### F T4, VITAD #### [facility] [address] [address] [address] Jonathan Garcia PROF 14(COMP METB)on 022 Albumin [Mass/Vol] 3.6 g/dL Normal 3.4-5.[address] [facility] Comment on above: Performed By: #### V ALP, CMP, TSH #### [facility] [address] [address] [address] Jonathan Garcia Albumin/Globulin [Mass ratio] 1.0 {ratio} Normal [facility] Comment on above: Performed By: #### V ALP, CMP, TSH #### [facility] [address] [address] [address] Jonathan Garcia ALP [Catalytic activity/Vol] 56 U/L Normal 46-116 [facility] Comment on above: Performed By: #### V ALP, CMP, TSH #### [facility] [address] [address] [address] Jonathan Garcia ALT [Catalytic activity/Vol] 12 U/L Critically low 14-59 [facility] Comment on above: Performed By: #### V ALP, CMP, TSH #### [facility] [address] [address] [address] Jonathan Garcia Anion gap [Moles/Vol] 7.9 mmol/L Normal [facility] Comment on above: Performed By: #### V ALP, CMP, TSH #### [facility] [address] [address] [address] Jonathan Garcia AST [Catalytic activity/Vol] 12 U/L Critically low 15-37 [facility] Comment on above: Performed By: #### V ALP, CMP, TSH #### [facility] [address] [address] [address] Jonathan Garcia Bilirubin [Mass/Vol] 0.3 mg/dL Normal 0.2-1.0 [facility] Comment on above: Performed By: #### V ALP, CMP, TSH #### [facility] [address] [address] [address] Jonathan Garcia Calcium [Mass/Vol] 9.0 mg/dL Normal 8.5-10.[address] [facility] Comment on above: Performed By: #### V ALP, CMP, TSH #### [facility] [address] [address] [address] Jonathan Garcia Chloride [Moles/Vol] 102 mmol/L Normal 98-107 [facility] Comment on above: Performed By: #### V ALP, CMP, TSH #### [facility] [address] [address] [address] Jonathan Garcia CO2 [Moles/Vol] 32.1 mmol/L Critically high 21.0-32.0 [facility] Comment on above: Performed By: #### V ALP, CMP, TSH #### [facility] [address] [place] [address] Dr. Jonathan Garcia Creatinine [Mass/Vol] 0.77 mg/dL Normal 0.55-1.02 [facility] Comment on above: Performed By: #### V ALP, CMP, TSH #### [facility] [address] [place] [address] Dr. Jonathan Garcia EGFR-AF NORWEGIAN >60 Normal >=60 [facility] Comment on above: Performed By: #### V ALP, CMP, TSH #### [facility] [address] [place] [address] Dr. Jonathan Garcia EGFR-NON AF NORWEGIAN >60 Normal >=60 [facility] Comment on above: Performed By: #### V ALP, CMP, TSH #### [facility] [address] [address] [address] Jonathan Garcia Globulin (S) [Mass/Vol] 3.7 g/dL Normal [facility] Comment on above: Performed By: #### V ALP, CMP, TSH #### [facility] [address] [place] [address] Dr. Jonathan Garcia Glucose [Mass/Vol] 99 mg/dL Normal 74-106 [facility] Comment on above: Performed By: #### V ALP, CMP, TSH #### [facility] [address] [place] [address] Dr. Jonathan Garcia Potassium [Moles/Vol] 4.0 mmol/L Normal 3.5-5.1 [facility] Comment on above: Performed By: #### V ALP, CMP, TSH #### [facility] [address] [place] [address] Dr. Jonathan Garcia Protein [Mass/Vol] 7.3 g/dL Normal 6.4-8.2 [facility] Comment on above: Performed By: #### V ALP, CMP, TSH #### [facility] [address] [place] [address] Dr. Jonathan Garcia Sodium [Moles/Vol] 138 mmol/L Normal 136-[address] [facility] Comment on above: Performed By: #### V ALP, CMP, TSH #### [facility] [address] [place] [address] Dr. Jonathan Garcia Urea nitrogen [Mass/Vol] 4.0 mg/dL Critically low 7.0-18.0 [facility] Comment on above: Performed By: #### V ALP, CMP, TSH #### [facility] [address] [place] [address] Dr. Jonathan Garcia Urea nitrogen/Creatinine [Mass ratio] 5.2 mg/mg Normal [facility] Comment on above: Performed By: #### V ALP, CMP, TSH #### [facility] [address] [place] [address] Dr. Jonathan Garcia TSHon 08-29-2022 TSH 1.034 uIU/mL Normal 0.358-3.740 [facility] Comment on above: Performed By: #### V ALP, CMP, TSH #### [facility] [address] [place] [address] Dr. Jonathan Garcia VITAMIN D 25 OHon 08-29-2022 VIT D 25-OH 44.9 ng/mL Normal [facility] Comment on above: Performed By: #### F T4, VITAD #### [facility] [address] [place] [address] Dr. Jonathan Garcia VIT D RANGES SEE BELOW Normal [facility] Comment on above: Result Comment: <20 ng/mL Vit D deficient 20 - <30 ng/mL Vit D insufficient 30 - 100 ng/mL Vit D sufficient >100 ng/mL Potential Toxicity Performed By: #### F T4, VITAD #### [facility] [address] [place] [address] Dr. 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 [address] [place] [address] Dr. Jonathan Garcia Clarity (U) CLEAR Normal CLEAR [facility] Comment on above: Performed By: #### U ACSIND #### [facility] [address] [place] [address] Dr. Jonathan Garcia Color (U) DK. YELLOW Normal YELLOW [facility] Comment on above: Performed By: #### U ACSIND #### [facility] [address] [place] [address] Dr. Jonathan Garcia Glucose Ql (U) Negative Normal NEGATIVE [facility] Comment on above: Performed By: #### U ACSIND #### [facility] [address] [place] [address] Dr. Jonathan Garcia Hemoglobin Ql (U) Negative Normal NEGATIVE [facility] Comment on above: Performed By: #### U ACSIND #### [facility] [address] [place] [address] Dr. Jonathan Garcia Ketones Ql (U) TRACE Abnormal NEGATIVE [facility] Comment on above: Performed By: #### U ACSIND #### [facility] [address] [place] [address] Dr. Jonathan Garcia LEUKOCYTES Negative Normal NEGATIVE [facility] Comment on above: Performed By: #### U ACSIND #### [facility] [address] [place] [address] Dr. Jonathan Garcia Nitrite Ql (U) Negative Normal NEGATIVE [facility] Comment on above: Performed By: #### U ACSIND #### [facility] [address] [address] [address] Jonathan Garcia pH (U) 7.0 [pH] Normal 5-9 [facility] Comment on above: Performed By: #### U ACSIND #### [facility] [address] [address] [address] Jonathan Garcia SPEC GRAVITY 1.020 Normal 1.005-<=1.02 5 [facility] Comment on above: Performed By: #### U ACSIND #### [facility] [address] [address] [address] Jonathan Garcia UA PROTEIN Negative Normal NEGATIVE/ TRACE [facility] Comment on above: Performed By: #### U ACSIND #### [facility] [address] [place] [address] Dr. Jonathan Garcia UR MICRO IND NOT INDICATED Normal [facility] Comment on above: Performed By: #### U ACSIND #### [facility] [address] [address] [address] Jonathan Garcia Urobilinogen Qn (U) 0.2 {Christos'U}/dL Normal 0.2 - 1. 0 [facility] Comment on above: Performed By: #### U ACSIND #### [facility] [address] [place] [address] Dr. Jonathan Garcia Peds Gastroenterology - Paresh [...] exercise. Follow up as needed. 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 This visit was completed via [employer]. The patient's mother verbally consented to and [...] Social History Problems Depo-Provera shot Lives in fdc (V60.6) (Z59.3) Never smoker No alcohol use Allergies Medication Demerol TABS Recorded By: Vanessa Castro; 01/06/2014 2:44:07 PM Current Meds Medication NameInstruction buPROPion HCl ER (SR) 100 MG Oral Tablet Extended Release 12 HourTAKE 1 TABLET TWICE DAILY. Chest Congestion Relief 400 MG Oral TabletTAKE ONE TABLET BY MOUTH TWICE A DAY NEEDED FOR CONGESTION OR COUGH [place] Calcium/Vitamin (more content not included)... Normal [facility] COMPMETAon 10-21-2021 Albumin/Globulin [Mass ratio] 1.1 {ratio} Normal [facility] Comment on above: Performed By: #### 1 06403, 024048, 059664 #### [facility] [address] [place] [address] Media Services Director: Rudy Posey MD GFR AA >60 Normal [facility] Comment on above: Result Comment: Afri can [place] GFR Calc Medical judgement is necessary to [...] for drug dosing. Performed By: #### 1 89086, 722769, 923176 #### [facility] [address] [place] [address] Media Services Director: Rudy Posey MD Glomerular Filtration Rate >60 Normal [facility] Comment on above: Result Comment: Non GFR [...] for drug dosing. Performed By: #### 1 03771, 092391, [id number] #### [facility] [address] [place] [address] Media Services Director: Rudy Posey MD Osmolality [Osmolality] 277 mosm/kg Normal 275-295 [facility] Comment on above: Performed By: #### 1 48880, 807703, 074670 #### [facility] [address] [place] [address] Media Services Director: Rudy Posey MD Urea nitrogen/Creatinine [Mass ratio] 15.9 mg/mg Normal [facility] Comment on above: Performed By: #### 1 32307, 543841, 406765 #### [facility] [address] [place] [address] Media Services Director: Rudy Posey MD Albumin [Mass/Vol] 3.6 g/dL Normal 3.4-5.0 [facility] Comment on above: Performed By: #### 1 57937, 487746, 900128 #### [facility] [address] [place] [address] Media Services Director: Rudy Posey MD Alk Phos 60 unit/L Normal 45-117 [facility] Comment on above: Performed By: #### 1 89971, 149623, 444220 #### [facility] [address] [place] [address] Media Services Director: Rudy Posey MD Bilirubin [Mass/Vol] 0.45 mg/dL Normal 0.20-1.00 [facility] Comment on above: Result Comment: Use of this assay is not recommended for patients undergoing treatment with eltrombopag due to the potential for falsely elevated results. Performed By: #### 1 36728, 782101, 380503 #### [facility] [address] [place] [address] Media Services Director: Rudy Posey MD Calcium [Mass/Vol] 9.3 mg/dL Normal 8.5-10.5 [facility] Comment on above: Performed By: #### 1 07586, 654932, 237805 #### [facility] [address] [place] [address] Media Services Director: Rudy Posey MD Chloride [Moles/Vol] 104 mmol/L Normal 100-109 [facility] Comment on above: Performed By: #### 1 12337, 796257, 381548 #### [facility] [address] [place] [address] Media Services Director: Rudy Posey MD CO2 [Moles/Vol] 28.6 mmol/L Normal 21.0-32.0 [facility] Comment on above: Performed By: #### 1 98492, 434962, 679377 #### [facility] [address] [place] [address]47 Media Services Director: Rudy Posey MD Creatinine [Mass/Vol] 0.7 mg/dL Normal 0.6-1.0 [facility] Comment on above: Performed By: #### 1 36020, 586086, 360491 #### [facility] [address] [place] [address] Media Services Director: Rudy Posey MD Globulin (S) [Mass/Vol] 3.2 g/dL Normal [facility] Comment on above: Performed By: #### 1 44272, 589255, 389623 #### [facility] [address] [place], [place] [address] Media Services Director: Rudy Posey MD Glucose [Mass/Vol] 106 mg/dL High 72-100 [facility] Comment on above: Result Comment: Charlene puncture should occur prior to sulfasalazine administration due to the potential for falsely depressed results. Venipuncture should occur prior to sulfapyridine administration due to the potential falsely elevated results. Baseline assay values before administration of sulfasalazine and sulfapyridine therapy would not be affected. Performed By: #### 1 09420, 017270, 380637 #### [facility] [address] [place], [place] [address] Media Services Director: Rudy Posey MD GOT 32 unit/L Normal 15-37 [facility] Comment on above: Result Comment: Charlene puncture should occur prior to sulfasalazine and/or sulfapyridine administration due to the potential for falsely depressed results. Baseline assay values before administration of sulfasalazine and sulfapyridine therapy would not be affected. Performed By: #### 1 11463, 605613, 549024 #### [facility] [address] [place] [address] Media Services Director: Rudy Posey MD GPT 95 unit/L High 13-56 [facility] Comment on above: Result Comment: Charlene puncture should occur prior to sulfasalazine and/or sulfapyridine administration due to the potential for falsely depressed results. Baseline assay values before administration of sulfasalazine and sulfapyridine therapy would not be affected. Performed By: #### 1 82534, 031030, 575777 #### [facility] [address] [place] [address] Media Services Director: Rudy Posey MD Potassium [Moles/Vol] 4.3 mmol/L Normal 3.5-5.1 [facility] Comment on above: Performed By: #### 1 70819, 670068, 831918 #### [facility] [address] [place] [address]32 Media Services Director: Rudy Posey MD Protein [Mass/Vol] 6.8 g/dL Normal 6.0-8.5 [facility] Comment on above: Performed By: #### 1 76195, 475768, 548050 #### [facility] [address] [place] [address] Media Services Director: Rudy Posey MD Sodium [Moles/Vol] 139 mmol/L Normal 135-145 [facility] Comment on above: Performed By: #### 1 59154, 275914, 732391 #### [facility] [address] [place] [address] Media Services Director: Rudy Posey MD Urea nitrogen [Mass/Vol] 11 mg/dL Normal 10-20 [facility] Comment on above: Performed By: #### 1 90402, 610940, 103568 #### [facility] [address] [place] [address]81 Media Services Director: Rudy Posey MD HEMOon 10-21-2021 Nucleated RBC 0 /100WBC Normal [facility] Comment on above: Performed By: #### 1 99906, 964366, 032842 #### [facility] [address] [place] [address] Media Services Director: Rudy Posey MD DIFF? Yes Normal [facility] Comment on above: Performed By: #### 1 67112, 600462, 189517 #### [facility] [address] [place] [address]682 Media Services Director: Rudy Posey MD DxH Actions See Notes Abnormal [facility] Comment on above: Result Comment: Scan Slide. Perform manual diff if needed. Scan. Leslie # Path Review if Required. SNV Performed By: #### 1 30189, 211075, 319850 #### [facility] [address] [place] [address] Media Services Director: Rudy Posey MD Erythrocyte distribution width (RBC) [Ratio] 14.0 % Normal 11.5-14.5 [facility] Comment on above: Performed By: #### 1 57957, 780664, 983304 #### [facility] [address] [place] [address] 41868 Media Services Director: Rudy Posey MD Hematocrit (Bld) [Volume fraction] 40.1 % Normal 36.0-46.0 [facility] Comment on above: Performed By: #### 1 25207, 113633, 797675 #### [facility] [address] [place] [address] Media Services Director: Rudy Posey MD Hemoglobin (Bld) [Mass/Vol] 13.4 g/dL Normal 12.0-16.0 [facility] Comment on above: Performed By: #### 1 91527, 087370, 457985 #### [facility] [address] [place] [address] 05788 Media Services Director: Rudy Posey MD Instr WBC 9.0 Normal [facility] Comment on above: Performed By: #### 1 37670, 130379, 623283 #### [facility] [address] [place] [address]81 Media Services Director: Rudy Posey MD MCH (RBC) [Entitic mass] 29.1 pg Normal 27.0-34.0 [facility] Comment on above: Performed By: #### 1 42517, 804005, 962809 #### [facility] [address] [place] [address] 78223 Media Services Director: Rudy Posey MD MCHC (RBC) [Mass/Vol] 33.3 g/dL Normal 32.0-37.0 [facility] Comment on above: Performed By: #### 1 93564, 320596, 178256 #### [facility] [address] [place] [address]20 Media Services Director: Rudy Posey MD MCV (RBC) [Entitic vol] 87.2 fL Normal 80.0-100.0 [facility] Comment on above: Performed By: #### 1 03763, 474545, 177965 #### [facility] [address] [place] [address]197 Media Services Director: Rudy Posey MD Platelet 402 x1000 Normal 150-450 [facility] Comment on above: Performed By: #### 1 96597, 428724, 769359 #### [facility] [address] [place] [address] 36093 Media Services Director: Rudy Posey MD Platelet mean volume (Bld) [Entitic vol] 7.2 fL Low 7.4-10.4 [facility] Comment on above: Performed By: #### 1 34823, 819757, 641947 #### [facility] [address] [place] [address]14 Media Services Director: Rudy Posey MD RBC 4.60 x10 Normal 4.20-5.40 [facility] Comment on above: Result Comment: Note : RBC morphology is normal unless otherwise stated. Evaluation performed only if differential is requested. Performed By: #### 1 68485, 370001, 355129 #### [facility] [address] [place] [address] 81262 Media Services Director: Rudy Posey MD WBC 9.0 x10 Normal 4.5-11.0 [facility] Comment on above: Performed By: #### 1 23449, 171396, 505859 #### [facility] [address] [place] [address]305 Media Services Director: Rudy Posey MD MAN DIFFon 10-21-[address] 0.36 x1000 Normal 0.00-0.70 [facility] Comment on above: Performed By: #### 1 04752, 033220, 534495 #### [facility] [address] [place] [address] 68558 Media Services Director: Rudy Posey MD Absolute Eos Ct 0.18 x1000 Normal 0.00-0.50 [facility] Comment on above: Performed By: #### 1 46041, 100794, 505341 #### [facility] [address] [place] [address]6301 Media Services Director: Rudy Posey MD Absolute Lymph Ct 2.07 x1000 Normal 1.20-4.80 [facility] Comment on above: Performed By: #### 1 92146, 439248, 977889 #### [facility] [address] [place] [address] 42857 Media Services Director: Rudy Posey MD Absolute Leslie Ct 0.72 x1000 Normal 0.10-1.00 [facility] Comment on above: Performed By: #### 1 88326, 408408, 171609 #### [facility] [address] [place] [address] 83960 Media Services Director: Rudy Posey MD Absolute Neutrophil Ct 5.94 x1000 Normal 1.40-8.80 [facility] Comment on above: Performed By: #### 1 32733, 730854, 673929 #### [facility] [address] [place] [address] Media Services Director: Rudy Posey MD Absolute Seg Ct 5.58 x1000 Normal 1.40-8.80 [facility] Comment on above: Performed By: #### 1 15026, 423934, 016740 #### [facility] [address] [place] [address]80 Media Services Director: Rudy Posey MD Band form neutrophils/100 WBC (Bld) 4 % Normal [facility] Comment on above: Performed By: #### 1 63220, 706705, 823810 #### [facility] [address] [place] [address] 60749 Media Services Director: Rudy Posey MD Eosinophils/100 WBC (Bld) 2 % Normal [facility] Comment on above: Performed By: #### 1 49268, 342707, 653388 #### [facility] [address] [place] [address] 28882 Media Services Director: Rudy Posey MD Left Shift Present Abnormal [facility] Comment on above: Performed By: #### 1 12726, 206229, 107498 #### [facility] [address] [place] [address] 44978 Media Services Director: Rudy Posey MD Lymphocytes/100 WBC (Bld) 23 % Normal [facility] Comment on above: Performed By: #### 1 99026, 664189, 813586 #### [facility] [address] [place] [address] 79008 Media Services Director: Rudy Posey MD Monocytes/100 WBC (Bld) 8 % Normal [facility] Comment on above: Performed By: #### 1 00179, 315577, 922379 #### [facility] [address] [place] [address] 14463 Media Services Director: Rudy oPsey MD Myelocyte % 1 % Normal [facility] Comment on above: Performed By: #### 1 59586, 571309, 148466 #### [facility] [address] [place] [address] 01848 Media Services Director: Rudy Posey MD Segmented neutrophils/100 WBC (Bld) 62 % Normal [facility] Comment on above: Performed By: #### 1 02476, 240113, 600571 #### [facility] [address] [place] [address] 23760 Media Services Director: Rudy Posey MD TAMANNA ACID LEVELon 10-21-2021 Date Last Dose 10/20/2021 Normal [facility] Comment on above: Result Comment: VERI FIED by Discern Expert. Performed By: #### 9 [id number] #### [facility] [address] [place] [address]386 Media Services Director: Rudy Posey MD Time Last Dose 17:00 [facility] Comment on above: Result Comment: VERI FIED by Discern Expert. Performed By: #### 9 [id number] #### [facility] [address] [place] [address] 39449 Media Services Director: Rudy Posey MD Valproic Acid 58.8 ug/ml Normal 50.0-100.0 [facility] Comment on above: Performed By: #### 9 [id number] #### [facility] [address] [place] [address]85 Media Services Director: Rudy Posey MD Vital Signs Date Time Vital Sign Value Performing Clinician Facility 12-04-2024 11: Body height 160 cm Cruz Adler MD Work Phone: [facility] 12-04-2024 11: Body mass index (BMI) [Ratio] 23.63 kg/m2 Cruz Adler MD Work Phone: [facility] 12-04-2024 11: Body weight 60.5 kg Cruz Adler MD Work Phone: [facility] 05-15-2024 10:52-0400 Body height 160 cm Max Vitor BENTLEY Work Phone: [facility] 05-15-2024 10:52-0400 Body mass index (BMI) [Ratio] 22.73 kg/m2 Max Vitor BENTLEY Work Phone: [facility] 05-15-2024 10:52-0400 Body weight 58.2 kg Max Vitor BENTLEY Work Phone: [facility] 03-30-2023 02:21-0400 Diastolic blood pressure 59 mm[Hg] DO Simon Haas Work Phone: [facility] 03-30-2023 02:21-0400 Heart rate 94 /min DO Simon Haas Work Phone: [facility] 03-30-2023 02:21-0400 Respiratory rate 20 /min DO Simon Haas Work Phone: [facility] 03-30-2023 02:21-0400 SaO2% (BldA) [Mass fraction] 100 % DO Simon Haas Work Phone: [facility] 03-30-2023 02:21-0400 Systolic blood pressure 105 mm[Hg] DO Simon Haas Work Phone: [facility] 03-30-2023 00:06-0400 Body temperature 97.2 [degF] DO Simon Haas Work Phone: [facility] 03-29-2023 16:32-0400 Body height 157.48 cm DO Simon Haas Work Phone: [facility] 03-29-2023 16:32-0400 Body weight 60.35 kg DO Simon Haas Work Phone: [facility] 11-30-2022 10:00-0500 Body height 160.02 cm Simon Haas Work Phone: QU-Siamjrarfr-Uydsr a 220 Work Phone: 11-30-2022 10:00-0500 Body mass index (BMI) [Ratio] 25.03 kg/m2 Simon Haas Work Phone: RB-Qfpcbntclf-Jouyu a 220 Work Phone: 11-30-2022 10:00-0500 Body surface area Derived from formula 1.67 m2 Simon Haas Work Phone: RX-Ldetmefyvo-Vcdla a 220 Work Phone: 11-30-2022 10:00-0500 Body weight 64.1 kg Simon Haas Work Phone: QU-Ujcoguljxw-Mfwnd a 220 Work Phone: 01-19-2022 14:38-0400 Body height 160.02 cm Simon Haas Work Phone: NU-Aaghgkwujy-Iezos a 220 Work Phone: 01-19-2022 14:38-0400 Body mass index (BMI) [Ratio] 25.15 kg/m2 Simon Haas Work Phone: XZ-Qcjbcioewy-Pwrft a 220 Work Phone: 01-19-2022 14:38-0400 Body surface area Derived from formula 1.67 m2 Simon Haas Work Phone: YP-Jwjcsnvqag-Akwdl a 220 Work Phone: 01-19-2022 14:38-0400 Body weight 64.41 kg Simon Haas Work Phone: PT-Xyecbzuopw-Cjnna a 220 Work Phone: 07-21-2021 14:30-0400 Body mass index (BMI) [Ratio] 26.35 kg/m2 Simon Haas Work Phone: YM-Tiocxdurya-Kvdrh a 220 Work Phone: 07-21-2021 14:30-0400 Body surface area Derived from formula 1.71 m2 Simon Haas Work Phone: XA-Kqjajyupno-Aomur a 220 Work Phone: 07-21-2021 14:30-0400 Body weight 67.47 kg Simon Haas Work Phone: SO-Dljjhfajay-Wjvaf a 220 Work Phone: 07-03-2019 12:01-0400 BMI (Body Mass Index) 27.86 kg/m2 Max Wiznitzer MG-Pediatr ics-Neuro log-Admin RBC 585 Work Phone: 07-03-2019 12:01-0400 Body weight 70.7 kg Max Wiznitzer VT-Lktizwikor-Sn uro log-Admin RBC 585 Work Phone: 07-03-2019 12:01-0400 BSA (Body Surface Area) 1.73 m2 Max Wiznitzer YG-Sfmroaqwex-Ajqwd log-Admin RBC 585 Work Phone: 07-03-2019 12:01-0400 Height 159.31 cm Max Wiznitzer WY-Mbvzuipilb-Dj uro log-Admin RBC 585 Work Phone: Encounters Encounter Date Encounter Type Care Provider Facility Start: 12-04-2024 End: 12-04-2024 ambulatory CRUZ ADLER [facility] Start: 12-04-2024 End: 12-04-2024 Office outpatient visit 15 minutes Cruz Adler MD Work Phone: [facility] Comment on above: Nonintractable epile psy without status epilepticus, unspecified epilepsy type (Multi) (Primary Dx); Anxiety disorder, unspecified type; Intellectual disability Start: 05-15-2024 End: 05-15-2024 Office outpatient visit 15 minutes Cruz Adler MD Work Phone: [facility] Comment on above: Intellectual disabil ity (Primary Dx); Nonintractable epilepsy without status epilepticus, unspecified epilepsy type (Multi); Anxiety disorder, unspecified type; Mood disorder (CMS-HCC) Start: 05-15-2024 End: 05-15-2024 ambulatory CRUZ ADLER [facility] Start: 12-06-2023 End: 12-06-2023 Office outpatient visit 15 minutes Cruz Adler MD Work Phone: [facility] Comment on above: Anxiety disorder, un specified type (Primary Dx); Mood disorder (CMS/HCC); Nonintractable epilepsy without status epilepticus, unspecified epilepsy type (CMS/HCC) Start: 09-26-2023 End: 09-27-2023 ambulatory SIMON HAAS Facility:[facility] Start: 08-09-2023 End: 08-14-2023 ambulatory ON LICENSE OF [facility] PROVIDER Facility:[facility] Start: 08-09-2023 End: 08-14-2023 Patient encounter procedure Carolina Trevizo Work Phone: [facility] Start: 06-07-2023 Office outpatient vi sit 25 minutes Simon Haas Work Phone: SW-Vbvigqfyrh-Pskvzlwb y-Admin RBC 585 Work Phone: Start: 06-07-[address] Cruz Adler [facility] ity:[id number] Start: 03-29-2023 End: 03-30-2023 Emergency department patient visit Simon Haas Facility:[facility] Start: 03-29-2023 End: 03-30-2023 Emergency department patient visit DO Simon Haas Work Phone: [facility] Work Phone: Start: 02-13-2023 End: 02-14-[address] SIMON HAAS Facility: Start: 11-30-2022 Office outpatient vi sit 15 minutes Simon Haas Work Phone: FE-Qkfdrlfmsx-Tqeyhwao Work Phone: Start: 11-30-2022 Patient encounter procedure Simon Haas Work Phone: TG-Ppekpuliav-Dkaohr 220 Work Phone: Start: 11-30-[address] Cruz Adler Facil ity:[id number] Start: 11-03-2022 Letter encounter Jannette aguilarshaneka Start: 10-04-2022 End: 10-05-[address] SIMON HAAS Facility:[facility] Start: 08-29-2022 End: 08-30-[address] SIMON HAAS Facility:[facility] Start: 08-26-2022 End: 08-26-[address] SIMON HAAS Facility:[facility] Start: 08-25-2022 End: 08-25-[address] SIMON HAAS Facility:[facility] Start: 07-20-2022 Office consultation new/estab patient 40 min Simon Haas Work Phone: [facility] Work Phone: Start: 07-20-[address] Mariela Haas Facility:[facility] Start: 06-01-2022 Office outpatient vi sit 15 minutes Simon Haas Work Phone: VG-Qczshmratz-Duteymat y-Admin RBC 585 Work Phone: Start: 06-01-2022 Patient encounter procedure Simon Haas Work Phone: BH-Kofbnoryve-Zwgfrd 220 Work Phone: Start: 01-19-2022 Office outpatient vi sit 15 minutes Simon Haas Work Phone: PF-Meagrksmxj-Bqijxvil y-Admin RBC 585 Work Phone: Start: 01-19-2022 Patient encounter procedure Simon Haas Work Phone: WI-Kihdkquhvi-Hylxiq 220 Work Phone: Start: 10-20-2021 Office outpatient vi sit 15 minutes Simon Haas Work Phone: VC-Ycczsrlwwr-Lxacubvf ook 220 Work Phone: Start: 07-21-2021 Patient encounter procedure Simon Haas Work Phone: ZI-Feeswlidtu-Ndyzpk 220 Work Phone: Start: 01-22-2020 Patient encounter procedure Max Wiznitzer KL-Fwcjmhyqtg-Xhufzn 220 Work Phone: Start: 07-03-2019 Patient encounter procedure Max Wiznitzer KI-Uyvfvfxwgu-Mduytgus -Admin RBC 585 Work Phone: Start: 01-02-2019 Patient encounter procedure Max Wiznitzer DG-Szxtgktgld-Hvimuzgd -Admin RBC 585 Work Phone: Start: 11-25-2018 Patient encounter procedure Max Wiznitzer II-Unfnlppkdj-Llhqfhcm -Admin RBC 585 Work Phone: Start: 07-04-2018 Patient encounter procedure Max Wiznitzer NE-Eigqridqfb-Liwlvrmt -Admin RBC 585 Work Phone: Start: 01-17-2018 Patient encounter procedure Max Wiznitzer HT-Bkynyaremk-Ugxehhzt -Admin RBC 585 Work Phone: Start: 07-19-2017 Patient encounter procedure Max Wiznitzer DY-Woktjndbvn-Jelwttvu -Admin RBC 585 Work Phone: Procedures Date Procedure Procedure Detail Performing Clinician Start: 05-15-2024 Follow-up visit Follow-up CRUZ SCHREIBER Plan of Treatment Date Care Activity Detail Author Start: 2042 Shingles (RZV) Vaccine (1 of 2) Shingles (RZV) Vaccine (1 of 2) [facility] Start: 2042 Zoster Vaccines (1 of 2) Zoster Vaccines (1 of 2) [facility] [facility] Start: 10-31-2026 DTaP/Tdap/Td Vaccines (2 - Td or Tdap) DTaP/Tdap/Td Vaccines (2 - Td or Tdap) [facility] Start: 10-31-2026 Tetanus vaccination Tetanus (Td or Tdap) Booster [facility] Start: 06-18-2025 End: 06-18-2025 Patient encounter procedure 06/18/2025 10:40 AM EDT Office Visit [facility] [address] [place] [phone] [place] [id number] Department [place] [address] [facility] Start: 11-06-2024 End: 11-06-2024 Patient encounter procedure 11/06/2024 11:20 AM EST Office Visit [facility] [address] [place] [phone] [place] [address] [address] Department [place] [address] [facility] Start: 05-25-2024 COVID-19 Vaccine ( season) COVID-19 Vaccine ( season) [facility] Start: 05-25-2024 Influenza vaccination Influenza Vaccine (#1) [facility] Start: 12-06-2023 FUV, Provider: Cruz Adler, Status: Pen, Time: 10:00 AM FUV, Provider: Cruz Adler, Status: Pen, Time: 10:00 AM TV-Xxegckoznt-Gzvfhoodn -Admin RBC 585 Work Phone: Start: 06-07-2023 FUV, Provider: Cruz Adler, Status: Pen, Time: 10:40 AM FUV, Provider: Cruz Adler, Status: Pen, Time: 10:40 AM OH-Mbflbxokhe-Iujodz 220 Work Phone: Start: 05-25-2023 COVID-19 Vaccine ( season) COVID-19 Vaccine ( season) [facility] Start: 05-25-2023 COVID-19 Vaccine ( season) COVID-19 Vaccine ( season) [facility] Start: 05-25-2023 Influenza vaccination Influenza Vaccine (#1) [facility] Start: 03-30-2023 Plain X-ray of left femur XR femur LT 2V* [facility] Start: 03-30-2023 XR Femur - left 2 Views [facility] Start: 03-29-2023 [facility] Start: 03-29-2023 Computed tomography of abdomen and pelvis with contrast CT abdomen pelvis w con [facility] Start: 03-29-2023 CT Abdomen and Pelvis W contrast IV [facility] Start: 12-25-2022 End: 12-25-2022 Patient encounter procedure 12/25/2022 Procedure Visit Dentistry Carolina Trevizo, [address] [place] [address] [facility] Start: 11-30-2022 FUV, Provider: Cruz Adler, Status: Pen, Time: 10:00 AM FUV, Provider: Cruz Adler, Status: Pen, Time: 10:00 AM TP-Pssisgbklh-Gvxewluon -Admin RBC 585 Work Phone: Start: 07-20-2022 FUV, Provider: Yadi Pedro, Status: Pen, Time: 10:00 AM FUV, Provider: Yadi Pedro, Status: Pen, Time: 10:00 AM FF-Invupyweml-Zghjalgjh -Admin RBC 585 Work Phone: Start: 06-24-2022 Influenza vaccination Influenza Vaccine (#1) [facility] Start: 06-01-2022 FUV, Provider: Cruz Adler, Status: Pen, Time: 10:40 AM FUV, Provider: Cruz Adler, Status: Pen, Time: 10:40 AM BJ-Iuskufvsxd-Vwflqidiz -Admin RBC 585 Work Phone: Start: 05-23-2022 VIRFUVHOME, Provider: Cruz Adler, Status: Pen, Time: 10:20 AM VIRFUVHOME, Provider: Cruz Adler, Status: Pen, Time: 10:20 AM RA-Xsqgisaliu-Njjupd 220 Work Phone: Start: 01-19-2022 FUV, Provider: Cruz Adler, Status: Pen, Time: 2:20 PM FUV, Provider: Cruz Adler, Status: Pen, Time: 2:20 PM JD-Xnxlkjahnl-Uvealtvww ok 220 Work Phone: Start: 2019 HPV Vaccine (optional start 27-45 years) HPV Vaccine (optional start 27-45 years) [facility] Start: 2013 Screening for malignant neoplasm of cervix [facility] Start: 2011 Hepatitis B Vaccines (1 of 3 - 19+ 3-dose series) Hepatitis B Vaccines (1 of 3 - 19+ 3-dose series) [facility] Start: 2010 [facility]atitis C [facility] Start: 09-08-2009 MMR Vaccines (1 of 1 - Standard series) MMR Vaccines (1 of 1 - Standard series) [facility] Start: 09-08-2009 Varicella vaccination [facility] Start: 2007 HIV screening [facility] Start: 1992 Hepatitis B Vaccines (1 of 3 - 3-dose series) Hepatitis B Vaccines (1 of 3 - 3-dose series) [facility] Start: 1992 HIV screening HIV Screening [facility] Start: 1992 Lipid panel Lipid Panel [facility] Start: 1992 Yearly Adult Physical Yearly Adult Physical [facility] Patient Education Rib Fracture (DC) [facility] Work Phone: Patient referral [facility] Work Phone: Immunizations Immunization Date Immunization Notes Care Provider [facility] 07-20-2021 influenza, injectabl e, quadrivalent, preservative free [facility] 07-20-2021 influenza virus vacc ine, unspecified formulation [facility] 10-26-2020 Pfizer (12+ yrs) CEASAR S-COV-2 (COVID-19) vaccine, mRNA, spike protein, LNP, pres. free, 30 mcg/0.3mL dose (VZV=041) [facility] 10-05-2020 Pfizer (12+ yrs) CEASAR S-COV-2 (COVID-19) vaccine, mRNA, spike protein, LNP, pres. free, 30 mcg/0.3mL dose (VUU=181) [facility] 06-30-2020 influenza, injectabl e, quadrivalent, preservative free [facility] 07-18-2019 influenza, injectabl e, quadrivalent, preservative free [facility] 07-03-2018 influenza, injectabl e, quadrivalent, contains preservative [facility] 07-18-2017 influenza, injectabl e, quadrivalent, contains preservative [facility] 10-31-2016 tetanus toxoid, redu amauri diphtheria toxoid, and acellular pertussis vaccine, adsorbed [facility] 06-28-2016 influenza, seasonal, injectable [facility] 07-15-2015 influenza, injectabl e, quadrivalent, preservative free [facility] 07-30-2014 influenza, injectabl e, quadrivalent, preservative free [facility] 07-22-2013 influenza, seasonal, injectable [facility] 07-17-2012 influenza, seasonal, injectable [facility] 06-07-2011 influenza, seasonal, injectable [facility] 07-20-2010 influenza virus vacc ine, whole virus [facility] 08-11-2009 novel influenza-H1N1 -09, preservative-free, injectable [facility] 06-23-2009 influenza, seasonal, injectable [facility] 07-20-2008 influenza, seasonal, injectable [facility] 07-16-2008 influenza virus vacc ine, whole virus [facility] Payers Date Payer Category Payer Self-pay [id number] 2014 Medicaid [id number] 1992 Unknown [id number] 2.16.84 [id number] 1992 Unknown [id number] 2.16.84 [id number] 1992 Unknown [id number] 2.16.84 [id number] 1992 Unknown [id number] 2.16.84 [id number] 1992 Unknown [id number] 2.16.84 [id number] 1992 Unknown [id number] 2.16. [id number] 1992 Unknown [id number] 2.16.8 [id number] 1992 Unknown [id number] 2.16. [id number] 1992 Unknown [id number] 2.16.8 [id number] 1962 Unknown [id number] 2.16. [id number] 1962 Unknown [id number] 2.16. [id number] 1962 Unknown [id number] 2.16. [id number] 1959 Medicaid [id number] Unknown Unknown [id number] 2.16.8 [id number] Social History Date Type Detail Facility Start: 12-06-2023 Depo-Provera shot Depo-Provera shot VK-Tfedlkrjng-Xbrhsn 220 Work Phone: Tobacco smoking status MDIS Tobacco smoking consumption unknown [facility] Start: 1992 [facility] Start: 03-29-2023 End: 12-06-2023 Tobacco smoking status MDIS Never smoked tobacco (finding) [facility] Start: 1992 Sex Assigned At Female [facility] Start: 12-06-2023 Gender identity Not on file [facility] Start: 12-06-2023 Tobacco use and exposure Smokeless tobacco non-user [facility] Work Phone: Start: 12-06-2023 Alcohol intake Lifetime non-d juan (finding) [facility] Work Phone: Start: 05-05-2024 End: 12-04-2024 Exposure to SARS-CoV-2 (event) Not sure [facility] NEGATED: Highlighted row - - ZI-Tejlaikabg-Ofhmzp og -Admin RBC 585 Work Phone: Functional Status Date Assessment Result Facility NEGATED: Highlighted row Functional performance Functional status health issues are not documented Disease IT-Uoqweyltan-Ehxce log-Admin RBC 585 Work Phone: Mental Status Date Assessment Result Facility NEGATED: Highlighted row Cognitive function [Interpretation] Cognitive status health issues are not documented Disease CG-Slbzntszac-Xxwrt log-Admin RBC 585 Work Phone: Clinical Notes 07-21-2021 to 12-04-2024 Cruz Adler MD - 12/04/2024 11:20 AM EDTPatient InstructionsCruz Adler MD - 05/15/2024 11:00 AM EDTPatient InstructionsCurz Adler MD - 12/06/2023 10:00 AM EDTPatient Instructions Note Date & Type Note Facility 12-04-2024 History of Present illness Narrative Toshia Singleton is a 34 y.o. woman with IDD . ELENI Beckwith is a 34 year old young woman with seizures, cognitive impairment and anxiety. Affect and anxiety are stable. She is normally in a good mood. She is sensitive to commotion and change in the [facility] house, such as different/changing staff members. She has a habit of putting on and removing or throwing shoes (hers and others). She went to [facility] with no problems. She is in a day program 2 days weekly (Sunday and Sunday) and does activity such as sorting. She eats and sleeps well. Parents report good behavior at home. She sits with the family at mealtime and plays with her toys. She watches music on TV. Amena gets Colace and Senna for bowel [...] diagnosis of rhabdomyolysis. Amena was admitted to [facility] due to worsening behavior (throw self down, aggression, hitting self). She had a tooth/dental abscess treated with antibiotics. She was readmitted to [facility] for worsening behavior and was found to have a fractured rib and tailbone. Behavior is better at this time, including after scheduled dental surgery on June 27, 2023. Labs in September 2024 VPA 50.4 mcg/ml Normal CBC Review of Systems A review of systems finds no pertinent positives. Depo-Provera was stopped with a concern for behavioral worsening with menses. She gets loratadine and montelukast for respiratory issues. She gets Prolia for bone health. Objective Neurological Exam Mental Status Awake and alert. Patient is nonverbal. Good mood Puts on, removes and throws shoes Can be distracted with food Tries to open door and leave. Motor No abnormal involuntary movements. Coordination No ataxia or tremor. Physical Exam Constitutional: General: She is awake. Neurological: Mental Status: She is alert. Assessment/Plan Cyndi has stable behaviors. Since she tolerated a rispeirdone decrease, drop the dose to 0.5 mg at bedtime and see how she does. If no change after 2 months, stop it and note effect. No change in other medications. Follow up in 6 months documented in this encounter [facility] Work Phone: 12-04-2024 Instructions Cruz Adler MD - 12/04/2024 11:20 AM EDT Cyndi has stable behaviors. Since she tolerated a rispeirdone decrease, drop the dose to 0.5 mg at bedtime and see how she does. If no change after 2 months, stop it and note effect. No change in other medications. Follow up in 6 months documented in this encounter [facility] Work Phone: 05-15-2024 History of Present illness Narrative Subjective Amena Singleton is a 34 y.o. woman with [...] diagnosis of rhabdomyolysis. Amena was admitted to [facility] due to worsening behavior (throw self down, aggression, hitting self). She had a tooth/dental abscess treated with antibiotics. She was readmitted to [facility] for worsening behavior and was found [...] before that time. documented in this encounter [facility] Work Phone: 05-15-2024 Instructions Cruz Adler [...] before that time. documented in this encounter [facility] Work Phone: 12-06-2023 History of Present [...] diagnosis of rhabdomyolysis. Amena was admitted to [facility] due to worsening behavior (throw self down, aggression, hitting self). She had a tooth/dental abscess treated with antibiotics. She was readmitted to [facility] for worsening behavior and was found [...] in 6 months.. documented in this encounter [facility] Work Phone: 12-06-2023 Instructions Cruz Adler MD - 12/06/2023 10:00 AM EDT Jorges mood and behaviors are stable. No seizures are noted. 1. No change in medication 2. Check Depakote level, CBC, CMP and lipids yearly 3. Follow up in 6 months.. documented in this encounter [facility] Work Phone: 08-09-2023 History of Present illness Narrative ----- July at 12:29:46 PM ----- ----- Provider: [id number] Diogo -- Clinic: [facility] ----- OR EVALUATION Patient presents for evaluation [...] available. Legal Guardian: Brody and/or Altagracia Singleton declo;[phone] community health; [phone] [facility]; [phone] Next Visit: OR ----- Signed on July at 1:47:32 PM ----- ----- Provider: [id number] Max Samson DDS -- Clinic: [facility] ----- [facility] Chief complaint Narrative - Reported An [...] visit.follow up office visitAccompanied by mother and fdc staff. PW-Noooinbcnl-Iwjnkztua-Ad min RBC 585 Work Phone: 11-28-2022 History [...] and was agitated. She was taken to [facility]. During this time, she was not sleeping at night and was more upset. She slept last Sunday night after receiving Ambien. Testing at [facility] was except an increased WBC count She was better after a fluid load. She was on cefdinir.Eber had a gastrointestinal illness in October 2022. FK-Hcowmwojhf-Wuexdowp Work Phone: 11-27-2022 History of Present illness [...] and was agitated. She was taken to [facility]. During this time, she was not sleeping at night and was more upset. She slept last Sunday night after receiving Ambien. Testing at [facility] was except an increased WBC count She was better after a fluid load. She was on cefdinir.Eber had a gastrointestinal illness in October 2022. TB-Yapueuoxot-Rnvgon 220 Work Phone: 07-20-2022 History of Present illness Narrative Amena Singleton is a 32 year old young woman with seizures, cognitive impairment and anxiety. I am seeing her for the first time today, July 20, 2022 at the request of Dr. Cruz Adler for concerns of behavioral changes secondary to constipation.This visit was completed via [employer].The patient's mother verbally consented to and participated [...] for toileting but does not always use. TK-Xegmpjxxsq-Tqfdpl [facility] Work Phone: 06-01-2022 Chief complaint Narrative - [...] and behavior FUAccompanied by mother and Staff. [place] [facility] 220 Work Phone: 06-01-2022 Chief complaint Narrative [...] and behavior FUAccompanied by mother and Staff. NU-Qeryaxdddu-Lcbghcska-Ad min RBC 585 Work Phone: 01-19-2022 Chief [...] and behavior FUAccompanied by mother and Staff. [place] [address] Work Phone: 01-19-2022 Chief complaint Narrative [...] telehealth visit.Seizure and behavior FUAccompanied by Staff. BA-Iwioyjsmbw-Teslsfwlc-Ad min RBC 585 Work Phone: 10-20-2021 Chief [...] and behavior FUAccompanied by mother and Staff. MK-Kvxtbmlnzx-Csygubjcykk 220 Work Phone: 07-21-2021 Chief complaint Narrative [...] and behavior FUAccompanied by mother and Staff. DO-Suourckqnk-Ltodkc 220 Work Phone: Evaluation note No assessment inform ation available [facility] Work Phone: Evaluation note Diagnosis Anxiety disorder, unspecified type- Primary Mood disorder (CMS/HCC) Unspecified episodic mood disorder Nonintractable epilepsy without status epilepticus, unspecified epilepsy type (CMS/HCC) documented in this encounter [facility] Work Phone: Evaluation note* Diagnosis Intellectual disability- Primary Unspecified mental retardation Nonintractable epilepsy without status epilepticus, unspecified epilepsy type (Multi) Anxiety disorder, unspecified type Mood disorder (CMS-HCC) Unspecified episodic mood disorder documented in this encounter [facility] Work Phone: Evaluation note* Diagnosis Nonintractable epilepsy without status epilepticus, unspecified epilepsy type (Multi)- Primary Anxiety disorder, unspecified type Intellectual disability Unspecified mental retardation documented in this encounter [facility] Work Phone: History of Present illness Narrative* This visit was completed via Bomgar due to the restrictions of the COVID-19 [...] exception of an increased appetite) are noted. UT-Lvtzpgcobq-Trfzll 220 Work Phone: History of Present illness Narrative* This visit was completed via Bomgar due to the restrictions of the COVID-19 [...] and was agitated. She was taken to [facility]. During this time, she was not sleeping at night and was more upset. She slept last Sunday night after receiving Ambien. [facility] count She was better after a fluid load.She was on cefdinir. She has been sleeping. Today, she is walking well. [facility] 220 Work Phone: History of Present illness Narrative* This visit was completed via [employer] due to the restrictions of the COVID-19 [...] and was agitated. She was taken to [facility]. During this time, she was not sleeping at night and was more upset. She slept last Sunday night after receiving Ambien. Testing at [facility] was except an increased WBC count She was better after a fluid load.She was on cefdinir.She has been sleeping. Today, she is walking well. XH-Fmxnzzingw-Hebwuq 220 Work Phone: History of Present illness Narrative* This visit was completed via [employer] due to the restrictions of the COVID-19 [...] and was agitated. She was taken to [facility]. During this time, she was not sleeping at night and was more upset. She slept last Sunday night after receiving Ambien. Testing at [facility] was except an increased WBC count She was better after a fluid load.She was on cefdinir.She has been sleeping. Today, she is walking well. ZA-Kgwetacxja-Xywyunfvf-Admin RBC 585 Work Phone: History of Present illness Narrative* This visit was completed via [employer] due to the restrictions of the COVID-19 [...] and was agitated. She was taken to [facility]. During this time, she was not sleeping at night and was more upset. She slept last Sunday night after receiving Ambien. Testing at [facility] was except an increased WBC count She was better after a fluid load. She was on cefdinir. NI-Vaexdxzmod-Ydqinc 220 Work Phone: History of Present illness Narrative* This visit was completed via [employer]uWell due to the restrictions of the COVID-19 [...] of an increased appetite) are noted. * Amean was in the hospital early 2021 due to a problem with her right leg and a diagnosis of rhabdomyolysis. She received IV fluids and medications. within a few days after discharge, she had a refusal to walk and was agitated. She was taken to [facility]. During this time, she was not sleeping at night and was more upset. She slept last Sunday night after receiving Ambien. Testing at [facility] was except an increased WBC count She was better after a fluid load. She was on cefdinir. DW-Eqyxpabmto-Vjmyrtase-Admin RBC 585 Work Phone: History of Present illness Narrative* This visit was completed [employer]. All issues [...] and was agitated. She was taken to [facility]. During this time, she was not sleeping at night and was more upset. She slept last Sunday night after receiving Ambien. Testing at [facility] was except an increased WBC count She was better after a fluid load. She was on cefdinir. * Amena was admitted to [facility] due to worsening behavior (throw self down, aggression,hitting self). She had a tooth/dental abscess treated with antibiotics. She was readmitted to [facility] for worsening behavior and was found to have a fractured rib and tailbone. Behavior isbetter at this time. She has a scheduled dental surgery on June 27, 2023. * Eber had a gastrointestinal illness in October 2022. JW-Grgielksib-Ekykzqqmk-Admin RBC 585 Work Phone: Hospital Discharge instructions Additional Instructions Take Ativan if needed for anxiety/aggression Rest Push fluids Continue home medications as scheduled This important that you follow-up with PCP to see about any further adjustments of medications Continue antibiotics as prescribed Return for any difficulty breathing, vomiting, fever, low blood pressure. [facility] Work Phone: Reason for referral (narrative)* Consultation (Routine) - Authorized Specialty Diagnoses / Procedures Referred By Joann t Referred To Contact Pediatric Neurology Diagnoses Anxiety disorder, unspecified type Mood disorder (CMS/HCC) Procedures Follow [place] [address] Department [place] [address] Referral ID Status Reason Start Date Expiration Date V isits Requested Visits Authorized [id number] Authorized 12/06/2023 12/05/2024 1 1 [facility] Work Phone: Family History No Family [...] office visit * Accompanied by mother and fdc staff. * follow up office visit * Accompanied by mother and fdc staff. Chief Complaint and Reason for Visit Chief Complaint MHP ( UTI ) Additional Source Comments INFORMATION SOURCE (unrecogn ized section and content) DATE CREATED AUTHOR 11/09/2021 [facility] DATE CREATED AUTHOR AUTHOR'S ORGANIZ ATION 03/02/2023 [facility] DATE CREATED AUTHOR AUTHOR'S ORGANIZ ATION 04/05/2023 [facility] DATE CREATED AUTHOR AUTHOR'S ORGANIZ ATION 06/09/2023 [facility] DATE CREATED AUTHOR AUTHOR'S ORGANIZ ATION 06/09/2023 [employer] DATE CREATED AUTHOR AUTHOR'S ORGANIZ ATION 08/16/2023 [facility] DATE CREATED AUTHOR AUTHOR'S ORGANIZ ATION 09/29/2023 [facility] DATE CREATED AUTHOR AUTHOR'S ORGANIZ ATION 12/07/2024 [facility] Care Teams (unrecognized sec tion and content) Team Status: Active Member Role Status Dates Simon Haas DO Primary Care Provider Active Team Status: Inactive Member Role Status Dates Simon Haas DO Primary Care Provider Active Vanessa Munoz MD Emergency Provider Active Wares Sorter Relationship Specialty Start Date End Date Simon Haas DO [address] [place] [id number] PCP - General 12/12/10 [place] [id number] [address] [facility] [place] [address] PCP [facility] Medicaid PCP 12/23/22 Wares Sorter Relationship Specialty Start Date End Date Simon Haas DO [address] [place] [address] PCP - General 12/12/10 [place] [address] [address] [facility] [place] [address] PCP - [facility] Medicaid PCP 12/23/22 Wares Sorter Relationship Specialty Start Date End Date Simon Haas DO [address] [place] [address] PCP - General 12/12/10 [place] [address] [address] [facility] [place] [address] PCP - [facility] Medicaid PCP 06/24/24 Goals (unrecognized section and content) Goals may [...] BE BASED ON THE PRIMARY CLINICAL RECORDS. [facility]. provides no warranty or guarantee of the accuracy or completeness of information in this document.
== END 2025-05-07 10:21 | disposition home or self-care (01) ==
LOC: US 10:20
PROVIDERS: PCP Family Medicine; Visit Provider Family Medicine
DX: D89.89 Other specified disorders involving the immune mechanism, not elsewhere classified (principal); E04.9 Nontoxic goiter, unspecified
CPT/HCPCS: 76536

== ENCOUNTER 2025-05-26 11:14 | Outpatient (REF) | payer MEDICAID, SELFPAY ==
--- OUTSIDE RECORDS SUMMARY | 2025-05-26 11:17 | XMS_ITS | Encounter Summary ---
Author Organization [facility] Address [address] [place] [address] Phone Care Team Providers Care Cherry Sorter Name Role Phone Simon Tracey DO Primary Care Provider Cruz Adler MD Unavailable [phone] Cruz Adler MD Unavailable [phone] Encounter Details Date Type Department Care Team (Late st Contact Info) Description 05/27/2023 Patient Risk Score [facility] [address] [place] [address] Social History Tobacco Use Types Packs/Day Years Used Date Smoking Tobacco: Never Assessed Comments Unknown Sex and Gender Information Value Date Recorded Sex Assigned at Not on file Legal Sex Female 2:11 AM EST Gender Identity Not on file Sexual Orientation Not on file documented as of this encounter Plan of Treatment Upcoming Encounters Date Type Department Care Team (Late st Contact Info) Description 06/18/2025 10:40 AM EDT Office Visit [facility] [address] [place] [address] [place] [address] Department of Pediatrics-Neurology [place], [place] [address] documented as of this encounter Visit Diagnoses Not on filedocumented in this encounter Care Teams Cherry Sorter Relationship Specialty Start Date End Date Simon Tracey DO [address] [place] [address] PCP - General 12/12/10 [place] [address] Department [place] [address] PCP - [facility] Medicaid PCP 12/23/22 4 [place] [address] Department [place] [address] PCP - [facility] Medicaid PCP 06/24/24 documented as of this encounter
--- OUTSIDE RECORDS SUMMARY | 2025-05-26 11:17 | XMS_ITS | Encounter Summary ---
Author Organization [facility] Address [address] [place] [address] Phone Care Team Providers Care Civil Draftsman Name Role Phone Simon Tracey DO Primary Care Provider Cruz Adler MD Unavailable [phone] Cruz Adler MD Unavailable [phone] Encounter Details Date Type Department Care Team (Late st Contact Info) Description 12/27/2023 Patient Risk Score [facility] [address] [place] [address] Social History Tobacco Use Types Packs/Day Years Used Date Smoking Tobacco: Never Smokeless Tobacco: Never Alcohol Use Standard Drinks/Week Comments Never 0 (1 standard drink = 0.6 oz pur e alcohol) Comments Unknown Sex and Gender Information Value Date Recorded Sex Assigned at Not on file Legal Sex Female 2:11 AM EST Gender Identity Not on file Sexual Orientation Not on file documented as of this encounter Plan of Treatment Upcoming Encounters Date Type Department Care Team (Late st Contact Info) Description 06/18/2025 10:40 AM EDT Office Visit [facility] [address] [place] [address] [place] [address] Department of Pediatrics-Neurology [place], [place] [id number] documented as of this encounter Visit Diagnoses Not on filedocumented in this encounter Care Teams Civil Draftsman Relationship Specialty Start Date End Date Simon TraceyDO [address] [place] [address] PCP - General 12/12/10 [place] [address] Department [place] [address] PCP - [facility] Medicaid PCP 12/23/22 4 [place] [address] Department [place] [address] PCP - [facility] Medicaid PCP 06/24/24 documented as of this encounter
--- OUTSIDE RECORDS SUMMARY | 2025-05-26 11:17 | XMS_ITS | Encounter Summary ---
Author Organization [facility] Address [address] [place] [address] Phone Care Team Providers Care Donor Services Coordinator Name Role Phone Simon Tracey DO Primary Care Provider Cruz Adler MD Unavailable [phone] Encounter Details Date Type Department Care Team (Late st Contact Info) Description 01/25/2025 Patient Risk Score [facility] Care Management [address] [place] [address] Social History Tobacco Use Types [...] Description 06/18/2025 10:40 AM EDT Office Visit [facility] [address] [place] [address] [place] [address] Department of Pediatrics-Neurology [place], [place] [address] documented as of this encounter Visit Diagnoses Not on filedocumented in this encounter Care Teams Donor Services Coordinator Relationship Specialty Start Date End Date Simon Tracey DO [address] [place] [address] PCP - General 12/12/10 [place] [address] Department [place] [address] PCP - [facility] Medicaid PCP 06/24/24 documented as of this encounter
--- OUTSIDE RECORDS SUMMARY | 2025-05-26 11:17 | XMS_ITS | Encounter Summary ---
Author Organization [facility] Address [address] [place] [address] Phone Care Team Providers Care Senior Group Manager Name Role Phone Simon Tracey DO Primary Care Provider Cruz Adler MD Unavailable [phone] Cruz Adler MD Unavailable [phone] Encounter Details Date Type Department Care Team (Late st Contact Info) Description 08/30/2018 Orders Only [facility] [address] [place] [place] [address] Conversion, Onbase Social History Tobacco Use Types Packs/Day Years [facility] [address] [place] [address] [place] [address] Department of Pediatrics-Neurology [place], [place] [id number] Scheduled Orders Name Type Priority Associated Diagnoses Orde r Schedule OUTSIDE LAB SCAN Lab Ordered: 08/30/2018 documented as of this encounter Visit Diagnoses Not on filedocumented in this encounter Care Teams Senior Group Manager Relationship Specialty Start Date End Date Simon Tracey TangDO [address] [place] [address] PCP - General 12/12/10 [place] [address] Department [place] [address] PCP - [facility] Medicaid PCP 12/23/22 4 [place] [address] Department [place] [address] PCP - [facility] Medicaid PCP 06/24/24 documented as of this encounter
--- OUTSIDE RECORDS SUMMARY | 2025-05-26 11:17 | XMS_ITS | Encounter Summary ---
Author Organization [facility] Address [address] [place] [address] Phone Care Team Providers Care Pbx Manager Name Role Phone Simon Tracey DO Primary Care Provider Cruz Adler MD Unavailable [phone] Cruz Adler MD Unavailable [phone] Encounter Details Date Type Department Care Team (Late st Contact Info) Description 08/29/2018 Orders Only [facility] [address] [place] [place] [address] Conversion, Onbase Social History Tobacco Use Types [...] Description 06/18/2025 10:40 AM EDT Office Visit [facility] [address] [place] [address] [place] [address] Department of Pediatrics-Neurology [place], [place] [address] Scheduled Orders Name Type Priority Associated Diagnoses Orde r Schedule OUTSIDE LAB SCAN Lab Ordered: 08/29/2018 documented as of this encounter Visit Diagnoses Not on filedocumented in this encounter Care Teams Pbx Manager Relationship Specialty Start Date End Date Simon Tracey TangDO [address] [place] [address] PCP - General 12/12/10 [place] [address] Department [place] [address] PCP - [facility] Medicaid PCP 12/23/22 4 [place] [address] Department [place] [address] PCP - [facility] Medicaid PCP 06/24/24 documented as of this encounter
--- OUTSIDE RECORDS SUMMARY | 2025-05-26 11:17 | XMS_ITS | Encounter Summary ---
Author Organization [facility] Address [address] [place] [address] Phone Care Team Providers Care Health Navigator Name Role Phone Simon Tracey DO Primary Care Provider Cruz Adler MD Unavailable [phone] Encounter Details Date Type Department Care Team (Late st Contact Info) Description 05/27/2024 Patient Risk Score [facility] Care Management [address] [place] [address] Social History Tobacco Use Types [...] on file Sexual Orientation Not on file COVID-19 Exposure Response Date Recorded In the last 10 days, have yo u been in contact with someone who was confirmed or suspected to have Coronavirus/COVID-19? No / Unsure 05/15/2024 10:46 AM EDT documented as of this encounter Plan of Treatment Upcoming Encounters Date Type Department Care Team (Late st Contact Info) Description 06/18/2025 10:40 AM EDT Office Visit [facility] [address] [place] [address] [place] [address] Department of Pediatrics-Neurology [place], [place] [address] documented as of this encounter Visit Diagnoses Not on filedocumented in this encounter Care Teams Health Navigator Relationship Specialty Start Date End Date Simon Tracey DO [address] [place] [address] PCP - General 12/12/10 [place] [address] Department [place] [address] PCP - [facility] Medicaid PCP 06/24/24 documented as of this encounter
--- OUTSIDE RECORDS SUMMARY | 2025-05-26 11:17 | XMS_ITS | Encounter Summary ---
Author Organization [facility] Address [address] [place] [address] Phone Care Team Providers Care Assistant Manager Pt Name Role Phone Simon Tracey DO Primary Care Provider Cruz Adler MD Unavailable [phone] Encounter Details Date Type Department Care Team (Late st Contact Info) Description 04/27/2025 Patient Risk Score [facility] Care Management [address] [place] [address] Social History Tobacco Use Types [...] [facility] [address] [place] [address] [place] [address] Department of Pediatrics-Neurology [place], [place] [address] documented as of this encounter Visit Diagnoses Not on filedocumented in this encounter Care Teams Assistant Manager Pt Relationship Specialty Start Date End Date Simon Tracey DO [address] [place] [address] PCP - General 12/12/10 [place] [address] Department [place] [address] PCP - [facility] Medicaid PCP 06/24/24 documented as of this encounter
--- OUTSIDE RECORDS SUMMARY | 2025-05-26 11:17 | XMS_ITS | Encounter Summary ---
Author Organization [facility] Address [address] [place] [address] Phone Care Team Providers Care Driver'S Education Instructor Name Role Phone Simon Tracey DO Primary Care Provider Cruz Adler MD Unavailable [phone] Cruz Adler MD Unavailable [phone] Encounter Details Date Type Department Care Team (Late st Contact Info) Description 02/26/2024 Patient Risk Score [facility] [address] [place] [address] Social History Tobacco Use Types [...] Description 06/18/2025 10:40 AM EDT Office Visit [facility] [address] [place] [address] [place] [address] Department of Pediatrics-Neurology [place], [place] [address] documented as of this encounter Visit Diagnoses Not on filedocumented in this encounter Care Teams Driver'S Education Instructor Relationship Specialty Start Date End Date Simon TraceyDO [address] [place] [address] PCP - General 12/12/10 [place] [address] Department [place] [address] PCP - [facility] Medicaid PCP 12/23/22 4 [place] [address] Department [place] [address] PCP - [facility] Medicaid PCP 06/24/24 documented as of this encounter
--- OUTSIDE RECORDS SUMMARY | 2025-05-26 11:17 | XMS_ITS | Clinical Summary ---
Author Organization [facility] Address [address] [place] [address] Phone Care Team Providers Care Stamp Presser Name Role Phone Simon Tracey Primary Care Provider Cruz Adler MD Unavailable [phone] Allergies No known active allergies Medications buPROPion (Wellbutrin) 100 mg tablet Take 1 tablet (100 mg) by mouth twice a day. Active cholecalciferol (Vitamin D-3) 50 mcg (2,000 unit) capsule Take by mouth. A ctive Prolia 60 mg/mL syringe Inject under the skin. 1 Active divalproex (Depakote) 125 mg EC tablet Take 3 tablets (375 mg) by mouth twice a day. Active docusate sodium (Colace) 100 mg capsule Take by mouth. 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 Intellectual disability 12/06/2023 Encounters Date Type Department Care Team Description 04/27/2025 Patient Risk Score [facility] [address] [place] [address] 03/27/2025 Patient Risk Score [facility] [address] [facility] [address] [place] [address] 02/25/2025 Patient Risk Score [facility] [address] [facility] [address] [place] [address] from Last 3 Months Social History Tobacco Use Types Packs/Day Years Used Date Smoking Tobacco: Never Smokeless Tobacco: Never Tobacco Cessation:Counseling Given: Not Answered Alcohol Use Standard Drinks/Week Comments Never 0 (1 standard drink = 0.6 oz pur e alcohol) Comments Unknown Sex and Gender Information Value Date Recorded Sex Assigned at Not on file Legal Sex Female 2:11 AM EST Gender Identity Not on file Sexual Orientation Not on file Last Filed Vital Signs Vital Sign Reading Time Taken Comments Blood Pressure - - Pulse - - Temperature - - Respiratory Rate - - Oxygen Saturation - - Inhaled Oxygen Concentration - - Weight 60.5 kg (133 lb 6.1 oz) 12/04/2024 11:23 AM EDT Height 160 cm (5' 3 ) 12/04/2024 11:23 AM EDT Body Mass Index 23.63 12/04/2024 11:23 AM EDT Plan of Treatment Upcoming Encounters Date Type Department Care Team (Late st Contact Info) Description 06/18/2025 10:40 AM EDT Office Visit [facility] [address] [facility] [address] [place] [address] [place] [address] Department of [place] [address] Health Maintenance Due Date Last Done Comments HIV Screening 1992 Lipid Panel 1992 Yearly Adult Physical 1992 MMR Vaccines (1 of 1 - Standard series) 1993 Hepatitis C Screening 2010 Hepatitis B Vaccines (1 of 3 - 19+ 3-dose series) 2011 Cervical Cancer Screening 2013 HPV/Cotest 2013 Pap Smear 2013 HPV Vaccines (1 - 3-dose standard series) 2019 COVID-19 Vaccine ( - 2023- season) 2024 Influenza Vaccine (#1) 2025 1, 06/30/2020, 07/18/2019, Additional history exists DTaP/Tdap/Td Vaccines (2 - Td or Tdap) 10/31/2026 10/31/2016 Zoster Vaccines (1 of 2) 2042 HIB Vaccines Aged Out No longer eligi ble based on patient's age to complete this topic Hepatitis A Vaccines Aged Out No long er eligible based on patient's age to complete this topic IPV Vaccines Aged Out No longer eligi ble based on patient's age to complete this topic Meningococcal Vaccine Aged Out No alexi crescencio eligible based on patient's age to complete this topic Pneumococcal Vaccine: Pediatrics and At-Risk Adult Patients Aged Out No longer eligible based on patient's age to complete this topic Rotavirus Vaccines Aged Out No longer eligible based on patient's age to complete this topic Insurance MEDICAID MEDICAID Care Teams Stamp Presser Relationship Specialty Start Date End Date Simon Tracey DO [address] [place] [address] PCP - General 12/12/10 [place] [address] Department of [place] [address] PCP - [facility] Medicaid PCP 06/24/24
--- OUTSIDE RECORDS SUMMARY | 2025-05-26 11:17 | XMS_ITS | Encounter Summary ---
Author Organization [facility] Address [address] [place] [address] Phone Care Team Providers Care Cisco Certified Network Associate Name Role Phone Simon Tracey DO Primary Care Provider Cruz Adler MD Unavailable [phone] Cruz Adler MD Unavailable [phone] Encounter Details Date Type Department Care Team (Late st Contact Info) Description 07/27/2023 Patient Risk Score [facility] [address] [place] [address] Social History Tobacco Use Types [...] Description 06/18/2025 10:40 AM EDT Office Visit [facility] [address] [place] [address] [place] [address] Department of Pediatrics-Neurology [place], [place] [address] documented as of this encounter Visit Diagnoses Not on filedocumented in this encounter Care Teams Cisco Certified Network Associate Relationship Specialty Start Date End Date Simon Tracey DO [address] [place] [address] PCP - General 12/12/10 [place] [address] Department [place] [address] PCP - [facility] Medicaid PCP 12/23/22 4 [place] [address] Department [place] [address] PCP - [facility] Medicaid PCP 06/24/24 documented as of this encounter
--- OUTSIDE RECORDS SUMMARY | 2025-05-26 11:17 | XMS_ITS | Encounter Summary ---
Author Organization [facility] Address [address] [place] [address] Care Team Providers Care Rehab Office Coordinator Name Role Phone Unavailable Primary Care Provider Unavailabl e Encounter Details Date Type Department Care Team (Late st Contact Info) Description 09/23/2021 Abstract PATIENT ACUITY SCORE Social History Tobacco Use Types Packs/Day Years Used Date Smoking Tobacco: Never Assessed Comments No Sex and Gender Information Value Date Recorded Sex Assigned at Not on file Legal Sex Female 9:09 AM EST Gender Identity Not on file Sexual Orientation Not on file documented as of this encounter Plan of Treatment Not on file documented as of this encounter Visit Diagnoses Not on filedocumented in this encounter
--- OUTSIDE RECORDS SUMMARY | 2025-05-26 11:17 | XMS_ITS | Encounter Summary ---
Author Organization [facility] Address [address] [place] [address] Phone Care Team Providers Care Data Management Analyst Name Role Phone Simon Tracey DO Primary Care Provider Cruz Adler MD Unavailable [phone] Encounter Details Date Type Department Care Team (Late st Contact Info) Description 03/27/2024 Patient Risk Score [facility] Care Management [address] [place] [address] Social History Tobacco Use Types [...] Description 06/18/2025 10:40 AM EDT Office Visit [facility] [address] [place] [address] [place] [address] Department of Pediatrics-Neurology [place], [place] [address] documented as of this encounter Visit Diagnoses Not on filedocumented in this encounter Care Teams Data Management Analyst Relationship Specialty Start Date End Date Simon Tracey DO [address] [place] [address] PCP - General 12/12/10 [place] [address] Department [place] [address] PCP - [facility] Medicaid PCP 06/24/24 documented as of this encounter
--- OUTSIDE RECORDS SUMMARY | 2025-05-26 11:17 | XMS_ITS | Encounter Summary ---
Author Organization [facility] Address [address] [place] [address] Phone Care Team Providers Care Suppository Molding Machine Operator Name Role Phone Simon Tracey DO Primary Care Provider Cruz Adler MD Unavailable [phone] Encounter Details Date Type Department Care Team (Late st Contact Info) Description 02/25/2025 Patient Risk Score [facility] Care Management [address] [place] [address] Social History Tobacco Use Types [...] Description 06/18/2025 10:40 AM EDT Office Visit [facility] [address] [place] [address] [place] [address] Department of Pediatrics-Neurology [place], [place] [address] documented as of this encounter Visit Diagnoses Not on filedocumented in this encounter Care Teams Suppository Molding Machine Operator Relationship Specialty Start Date End Date Simon Tracey DO [address] [place] [address] PCP - General 12/12/10 [place] [address] Department [place] [address] PCP - [facility] Medicaid PCP 06/24/24 documented as of this encounter
--- OUTSIDE RECORDS SUMMARY | 2025-05-26 11:17 | XMS_ITS | Encounter Summary ---
Author Organization [facility] Address [address] [place] [address] Phone Care Team Providers Care Passenger Car Cleaning Supervisor Name Role Phone Simon Tracey DO Primary Care Provider Cruz Adler MD Unavailable [phone] Encounter Details Date Type Department Care Team (Late st Contact Info) Description 08/27/2024 Patient Risk Score [facility] Care Management [address] [place] [address] Social History Tobacco Use Types [...] Description 06/18/2025 10:40 AM EDT Office Visit [facility] [address] [place] [address] [place] [address] Department of Pediatrics-Neurology [place], [place] [address] documented as of this encounter Visit Diagnoses Not on filedocumented in this encounter Care Teams Passenger Car Cleaning Supervisor Relationship Specialty Start Date End Date Simon Tracey DO [address] [place] [address] PCP - General 12/12/10 [place] [address] Department [place] [address] PCP - [facility] Medicaid PCP 06/24/24 documented as of this encounter
--- OUTSIDE RECORDS SUMMARY | 2025-05-26 11:17 | XMS_ITS | Encounter Summary ---
Author Organization [facility] Address [address] [place] [address] Phone Care Team Providers Care Galley Stripper Name Role Phone Simon Tracey DO Primary Care Provider Cruz Adler MD Unavailable [phone] Encounter Details Date Type Department Care Team (Late st Contact Info) Description 09/27/2024 Patient Risk Score [facility] [place] [address] [place] [address] Social History Tobacco Use Types [...] Description 06/18/2025 10:40 AM EDT Office Visit [facility] [address] [place] [address] [place] [address] Department of Pediatrics-Neurology [place], [place] [address] documented as of this encounter Visit Diagnoses Not on filedocumented in this encounter Care Teams Galley Stripper Relationship Specialty Start Date End Date Simon Tracey DO [address] [place] [address] PCP - General 12/12/10 [place] [address] Department [place] [address] PCP - [facility] Medicaid PCP 06/24/24 documented as of this encounter
--- OUTSIDE RECORDS SUMMARY | 2025-05-26 11:17 | XMS_ITS | Encounter Summary ---
Author Organization [facility] Address [address] [place] [address] Phone Care Team Providers Care Bottle House Quality Control Technician Name Role Phone Simon Tracey DO Primary Care Provider Cruz Adler MD Unavailable [phone] Encounter Details Date Type Department Care Team (Late st Contact Info) Description 03/27/2025 Patient Risk Score [facility] Care Management [address] [place] [address] Social History Tobacco Use Types [...] 06/18/2025 10:40 AM EDT Office Visit [facility] [address] [place] [address] [place] [address] Department of Pediatrics-Neurology [place], [place] [address] documented as of this encounter Visit Diagnoses Not on filedocumented in this encounter Care Teams Bottle House Quality Control Technician Relationship Specialty Start Date End Date Simon Tracey DO [address] [place] [address] PCP - General 12/12/10 [place] [address] Department of Pediatric[place] [address] PCP - [facility] Medicaid PCP 06/24/24 documented as of this encounter
--- OUTSIDE RECORDS SUMMARY | 2025-05-26 11:17 | XMS_ITS | Encounter Summary ---
Author Organization [facility] Address [address] [place] [address] Phone Care Team Providers Care Bacteriologist Fishery Name Role Phone Simon Tracey DO Primary Care Provider Cruz Adler MD Unavailable [phone] Cruz Adler MD Unavailable [phone] Encounter Details Date Type Department Care Team (Late st Contact Info) Description 03/26/2023 Patient Risk Score [facility] Care Management [address] [place] [address] Social History Tobacco Use Types [...] Description 06/18/2025 10:40 AM EDT Office Visit [facility] [address] [place] [address] [place] [address] Department of Pediatrics-Neurology [place], [place] [address] documented as of this encounter Visit Diagnoses Not on filedocumented in this encounter Care Teams Bacteriologist Fishery Relationship Specialty Start Date End Date Simon Tracey DO [address] [place] [address] PCP - General 12/12/10 [place] [address] Department [place] [address] PCP - [facility] Medicaid PCP 12/23/22 4 [place] [address] Department [place] [address] PCP - [facility] Medicaid PCP 06/24/24 documented as of this encounter
--- OUTSIDE RECORDS SUMMARY | 2025-05-26 11:17 | XMS_ITS | Encounter Summary ---
Author Organization [facility] Address [address] [place] [address] Phone Care Team Providers Care Landfill Gas Plant Field Technician Name Role Phone Simon Tracey DO Primary Care Provider Cruz Adler MD Unavailable [phone] Encounter Details Date Type Department Care Team (Late st Contact Info) Description 12/26/2024 Patient Risk Score [facility] Care Management [address] [place] [address] Social History Tobacco Use Types [...] suspected to have Coronavirus/COVID-19? No / Unsure 12/04/2024 11:20 AM EDT documented as of this encounter Plan of Treatment Upcoming Encounters Date Type Department Care Team (Late st Contact Info) Description 06/18/2025 10:40 AM EDT Office Visit [facility] [address] [place] [address] [place] [address] Department of Pediatrics-Neurology [place], [place] [address] documented as of this encounter Visit Diagnoses Not on filedocumented in this encounter Care Teams Landfill Gas Plant Field Technician Relationship Specialty Start Date End Date Simon Tracey DO [address] [place] [address] PCP - General 12/12/10 [place] [address] Department [place] [address] PCP - [facility] Medicaid PCP 06/24/24 documented as of this encounter
--- OUTSIDE RECORDS SUMMARY | 2025-05-26 11:17 | XMS_ITS | Encounter Summary ---
Author Organization [facility] Address [address] [place] [address] Care Team Providers Care Brick Tosser Name Role Phone Unavailable Primary Care Provider Unavailabl e Encounter Details Date Type Department Care Team (Late st Contact Info) Description 03/05/2017 Prep for Surgery [facility] Dentistry [address] [place] [address] Maurilio Ortiz, DDS [address] [id number] Social History Tobacco Use Types Packs/Day Years Used Date Smoking Tobacco: Never Assessed Comments Unknown Sex and Gender Information Value Date Recorded Sex Assigned at Not on file Legal Sex Female 9:09 AM EST Gender Identity Not on file Sexual Orientation Not on file documented as of this encounter Plan of Treatment Not on file documented as of this encounter Visit Diagnoses Diagnosis Dental decay- Primary Unspecified dental caries documented in this encounter
--- OUTSIDE RECORDS SUMMARY | 2025-05-26 11:17 | XMS_ITS | Clinical Summary ---
Author Organization [facility] Address [address] [place] [address] Care Team Providers Care Livestock Auctioneer Name Role Phone Unavailable Primary Care Provider Unavailabl e Social History Tobacco Use Types Packs/Day Years Used Date Smoking Tobacco: Never Assessed Comments Unknown Sex and Gender Information Value Date Recorded Sex Assigned at Not on file Legal Sex Female 4:17 PM EDT Gender Identity Not on file Sexual Orientation Not on file Plan of Treatment Upcoming Encounters Date Type Department Care Team (Late st Contact Info) Description 07/29/2025 10:30 AM EST Office Visit [facility] [address], [address] [place] [phone] Paolo Kimberly [address], [address] [place] [phone] Holman Angelagarcia [address], [address] [place] [phone] Health Maintenance Due Date Last Done Comments HEPATITIS C VIRUS SCREENING 1992 TETANUS 1992 HIV SCREENING DISCUSSION 2007 HEP B VACCINE (1 of 3 - 19+ 3-dose series) 2011 TDAP (ADULT) 2011 CERVICAL CANCER SCREENING DISCUSSION 2013 HPV VACCINE (1 - 3-dose SCDM series) 2019 COVID-19 VACCINE ( - 2023-2 5 season) 2024 INFLUENZA VACCINE (#1) 2025 PNEUMOCOCCAL VACCINE SERIES Aged Out No longer eligible based on patient's age to complete this topic
--- OUTSIDE RECORDS SUMMARY | 2025-05-26 11:17 | XMS_ITS | Encounter Summary ---
Author Organization [facility] Address [address] [place] [address] Phone Care Team Providers Care Graphic Technician Name Role Phone Simon Tracey DO Primary Care Provider Cruz Adler MD Unavailable [phone] Encounter Details Date Type Department Care Team (Late st Contact Info) Description 04/27/2024 Patient Risk Score [facility] Care Management [address] [place] [address] Social History Tobacco Use Types [...] Description 06/18/2025 10:40 AM EDT Office Visit [facility] [address] [place] [address] [place] [address] Department of Pediatrics-Neurology [place], [place] [id number] documented as of this encounter Visit Diagnoses Not on filedocumented in this encounter Care Teams Graphic Technician Relationship Specialty Start Date End Date Simon Tracey DO [address] [place] [address] PCP - General 12/12/10 [place] [address] Department [place] [address] PCP - [facility] Medicaid PCP 06/24/24 documented as of this encounter
--- OUTSIDE RECORDS SUMMARY | 2025-05-26 11:17 | XMS_ITS | Encounter Summary ---
Author Organization [facility] Address [address] [place] [address] Phone Care Team Providers Care Chief Client Officer Name Role Phone Simon Tracey DO Primary Care Provider Cruz Adler MD Unavailable [phone] Encounter Details Date Type Department Care Team (Late st Contact Info) Description 10/28/2024 Patient Risk Score [facility] Care Management [address] [place] [address] Social History Tobacco Use Types [...] Description 06/18/2025 10:40 AM EDT Office Visit [facility] [address] [place] [address] [place] [address] Department of Pediatrics-Neurology [place], [place] [address] documented as of this encounter Visit Diagnoses Not on filedocumented in this encounter Care Teams Chief Client Officer Relationship Specialty Start Date End Date Simon Tracey DO [address] [place] [address] PCP - General 12/12/10 [place] [address] Department [place] [address] PCP - [facility] Medicaid PCP 06/24/24 documented as of this encounter
--- OUTSIDE RECORDS SUMMARY | 2025-05-26 11:17 | XMS_ITS | Encounter Summary ---
Author Organization [facility] Address [address] [place] [address] Phone Care Team Providers Care Bath Design Sales Consultant Name Role Phone Simon Tracey DO Primary Care Provider Cruz Adler MD Unavailable [phone] Encounter Details Date Type Department Care Team (Late st Contact Info) Description 11/25/2024 Patient Risk Score [facility] Care Management [address] [place] [address] Social History Tobacco Use Types [...] Description 06/18/2025 10:40 AM EDT Office Visit [facility] [address] [place] [address] [place] [address] Department of Pediatrics-Neurology [place], [place] [id number] documented as of this encounter Visit Diagnoses Not on filedocumented in this encounter Care Teams Bath Design Sales Consultant Relationship Specialty Start Date End Date Simon Tracey DO [address] [place] [address] PCP - General 12/12/10 [place] [address] Department of Pediatric[place] [address] PCP - [facility] Medicaid PCP 06/24/24 documented as of this encounter
--- OUTSIDE RECORDS SUMMARY | 2025-05-26 11:17 | XMS_ITS | Encounter Summary ---
Author Organization [facility] Address [address] [place] [address] Care Team Providers Care Clinical Practitioner Name Role Phone Unavailable Primary Care Provider Unavailabl e Encounter Details Date Type Department Care Team (Late st Contact Info) Description 11/25/2020 Prep for Surgery [facility] Dentistry [address] [place] [address] Cedric Armijo DDS [address] [place] [address] Social History Tobacco Use Types Packs/Day Years [...]
--- OUTSIDE RECORDS SUMMARY | 2025-05-26 11:17 | XMS_ITS | Encounter Summary ---
Author Organization [facility] Address [address] [place] [address] Care Team Providers Care Control Supervisor Name Role Phone Unavailable Primary Care Provider Unavailabl e Encounter Details Date Type Department Care Team (Late st Contact Info) Description 04/21/2015 Prep for Surgery [facility] Dentistry [address] [place] [address] Shine Bell, DDS [address] [id number] Social History Tobacco Use Types Packs/Day Years [...]
--- OUTSIDE RECORDS SUMMARY | 2025-05-26 11:17 | XMS_ITS | Clinical Summary ---
Author Organization [facility] Address [address] [facility] [place] [address] Care Team Providers Care Full Charge Bookkeeper Name Role Phone Unavailable Primary Care Provider Unavailabl e Source Comments The following information is NOT included in Care Everywhere downloads:Psychiatric notes, ECG results, Cardiac Rehab notes, Pulmonary Function notes, data from SmartForms (includes but not limited toPregnancy data,audiograms, eye exams, pre-surgical evaluation notes, well-child exam data).[facility] Allergies Active Allergy Reactions Criticality Noted Date Comments Meperidine Other High 06/03/2015 Seizure Medications buPROPion (WELLBUTRIN) 100 MG tablet Take 100 mg by mouth 2 times daily. Active fluoxetine (PROZAC) 10 MG capsule Take 10 mg by mouth 2 times daily. Active divalproex (DEPAKOTE) 125 MG EC tablet Take 375 mg by mouth 2 times daily. Active fluoxetine (PROZAC) 20 MG tablet Take 20 mg by mouth daily. Active fluticasone-salm eterol (ADVAIR DISKUS) 100-50 MCG/DOSE inhaler Inhale 1 Puff 2 times daily. Active risperiDONE (RISPERDAL) 0.5 MG tablet Take 0.5 mg by mouth 2 times daily. Active risperiDONE (RISPERDAL) 1 MG tablet Take 1 mg by mouth daily. Active Sennosides (SENNA LAX ORAL)Indications :take two tablets twice a day Take by mouth Indications: take two tablets twice a day. Active ibuprofen (MOTRIN) 200 MG tablet Take 200-400 mg by mouth every 6 hours as needed for Pain. Active loratadine (CLARITIN) 10 MG tablet Take 10 mg by mouth daily. Active medroxyPROGESTER one (DEPO-PROVERA) 150 MG/ML injection Inject 150 mg into the muscle once. Active montelukast (SINGULAIR) 10 MG tablet Take 10 mg by mouth daily. Active guaifenesin (MUCINEX) 600 MG SR tablet Take 600 mg by mouth 2 times daily. Active Cholecalciferol (VITAMIN D3) 2000 UNITS CAPS Take by mouth. Active bisacodyl (BISCOLAX) 10 MG suppository Insert 10 mg in the rectum daily as needed for Constipation . Active Active Problems Problem Noted Date Diagnosed Date Dental decay 11/25/2020 Overview (11/25/2020): Added automatically from request for surgery [id number] Immunizations Immunization Administration Dates Next Due Influenza, injectable, quadr ivalent, preservative (DTI=609) 07/03/2018,07/18/2017 Influenza, injectable, quadr ivalent, preservative free (PKC=942) 07/20/2021,06/30/2020,07/18/2019,2014,07/30/2014 Influenza, injectable, triva lent, preservative (ZZD=060) 06/28/2016,07/22/2013,07/17/2012,2010,06/23/2009,07/20/2008 Influenza, novel B2M7-48, in jectable, preservative-free (XBF=279) 08/11/2009 Influenza, whole virus (CVX=16) 07/20/2010,07/16 Pfizer Monovalent (12+ yrs) SARS-COV-2 (COVID-19) vaccine, mRNA, spike protein, LNP, pres. free, 30 mcg/0.3mL dose (ROS=740) 10/26/2020,10/05/2020 Tdap (GGI=395) 10/31/2016 Social History Tobacco Use Types Packs/Day Years Used Date Smoking Tobacco: Never Assessed Comments No Sex and Gender Information Value Date Recorded Sex Assigned at Not on file Legal Sex Female 9:09 AM EST Gender Identity Not on file Sexual Orientation Not on file Last Filed Vital Signs Vital Sign Reading Time Taken Comments Blood Pressure 125/56 12/20/2020 11:55 AM EDT Pulse 92 12/20/2020 12:00 PM EDT Temperature 36.6 C (97.9 F) 12/20/2020 11:51 AM EDT Respiratory Rate 22 12/20/2020 12:00 PM EDT Oxygen Saturation 98% 12/20/2020 12:00 PM EDT Inhaled Oxygen Concentration - - Weight 68.1 kg (150 lb 3.2 oz) 12/20/2020 9:38 A M EDT Height 157.5 cm (5' 2 ) 12/20/2020 9:38 AM EDT Body Mass Index 27.47 12/20/2020 9:38 AM EDT Plan of Treatment Health Maintenance Due Date Last Done Comments HIV Test 2007 Hepatitis C Antibody 2010 Hepatitis A (HAV) Vaccine (optional start 19+ years) 2011 Hepatitis B (HBV) Vaccine (1 of 3 - 19+ 3-dose series) 2011 Pap Smear 2013 HPV Vaccine (optional start 27-45 years) 2019 COVID-19 Vaccine (2024- season) 2025 07/12/2022, 07/20/2021, 10/26/2020, Additional history exists Influenza Vaccine (#1) 2025 , 06/30/2020, 07/18/2019, Additional history exists Tetanus (Td or Tdap) Booster 10/31/2026 10/31/2016 Shingles (RZV) Vaccine (1 of 2) 2042 Tdap Booster Completed 10/31/2016 Mammography Discontinued Pneumococcal Vaccine(s) Aged Out No l onger eligible based on patient's age to complete this topic Insurance * Guarantor: Amena Singleton Account Type Relation to Patient Date of Phone Billing Address Personal/Family Self 1990 [phone] (Work) [address] [place] [address] MEDICAID * Guarantor: Amena Singleton Account Type Relation to Patient Date of Phone Billing Address Personal/Family Self 1990 [phone] (Work) [address] [place], [place] [id number]
--- OUTSIDE RECORDS SUMMARY | 2025-05-26 11:17 | XMS_ITS | Encounter Summary ---
Author Organization [facility] Address [address] [place] [address] Phone Care Team Providers Care Cash Register Operator Name Role Phone Simon Tracey DO Primary Care Provider Cruz Adler MD Unavailable [phone] Cruz Adler MD Unavailable [phone] Encounter Details Date Type Department Care Team (Late st Contact Info) Description 08/26/2023 Patient Risk Score [facility] Care Management [address] [place] [address] Social History Tobacco Use Types [...] Description 06/18/2025 10:40 AM EDT Office Visit [facility] [address] [place] [address] [place] [address] Department of Pediatrics-Neurology [place], [place] [id number] documented as of this encounter Visit Diagnoses Not on filedocumented in this encounter Care Teams Cash Register Operator Relationship Specialty Start Date End Date Simon Tracey DO [address] [place] [address] PCP - General 12/12/10 [place] [address] Department [place] [address] PCP - [facility] Medicaid PCP 12/23/22 4 [place] [address] Department [place] [address] PCP - [facility] Medicaid PCP 06/24/24 documented as of this encounter
--- OUTSIDE RECORDS SUMMARY | 2025-05-26 11:17 | XMS_ITS | Encounter Summary ---
Author Organization [facility] Address [address] [place] [address] Care Team Providers Care Warm In Worker Name Role Phone Unavailable Primary Care Provider Unavailabl e Encounter Details Date Type Department Care Team (Late st Contact Info) Description 07/17/2016 Prep for Surgery [facility] Dentistry [address] [place] [address] Maurilio Ortiz, DDS [address] [id number] Social History Tobacco Use Types Packs/Day Years [...] of this encounter Visit Diagnoses Diagnosis Dental caries- Primary Unspecified dental caries documented in this encounter
--- OUTSIDE RECORDS SUMMARY | 2025-05-26 11:17 | XMS_ITS | Encounter Summary ---
Author Organization [facility] Address [address] [facility] [place] [address] Care Team Providers Care E Commerce Marketing Manager Name Role Phone Unavailable Primary Care Provider Unavailabl e Encounter Details Date Type Department Care Team (Late st Contact Info) Description 03/05/2017 Prep for Surgery [facility] Dentistry [address] [place] [address] Velasquez Dent DDS [address] [facility] [place] [address] Social History Tobacco Use Types Packs/Day Years [...]
--- OUTSIDE RECORDS SUMMARY | 2025-05-26 11:17 | XMS_ITS | Encounter Summary ---
Author Organization [facility] Address [address] [place] [address] Phone Care Team Providers Care Music Therapy Specialist Name Role Phone Simon Tracey DO Primary Care Provider Cruz Adler MD Unavailable [phone] Cruz Adler MD Unavailable [phone] Encounter Details Date Type Department Care Team (Late st Contact Info) Description 11/26/2023 Patient Risk Score [facility] Care [facility] [address] [place] [address] Social History Tobacco Use Types [...] Description 06/18/2025 10:40 AM EDT Office Visit [facility] [address] [place] [address] [place] [address] Department of Pediatrics-Neurology [place], [place] [id number] documented as of this encounter Visit Diagnoses Not on filedocumented in this encounter Care Teams Music Therapy Specialist Relationship Specialty Start Date End Date Simon Tracey DO [address] [place] [address] PCP - General 12/12/10 [place] [address] Department [place] [address] PCP - [facility] Medicaid PCP 12/23/22 4 [place] [address] Department [place] [address] PCP - [facility] Medicaid PCP 06/24/24 documented as of this encounter
--- OUTSIDE RECORDS SUMMARY | 2025-05-26 11:17 | XMS_ITS | Encounter Summary ---
Author Organization [facility] Address [address] [place] [address] Phone Care Team Providers Care Air Bag Curer Name Role Phone Simon Tracey DO Primary Care Provider Cruz Adler MD Unavailable [phone] Cruz Adler MD Unavailable [phone] Encounter Details Date Type Department Care Team (Late st Contact Info) Description 06/26/2023 Patient Risk Score [facility] [address] [place] [address] Social History Tobacco Use Types [...] Description 06/18/2025 10:40 AM EDT Office Visit [facility] [address] [place] [address] [place] [address] Department of Pediatrics-Neurology [place], [place] [address] documented as of this encounter Visit Diagnoses Not on filedocumented in this encounter Care Teams Air Bag Curer Relationship Specialty Start Date End Date Simon Tracey DO [address] [place] [address] PCP - General 12/12/10 [place] [address] Department [place] [address] PCP - [facility] Medicaid PCP 12/23/22 4 [place] [address] Department [place] [address] PCP - [facility] Medicaid PCP 06/24/24 documented as of this encounter
--- OUTSIDE RECORDS SUMMARY | 2025-05-26 11:17 | XMS_ITS | Encounter Summary ---
Author Organization [facility] Address [address] [place] [address] Phone Care Team Providers Care Travel Money Advisor Name Role Phone Simon Tracey DO Primary Care Provider Cruz Adler MD Unavailable [phone] Cruz Adler MD Unavailable [phone] Encounter Details Date Type Department Care Team (Late st Contact Info) Description 10/28/2023 Patient Risk Score [facility] Care Management [address] [place] [address] Social History Tobacco Use Types [...] Description 06/18/2025 10:40 AM EDT Office Visit [facility] [address] [place] [address] [place] [address] Department of Pediatrics-Neurology [place], [place] [address] documented as of this encounter Visit Diagnoses Not on filedocumented in this encounter Care Teams Travel Money Advisor Relationship Specialty Start Date End Date Simon Tracey DO [address] [place] [address] PCP - General 12/12/10 [place] [address] Department [place] [address] PCP - [facility] Medicaid PCP 12/23/22 4 [place] [address] Department [place] [address] PCP - [facility] Medicaid PCP 06/24/24 documented as of this encounter
--- OUTSIDE RECORDS SUMMARY | 2025-05-26 11:17 | XMS_ITS | Encounter Summary ---
Author Organization [facility] Address [address] [place] [address] Phone Care Team Providers Care Bead Flipper Name Role Phone Simon Tracey DO Primary Care Provider Cruz Adler MD Unavailable [phone] Cruz Adler MD Unavailable [phone] Encounter Details Date Type Department Care Team (Late st Contact Info) Description 01/26/2024 Patient Risk Score AC Care Management [address] [place] [address] Social History Tobacco Use Types [...] Description 06/18/2025 10:40 AM EDT Office Visit [facility] [address] [place] [address] [place] [address] Department of Pediatrics-Neurology [place], [place] [id number] documented as of this encounter Visit Diagnoses Not on filedocumented in this encounter Care Teams Bead Flipper Relationship Specialty Start Date End Date Simon TraceyDO [address] [place] [address] PCP - General 12/12/10 [place] [address] Department [place] [address] PCP - [facility] Medicaid PCP 12/23/22 4 [place] [address] Department [place] [address] PCP - [facility] Medicaid PCP 06/24/24 documented as of this encounter
--- OUTSIDE RECORDS SUMMARY | 2025-05-26 11:17 | XMS_ITS | Encounter Summary ---
Author Organization [facility] Address [address] [place] [address] Phone Care Team Providers Care Rn Mental Health Name Role Phone Simon Tracey DO Primary Care Provider Cruz Adler MD Unavailable [phone] Cruz Adler MD Unavailable [phone] Encounter Details Date Type Department Care Team (Late st Contact Info) Description 09/26/2023 Patient Risk Score AC Care Management [address] [place] [address] Social History Tobacco Use Types [...] Description 06/18/2025 10:40 AM EDT Office Visit [facility] [address] [place] [address] [place] [address] Department of Pediatrics-Neurology [place], [place] [id number] documented as of this encounter Visit Diagnoses Not on filedocumented in this encounter Care Teams Rn Mental Health Relationship Specialty Start Date End Date Simon Tracey DO [address] [place] [address] PCP - General 12/12/10 [place] [address] Department [place] [address] PCP - [facility] Medicaid PCP 12/23/22 4 [place] [address] Department [place] [address] PCP - [facility] Medicaid PCP 06/24/24 documented as of this encounter
--- OUTSIDE RECORDS SUMMARY | 2025-05-26 11:22 | XMS_ITS | CCD ---
Author Organization [facility] Care Team Providers Care Official Greeter Name Role Phone Cruz Adler Unavailable Unavailable HaasSimon Unavailable Unavailable ElianEmma Unavailable Unavailable HaasSimon Unavailable Unavailable Unavailable Unavailable [...] Care Provider MD Vanessa Munoz Emergency Provider [phone] Simon Haas Primary Care Unavailable Vanessa Munoz Admitting Unavailable Vanessa Munoz Attending Unavailable Haas, Dr. Simon Beckwith Referring Unava blake PEDRO, REENA GUILLEN Attending Unavailable Haas, Dr. Simon Beckwith Primary Care Unava blake Adler, Dr. Arroyo Attending Unavailable Haas, Dr. Simon Beckwith Primary Care Unava ilable WiDr. Cruz hutchison Attending Unavailable Haas, Dr. Simon Tang Primary Care Unava ilable Unavailable Primary Care Provider Unavailabl e PROVIDER, UNKNOWN Attending Unavailable PROVIDER, UNKNOWN Admitting Unavailable SIMON HAAS Attending Unavailable SIMON HAAS Admitting Unavailable Haas Simon MCNAIR Primary Care Provider Cruz Adler MD Unavailable Simon Haas DO Primary Care Provider Vitor BENTLYE, Cruz Unavailable CRUZ ADLER Attending Unavailable SIMON HAAS Primary Care Unavailab le CRUZ ADLER Attending Unavailable SIMON HAAS Primary Care Unavailab le Allergies Allergy Classification Reported Allergen(s) Allergy Type Date of Onset Reaction(s) Facility (15 sources) Meperidine; Translations: [Demerol TABS] Drug Allergy 5 Other [facility] (1 source) Meperidine Drug Allergy 2 [facility] (1 source) Methylphenidate Drug Allergy 2 [facility] (1 source) Pseudoephedrine Drug Allergy 2 [facility] (3 sources) Meperidine; Translations: [meperidine] Drug Allergy 5 Unknown Reaction [facility] (2 sources) Methylphenidate; Translations: [methylphenidate] Drug Allergy 3 Unknown Reaction [facility] (1 source) Meperidine; Translations: [Demerol HCl] Drug Allergy [facility] Repository Medications Current Medications Medication Drug Class(es) [...] 30, 2023 bisacodyl 10 mg rectal suppository (3 sources) Stimulant Laxative take 10 mg rectal route once daily as needed for constipation bisacodyl (BISCOLAX) 10 MG suppository Insert 10 mg in the rectum daily as needed for Constipation. Active buPROPion hydrochloride 100 mg oral tablet (18 sources) Aminoketone take 1 tablet by mouth twice daily buPROPion (WELLBUTRIN) 100 MG tablet Take 100 mg by mouth 2 times daily. Active take 1 tablet by mouth twice justo ly buPROPion HCl ER (SR) 100 MG Oral Tablet Extended Release 12 Hour TAKE 1 TABLET TWICE DAILY. Quantity: 0 Refills: 0 Ordered: 03-Sep-2014 DO Active cholecalciferol 0.05 mg oral capsule (18 sources) Vitamin D Cholecalciferol (VITAMIN D3) 2000 UNITS CAPS Take by mouth. Active cholecalciferol (Vitamin D-3) 50 mcg (2,000 unit) capsule Take by mouth. Active Vitamin D3 50 MC G (2000 [...] DO Active FLUoxetine 40 mg oral capsule (20 sources) Serotonin Reuptake Inhibitor Start: 12-04-2023 take 1 capsule by mouth at bedtime FLUoxetine (PROzac) 40 mg capsule TAKE ONE CAPSULE BY MOUTH AT BEDTIME PROZAC 12/04/2023 Active take 1 tablet by mouth once [place]in[place] y fluoxetine (PROZAC) 20 MG tablet Take 20 mg by mouth daily. Active take 1 capsule by mouth twice da colette fluoxetine (PROZAC) 10 MG capsule Take 10 mg by mouth 2 times daily. Active take 2 capsules by mouth once da colette FLUoxetine HCl - 20 MG Oral Capsule TAKE 2 CAPSULE Daily Quantity: 60 Refills: 0 Ordered: 01-Feb-2017 Vitor BENTLEY, Max Active 60 actuat fluticasone propionate 0.1 mg/actuat / salmeterol 0.05 mg/actuat dry powder inhaler (3 sources) Corticosteroid, beta2-Adrenergic Agonist take 1 puff(s) by inhalation twice daily fluticasone-salmeterol (ADVAIR DISKUS) 100-50 MCG/DOSE inhaler Inhale 1 Puff 2 times daily. Active ibuprofen 800 mg oral tablet (4 sources) Nonsteroidal Anti-inflammatory Drug Start : 03-30 take 800 mg by mouth three times daily Ibuprofen Active 800 MG PO Three times daily March 30, 2023 12:00am ibuprofen (MOTRI N) 200 MG tablet Take 200-400 mg by mouth every 6 hours as needed for Pain. Active LORazepam 1 mg oral tablet (4 sources) Benzodiazepine Start: 03-29-2023 take 1 tablet by mouth three times daily as needed LORazepam (Ativan) 1 mg tablet TAKE ONE TABLET BY MOUTH THREE TIMES A DAY NEEDED FOR AGITATION 03/30/2023 Active Sennosides (SENNA LAX ORAL) (3 sources) take 2 tablets by mouth twice daily Sennosides (SENNA LAX ORAL) Indications: take two tablets twice a day Take by mouth Indications: take two tablets twice a day. Active take 2 tablets by mouth twice da colette Sennosides (SENNA LAX ORAL) Indications: take two tablets twice a day Take by mouth Indications: take two tablets twice a day. 0 Active Completed/Discontinued Medications Medication Drug Class(es) Dates Sig (Normalized) Sig (Original) calcium citrate 950 mg / cholecalciferol 250 unt oral tablet (8 sources) Vitamin D Start: 08-30-2021 take 200-250 tablets by mouth three times daily [place] Calcium/Vitamin D 200-250 MG-UNIT TABS TAKE TWO [...] 04-Jul-2022 Active guaiFENesin 400 mg oral tablet (11 sources) Start: 05-20-2021 take 1 tablet by [...] mg by mouth 2 times daily. Active loratadine 10 mg oral tablet (11 sources) Start: 08-30-2021 take 1 tablet by [...] 150 mg into the muscle once. Active MedroxyPROGESTER one Acetate 150 MG/ML Intramuscular Suspension Quantity: 0 Refills: 0 Ordered: 03-Sep-2014 DO Active MedroxyPROGESTER one Acetate 150 MG/ML Intramuscular Suspension Quantity: 0 Refills: 0 Ordered: 03-Sep-2014 DO Active MedroxyPROGESTER one Acetate 150 MG/ML Intramuscular Suspension Refills: 0 Active montelukast 10 mg oral tablet (15 sources) Leukotriene Receptor Antagonist Start: 10-01-2014 Montelukast [...] 05-Apr-2021 Active take 1 tablet by mouth once [place]in[place] y risperiDONE (RISPERDAL) 1 MG tablet Take 1 mg by mouth daily. Active take 1 tablet by lee th three times daily risperiDONE 1 MG Oral Tablet TAKE 1 TABL ET 3 times daily Quantity: 0 Refills: 0 Ordered: 03-Sep-2014 DO Active Senna Leaves (10 sources) Senna Lax TABS Quantity: 0 Refills: 0 Ordered: 03-Sep-2014 DO Active Senna Lax TABS (2 sources) Senna Lax TABS Refills: 0 Active divalproex sodium 125 mg delayed release oral capsule (18 sources) Mood Stabilizer, Anti-epileptic Agent Start: 04-05-2021 take 3 capsules by mouth twice daily Divalproex Sodium 125 MG Oral Capsule Delayed Release Sprinkle TAKE 3 CAPSULES BY MOUTH TWICE A DAY DEPAKOTE Quantity: 84 Refills: 0 Ordered: 02-Jan-2022 DO Start : 05-Apr-2021 Active take 3 tablets by mouth twice da colette divalproex (DEPAKOTE) 125 MG EC tablet Take 375 mg by mouth 2 times daily. Active Divalproex Sodiu m 125 MG CPSP SPRINKLE 4 CAPSULE Twice daily Quantity: 0 Refills: 0 Ordered: 03-Sep-2014 DO Active Problems Active Problems Problem Classification Problem Date Documented Da te Episodic/Chronic Anxiety disorders (20 sources) Anxiety disorder; Translations: [Anxiety state, unspecified] Onset: 10-06-2022 12-06-2023 Chronic Comment on above: Added by Problem Mitzy aceves Migration; 2013-09-21; Attention-deficit conduct and disruptive behavior disorders (15 sources) Disruptive behavior disorder; Translations: [Unspecified disturbance of conduct] Onset: 12-06-2023 12-06-2023 Chronic Comment on above: Added by Mati aceves Migration; 2013-09-21; Attention-deficit, conduct, and disruptive behavior [...] te Episodic/Chronic Disorders of teeth and jaw (3 sources) Dental caries; Translations: [Dental caries, unspecified] Onset: 11-25-2020 11-25-2020 Episodic Genitourinary symptoms and ill-defined conditions (5 sources) Anuria and oliguria; Translations: [ANURIA AND OLIGURIA] Onset: 08-26-2022 Episodic Other aftercare (5 sources) Other terminal clerk (current) drug therapy; Translations: [OTH [facility] CURRENT DRUG THERAPY] Onset: 08-29-2022 Episodic Other nervous system disorders (1 source) Unsteadiness on feet; Translations: [UNSTEADINESS ON FEET] Onset: 09-02-2022 Episodic Unclassified (2 sources) Intellectual disability; Translations: [Intellectual disability] NEGATED: Highlighted row has not occurred!Residual codes; unclassified (11 sources) Disease Episodic Results Test Name Value Interpretation Reference Range Facility T3 on 09-28-2023 Free T3 [Mass/Vol] 2.8 pg/mL Invalid Interpretation Code 2.0-4.4 [facility] Comment on above: Result Comment: Perf ormed at: [facility] [address] [id number] PhD Zhang Connell Performed By: #### 2 364377, 00380429, 91827278, 0564653, 413878941, 0190053, 4864507, 2147740, 0264060 ####[facility] [id number] [place] [address] [facility] 09-27-2023 Albumin [Mass/Vol] 4.0 g/dL Normal 3.3-5.0 [facility] Comment on above: Performed By: #### 2 039334, 60641472, 35625710, 2725196, 161261368, 0131218, 4032452, 2838615, 0626466 #### [facility] [address] [place] [address] Albumin/Globulin [Mass ratio] 1.5 {ratio} Normal 1.1-2.2 [facility] Comment on above: Performed By: #### 2 883812, 82951724, 32816935, 2005142, 207916556, 2561965, 0554114, 9371200, 0440195 #### [facility] [address] [place] [address] Alk Phos 40 Int._Unit/L Normal 21-98 [facility] Comment on above: Performed By: #### 2 457322, 65757283, 94595085, 4481527, 459983621, 1393978, 7283234, 4915953, 4974866 #### [facility] [address] [place] [address] ALT 12 Int._Unit/L Normal 6-46 [facility] Comment on above: Performed By: #### 2 459675, 49416357, 86071835, 9848395, 898303423, 2500469, 3925727, 4570297, 4875345 #### [facility] [address] [place] [address] Anion gap [Moles/Vol] 14 mmol/L Normal 6-16 [facility] Comment on above: Performed By: #### 2 144054, 98148501, 15770753, 7164115, 377748971, 8081008, 2079334, 9036030, 0222292 #### [facility] [address] [place] [address] AST 18 Int._Unit/L Normal 5-43 [facility] Comment on above: Performed By: #### 2 778281, 96747519, 95887252, 0802307, 816913872, 3308604, 8131097, 3411085, 5063738 #### [facility] [address] [place] [address] Bili Total 0.5 mg/dL Normal 0.0-1.1 [facility] Comment on above: Performed By: #### 2 171901, 55611338, 25821020, 4966920, 167010852, 7038954, 3302521, 8549150, 0414943 #### [facility] [address] [place] [address] BUN/Creat Ratio 16 No Units Normal 10-20 [facility] Comment on above: Performed By: #### 2 430082, 56248614, 43404699, 7801465, 988963002, 8820390, 7616732, 3218204, 8408452 #### [facility] [address] [place] [address] Calcium [Mass/Vol] 9.4 mg/dL Normal 8.9-11.1 [facility] Comment on above: Performed By: #### 2 737787, 18458477, 81083201, 0934055, 220567714, 6305329, 7747609, 8850291, 1345125 #### [facility] [address] [place] [address] Chloride [Moles/Vol] 106 mmol/L Normal 101-111 [facility] Comment on above: Performed By: #### 2 231529, 78766074, 02381368, 7340716, 188820017, 3044790, 0292564, 1475407, 4326234 #### [facility] [address] [place] [address] CO2 [Moles/Vol] 25 mmol/L Normal 21-31 [facility] Comment on above: Performed By: #### 2 318957, 52362935, 63848385, 0692666, 822022134, 1513999, 2058969, 5701390, 3684547 #### [facility] [address] [place] [address] Creatinine [Mass/Vol] 0.7 mg/dL Normal 0.5-1.3 [facility] Comment on above: Performed By: #### 2 797873, 49606335, 58157150, 2644690, 988965850, 3765679, 8144980, 2655438, 6789774 #### [facility] [address] [place] [address] Globulin (S) [Mass/Vol] 2.7 g/dL Normal 1.4-4.0 [facility] Comment on above: Performed By: #### 2 041265, 63637630, 24415186, 5093867, 698906824, 2095356, 9588444, 4955045, 9330152 #### [facility] [address] [place] [address] Glucose [Mass/Vol] 86 mg/dL Normal 55-199 [facility] Comment on above: Performed By: #### 2 281894, 28057269, 91972967, 3520771, 696548486, 6959553, 9266528, 8124813, 9296307 #### [facility] [address] [place] [address] Potassium [Moles/Vol] 4.5 mmol/L Normal 3.5-5.3 [facility] Comment on above: Performed By: #### 2 208742, 59119971, 05676442, 3558968, 330947658, 3893198, 3423528, 0673773, 5301492 #### [facility] [address] [place] [address] Protein [Mass/Vol] 6.7 g/dL Normal 6.0-7.8 [facility] Comment on above: Performed By: #### 2 738455, 47378259, 18500357, 8791690, 606842421, 5717302, 1668984, 2886097, 3015356 #### [facility] [address] [place] [address] Sodium [Moles/Vol] 140 mmol/L Normal 135-145 [facility] Comment on above: Performed By: #### 2 607316, 40264869, 84095066, 0256884, 351042245, 3925076, 5238879, 6854372, 2935674 #### [facility] [address] [place] [address] Urea nitrogen [Mass/Vol] 11 mg/dL Normal 5-21 [facility] Comment on above: Performed By: #### 2 054863, 83596940, 42595455, 0485481, 117903520, 1630979, 0795975, 2031874, 3578781 #### [facility] [address] [place] [address] Free T4on 09-27-2023 Free T4 [Mass/Vol] 0.80 ng/dL Normal 0.58-1.64 [facility] Comment on above: Performed By: #### 2 152405, 64059805, 89416138, 7141125, 839527002, 5261758, 8309937, 4968239, 1852149 #### [facility] [address] [place] [address] Prealbuminon 09-27-2023 Prealbumin [Mass/Vol] 24 mg/dL Normal 17-42 [facility] Comment on above: Performed By: #### 2 520041, 03332518, 17941861, 0530963, 559068205, 8163687, 3194678, 1447117, 2392097 #### [facility] [address] [place] [address] TSHon 09-27-2023 TSH Qn 0.97 m[IU]/L Normal 0.34-5.60 [facility] Comment on above: Performed By: #### 2 184981, 61550953, 31889715, 6169844, 438713543, 6335747, 0396514, 6776370, 7214281 #### [facility] [address] [place] [address] Vitamin D 25 Hydroxyon 09-27 Vitamin D 25 Hydroxy 44.5 ng/mL Normal 30.0-100.0 [facility] Comment on above: Performed By: #### 2 605848, 24595346, 27023017, 0556354, 100766241, 0858910, 5260632, 9586700, 4763349 #### [facility] [address] [place] [address] eGFRon 09-27-2023 GFR/1.73 sq M.predicted among non-blacks MDRD (S/P/Bld) [Vol rate/Area] mL/min/{1.73_m2} Normal >=59 [facility] Comment on above: Order Comment: Order added by Discern Expert. Performed By: #### 2 439937, 39600983, 15154493, 6189059, 058306967, 7100779, 3633232, 3949528, 2038623 #### [facility] [address] [place] [address] CBC w/Indiceson 09-26-2023 Erythrocyte distribution width (RBC) [Ratio] 13.8 % Normal 10.9-14.2 [facility] Comment on above: Performed By: #### 2 524740, 89051373, 32316164, 7797872, 480255987, 6085261, 2959691, 8751613, 1325133 #### [facility] [address] [place] [address] Hematocrit (Bld) [Volume fraction] 40.2 % Normal 34.0-46.0 [facility] Comment on above: Performed By: #### 2 537805, 41619903, 52382783, 9353462, 259669537, 0628214, 0659917, 3308711, 3977207 #### [facility] [address] [place] [address] Hemoglobin (Bld) [Mass/Vol] 13.6 g/dL Normal 12.0-16.0 [facility] Comment on above: Performed By: #### 2 810600, 99971114, 25455907, 1251996, 888871244, 4560725, 5979657, 7804811, 1042418 #### [facility] [address] [place] [address] MCH (RBC) [Entitic mass] 30.3 pg Normal 27.0-34.0 [facility] Comment on above: Performed By: #### 2 018732, 75419139, 96720990, 7777512, 414244203, 4460716, 6742863, 3989339, 0952098 #### [facility] [address] [place] [address] MCHC (RBC) [Mass/Vol] 34.0 g/dL Normal 31.4-36.0 [facility] Comment on above: Performed By: #### 2 691111, 62429295, 36884455, 7235384, 515962602, 4842118, 5963553, 2466265, 0346987 #### [facility] [address] [place] [address] MCV (RBC) [Entitic vol] 89.0 fL Normal 80.0-100.0 [facility] Comment on above: Performed By: #### 2 575357, 08919656, 68580841, 9724270, 123528973, 6581682, 0636653, 2344579, 9593399 #### [facility] [address] [place] [address] Platelet mean volume (Bld) [Entitic vol] 7.9 fL Normal 6.4-10.8 [facility] Comment on above: Performed By: #### 2 266328, 32411850, 69584011, 2124805, 739995581, 9260231, 9454631, 4929615, 1759222 #### [facility] [address] [place] [address] Platelets (Bld) [#/Vol] 336.0 E9/L Normal 150.0-500.0 [facility] Comment on above: Performed By: #### 2 416488, 27262843, 42325187, 6204218, 990636066, 3233440, 7908508, 9688083, 1286473 #### [facility] [address] [place] [address] RBC (Bld) [#/Vol] 4.5 E12/L Normal 4.3-5.9 [facility] Comment on above: Performed By: #### 2 607382, 91822518, 84281899, 6297989, 887637082, 1603129, 4897773, 5774375, 9842407 #### [facility] [address] [place] [address] WBC corrected for nucl RBC Auto (Bld) [#/Vol] 9.6 E9/L Normal 4.0-11.0 [facility] Comment on above: Performed By: #### 2 962934, 47569329, 61572974, 4946772, 565492083, 0086249, 4052141, 8950871, 0073248 #### [facility] [address] [place] [address] Physician Orderon 09-26-2023 Physician Order [id number] 6#1.00TIFF Normal [facility] Valproic Acidon 09-26-2023 Valpro Acid Lvl 50 microgram/mL Normal 50-99 [facility] Comment on above: Performed By: #### 2 089891, 50380841, 81187385, 5970364, 520114907, 2192774, 2866617, 0476824, 8291827 #### [facility] [address] [place] [address] [employer]24 Workers Comp Forms [id number] 4#1.00TIFF Normal [facility] Progress Noteson 08-09-2023 Dietary Service Aide Authentication Interface Message Text ----- July at [...] available. Legal Guardian: Brody and/or Altagracia Singleton home;[phone] dad; [phone] [facility]; [phone] Next Visit: OR ----- Signed on July at 1:47:32 PM ----- ----- Provider: Dev Samson DDS -- Clinic: [place] ----- Normal [facility] 06-07-2023 Follow-up visit Diagnoses/Problems Anxiety disorder (300.00) [...] up office visit Accompanied by mother and correction staff. History of Present Illness [facility] All issues as below were discussed [...] and was agitated. She was taken to [facility]. During this time, she was not sleeping at night and was more upset. She slept last Sunday night after receiving Ambien. Testing at [facility] was except an increased WBC count She was better after a fluid load. She was on cefdinir. Amena was admitted to [facility] due to worsening behavior (throw self down, aggression, hitting self). She had a tooth/dental abscess treated with antibiotics. She was readmitted to [facility] for worsening behavior and was found [...] Anxiety Social History Depo-Provera shot Lives in correction (V60.6) (Z59.3) Never smoker No alcohol use Allergies Demerol TABS Recorded By: Vanessa Castro; 01/06/2014 2:44:07 PM Current Meds Medication NameInstruction buPROPion HCl ER (SR) 100 MG Oral Tablet Extended Release 12 HourTAKE 1 TABLET TWICE DAILY. Chest Congestion Relief 400 MG Oral TabletTAKE ONE TABLET BY MOUTH TWICE A DAY NEEDED FOR CONGESTION OR COUGH [place] Calcium/Vitamin D 200-250 MG-UNIT TABSTAKE TWO TABLETS BY MOUTH 3 TIMES DAILY Divalproex Sodium 125 MG Oral Capsule (more content not included)... Normal [facility] CT abdomen pelvis w [facility] CT abdomen pelvis w [facility] [place] [address] [place] [address] Scan Report Signed Patient: Amena Singleton MR#: [id number] : 1990 Acct:[id number] Age/Sex: 32 / F ADM Date: 03/29/23 Loc: ER Room: Type: [facility] ER Attending Dr: Copies to: [...] Kei Jordan M.D.03/30/2023 8:37 AM Dictation Location: [place] [address] Transcribed By: [facility] 03/30/2337 Dictated By: Kei Jordan DO 03/30/2332 Signed By: 03/30/23 0837 [facility] XR femur LT 2V*on 03-30-2023 XR femur LT 2V* [facility] [place] [address] [place] [address] XRay Report Signed Patient: Amena Singleton#: [id number] : 1990 Acct:[id number] Age/Sex: 32 / F ADM Date: 03/29/23 Loc: ER Room: Type: [facility] ER Attending Dr: Copies to: [...] Kei Jordan M.D.03/30/2023 8:53 AM Dictation Location: [place] [address] Transcribed By: [facility] 03/30/23 0853 Dictated By: Kei Jordan DO 03/30/23 0852 Signed By: 03/30/23 0853 Normal [facility] Alanine aminotransferase [En zymatic activity/volume] in Serum or PlasmaOrdered By: Rocio Emmanuel on 03-29-2023 ALT [Catalytic activity/Vol] 28 U/L 7-52 [facility] Albumin [Mass/volume] in Ser um or Plasma by Bromocresol green (BCG) dye binding methoOrdered By: Rocio Emmanuel on 03-29-2023 Albumin BCG dye [Mass/Vol] 3.9 g/dL 3.5-5.7 [facility] Alkaline phosphatase [Enzyma tic activity/volume] in Serum or PlasmaOrdered By: Rocio Emmanuel on 03-29-2023 ALP [Catalytic activity/Vol] 47 U/L 34-104 [facility] Amphetamine Screen Ql (U)Ord ered By: Rocio Emmanuel on 03-29-2023 Amphetamines Ql (U) Negative Negative [facility] Aspartate aminotransferase [ Enzymatic activity/volume] in Serum or PlasmaOrdered By: Rocio Emmanuel on 03-29-2023 AST [Catalytic activity/Vol] 25 U/L 13-39 [facility] Automated erythrocytes count in urine sediment (number/area)Ordered By: Rocio Emmanuel on 03-29-2023 RBC Auto (Urine sed) [#/Area] 3-4 [HPF] 0-4 [facility] Automated leukocytes count i n urine sediment (number/area)Ordered By: Rocio Emmanuel on 03-29-2023 WBC Auto (Urine sed) [#/Area] 3-4 [HPF] 0-4 [facility] Band form neutrophils/100 WB C Manual cnt (Bld)Ordered By: Rocio Emmanuel on 03-29-2023 Band form neutrophils/100 WBC (Bld) 1 % 0-5 [facility] Barbiturates [Presence] in U rine by Screen methodOrdered By: Rocio Emmanuel on 03-29-2023 Barbiturates Screen Ql (U) Negative Negative [facility] Basophils Auto (Bld) [#/Vol] Ordered By: Rocio Emmanuel on 03-29-2023 Basophils (Bld) [#/Vol] N/A F [facility] Basophils/100 WBC Auto (Bld) Ordered By: Rocio Emmanuel on 03-29-2023 Basophils/100 WBC (Bld) N/A F [facility] Basophils/100 WBC Manual cnt (Bld)Ordered By: Rocio Emmanuel on 03-29-2023 Basophils/100 WBC (Bld) 0 % 0-[address] [facility] Benzodiazepines Screen Ql (U )Ordered By: Rocio Emmanuel on 03-29-2023 Benzodiazepines Ql (U) Negative Negative [facility] Benzoylecgonine [Presence] i n Urine by Screen methodOrdered By: Rocio Emmanuel on 03-29-2023 Benzoylecgonine Screen Ql (U) Negative Negative [facility] Bilirubin Test strip Ql (U)O rdered By: Rocio Emmanuel on 03-29-2023 Bilirubin Ql (U) Negative Negative [facility] Bilirubin.total [Mass/volume ] in Serum or PlasmaOrdered By: Rocio Emmanuel on 03-29-2023 Bilirubin [Mass/Vol] 1.2 mg/dL 0.3-1.0 [facility] Calcium [Mass/volume] in Ser um or PlasmaOrdered By: Rocio Emmanuel on 03-29-2023 Calcium [Mass/Vol] 9.6 mg/dL 8.6-10.3 [facility] Cannabinoids [Presence] in U rine by Screen methodOrdered By: Rocio Emmanuel on 03-29-2023 Cannabinoids Screen Ql (U) Negative Negative [facility] Comment on above: These are unconfirme d results and should not be used for legal purposes. Drug Cut-Off Concentration: AMPH 1000 ng/mL ADRIA 200 ng/mL MARAH 200 ng/mL COCM 300 ng/mL OP 300 ng/mL PCP 25 ng/mL THC 20 ng/mL Carbon dioxide, total [Moles /volume] in Serum or PlasmaOrdered By: Rocio Emmanuel on 03-29-2023 CO2 [Moles/Vol] 27.9 mmol/L 21.0-31.0 [facility] Casts typing in urine sedime nt by light microscopyOrdered By: Rocio Emmanuel on 03-29-2023 Casts LM Nom (Urine sed) None seen [LPF] None Seen [facility] Chloride [Moles/volume] in S nayana or PlasmaOrdered By: Rocio Emmanuel on 03-29-2023 Chloride [Moles/Vol] 103 mmol/L 98-107 [facility] Color Auto (U)Ordered By: Cande Emmanuel on 03-29-2023 Color (U) Dark yellow Yellow [facility] Comprehensive Metabolic Pane alexi 03-29-2023 Albumin [Mass/Vol] 3.9 g/dL Normal 3.5-5.7 [facility] Comment on above: Performed By: #### D IFF CBC, CMP, ETOH #### [facility] [address] [place] [id number] [place] Albumin/Globulin [Mass ratio] 1.6 {ratio} Normal [facility] Comment on above: Performed By: #### D IFF CBC, CMP, ETOH #### [facility] [address] [place] [address] [place] ALP [Catalytic activity/Vol] 47 U/L Normal 34-104 [facility] Comment on above: Performed By: #### D IFF CBC, CMP, ETOH #### [facility] [address] [place] [address] [place] ALT [Catalytic activity/Vol] 28 U/L Normal 7-52 [facility] Comment on above: Performed By: #### D IFF CBC, CMP, ETOH #### [facility] [address] Anion gap [Moles/Vol] 13.0 mmol/L Normal 6.0-15.0 [facility] Comment on above: Performed By: #### D IFF CBC, CMP, ETOH #### [facility] [address] AST [Catalytic activity/Vol] 25 U/L Normal 13-39 [facility] Comment on above: Performed By: #### D IFF CBC, CMP, ETOH #### [facility] [address] Bilirubin [Mass/Vol] 1.2 mg/dL High 0.3-1.0 [facility] Comment on above: Performed By: #### D IFF CBC, CMP, ETOH #### [facility] [address] [place] [address] [place] Calcium [Mass/Vol] 9.6 mg/dL Normal 8.6-10.3 [facility] Comment on above: Performed By: #### D IFF CBC, CMP, ETOH #### [facility] [address] [place] [address] [place] Chloride [Moles/Vol] 103 mmol/L Normal 98-107 [facility] Comment on above: Performed By: #### D IFF CBC, CMP, ETOH #### [facility] [address] [place] [address] [place] CO2 [Moles/Vol] 27.9 mmol/L Normal 21.0-31.0 [facility] Comment on above: Performed By: #### D IFF CBC, CMP, ETOH #### [facility] [address] [place] [address] [place] Creatinine [Mass/Vol] 0.57 mg/dL Low 0.60-1.20 [facility] Comment on above: Performed By: #### D IFF CBC, CMP, ETOH #### [facility] [address] Creatinine Clr Calc Pharmacy 123.48 Normal [facility] Comment on above: Result Comment: PERF ORMED BY: [place] [address] PATHOLOGIST GLACIOLOGIST BRENDON KANG M.D. Performed By: #### D IFF CBC, CMP, ETOH #### [facility] [address] [place] [address] [place] GFR/1.73 sq M.predicted MDRD (S/P/Bld) [Vol rate/Area] mL/min/{1.73_m2} Normal [facility] Comment on above: Performed By: #### D IFF CBC, CMP, ETOH #### [facility] [address] [place] [address] [place] Globulin (S) [Mass/Vol] 2.4 g/dL Normal [facility] Comment on above: Performed By: #### D IFF CBC, CMP, ETOH #### [facility] [address] Glucose [Mass/Vol] 112 mg/dL High 70-100 [facility] Comment on above: Result Comment: [place] Glucose Reference Range is dependent on time and content of last meal. Glucose of more than 200 mg/dL in a nonstressed, ambulatory subject supports the diagnosis of Diabetes Mellitus. ADA recommended reference range Performed By: #### D IFF CBC, CMP, ETOH #### [facility] [address] [place] [address] [place] Potassium [Moles/Vol] 4.9 mmol/L Normal 3.5-5.1 [facility] Comment on above: Performed By: #### D IFF CBC, CMP, ETOH #### [facility] [address] Protein [Mass/Vol] 6.3 g/dL Low 6.4-8.9 [facility] Comment on above: Performed By: #### D IFF CBC, CMP, ETOH #### [facility] [address] [place] [id number] [place] Sodium [Moles/Vol] 139 mmol/L Normal 136-145 [facility] Comment on above: Performed By: #### D IFF CBC, CMP, ETOH #### [facility] [address] [place] [address] [place] Urea nitrogen [Mass/Vol] 9 mg/dL Normal 7-25 [facility] Comment on above: Performed By: #### D IFF CBC, CMP, ETOH #### [facility] [address] [place] [address] [place] Creatine Kinaseon 03-29-2023 CK [Catalytic activity/Vol] 528 U/L High [facility] Comment on above: Result Comment: PERF ORMED BY: [place] [address] PATHOLOGIST GLACIOLOGIST BRENDON KANG M.D. Performed By: #### C K #### [place] [id number] [place] Creatine kinase [Enzymatic a ctivity/volume] in Serum or PlasmaOrdered By: Rocio Emmanuel on 03-29-2023 CK [Catalytic activity/Vol] 528 U/L [facility] Creatinine [Mass/volume] in Serum or PlasmaOrdered By: Rocio Emmanuel on 03-29-2023 Creatinine [Mass/Vol] 0.57 mg/dL 0.60-1.20 [facility] Diff and CBCon 03-29-2023 Band form neutrophils/100 WBC (Bld) 1 % Normal 0-5 [facility] Comment on above: Performed By: #### D IFF CBC, CMP, ETOH #### [facility] [address] [place] [id number] [place] Basophils/100 WBC (Bld) 0 % Normal 0-2 [facility] Comment on above: Performed By: #### D IFF CBC, CMP, ETOH #### [facility] [address] [place] [id number] [place] Eosinophils/100 WBC (Bld) 1 % Normal 1-3 [facility] Comment on above: Performed By: #### D IFF CBC, CMP, ETOH #### [address] Erythrocyte distribution width (RBC) [Ratio] 13.2 % Normal 11.9-15.3 [facility] Comment on above: Performed By: #### D IFF CBC, CMP, ETOH #### [address] Hematocrit (Bld) [Volume fraction] 31.5 % Low 34.0-46.4 [facility] Comment on above: Performed By: #### D IFF CBC, CMP, ETOH #### [address] Hemoglobin (Bld) [Mass/Vol] 10.4 g/dL Low 11.8-15.4 [facility] Comment on above: Performed By: #### D IFF CBC, CMP, ETOH #### [address] Lymphocytes/100 WBC (Bld) 25 % Normal 18-42 [facility] Comment on above: Performed By: #### D IFF CBC, CMP, ETOH #### [address] MCH (RBC) [Entitic mass] 28.9 pg Normal 24.7-34.3 [facility] Comment on above: Performed By: #### D IFF CBC, CMP, ETOH #### [address] MCV (RBC) [Entitic vol] 87.2 fL Normal 80-[address] [facility] Comment on above: Performed By: #### D IFF CBC, CMP, ETOH #### [address] Mean Corpuscular HGB Conc 33.1 g/dL Normal 32.0-35.0 [facility] Comment on above: Performed By: #### D IFF CBC, CMP, ETOH #### [address] [place] [address] [place] Metamyelocytes 1 % High 0-0 [facility] Comment on above: Performed By: #### D IFF CBC, CMP, ETOH #### [address] Monocytes/100 WBC (Bld) 7 % Normal 2-[address] [facility] Comment on above: Performed By: #### D IFF CBC, CMP, ETOH #### [address] Myelocytes 1 % High 0-0 [facility] Comment on above: Performed By: #### D IFF CBC, CMP, ETOH #### [address] Platelet Estimate Increased Normal Normal [facility] Comment on above: Performed By: #### D IFF CBC, CMP, ETOH #### [address] Platelet mean volume (Bld) [Entitic vol] 6.8 fL Normal 6.3-10.7 [facility] Comment on above: Performed By: #### D IFF CBC, CMP, ETOH #### [address] Platelet Morphology Normal Normal Normal [facility] Comment on above: Result Comment: PERF ORMED BY: [place] [address] PATHOLOGIST GLACIOLOGIST BRENDON KANG M.D. Performed By: #### D IFF CBC, CMP, ETOH #### [place] [address] [place] Platelets (Bld) [#/Vol] 525 10*3/uL High 150-450 [facility] Comment on above: Performed By: #### D IFF CBC, CMP, ETOH #### [place] [address] [place] Polychromasia Slight Normal [facility] Comment on above: Performed By: #### D IFF CBC, CMP, ETOH #### [address] [place] [address] [place] Promyelocytes 1 % High 0-0 [facility] Comment on above: Performed By: #### D IFF CBC, CMP, ETOH #### [address] RBC (Bld) [#/Vol] 3.61 10*6/uL Normal 3.60-5.00 [facility] Comment on above: Performed By: #### D IFF CBC, CMP, ETOH #### [address] Segmented neutrophils/100 WBC (Bld) 63 % Normal 50-70 [facility] Comment on above: Performed By: #### D IFF CBC, CMP, ETOH #### [address] Stomatocytes Slight Normal [facility] Comment on above: Performed By: #### D IFF CBC, CMP, ETOH #### [address] WBC (Bld) [#/Vol] 16.8 10*3/uL High 3.8-11.6 [facility] Comment on above: Performed By: #### D IFF CBC, CMP, ETOH #### [place] [address] [place] Dipstick and Microscopicon 0 03-29-2023 Appearance (U) Clear Normal Clear [facility] Comment on above: Order Comment: Name Collection Type:: Clean-Voided Midstream Performed By: #### U HCG, URDS, ADDONUAPLUS #### [address] Bacteria,Urine None Seen Normal None Seen [facility] Comment on above: Order Comment: Name Collection Type:: Clean-Voided Midstream Performed By: #### U HCG, URDS, ADDONUAPLUS #### [address] Bilirubin,Urine Negative Normal Negative [facility] Comment on above: Order Comment: Name Collection Type:: Clean-Voided Midstream Performed By: #### U HCG, URDS, ADDONUAPLUS #### [facility] [address] [place] [address] [place] Color (U) Dark Yellow Critically abnormal Yellow [facility] Comment on above: Order Comment: Name Collection Type:: Clean-Voided Midstream Performed By: #### U HCG, URDS, ADDONUAPLUS #### [facility] [address] [place] [address] [place] Glucose Ql (U) Normal Normal Normal [facility] Comment on above: Order Comment: Name Collection Type:: Clean-Voided Midstream Performed By: #### U HCG, URDS, ADDONUAPLUS #### [facility] [address] [place] [address] [place] Hyaline Casts,Urine 1-2 Normal 0-8 [facility] Comment on above: Order Comment: Name Collection Type:: Clean-Voided Midstream Performed By: #### U HCG, URDS, ADDONUAPLUS #### [facility] [address] [place] [address] [place] Ketones Ql (U) Trace High Negative [facility] Comment on above: Order Comment: Name Collection Type:: Clean-Voided Midstream Performed By: #### U HCG, URDS, ADDONUAPLUS #### [facility] [address] [place] [address] Leukocyte esterase Test strip Ql (U) 1+ High Negative [facility] Comment on above: Order Comment: Name Collection Type:: Clean-Voided Midstream Performed By: #### U HCG, URDS, ADDONUAPLUS #### [facility] [address] [place] [address] [place] Nitrite,Urine Negative Normal Negative [facility] Comment on above: Order Comment: Name Collection Type:: Clean-Voided Midstream Performed By: #### U HCG, URDS, ADDONUAPLUS #### [facility] [address] [place] [address] [place] Occult Blood,Urine Negative Normal Negative [facility] Comment on above: Order Comment: Name Collection Type:: Clean-Voided Midstream Performed By: #### U HCG, URDS, ADDONUAPLUS #### [facility] [address] [place] [address] Other Casts,Urine None Seen Normal None Seen [facility] Comment on above: Order Comment: Name Collection Type:: Clean-Voided Midstream Performed By: #### U HCG, URDS, ADDONUAPLUS #### [address] pH (U) 6.5 [pH] Normal 5.0-9.0 [facility] Comment on above: Order Comment: Name Collection Type:: Clean-Voided Midstream Performed By: #### U HCG, URDS, ADDONUAPLUS #### [address] Protein,Urine Trace High Negative [facility] Comment on above: Order Comment: Name Collection Type:: Clean-Voided Midstream Performed By: #### U HCG, URDS, ADDONUAPLUS #### [address] RBC,Urine 3-4 Normal 0-4 [facility] Comment on above: Order Comment: Name Collection Type:: Clean-Voided Midstream Performed By: #### U HCG, URDS, ADDONUAPLUS #### [address] Specificy [place],Urine 1.028 Normal 1.001-1.030 [facility] Comment on above: Order Comment: Name Collection Type:: Clean-Voided Midstream Performed By: #### U HCG, URDS, ADDONUAPLUS #### [address] Squamous Epithelial Cell,Urine 3-4 High 0-2 [facility] Comment on above: Order Comment: Name Collection Type:: Clean-Voided Midstream Performed By: #### U HCG, URDS, ADDONUAPLUS #### [address] Urobilinogen,Urine Normal Normal Normal [facility] Comment on above: Order Comment: Name Collection Type:: Clean-Voided Midstream Performed By: #### U HCG, URDS, ADDONUAPLUS #### [address] WBC,Urine 3-4 Normal 0-4 [facility] Comment on above: Order Comment: Name Collection Type:: Clean-Voided Midstream Performed By: #### U HCG, URDS, ADDONUAPLUS #### [address] Drug Screen,Urineon 03-29-20 23 Amphetamine Screen,Urine Negative Normal Negative [facility] Comment on above: Performed By: #### U HCG, URDS, ADDONUAPLUS #### [address] Barbiturate Screen,Urine Negative Normal Negative [facility] Comment on above: Performed By: #### U HCG, URDS, ADDONUAPLUS #### [address] Benzodiazepines Screen,Urine Negative Normal Negative [facility] Comment on above: Performed By: #### U HCG, URDS, ADDONUAPLUS #### [address] Cannabinoid Screen,Urine Negative Normal Negative [facility] Comment on above: Result Comment: Thes e are unconfirmed results and should not be used for legal purposes. Drug Cut-Off Concentration: AMPH 1000 ng/mL ADRIA 200 ng/mL MARAH 200 ng/mL COCM 300 ng/mL OP 300 ng/mL PCP 25 ng/mL THC 20 ng/mL PERFORMED BY: [place] [address] PATHOLOGIST GLACIOLOGIST BRENDON KANG M.D. Performed By: #### U HCG, URDS, ADDONUAPLUS #### [address] Cocaine Screen,Urine Negative Normal Negative [facility] Comment on above: Performed By: #### U HCG, URDS, ADDONUAPLUS #### [address] Opiate Screen,Urine Negative Normal Negative [facility] Comment on above: Performed By: #### U HCG, URDS, ADDONUAPLUS #### [facility] [address] [place] [address] [place] Phencyclidine Screen,Urine Negative Normal Negative [facility] Comment on above: Performed By: #### U HCG, URDS, ADDONUAPLUS #### [facility] [address] [place] [address] [place] Eosinophils Auto (Bld) [#/Vo l]Ordered By: Rocio Emmanuel on 03-29-2023 Eosinophils (Bld) [#/Vol] N/A [facility] Eosinophils/100 WBC Auto (Bl d)Ordered By: Rocio Emmanuel on 03-29-2023 Eosinophils/100 WBC (Bld) N/A [facility] Eosinophils/100 WBC Manual c nt (Bld)Ordered By: Rocio Emmanuel on 03-29-2023 Eosinophils/100 WBC (Bld) 1 % 1-3 [facility] Erythrocyte distribution wid th Auto (RBC) [Ratio]Ordered By: Rocio Emmanuel on 03-29-2023 Erythrocyte distribution width (RBC) [Ratio] 13.2 % 11.9-15.3 [facility] Ethanol [Mass/volume] in Ser um or PlasmaOrdered By: Rocio Emmanuel on 03-29-2023 Ethanol [Mass/Vol] mg/dL [facility] Ethanol [Mass/Vol] TNP [facility] Comment on above: Test not performed Ethyl Alcohol Profileon Ethanol [Mass/Vol] mg/dL Normal [facility] Comment on above: Performed By: #### D IFF CBC, CMP, ETOH #### [facility] [address] [place] [address] [place] Percent Ethanol Not performed Normal [facility] Comment on above: Result Comment: PERF ORMED BY: [place] [address] PATHOLOGIST GLACIOLOGIST BRENDON KANG M.D. Performed By: #### D IFF CBC, CMP, ETOH #### [facility] [address] [place] [id number] [facility] Globulin Calc (S) [Mass/Vol] Ordered By: Rocio Emmanuel on 03-29-2023 Globulin (S) [Mass/Vol] 2.4 g/dL [facility] Glucose [Mass/volume] in Ser um or PlasmaOrdered By: Rocio Emmanuel on 03-29-2023 Glucose [Mass/Vol] 112 mg/dL 70-100 [facility] Comment on above: ADA recommended refe rence rangeRandom Glucose Reference Range is dependent on time and content of last meal. Glucose of more than 200 mg/dL in a nonstressed, ambulatory subject supports the diagnosis of Diabetes Mellitus. HCG ( test) [place].rapi d Ql (U)Ordered By: Rocio Emmanuel on 03-29-2023 HCG ( test) Ql (U) Negative [facility] HCG,Urineon 03-29-2023 Beta HCG ( test) Ql (U) Negative Normal [facility] Comment on above: Order Comment: Name Collection Type:: Clean-Voided Midstream Result Comment: PERF ORMED BY: [place] [address] PATHOLOGIST GLACIOLOGIST BRENDON KANG M.D. Performed By: #### U HCG, URDS, ADDONUAPLUS #### [facility] [address] [place] [address] Hematocrit Auto (Bld) [Volum e fraction]Ordered By: Rocio Emmanuel on 03-29-2023 Hematocrit (Bld) [Volume fraction] 31.5 % 34.0-46.4 [facility] Hemoglobin [Mass/volume] in BloodOrdered By: Rocio Emmanuel on 03-29-2023 Hemoglobin (Bld) [Mass/Vol] 10.4 g/dL 11.8-15.4 [facility] Ketones Auto test strip (U) [Mass/Vol]Ordered By: Rocio Emmanuel on 03-29-2023 Ketones (U) [Mass/Vol] Trace Negative [facility] - UrinalysisOrder ed By: Rocio Emmanuel on 03-29-2023 Hyaline casts LM Ql (Urine sed) 1-2 [LPF] 0-8 [facility] Leukocytes [#/volume] correc leanna for nucleated erythrocytes in Blood by Automated counOrdered By: Rocio Emmanuel on 03-29-2023 WBC corrected for nucl RBC Auto (Bld) [#/Vol] 16.8 10*3/uL 3.8-11.6 [facility] Lymphocytes Auto (Bld) [#/Vo l]Ordered By: Rocio Emmanuel on 03-29-2023 Lymphocytes (Bld) [#/Vol] N/A [facility] Lymphocytes/100 WBC Auto (Bl d)Ordered By: Rocio Emmanuel on 03-29-2023 Lymphocytes/100 WBC (Bld) N/A [facility] Lymphocytes/100 WBC Manual c nt (Bld)Ordered By: Rocio Emmanuel on 03-29-2023 Lymphocytes/100 WBC (Bld) 25 % 18-42 [facility] MCH Auto (RBC) [Entitic mass ]Ordered By: Rocio Emmanuel on 03-29-2023 MCH (RBC) [Entitic mass] 28.9 pg 24.7-34.3 [facility] MCHC Auto (RBC) [Mass/Vol]Or dered By: Rocio Emmanuel on 03-29-2023 MCHC (RBC) [Mass/Vol] 33.1 g/dL 32.0-35.0 [facility] MCV Auto (RBC) [Entitic vol] Ordered By: Rocio Emmanuel on 03-29-2023 MCV (RBC) [Entitic vol] 87.2 fL 80-[address] [facility] Metamyelocytes/100 WBC Manua l cnt (Bld)Ordered By: Rocio Emmanuel on 03-29-2023 Metamyelocytes/100 WBC (Bld) 1 % 0-0 [facility] Monocytes Auto (Bld) [#/Vol] Ordered By: Rocio Emmanuel on 03-29-2023 Monocytes (Bld) [#/Vol] N/A [facility] Monocytes/100 WBC Auto (Bld) Ordered By: Rocio Emmanuel on 03-29-2023 Monocytes/100 WBC (Bld) N/A [facility] Monocytes/100 WBC Manual cnt (Bld)Ordered By: Rocio Emmanuel on 03-29-2023 Monocytes/100 WBC (Bld) 7 % 2-[address] [facility] Myelocytes/100 WBC Manual cn t (Bld)Ordered By: Rocio Emmanuel on 03-29-2023 Myelocytes/100 WBC (Bld) 1 % 0-0 [facility] Neutrophils Auto (Bld) [#/Vo l]Ordered By: Rocio Emmanuel on 03-29-2023 Neutrophils (Bld) [#/Vol] N/A [facility] Neutrophils/100 WBC Auto (Bl d)Ordered By: Rocio Emmanuel on 03-29-2023 Neutrophils/100 WBC (Bld) N/A [facility] Nitrite Test strip Ql (U)Ord ered By: Rocio Emmanuel on 03-29-2023 Nitrite Ql (U) Negative Negative [facility] No Panel InformationOrdered By: Rocio Emmanuel on 03-29-2023 Estimated GFR (CKD-EPI) > 60.0 mL/Min [facility] Creatinine Clearance (Chem 123.48 [facility] Nucleated erythrocytes [Pres ence] in Blood by Automated countOrdered By: Rocio Emmanuel on 03-29-2023 Nucleated RBC Auto Ql (Bld) N/A [facility] Opiates [Presence] in Urine by Screen methodOrdered By: Rocio Emmanuel on 03-29-2023 Opiates Screen Ql (U) Negative Negative [facility] Phencyclidine Screen Ql (U)O rdered By: Rocio Emmanuel on 03-29-2023 Phencyclidine Ql (U) Negative Negative [facility] Platelet adequacy [Presence] in Blood by Light microscopyOrdered By: Rocio Emmanuel on 03-29-2023 Platelets LM Ql (Bld) Increased Normal [facility] Platelet mean volume Auto (B ld) [Entitic vol]Ordered By: Rocio Emmanuel on 03-29-2023 Platelet mean volume (Bld) [Entitic vol] 6.8 fL 6.3-10.7 [facility] Platelet morphology finding [Identifier] in BloodOrdered By: Rocio Emmanuel on 03-29-2023 Platelet morphology finding Nom (Bld) Normal Normal [facility] Platelets Auto (Bld) [#/Vol] Ordered By: Rocio mEmanuel on 03-29-2023 Platelets (Bld) [#/Vol] 525 10*3/uL 150-450 [facility] Polychromasia [Presence] in Blood by Light microscopyOrdered By: Rocio Emmanuel on 03-29-2023 Polychromasia LM Ql (Bld) Slight [facility] Potassium [Moles/volume] in Serum or PlasmaOrdered By: Rocio Emmanuel on 03-29-2023 Potassium [Moles/Vol] 4.9 mmol/L 3.5-5.1 [facility] Promyelocytes/100 WBC Manual cnt (Bld)Ordered By: Rocio Emmanuel on 03-29-2023 Promyelocytes/100 WBC (Bld) 1 % 0-0 [facility] Protein Auto test strip (U) [Mass/Vol]Ordered By: Rocio Emmanuel on 03-29-2023 Protein (U) [Mass/Vol] Trace mg/dL Negative [facility] Protein [Mass/volume] in Ser um or PlasmaOrdered By: Rocio Emmanuel on 03-29-2023 Protein [Mass/Vol] 6.3 g/dL 6.4-8.9 [facility] RBC Auto (Bld) [#/Vol]Ordere d By: Rocio Emmanuel on 03-29-2023 RBC (Bld) [#/Vol] 3.61 10*6/uL 3.60-5.00 [facility] RBC morphologyOrdered By: Co urbrittany Emmanuel on 03-29-2023 RBC morphology finding Nom (Bld) N/A [facility] Red blood cell stomatocyte d etectionOrdered By: Rocio Emmanuel on 03-29-2023 Stomatocytes LM Ql (Bld) Slight [facility] Segmented neutrophils/100 WB C Manual cnt (Bld)Ordered By: Rocio Emmanuel on 03-29-2023 Segmented neutrophils/100 WBC (Bld) 63 % 50-70 [facility] Serum or plasma albumin/glob ulin mass ratioOrdered By: Rocio Emmanuel on 03-29-2023 Albumin/Globulin [Mass ratio] 1.6 {ratio} [facility] Serum or plasma anion gap de terminationOrdered By: Rocio Emmanuel on 03-29-2023 Anion gap [Moles/Vol] 13.0 mmol/L 6.0-15.0 [facility] Sodium [Moles/volume] in Ser um or PlasmaOrdered By: Rocio Emmanuel on 03-29-2023 Sodium [Moles/Vol] 139 mmol/L 136-145 [facility] Specific gravity Auto test s trip (U) [Rel density]Ordered By: Rocio Emmanuel on 03-29-2023 Specific gravity (U) [Rel density] 1.028 1.001-1.030 [facility] Squamous epithelial cells de tection in urine sediment by light microscopyOrdered By: Rocio Emmanuel on 03-29-2023 Epithelial cells.squamous LM Ql (Urine sed) 3-4 [HPF] 0-2 [facility] Urea nitrogen [Mass/volume] in Serum or PlasmaOrdered By: Rocio Emmanuel on 03-29-2023 Urea nitrogen [Mass/Vol] 9 mg/dL 7-25 [facility] Urine bacteria detection by automated methodOrdered By: Rocio Emmanuel on 03-29-2023 Bacteria Auto Ql (U) None seen None Seen [facility] Urine clarity by refractomet ry automatedOrdered By: Rocio Emmanuel on 03-29-2023 Clarity Refractometry automated (U) Clear Clear [facility] Urine glucose measurement by automated test strip (mass/volume)Ordered By: Rocio Emmanuel on 03-29-2023 Glucose Auto test strip (U) [Mass/Vol] Normal mg/dL Normal [facility] Urine hemoglobin detection b y automated test stripOrdered By: Rocio Emmanuel on 03-29-2023 Hemoglobin Auto test strip Ql (U) Negative Negative [facility] Urine leukocyte esterase det ection by automated test stripOrdered By: Rocio Emmanuel on 03-29-2023 Leukocyte esterase Auto test strip Ql (U) 1+ Negative [facility] Urobilinogen Auto test strip (U) [Mass/Vol]Ordered By: Rocio Emmanuel on 03-29-2023 Urobilinogen (U) [Mass/Vol] Normal mg/dL Normal [facility] WBC Auto (Bld) [#/Vol]Ordere d By: Rocio Emmanuel on 03-29-2023 WBC (Bld) [#/Vol] 16.8 10*3/uL 3.8-11.6 [facility] pH Auto test strip (U)Ordere d By: Rocio Emmanuel on 03-29-2023 pH (U) 6.5 [pH] 5.0-9.0 [facility] US THYROIDon 02-13-2023 US THYROID EXAMINATION: US [...] RINA CARRANZA Date: 2023-02-13 13:32 Normal [facility] Falls Screening (Age 18+)on 11-30-2022 Fall risk assessment a) No falls within the last year [facility] Work Phone: Tobacco use status [facility] c) Screening not indicated -[facility] -[address] Work Phone: Office Visit (Pediatric Neur [...] up office visit Accompanied by mother and correction staff. History of Present Illness Amena is [...] and was agitated. She was taken to [facility]. During this time, she was not sleeping at night and was more upset. She slept last Sunday night after receiving Ambien. Testing at [facility] was except an increased WBC count She [...] Anxiety Social History Depo-Provera shot Lives in correction (V60.6) (Z59.3) Never smoker No alcohol use Allergies Demerol TABS Recorded By: Vanessa Castro; 01/06/2014 2:44:07 PM Current Meds Medication NameInstruction buPROPion HCl ER (SR) 100 MG Oral Tablet Extended Release 12 HourTAKE 1 TABLET TWICE DAILY. Chest Congestion Relief 400 MG Oral TabletTAKE ONE TABLET BY MOUTH TWICE A DAY NEEDED FOR CONGESTION OR COUGH [place] Calcium/Vitamin D 200-250 MG-UNIT TABSTAKE TWO TABLETS [...] Senna Lax TABS Vitamin D3 50 MCG (1999 [place]) Oral Tablet Vitals Vital Signs Recorded: 30Nov2022 10:00AM Height5 ft 3 in Egggay235 lb 5.02 oz BMI Hdwyrguogb79.03 kg/m2 BSA Calculated1.67 Tobacco Usec) Screening not indicated Falls Screening (Age 18+)a) No falls within the last year Physical Exam Awake and alert [employer] snacks (looks for the food) Moves well FROM Lets me examine her Signatures Electronically signed by : Cruz Adler MD; Dec 01 2022 9:47AM EST (Author) Normal [employer] CBC AUTO DIFFon 10-04-2022 BASO # 0.0 103/ul Normal 0.0-0.1 [facility] Comment on above: Performed By: #### C BC ####[facility] [address] [place] [address]Dr. Jonathan Garcia Basophils/100 WBC (Bld) 0.4 % Normal 0.2-2.0 [facility] Comment on above: Performed By: #### C BC ####[facility] [address] [place], [place] [address]Dr. Jonathan Garcia EO # 0.1 103/ul Normal 0.0-0.7 [facility] Comment on above: Performed By: #### C BC ####[facility] [address] [place], [place] [address]Dr. Jonathan Garcia Eosinophils/100 WBC (Bld) 1.2 % Normal 0.9-7.0 [facility] Comment on above: Performed By: #### C BC ####[facility] [address] [place], [place] [address]Dr. Jonathan Garcia Erythrocyte distribution width (RBC) [Ratio] 12.5 % Normal 11.0-15.0 [facility] Comment on above: Performed By: #### C BC ####[facility] [address] [place], [place] [address]Dr. Jonathan Garcia Hematocrit (Bld) [Volume fraction] 41.6 % Normal 36.0-48.0 [facility] Comment on above: Performed By: #### C BC ####[facility] [address] [place], [place] [address]Dr. Jonathan Garcia Hemoglobin (Bld) [Mass/Vol] 13.9 g/dL Normal 12.0-16.0 [facility] Comment on above: Performed By: #### C BC ####[facility] [address] [place] [id number]. Jonathan Garcia IG # 0.08 10e3/ul Critically high 0.00-0.03 [facility] Comment on above: Performed By: #### C BC ####[facility] [address] [place] [id number]. Jonathan Garcia IG % 0.9 % Critically high 0.0-0.5 [facility] Comment on above: Performed By: #### C BC ####[facility] [address] [place] [address]Dr. Jonathan Garcia LYMPH # 3.1 103/ul Normal 1.2-3.8 [facility] Comment on above: Performed By: #### C BC ####[facility] [address] [place] [address]Dr. Jonathan Garcia Lymphocytes/100 WBC (Bld) 33.4 % Normal 20.5-60.0 [facility] Comment on above: Performed By: #### C BC ####[facility] [address] [place] [address]Dr. Jonathan Garcia MANUAL DIFF REQ NO Normal [facility] Comment on above: Performed By: #### C BC ####[facility] [address] [place] [id number]. Jonathan Garcia MCH (RBC) [Entitic mass] 28.9 pg Normal 26.7-34.0 [facility] Comment on above: Performed By: #### C BC ####[facility] [address] [place] [id number]. Jonathan Garcia MCHC (RBC) [Mass/Vol] 33.4 g/dL Normal 29.9-35.2 [facility] Comment on above: Performed By: #### C BC ####[facility] [address] [place] [id number]. Jonathan Garcia MCV (RBC) [Entitic vol] 86.5 fL Normal 81.0-99.0 [facility] Comment on above: Performed By: #### C BC ####[facility] [address] [place] [id number]. Jonathan Garcia MONO # 0.6 103/ul Normal 0.3-0.8 [facility] Comment on above: Performed By: #### C BC ####[facility] [address] [place] [id number]. Jonathan Garcia Monocytes/100 WBC (Bld) 5.9 % Normal 1.7-12.0 [facility] Comment on above: Performed By: #### C BC ####[facility] [address] [place] [id number]. Jonathan Garcia NEUT # 5.4 103/ul Normal 1.4-6.5 [facility] Comment on above: Performed By: #### C BC ####[facility] [address] [place] [id number]. Jonathan Garcia Neutrophils/100 WBC (Bld) 58.2 % Normal 43.0-75.0 [facility] Comment on above: Performed By: #### C BC ####[facility] [address] [place] [id number]. Jonathan Garcia Platelet mean volume (Bld) [Entitic vol] 9.4 fL Critically low 9.5-13.5 [facility] Comment on above: Performed By: #### C BC ####[facility] [address] [place] [id number]. Jonathan Garcia PLT 327 103/ul Normal 150-450 [facility] Comment on above: Performed By: #### C BC ####[facility] [address] [place] [id number]. Jonathan Garcia RBC 4.81 106/ul Normal 4.20-5.40 [facility] Comment on above: Performed By: #### C BC ####[facility] [address] [place] [id number]. Jonathan Garcia WBC 9.3 103/ul Normal 4.0-11.0 [facility] Comment on above: Performed By: #### C BC ####[facility] [address] [place] [address]Dr. Jonathan Garcia DEPAKENE/ VALPROIC ACIDon DEPAKENE 55.8 ug/ml Normal 50.0-100.0 [facility] Comment on above: Performed By: #### C MP, VALP #### [facility] [address] [address] [address] Jonathan Garcia PROF 14(COMP METB)on 023 Albumin [Mass/Vol] 3.6 g/dL Normal 3.4-5.0 [facility] Comment on above: Performed By: #### C ZOEY, VALP #### [facility] [address] [place] [address] Dr. Jonathan Garcia Albumin/Globulin [Mass ratio] 1.0 {ratio} Normal [facility] Comment on above: Performed By: #### C ZOEY, VALP #### [facility] [address] [place] [address] Dr. Jonathan Garcia ALP [Catalytic activity/Vol] 50 U/L Normal 46-116 [facility] Comment on above: Performed By: #### C ZOEY, VALP #### [facility] [address] [place] [address] Dr. Jonathan Garcia ALT [Catalytic activity/Vol] 11 U/L Critically low 14-59 [facility] Comment on above: Performed By: #### C ZOEY, VALP #### [facility] [address] [address] [address] Jonathan Garcia Anion gap [Moles/Vol] 10.5 mmol/L Normal [facility] Comment on above: Performed By: #### C MP, VALP #### [facility] [address] [place] [address] Dr. Jonathan Garcia AST [Catalytic activity/Vol] 10 U/L Critically low 15-37 [facility] Comment on above: Performed By: #### C MP, VALP #### [facility] [address] [place] [address] Dr. Jonathan Garcia Bilirubin [Mass/Vol] 0.5 mg/dL Normal 0.2-1.0 [facility] Comment on above: Performed By: #### C MP, VALP #### [facility] [address] [place] [address] Dr. Jonathan Garcia Calcium [Mass/Vol] 9.1 mg/dL Normal 8.5-10.1 [facility] Comment on above: Performed By: #### C MP, VALP #### [facility] [address] [place] [address] Dr. Jonathan Garcia Chloride [Moles/Vol] 102 mmol/L Normal 98-107 [facility] Comment on above: Performed By: #### C MP, VALP #### [facility] [address] [place] [address] Dr. Jonathan Garcia CO2 [Moles/Vol] 30.7 mmol/L Normal 21.0-32.0 [facility] Comment on above: Performed By: #### C MP, VALP #### [facility] [address] [place] [address] Dr. Jonathan Garcia Creatinine [Mass/Vol] 0.72 mg/dL Normal 0.55-1.02 [facility] Comment on above: Performed By: #### C ZOEY, VALP #### [facility] [address] [place] [address] Dr. Jonathan Garcia EGFR-AF [place]THER[place]ISH >60 Normal >=60 [facility] Comment on above: Performed By: #### C ZOEY, VALP #### [facility] [address] [place] [address] Dr. Jonathan Garcia EGFR-NON AF [place] >60 Normal >=60 [facility] Comment on above: Performed By: #### C MP, VALP #### [facility] [address] [place] [address] Dr. Jonathan Garcia Globulin (S) [Mass/Vol] 3.6 g/dL Normal [facility] Comment on above: Performed By: #### C MP, VALP #### [facility] [address] [place] [address] Dr. Jonathan Garcia Glucose [Mass/Vol] 102 mg/dL Normal 74-106 [facility] Comment on above: Performed By: #### C ZOEY, VALP #### [facility] [address] [place] [address] Dr. Jonathan Garcia Potassium [Moles/Vol] 4.2 mmol/L Normal 3.5-5.1 [facility] Comment on above: Performed By: #### C ZOEY, VALP #### [facility] [address] [place] [address] Dr. Jonathan Garcia Protein [Mass/Vol] 7.2 g/dL Normal 6.4-8.2 [facility] Comment on above: Performed By: #### C OZEY, VALP #### [facility] [address] [place] [address] Dr. Jonathan Garcia Sodium [Moles/Vol] 139 mmol/L Normal 136-145 [facility] Comment on above: Performed By: #### C ZOEY, VALP #### [facility] [address] [place] [address] Dr. Jonathan Garcia Urea nitrogen [Mass/Vol] 8.0 mg/dL Normal 7.0-18.0 [facility] Comment on above: Performed By: #### C ZOEY, VALP #### [facility] [address] [place] [address] Dr. Jonathan Garcia Urea nitrogen/Creatinine [Mass ratio] 11.1 mg/mg Normal [facility] Comment on above: Performed By: #### C ZOEY, VALP #### [facility] [address] [place] [address] Dr. Jonathan Garcia VITAMIN D 25 OHon 10-04-2022 VIT D 25-OH 42.3 ng/mL Normal [facility] Comment on above: Performed By: #### V ITAD ####[facility] [address] [place] [address]Dr. Jonathan Garcia VIT D RANGES SEE BELOW Normal [facility] Comment on above: Result Comment: <20 ng/mL Vit D deficient 20 - <30 ng/mL Vit D insufficient 30 - 100 ng/mL Vit D sufficient >100 ng/mL Potential Toxicity Performed By: #### V ITAD ####[facility] [address] [place], [place] [address]KqDr. Jonathan Garcia CBC AUTO DIFFon 08-29-2022 BASO # 0.0 103/ul Normal 0.0-0.1 [facility] Comment on above: Performed By: #### C BC #### [facility] [address] [address] [address] Jonathan Garcia Basophils/100 WBC (Bld) 0.4 % Normal 0.2-2.0 [facility] Comment on above: Performed By: #### C BC #### [facility] [address] [address] [address] Jonathan Garcia EO # 0.1 103/ul Normal 0.0-0.7 [facility] Comment on above: Performed By: #### C BC #### [facility] [address] [address] [address] Jonathan Garcia Eosinophils/100 WBC (Bld) 1.0 % Normal 0.9-7.0 [facility] Comment on above: Performed By: #### C BC #### [facility] [address] [address] [address] Jonathan Garcia Erythrocyte distribution width (RBC) [Ratio] 12.6 % Normal 11.0-15.0 [facility] Comment on above: Performed By: #### C BC #### [facility] [address] [address] [address] Jonathan Garcia Hematocrit (Bld) [Volume fraction] 40.7 % Normal 36.0-48.0 [facility] Comment on above: Performed By: #### C BC #### [facility] [address] [address] [address] Jonathan Garcia Hemoglobin (Bld) [Mass/Vol] 13.6 g/dL Normal 12.0-16.0 [facility] Comment on above: Performed By: #### C BC #### [facility] [address] [address] [address] Jonathan Garcia IG # 0.08 10e3/ul Critically high 0.00-0.03 [facility] Comment on above: Performed By: #### C BC #### [facility] [address] [place] [address] Dr. Jonathan Garcia IG % 0.8 % Critically high 0.0-0.5 [facility] Comment on above: Performed By: #### C BC #### [facility] [address] [place] [address] Dr. Jonathan Garcia LYMPH # 3.7 103/ul Normal 1.2-3.8 [facility] Comment on above: Performed By: #### C BC #### [facility] [address] [place] [address] Dr. Jonathan Garcia Lymphocytes/100 WBC (Bld) 35.9 % Normal 20.5-60.0 [facility] Comment on above: Performed By: #### C BC #### [facility] [address] [place] [address] Dr. Jonathan Garcia MANUAL DIFF REQ NO Normal [facility] Comment on above: Performed By: #### C BC #### [facility] [address] [place] [address] Dr. Jonathan Garcia MCH (RBC) [Entitic mass] 29.1 pg Normal 26.7-34.0 [facility] Comment on above: Performed By: #### C BC #### [facility] [address] [place] [address] Dr. Jonathan Garcia MCHC (RBC) [Mass/Vol] 33.4 g/dL Normal 29.9-35.2 [facility] Comment on above: Performed By: #### C BC #### [facility] [address] [place] [address] Dr. Jonathan Garcia MCV (RBC) [Entitic vol] 87.0 fL Normal 81.0-99.0 [facility] Comment on above: Performed By: #### C BC #### [facility] [address] [place] [address] Dr. Jonathan Garcia MONO # 0.7 103/ul Normal 0.3-0.8 [facility] Comment on above: Performed By: #### C BC #### [facility] [address] [address] [address] Jonathan Garcia Monocytes/100 WBC (Bld) 6.3 % Normal 1.7-12.0 [facility] Comment on above: Performed By: #### C BC #### [facility] [address] [address] [address] Jonathan Garcia NEUT # 5.8 103/ul Normal 1.4-6.5 [facility] Comment on above: Performed By: #### C BC #### [facility] [address] [place] [address] Dr. Jonathan Garcia Neutrophils/100 WBC (Bld) 55.6 % Normal 43.0-75.0 [facility] Comment on above: Performed By: #### C BC #### [facility] [address] [place] [address] Dr. Jonathan Garcia Platelet mean volume (Bld) [Entitic vol] 9.4 fL Critically low 9.5-13.5 [facility] Comment on above: Performed By: #### C BC #### [facility] [address] [place] [address] Dr. Jonathan Garcia PLT 317 103/ul Normal 150-450 [facility] Comment on above: Performed By: #### C BC #### [facility] [address] [place] [address] Dr. Jonathan Garcia RBC 4.68 106/ul Normal 4.20-5.40 [facility] Comment on above: Performed By: #### C BC #### [facility] [address] [place] [address] Dr. Jonathan Garcia WBC 10.4 103/ul Normal 4.0-11.0 [facility] Comment on above: Performed By: #### C BC #### [facility] [address] [place] [address] Dr. Jonathan Garcia DEPAKENE/ VALPROIC ACIDon DEPAKENE 59.8 ug/ml Normal 50.0-100.0 [facility] Comment on above: Performed By: #### V ALP, CMP, TSH #### [facility] [address] [place] [address] Dr. Jonathan Garcia FREE T4on 08-29-2022 Free T4 [Mass/Vol] 0.72 ng/dL Critically low 0.76-1.46 [facility] Comment on above: Performed By: #### F T4, VITAD #### [facility] [address] [address] [address] Jonathan Garcia PROF 14(COMP METB)on 022 Albumin [Mass/Vol] 3.6 g/dL Normal 3.4-5.0 [facility] Comment on above: Performed By: #### V ALP, CMP, TSH #### [facility] [address] [place] [address] Dr. Jonathan Garcia Albumin/Globulin [Mass ratio] 1.0 {ratio} Normal [facility] Comment on above: Performed By: #### V ALP, CMP, TSH #### [facility] [address] [place] [address] Dr. Jonathan Garcia ALP [Catalytic activity/Vol] 56 U/L Normal 46-116 [facility] Comment on above: Performed By: #### V ALP, CMP, TSH #### [facility] [address] [place] [address] Dr. Jonathan Garcia ALT [Catalytic activity/Vol] 12 U/L Critically low 14-59 [facility] Comment on above: Performed By: #### V ALP, CMP, TSH #### [facility] [address] [place] [address] Dr. Jonathan Garcia Anion gap [Moles/Vol] 7.9 mmol/L Normal [facility] Comment on above: Performed By: #### V ALP, CMP, TSH #### [facility] [address] [place] [address] Dr. Jonathan Garcia AST [Catalytic activity/Vol] 12 U/L Critically low 15-37 [facility] Comment on above: Performed By: #### V ALP, CMP, TSH #### [facility] [address] [place] [address] Dr. Jonathan Garcia Bilirubin [Mass/Vol] 0.3 mg/dL Normal 0.2-1.0 [facility] Comment on above: Performed By: #### V ALP, CMP, TSH #### [facility] [address] [address] [address] Jonathan Garcia Calcium [Mass/Vol] 9.0 mg/dL Normal 8.5-10.1 [facility] Comment on above: Performed By: #### V ALP, CMP, TSH #### [facility] [address] [address] [address] Jonathan Garcia Chloride [Moles/Vol] 102 mmol/L Normal 98-107 [facility] Comment on above: Performed By: #### V ALP, CMP, TSH #### [facility] [address] [place] [address] Dr. Jonathan Garcia CO2 [Moles/Vol] 32.1 mmol/L Critically high 21.0-32.0 [facility] Comment on above: Performed By: #### V ALP, CMP, TSH #### [facility] [address] [place] [address] Dr. Jonathan Garcia Creatinine [Mass/Vol] 0.77 mg/dL Normal 0.55-1.02 [facility] Comment on above: Performed By: #### V ALP, CMP, TSH #### [facility] [address] [place] [address] Dr. Jonathan Garcia EGFR-AF [place] >60 Normal >=60 [facility] Comment on above: Performed By: #### V ALP, CMP, TSH #### [facility] [address] [place] [address] Dr. Jonathan Garcia EGFR-NON AF [place] >60 Normal >=60 [facility] Comment on above: Performed By: #### V ALP, CMP, TSH #### [facility] [address] [place] [address] Dr. Jonathan Garcia Globulin (S) [Mass/Vol] 3.7 g/dL Normal [facility] Comment on above: Performed By: #### V ALP, CMP, TSH #### [facility] [address] [address] [address] Jonathan Garcia Glucose [Mass/Vol] 99 mg/dL Normal 74-106 [facility] Comment on above: Performed By: #### V ALP, CMP, TSH #### [facility] [address] [address] [address] Jonathan Garcia Potassium [Moles/Vol] 4.0 mmol/L Normal 3.5-5.1 [facility] Comment on above: Performed By: #### V ALP, CMP, TSH #### [facility] [address] [address] [address] Jonathan Garcia Protein [Mass/Vol] 7.3 g/dL Normal 6.4-8.2 [facility] Comment on above: Performed By: #### V ALP, CMP, TSH #### [facility] [address] [address] [address] Jonathan Garcia Sodium [Moles/Vol] 138 mmol/L Normal 136-145 [facility] Comment on above: Performed By: #### V ALP, CMP, TSH #### [facility] [address] [address] [address] Jonathan Garcia Urea nitrogen [Mass/Vol] 4.0 mg/dL Critically low 7.0-18.0 [facility] Comment on above: Performed By: #### V ALP, CMP, TSH #### [facility] [address] [address] [address] Jonathan Garcia Urea nitrogen/Creatinine [Mass ratio] 5.2 mg/mg Normal [facility] Comment on above: Performed By: #### V ALP, CMP, TSH #### [facility] [address] [address] [address] Jonathan Garcia TSHon 08-29-2022 TSH 1.034 uIU/mL Normal 0.358-3.740 [facility] Comment on above: Performed By: #### V ALP, CMP, TSH #### [facility] [address] [address] [address] Jonathan Garcia VITAMIN D 25 OHon 12-06-2022 VIT D 25-OH 44.9 ng/mL Normal [facility] Comment on above: Performed By: #### F T4, VITAD #### [facility] [address] [place] [address] Dr. Jonathan Garcia VIT D RANGES SEE BELOW Normal [facility] Comment on above: Result Comment: <20 ng/mL Vit D deficient 20 - <30 ng/mL Vit D insufficient 30 - 100 ng/mL Vit D sufficient >100 ng/mL Potential Toxicity Performed By: #### F T4, VITAD #### [facility] [address] [place] [address] Dr. Jonathan Garcia UA (CLEAN/CATCH) SYSTEM ARCHIVE ANALYST/MICRO I F IND.on 08-25-2022 Bilirubin Ql (U) Negative Normal NEGATIVE [facility] Comment on above: Performed By: #### U ACSIND #### [facility] [address] [place] [address] Dr. Jonathan Garcia Clarity (U) CLEAR Normal CLEAR [facility] Comment on above: Performed By: #### U ACSIND #### [facility] [address] [place] [address] Dr. Jonathan Garcia Color (U) DK. YELLOW Normal YELLOW [facility] Comment on above: Performed By: #### U ACSIND #### [facility] [address] [place] [address] Dr. Jonathan Garcia Glucose Ql (U) Negative Normal NEGATIVE [facility] Comment on above: Performed By: #### U ACSIND #### [facility] [address] [place] [address] Dr. Jonathan Garcia Hemoglobin Ql (U) Negative Normal NEGATIVE [facility] Comment on above: Performed By: #### U ACSIND #### [facility] [address] [place] [address] Dr. Jonathan Garcia Ketones Ql (U) TRACE Abnormal NEGATIVE [facility] Comment on above: Performed By: #### U ACSIND #### [facility] [address] [place] [address] Dr. Jonathan Garcia LEUKOCYTES Negative Normal NEGATIVE [facility] Comment on above: Performed By: #### U ACSIND #### [facility] [address] [address] [address] Jonathan Garcia Nitrite Ql (U) Negative Normal NEGATIVE [facility] Comment on above: Performed By: #### U ACSIND #### [facility] [address] [place] [address] Dr. Jonathan Garcia pH (U) 7.0 [pH] Normal 5-9 [facility] Comment on above: Performed By: #### U ACSIND #### [facility] [address] [place] [address] Dr. Jonathan Garcia SPEC GRAVITY 1.020 Normal 1.005-<=1.02 5 [facility] Comment on above: Performed By: #### U ACSIND #### [facility] [address] [place] [address] Dr. Jonathan Garcia UA PROTEIN Negative Normal NEGATIVE/ TRACE [facility] Comment on above: Performed By: #### U ACSIND #### [facility] [address] [place] [address] Dr. Jonathan Garcia UR MICRO IND NOT INDICATED Normal [facility] Comment on above: Performed By: #### U ACSIND #### [facility] [address] [place] [address] Dr. Jonathan Garcia Urobilinogen Qn (U) 0.2 {Christos'U}/dL Normal 0.2 - 1. 0 [facility] Comment on above: Performed By: #### U ACSIND #### [facility] [address] [place] [address] Dr. Jonathan Garcia Peds Gastroenterology - Paresh [...] exercise. Follow up as needed. 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 This visit was completed via Vinted. 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 Chest Congestion Relief 400 MG Oral TabletTAKE ONE TABLET BY MOUTH TWICE A DAY NEEDED FOR CONGESTION OR COUGH [place] Calcium/Vitamin (more content not included)... Normal [facility] COMPMETAon 10-21-2021 Albumin/Globulin [Mass ratio] 1.1 {ratio} Normal [facility] Comment on above: Performed By: #### 1 31611, 342455, 274140 #### [facility] [address] [place] [address] Broom Man: Rudy Posey MD GFR AA >60 Normal [facility] Comment on above: Result Comment: Afri can Surinamese GFR Calc Medical judgement is necessary to [...] for drug dosing. Performed By: #### 1 63274, 196087, 477138 #### [facility] [address] [place] [address] Broom Man: Rudy Posey MD Glomerular Filtration Rate >60 Normal [facility] Comment on above: Result Comment: [...] for drug dosing. Performed By: #### 1 05966, 055413, 633776 #### [facility] [address] [place] [address] Broom Man: Rudy Posey MD Osmolality [Osmolality] 277 mosm/kg Normal 275-295 [facility] Comment on above: Performed By: #### 1 23513, 842511, 207896 #### [facility] [address] [place] [address] Broom Man: Rudy Posey MD Urea nitrogen/Creatinine [Mass ratio] 15.9 mg/mg Normal [facility] Comment on above: Performed By: #### 1 51720, 713847, 533311 #### [facility] [address] [place] [address] Broom Man: Rudy Posey MD Albumin [Mass/Vol] 3.6 g/dL Normal 3.4-5.0 [facility] Comment on above: Performed By: #### 1 49527, 984503, 073372 #### [facility] [address] [place] [address] Broom Man: Rudy Posey MD Alk Phos 60 unit/L Normal 45-117 [facility] Comment on above: Performed By: #### 1 09745, 062620, 963772 #### [facility] [address] [place], [place] [address] Broom Man: Rudy Posey MD Bilirubin [Mass/Vol] 0.45 mg/dL Normal 0.20-1.00 [facility] Comment on above: Result Comment: Use of this assay is not recommended for patients undergoing treatment with eltrombopag due to the potential for falsely elevated results. Performed By: #### 1 58892, 972449, 470811 #### [facility] [address] [place], [place] [address] Broom Man: Rudy Posey MD Calcium [Mass/Vol] 9.3 mg/dL Normal 8.5-10.5 [facility] Comment on above: Performed By: #### 1 82974, 266759, 821002 #### [facility] [address] [place] [address] Broom Man: Rudy Posey MD Chloride [Moles/Vol] 104 mmol/L Normal 100-109 [facility] Comment on above: Performed By: #### 1 49655, 526829, 496956 #### [facility] [address] [place] [address] Broom Man: Rudy Posey MD CO2 [Moles/Vol] 28.6 mmol/L Normal 21.0-32.0 [facility] Comment on above: Performed By: #### 1 84369, 075240, 898950 #### [facility] [address] [place] [address] Broom Man: Rudy Posey MD Creatinine [Mass/Vol] 0.7 mg/dL Normal 0.6-1.0 [facility] Comment on above: Performed By: #### 1 17817, 835433, 761103 #### [facility] [address] [place] [address] Broom Man: Rudy Posey MD Globulin (S) [Mass/Vol] 3.2 g/dL Normal [facility] Comment on above: Performed By: #### 1 24345, 904783, 699797 #### [facility] [address] [place] [address] Broom Man: Rudy Posey MD Glucose [Mass/Vol] 106 mg/dL High 72-100 [facility] Comment on above: Result Comment: Charlene puncture should occur prior to sulfasalazine administration due to the potential for falsely depressed results. Venipuncture should occur prior to sulfapyridine administration due to the potential falsely elevated results. Baseline assay values before administration of sulfasalazine and sulfapyridine therapy would not be affected. Performed By: #### 1 39565, 665606, 427647 #### [facility] [address] [place] [address] Broom Man: Rudy Posey MD GOT 32 unit/L Normal 15-37 [facility] Comment on above: Result Comment: Charlene puncture should occur prior to sulfasalazine and/or sulfapyridine administration due to the potential for falsely depressed results. Baseline assay values before administration of sulfasalazine and sulfapyridine therapy would not be affected. Performed By: #### 1 15855, 708562, 713938 #### [facility] [address] [place] [address] Broom Man: Rudy Posey MD GPT 95 unit/L High 13-56 [facility] Comment on above: Result Comment: Charlene puncture should occur prior to sulfasalazine and/or sulfapyridine administration due to the potential for falsely depressed results. Baseline assay values before administration of sulfasalazine and sulfapyridine therapy would not be affected. Performed By: #### 1 07049, 847529, 451674 #### [facility] [address] [place] [address] Broom Man: Rudy Posey MD Potassium [Moles/Vol] 4.3 mmol/L Normal 3.5-5.1 [facility] Comment on above: Performed By: #### 1 30833, 554518, 031032 #### [facility] [address] [place] [address] Broom Man: Rudy Posey MD Protein [Mass/Vol] 6.8 g/dL Normal 6.0-8.5 [facility] Comment on above: Performed By: #### 1 58375, 158184, 099290 #### [facility] [address] [place] [address] Broom Man: Rudy Posey MD Sodium [Moles/Vol] 139 mmol/L Normal 135-145 [facility] Comment on above: Performed By: #### 1 23807, 461886, 380335 #### [facility] [address] [place] [address] Broom Man: Rudy Posey MD Urea nitrogen [Mass/Vol] 11 mg/dL Normal 10-20 [facility] Comment on above: Performed By: #### 1 20349, 117431, 395169 #### [facility] [address] [place] [address] Broom Man: Rudy Posey MD HEMOon 10-21-2021 Nucleated RBC 0 /100WBC Normal [facility] Comment on above: Performed By: #### 1 58983, 891626, 950073 #### [facility] [address] [place] [address] Broom Man: Rudy Posey MD DIFF? Yes Normal [facility] Comment on above: Performed By: #### 1 52962, 451031, 988933 #### [facility] [address] [place] [address] Broom Man: Rudy Posey MD DxH Actions See Notes Abnormal [facility] Comment on above: Result Comment: Scan Slide. Perform manual diff if needed. Scan. Nicholas # Path Review if Required. SNV Performed By: #### 1 21798, 165481, 113427 #### [facility] [address] [place] [address] Broom Man: Rudy Posey MD Erythrocyte distribution width (RBC) [Ratio] 14.0 % Normal 11.5-14.5 [facility] Comment on above: Performed By: #### 1 52132, 309593, 437765 #### [facility] [address] [place] [address] Broom Man: Rudy Posey MD Hematocrit (Bld) [Volume fraction] 40.1 % Normal 36.0-46.0 [facility] Comment on above: Performed By: #### 1 52185, 045858, 977848 #### [facility] [address] [place] [address] Broom Man: Rudy Posey MD Hemoglobin (Bld) [Mass/Vol] 13.4 g/dL Normal 12.0-16.0 [facility] Comment on above: Performed By: #### 1 03114, 753186, 225635 #### [facility] [address] [place] [address] Broom Man: Rudy Posey MD Instr WBC 9.0 Normal [facility] Comment on above: Performed By: #### 1 77109, 865326, 854523 #### [facility] [address] [place] [address] Broom Man: Rudy Posey MD MCH (RBC) [Entitic mass] 29.1 pg Normal 27.0-34.0 [facility] Comment on above: Performed By: #### 1 65237, 881638, 398993 #### [facility] [address] [place] [address] Broom Man: Rudy Posey MD MCHC (RBC) [Mass/Vol] 33.3 g/dL Normal 32.0-37.0 [facility] Comment on above: Performed By: #### 1 53082, 929454, 299584 #### [facility] [address] [place] [address] Broom Man: Rudy Posey MD MCV (RBC) [Entitic vol] 87.2 fL Normal 80.0-100.0 S [facility] Comment on above: Performed By: #### 1 53819, 025078, 913261 #### [facility] [address] [place] [address] Broom Man: Rudy Posey MD Platelet 402 x1000 Normal 150-450 [facility] Comment on above: Performed By: #### 1 12168, 350000, 929764 #### [facility] [address] [place] [address] Broom Man: Rudy Posey MD Platelet mean volume (Bld) [Entitic vol] 7.2 fL Low 7.4-10.4 [facility] Comment on above: Performed By: #### 1 51062, 173366, 609992 #### [facility] [address] [place] [address] Broom Man: Rudy Posey MD RBC 4.60 x10 Normal 4.20-5.40 [facility] Comment on above: Result Comment: Note : RBC morphology is normal unless otherwise stated. Evaluation performed only if differential is requested. Performed By: #### 1 99348, 652739, 756024 #### [facility] [address] [place] [address] Broom Man: Rudy Posey MD WBC 9.0 x10 Normal 4.5-11.0 [facility] Comment on above: Performed By: #### 1 65658, 409162, 874211 #### [facility] [address] [place] [address] Broom Man: Rudy Posey MD AVON DIFFon 10-21-[address] 0.36 x1000 Normal 0.00-0.70 [facility] Comment on above: Performed By: #### 1 17760, 774032, 261173 #### [facility] [address] [place] [address] Broom Man: Rudy Posey MD Absolute Eos Ct 0.18 x1000 Normal 0.00-0.50 [facility] Comment on above: Performed By: #### 1 01396, 905993, 956510 #### [facility] [address] [place] [address] Broom Man: Rudy Posey MD Absolute Lymph Ct 2.07 x1000 Normal 1.20-4.[address] [facility] Comment on above: Performed By: #### 1 96674, 445244, 689262 #### [facility] [address] [place] [address]48[address] Broom Man: Rudy Posey MD Absolute [address] 0.72 x1000 Normal 0.10-1.00 [facility] Comment on above: Performed By: #### 1 59274, 319922, 715964 #### [facility] [address] [place] [address]4667 Broom Man: Rudy Posey MD Absolute Neutrophil Ct 5.94 x1000 Normal 1.40-8.80 So [facility] Comment on above: Performed By: #### 1 42571, 881201, 939802 #### [facility] [address] [place] [address] Broom Man: Rudy Posey MD Absolute Seg Ct 5.58 x1000 Normal 1.40-8.80 [facility] Comment on above: Performed By: #### 1 21488, 660215, 039276 #### [facility] [address] [place] [address] Broom Man: Rudy Posey MD Band form neutrophils/100 WBC (Bld) 4 % Normal [facility] Comment on above: Performed By: #### 1 13381, 492360, 424300 #### [facility] [address] [place] [address]6902 Broom Man: Rudy Posey MD Eosinophils/100 WBC (Bld) 2 % Normal [facility] Comment on above: Performed By: #### 1 76937, 636685, 186800 #### [facility] [address] [place] [address] Broom Man: Rudy Posey MD Left Shift Present Abnormal [facility] Comment on above: Performed By: #### 1 51274, 915542, 052670 #### [facility] [address] [place] [address]1468 Broom Man: Rudy Posey MD Lymphocytes/100 WBC (Bld) 23 % Normal [facility] Comment on above: Performed By: #### 1 61950, 006112, 930411 #### [facility] [address] [place] [address] Broom Man: Rudy Posey MD Monocytes/100 WBC (Bld) 8 % Normal [facility] Comment on above: Performed By: #### 1 94810, 376505, 674410 #### [facility] [address] [place] [address] Broom Man: Rudy Posey MD Myelocyte % 1 % Normal [facility] Comment on above: Performed By: #### 1 32273, 946617, 553667 #### [facility] [address] [place] [address] 37668 Broom Man: Rudy Posey MD Segmented neutrophils/100 WBC (Bld) 62 % Normal [facility] Comment on above: Performed By: #### 1 25649, 994797, 311602 #### [facility] [address] [place] [address] Broom Man: Rudy Posey MD TAMANNA ACID LEVELon 10-21-2021 Date Last Dose 10/20/2021 Normal [facility] Comment on above: Result Comment: VERI FIED by Discern Expert. Performed By: #### 9 [id number] #### [facility] [address] [place] [address] Broom Man: Rudy Posey MD Time Last Dose 17:00 [facility] Comment on above: Result Comment: VERI FIED by Discern Expert. Performed By: #### 9 216185 #### [facility] [address] [place] [address]29 Broom Man: Rudy Posey MD Valproic Acid 58.8 ug/ml Normal 50.0-100.0 [facility] Comment on above: Performed By: #### 9 [id number] #### [facility] [address] [place] [address]35 Broom Man: Rudy Posey MD Vital Signs Date Time Vital Sign Value Performing Clinician Facility 12-04-2024 11:23040 Body height 160 cm Cruz Adler MD Work Phone: [facility] 12-04-2024 11:23-0400 Body mass index (BMI) [Ratio] 23.63 kg/m2 Cruz Adler MD Work Phone: [facility] 12-04-2024 11:23-0400 Body weight 60.5 kg Cruz Adler MD Work Phone: [facility] 05-15-2024 10:52-0400 Body height 160 cm Cruz Adler MD Work Phone: [facility] 05-15-2024 10:52-0400 Body mass index (BMI) [Ratio] 22.73 kg/m2 Cruz Adler MD Work Phone: [facility] 05-15-2024 10:52-0400 Body weight 58.2 kg Cruz Adler MD Work Phone: [facility] 03-30-2023 02:21-0400 Diastolic blood pressure 59 mm[Hg] DO Simon Haas Work Phone: [facility] 03-30-2023 02:21-0400 Heart rate 94 /min DO Simon Haas Work Phone: [facility] 03-30-2023 02:21-0400 Respiratory rate 20 /min DO Simon Haas Work Phone: [facility] 03-30-2023 02:21-0400 SaO2% (BldA) [Mass fraction] 100 % DO Simon Haas Work Phone: [facility] 03-30-2023 02:21-0400 Systolic blood pressure 105 mm[Hg] DO Simon Haas Work Phone: [facility] 03-30-2023 00:06-0400 Body temperature 97.2 [degF] DO Siomn Haas Work Phone: [facility] 03-29-2023 16:32-0400 Body height 157.48 cm DO Simon Haas Work Phone: [facility] 03-29-2023 16:32-0400 Body weight 60.35 kg DO Simon Haas Work Phone: [facility] 11-30-2022 10:00-0500 Body height 160.02 cm Simon Heriberto Kyung Work Phone: XA-Qfkbxedfqf-Hrsrb a 220 Work Phone: 11-30-2022 10:00-0500 Body mass index (BMI) [Ratio] 25.03 kg/m2 Simon Heriberto Kyung Work Phone: ZG-Ibevrkmxsz-Yrcoc a 220 Work Phone: 11-30-2022 10:00-0500 Body surface area Derived from formula 1.67 m2 Simon Heriberto Kyung Work Phone: WN-Xlzxwnwuww-Vcndj a 220 Work Phone: 11-30-2022 10:00-0500 Body weight 64.1 kg Simon Heriberto Kyung Work Phone: OS-Bwknngbnqf-Epzkw a 220 Work Phone: 01-19-2022 14:38-0400 Body height 160.02 cm Simon Haas Work Phone: GX-Rooxkvamay-Bnwip a 220 Work Phone: 01-19-2022 14:38-0400 Body mass index (BMI) [Ratio] 25.15 kg/m2 Simon Heriberto Kyung Work Phone: AZ-Uetgbxnsqp-Nlqhb a 220 Work Phone: 01-19-2022 14:38-0400 Body surface area Derived from formula 1.67 m2 Simon Heriberto Kyung Work Phone: LJ-Lvwbowjvda-Jwvnc a 220 Work Phone: 01-19-2022 14:38-0400 Body weight 64.41 kg Simon Heriberto Haas Work Phone: NN-Solshmwwbn-Vrupz a 220 Work Phone: 07-21-2021 14:30-0400 Body mass index (BMI) [Ratio] 26.35 kg/m2 Simon Haas Work Phone: IC-Abykhlklri-Bjmeb a 220 Work Phone: 07-21-2021 14:30-0400 Body surface area Derived from formula 1.71 m2 Simon Haas Work Phone: TB-Xykhtliggu-Mjvvi a 220 Work Phone: 07-21-2021 14:30-0400 Body weight 67.47 kg Simon Haas Work Phone: JA-Sjvouwnson-Gpuly a 220 Work Phone: 07-03-2019 12:01-0400 BMI (Body Mass Index) 27.86 kg/m2 Max Wiznitzer MG-Pediatr ics-Neuro log-Admin RBC 585 Work Phone: 07-03-2019 12:01-0400 Body weight 70.[address]-Hjgwgtkpwy-Di uro log-Admin RBC 585 Work Phone: 07-03-2019 12:01-0400 BSA (Body Surface Area) 1.73 m2 Max Wiznitzer EJ-Iqwtlopdis-Cwink log-Admin RBC 585 Work Phone: 07-03-2019 12:01-0400 Height 159.31 cm Max Wiznitzer YK-Bfdwcbrjao-Nx uro log-Admin RBC 585 Work Phone: Encounters Encounter Date Encounter Type Care Provider Facility Start: 05-09-2025 End: 05-09-2025 Letter encounter [facility] Start: 12-04-2024 End: 12-04-2024 ambulatory CRUZ ADLER [facility] Start: 12-04-2024 End: 12-04-2024 Office outpatient visit 15 minutes Cruz Adler MD Work Phone: [facility] Comment on above: Nonintractable epile psy without status epilepticus, unspecified epilepsy type (Multi) (Primary Dx); Anxiety disorder, unspecified type; Intellectual disability Start: 05-15-2024 End: 05-15-2024 Office outpatient visit 15 minutes Cruz Adler MD Work Phone: [facility] Comment on above: Intellectual disabil ity (Primary Dx); Nonintractable epilepsy without status epilepticus, unspecified epilepsy type (Multi); Anxiety disorder, unspecified type; Mood disorder (CMS-HCC) Start: 05-15-2024 End: 05-15-2024 ambulatory CRUZ ADLER [facility] Start: 12-06-2023 End: 12-06-2023 Office outpatient visit 15 minutes Cruz Adler MD Work Phone: [facility] Comment on above: Anxiety disorder, un specified type (Primary Dx); Mood disorder (CMS/HCC); Nonintractable epilepsy without status epilepticus, unspecified epilepsy type (CMS/HCC) Start: 09-26-2023 End: 09-27-2023 ambulatory SIMON HAAS Facility:[facility] Start: 08-09-2023 End: 08-14-2023 ambulatory UNKNOWN PROVIDER Facility:[facility] Start: 08-09-2023 End: 08-14-2023 Patient encounter procedure Carolina Trevizo [facility] Work Phone: [facility] Start: 06-07-2023 Office outpatient vi sit 25 minutes Simon Haas Work Phone: ZE-Wcoixxmloe-Ofwxzesp y-Admin RBC 585 Work Phone: Start: 06-07-[address] Cruz Adler [facility] ity:[id number] Start: 03-29-2023 End: 03-30-2023 Emergency department patient visit Simon aHas Facility:[facility] Start: 03-29-2023 End: 03-30-2023 Emergency department patient visit DO Simon Haas Work Phone: [facility] Work Phone: Start: 02-13-2023 End: 02-14-[address] SIMON HAAS Facility: Start: 11-30-2022 Office outpatient vi sit 15 minutes Simon Haas Work Phone: EV-Axbngwzhgj-Qbhikaei Work Phone: Start: 11-30-2022 Patient encounter procedure Simon Haas Work Phone: UL-Xmvumdoxxz-Mfehed 220 Work Phone: Start: 11-30-[address] Cruz Adler Facil ity:[id number] Start: 11-03-2022 Letter encounter Jannette toro Start: 10-04-2022 End: 10-05-[address] SIMON HAAS Facility:[facility] Start: 08-29-2022 End: 08-30-[address] SIMON HAAS Facility:[facility] Start: 08-26-2022 End: 08-26-[address] SIMON HAAS Facility:[facility] Start: 08-25-2022 End: 08-25-[address] SIMON HAAS Facility:[facility] Start: 07-20-2022 Office consultation new/estab patient 40 min Simon Haas Work Phone: [facility] Work Phone: Start: 07-20-[address] Mariela Haas Facility:[facility] Start: 06-01-2022 Office outpatient vi sit 15 minutes Simon Haas Work Phone: YG-Onzawvdqhz-Iibuuvxw y-Admin RBC 585 Work Phone: Start: 06-01-2022 Patient encounter procedure Simon Haas Work Phone: QU-Kihrstglur-Adebkf 220 Work Phone: Start: 01-19-2022 Office outpatient vi sit 15 minutes Simon Haas Work Phone: EU-Blozqkzooc-Rgmlvnvc y-Admin RBC 585 Work Phone: Start: 01-19-2022 Patient encounter procedure Simon Haas Work Phone: UJ-Xkoaisilyv-Qrrytl 220 Work Phone: Start: 10-20-2021 Office outpatient vi sit 15 minutes Simon Haas Work Phone: XY-Mwladlajph-Vmrdylkv ook 220 Work Phone: Start: 07-21-2021 Patient encounter procedure Simon Haas Work Phone: VR-Wwpwtbkyvu-Fvrstd 220 Work Phone: Start: 01-22-2020 Patient encounter procedure Max Wiznitzer HK-Ookmjoukhv-Xnfqyv 220 Work Phone: Start: 07-03-2019 Patient encounter procedure Max Wiznitzer CB-Mzhsbkukga-Xvsldchm -Admin RBC 585 Work Phone: Start: 01-02-2019 Patient encounter procedure Max Wiznitzer MN-Pvumzvujgr-Hcfgniym -Admin RBC 585 Work Phone: Start: 11-25-2018 Patient encounter procedure Max Wiznitzer TS-Tkjcxyhoyo-Cpxndesy -Admin RBC 585 Work Phone: Start: 07-04-2018 Patient encounter procedure Max Wiznitzer QE-Ouyelycbqm-Khaoowtx -Admin RBC 585 Work Phone: Start: 01-17-2018 Patient encounter procedure Max Wiznitzer AQ-Tasqmhcjgd-Xmwfmjku -Admin RBC 585 Work Phone: Start: 07-19-2017 Patient encounter procedure Max Wiznitzer RA-Wylldqvpef-Vpacdjuw -Admin RBC 585 Work Phone: Procedures Date Procedure Procedure Detail Performing Clinician Start: 05-15-2024 Follow-up visit Follow-up CRUZ SCHREIBER Plan of Treatment Date Care Activity Detail Author Start: 2042 Shingles (RZV) Vaccine (1 of 2) Shingles (RZV) Vaccine (1 of 2) [facility] Start: 2042 Zoster Vaccines (1 of 2) Zoster Vaccines (1 of 2) [facility] Start: 10-31-2026 DTaP/Tdap/Td Vaccines (2 - Td or Tdap) DTaP/Tdap/Td Vaccines (2 - Td or Tdap) [facility] Start: 10-31-2026 Tetanus vaccination Tetanus (Td or Tdap) Booster [facility] Start: 06-24-2025 Influenza vaccination Influenza Vaccine (#1) [facility] Start: 06-18-2025 End: 06-18-2025 Patient encounter procedure 06/18/2025 10:40 AM EDT Office Visit [facility] [address] [place] [id number] [place] [address] Department of Pediatric[place] [address] [facility] Start: 11-06-2024 End: 11-06-2024 Patient encounter procedure 11/06/2024 11:20 AM EST Office Visit [facility] [address] [place] [address] [place] [address] [address] Department of Pediatric[place] [address] [facility] Start: 05-25-2024 COVID-19 Vaccine ( season) COVID-19 Vaccine ( season) [facility] Start: 05-25-2024 COVID-19 Vaccine ( season) COVID-19 Vaccine ( season) [facility] Start: 05-25-2024 Influenza vaccination Influenza Vaccine (#1) [facility] Start: 12-06-2023 FUV, Provider: Cruz Adler, Status: Pen, Time: 10:00 AM FUV, Provider: Cruz Adler, Status: Pen, Time: 10:00 AM YN-Fabwzacupi-Cbuowwskw -Admin RBC 585 Work Phone: Start: 06-07-2023 FUV, Provider: Cruz Adler, Status: Pen, Time: 10:40 AM FUV, Provider: Cruz Adler, Status: Pen, Time: 10:40 AM TX-Pezvsjeiqw-Zhiczx 220 Work Phone: Start: 09-01-2023 COVID-19 Vaccine ( season) COVID-19 Vaccine ( season) [facility] Start: 05-25-2023 COVID-19 Vaccine ( season) COVID-19 Vaccine ( season) [facility] Start: 05-25-2023 Influenza vaccination Influenza Vaccine (#1) [facility] Start: 03-30-2023 Plain X-ray of left femur XR femur LT 2V* [facility] Start: 03-30-2023 XR Femur - left 2 Views [facility] Start: 03-29-2023 [facility] Start: 03-29-2023 Computed tomography of abdomen and pelvis with contrast CT abdomen pelvis w con [facility] Start: 03-29-2023 CT Abdomen and Pelvis W contrast IV [facility] Start: 12-25-2022 End: 12-25-2022 Patient encounter procedure 12/25/2022 Procedure Visit Dentistry Carolina Trevizo, [facility] [address] [place] [address] [facility] Start: 11-30-2022 FUV, Provider: Cruz Adler, Status: Pen, Time: 10:00 AM FUV, Provider: Cruz Adler, Status: Pen, Time: 10:00 AM UG-Jhzhvqywfi-Gxlphikfl -Admin RBC 585 Work Phone: Start: 07-20-2022 FUV, Provider: Yadi Pedro, Status: Pen, Time: 10:00 AM FUV, Provider: Yadi Pedro, Status: Pen, Time: 10:00 AM TB-Hklwoohuqg-Bxvwafqgu -Admin RBC 585 Work Phone: Start: 06-24-2022 Influenza vaccination Influenza Vaccine (#1) [facility] Start: 06-01-2022 FUV, Provider: Cruz Adler, Status: Pen, Time: 10:40 AM FUV, Provider: Cruz Adler, Status: Pen, Time: 10:40 AM SI-Iebdygzshb-Vnnqfuayb -Admin RBC 585 Work Phone: Start: 05-23-2022 VIRFUVHOME, Provider: Cruz Adler, Status: Pen, Time: 10:20 AM VIRFUVHOME, Provider: Cruz Adler, Status: Pen, Time: 10:20 AM MT-Nccgbmntsf-Bfyjst 220 Work Phone: Start: 01-19-2022 FUV, Provider: Cruz Adler, Status: Pen, Time: 2:20 PM FUV, Provider: Cruz Adler, Status: Pen, Time: 2:20 PM WD-Juwwlyqnsb-Ccwrkdyjg ok 220 Work Phone: Start: 2019 HPV Vaccine (optional start 27-45 years) HPV Vaccine (optional start 27-45 years) [facility] Start: 2013 Screening for malignant neoplasm of cervix [facility] Start: 2011 Hepatitis A (HAV) Vaccine (optional start 19+ years) Hepatitis A (HAV) Vaccine (optional start 19+ years) [facility] Start: 2011 Hepatitis B vaccination Hepatitis B (HBV) Vaccine (1 of 3 - 19+ 3-dose series) [facility] Start: 2011 Hepatitis B Vaccines (1 of 3 - 19+ 3-dose series) Hepatitis B Vaccines (1 of 3 - 19+ 3-dose series) [facility] Start: 2010 Hepatitis C screening [facility] Start: 09-08-2009 MMR Vaccines (1 of 1 - Standard series) MMR Vaccines (1 of 1 - Standard series) [facility] Start: 09-08-2009 Varicella vaccination [facility] Start: 2007 HIV screening HIV Test [facility] Start: 1992 Hepatitis B Vaccines (1 of 3 - 3-dose series) Hepatitis B Vaccines (1 of 3 - 3-dose series) [facility] Start: 1992 HIV screening HIV Screening [facility] Start: 1992 Lipid panel Lipid Panel [facility] Start: 1992 Yearly Adult Physical Yearly Adult Physical [facility] Patient Education Rib Fracture (DC) [facility] Work Phone: Patient referral [facility] Work Phone: Immunizations Immunization Date Immunization Notes Care Provider Lois [facility] 07-20-2021 influenza, injectabl e, quadrivalent, preservative free [facility] 07-20-2021 influenza virus vacc ine, unspecified formulation [facility] 10-26-2020 Pfizer (12+ yrs) CEASAR S-COV-2 (COVID-19) vaccine, mRNA, spike protein, LNP, pres. free, 30 mcg/0.3mL dose (DMD=771) [facility] 10-05-2020 Pfizer (12+ yrs) CEASAR S-COV-2 (COVID-19) vaccine, mRNA, spike protein, LNP, pres. free, 30 mcg/0.3mL dose (VVC=037) [facility] 06-30-2020 influenza, injectabl e, quadrivalent, preservative free [facility] 07-18-2019 influenza, injectabl e, quadrivalent, preservative free [facility] 07-03-2018 influenza, injectabl e, quadrivalent, contains preservative [facility] 07-18-2017 influenza, injectabl e, quadrivalent, contains preservative [facility] 10-31-2016 tetanus toxoid, redu amauri diphtheria toxoid, and acellular pertussis vaccine, adsorbed [facility] 06-28-2016 influenza, seasonal, injectable [facility] 07-15-2015 influenza, injectabl e, quadrivalent, preservative free [facility] 07-30-2014 influenza, injectabl e, quadrivalent, preservative free [facility] 07-22-2013 influenza, seasonal, injectable [facility] 07-17-2012 influenza, seasonal, injectable [facility] 06-07-2011 influenza, seasonal, injectable [facility] 07-20-2010 influenza virus vacc ine, whole virus [facility] 08-11-2009 novel influenza-H1N1 -09, preservative-free, injectable [facility] 06-23-2009 influenza, seasonal, injectable [facility] 07-20-2008 influenza, seasonal, injectable [facility] 07-16-2008 influenza virus vacc ine, whole virus [facility] Payers Date Payer Category Payer Self-pay [id number] 2014 Dental --Stand Alone DENTAL-MEDI CAID [id number] 2014 Medicaid [id number] 1992 Unknown [id number] 93 1992 Unknown [id number] [id number] 93 1992 Unknown [id number] [id number] 93 1992 Unknown [id number] [id number] 93 1992 Unknown [id number] [id number] 93 1992 Unknown [id number] [id number] 32 1992 Unknown [id number] [id number] 27 1992 Unknown [id number] [id number] 245 1992 Unknown [id number] [id number] 245 1962 Unknown [id number] [id number] 56 1962 Unknown [id number] [id number] 56 1962 Unknown [id number] [id number] 56 1959 Medicaid [id number] Unknown Unknown [id number] 31 Social History Date Type Detail Facility Start: 12-06-2023 Depo-Provera shot Depo-Provera shot HZ-Tyengzsqgv-Eqjrgg 220 Work Phone: Tobacco smoking status WAIS Tobacco smoking consumption unknown [facility] Start: 1992 Sex Assigned At Not on file [facility] Start: 03-29-2023 End: 12-06-2023 Tobacco smoking status WAIS Never smoked tobacco (finding) [facility] Start: 1990 Sex Assigned At Female [facility] Start: 12-06-2023 Gender identity Not on file [facility] Start: 12-06-2023 Tobacco use and exposure Smokeless tobacco non-user [facility] Work Phone: Start: 12-06-2023 Alcohol intake Lifetime non-d juan (finding) [facility] Work Phone: Start: 05-05-2024 End: 12-04-2024 Exposure to SARS-CoV-2 (event) Not sure [facility] Start: 07-28-2012 Sex Female (finding) [facility] NEGATED: Highlighted row - - NA-Algygnugll-Bcetzx og -Admin RBC 585 Work Phone: Functional Status Date Assessment Result Facility NEGATED: Highlighted row Functional performance Functional status health issues are not documented Disease WD-Yjmymcbjrd-Plqir log-Admin RBC 585 Work Phone: Mental Status Date Assessment Result Facility NEGATED: Highlighted row Cognitive function [Interpretation] Cognitive status health issues are not documented Disease NY-Elwqtzrsor-Uyatk log-Admin RBC 585 Work Phone: Clinical Notes 07-21-2021 to 12-04-2024 Cruz Adler MD - 12/04/2024 11:20 AM EDTPatient InstructionsCruz Adler MD - 05/15/2024 11:00 AM EDTPatient InstructionsCruz Adler MD - 12/06/2023 10:00 AM EDTPatient Instructions Note Date & Type Note Facility 12-04-2024 History of Present illness Narrative Subjective Amena [...] diagnosis of rhabdomyolysis. Amena was admitted to [facility] due to worsening behavior (throw self down, aggression, hitting self). She had a tooth/dental abscess treated with antibiotics. She was readmitted to [facility] for worsening behavior and was found [...] in 6 months documented in this encounter [facility] Work Phone: 12-04-2024 Instructions Cruz Adler MD - 12/04/2024 11:20 AM EDT Cyndi has stable behaviors. Since she tolerated a rispeirdone decrease, drop the dose to 0.5 mg at bedtime and see how she does. If no change after 2 months, stop it and note effect. No change in other medications. Follow up in 6 months documented in this encounter [facility] Work Phone: 05-15-2024 History of Present illness Narrative Toshia [...] diagnosis of rhabdomyolysis. Amena was admitted to [facility] due to worsening behavior (throw self down, aggression, hitting self). She had a tooth/dental abscess treated with antibiotics. She was readmitted to [facility] for worsening behavior and was found [...] before that time. documented in this encounter [facility] Work Phone: 05-15-2024 Instructions Cruz Adler MD [...] before that time. documented in this encounter [facility] Work Phone: 12-06-2023 History of Present illness [...] diagnosis of rhabdomyolysis. Amena was admitted to [facility] due to worsening behavior (throw self down, aggression, hitting self). She had a tooth/dental abscess treated with antibiotics. She was readmitted to [facility] for worsening behavior and was found [...] in 6 months.. documented in this encounter [facility] Work Phone: 12-06-2023 Instructions Cruz Adler MD - 12/06/2023 10:00 AM EDT Carlita mood and behaviors are stable. No seizures are noted. 1. No change in medication 2. Check Depakote level, CBC, CMP and lipids yearly 3. Follow up in 6 months.. documented in this encounter [facility] Work Phone: 08-09-2023 History of Present illness [...] available. Legal Guardian: Brody and/or Altagracia Singleton home;[phone] dad; [phone] [facility]; [phone] Next Visit: OR ----- Signed on July at 1:47:32 PM ----- ----- Provider: [id number] Samson DDS -- Clinic: [place] ----- documented in this encounter [facility] 06-07-2023 Chief complaint Narrative - Reported [...] visit.follow up office visitAccompanied by mother and correction staff. EE-Atbylqonru-Qozjdnwtf-Ad min RBC 585 Work Phone: 11-28-2022 History [...] and was agitated. She was taken to [facility]. During this time, she was not sleeping at night and was more upset. She slept last Sunday night after receiving Ambien. Testing at [facility] was except an increased WBC count She was better after a fluid load. She was on cefdinir.Eber had a gastrointestinal illness in October 2022. WZ-Wmorazpfxa-Fdmoeeih Work Phone: 11-27-2022 History of Present illness [...] and was agitated. She was taken to [facility]. During this time, she was not sleeping at night and was more upset. She slept last Sunday night after receiving Ambien. Testing at [facility] was except an increased WBC count She was better after a fluid load. She was on cefdinir.Eber had a gastrointestinal illness in October 2022. KT-Oncjzmzkqd-Nlerwu 220 Work Phone: 07-20-2022 History of Present illness Narrative Amena Singleton is a 32 year old young woman with seizures, cognitive impairment and anxiety. I am seeing her for the first time today, July 20, 2022 at the request of Dr. Cruz Adler for concerns of behavioral changes secondary to constipation.This visit was completed via [employer].The patient's mother verbally consented to and participated [...] for toileting but does not always use. QA-Uyecycnzvv-Nxvoqj [facility] Work Phone: 06-01-2022 Chief complaint [...] and behavior FUAccompanied by mother and Staff. [facility] 220 Work Phone: 06-01-2022 Chief complaint Narrative [...] and behavior FUAccompanied by mother and Staff. XM-Ujjqsyzxgn-Hxgmktjev-Ad min RBC 585 Work Phone: 01-19-2022 Chief [...] and behavior FUAccompanied by mother and Staff. [facility] 220 Work Phone: 01-19-2022 Chief complaint Narrative [...] telehealth visit.Seizure and behavior FUAccompanied by Staff. DL-Dryesehyso-Xrdhkgyml-Ad min RBC 585 Work Phone: 10-20-2021 Chief [...] and behavior FUAccompanied by mother and Staff. WY-Wrdabpdpuf-Gtteglptbzz 220 Work Phone: 07-21-2021 Chief complaint Narrative [...] and behavior FUAccompanied by mother and Staff. VM-Bircodjiki-Hmlfwl 220 Work Phone: Evaluation note No assessment inform ation available [facility] Work Phone: Evaluation note Diagnosis Anxiety disorder, unspecified type- Primary Mood disorder (CMS/HCC) Unspecified episodic mood disorder Nonintractable epilepsy without status epilepticus, unspecified epilepsy type (CMS/HCC) documented in this encounter [facility] Work Phone: Evaluation note* Diagnosis Intellectual disability- Primary Unspecified mental retardation Nonintractable epilepsy without status epilepticus, unspecified epilepsy type (Multi) Anxiety disorder, unspecified type Mood disorder (CMS-HCC) Unspecified episodic mood disorder documented in this encounter [facility] Work Phone: Evaluation note* Diagnosis Nonintractable epilepsy without status epilepticus, unspecified epilepsy type (Multi)- Primary Anxiety disorder, unspecified type Intellectual disability Unspecified mental retardation documented in this encounter [facility] Work Phone: History of Present illness Narrative* This visit was completed via [employer] due to the restrictions of the COVID-19 [...] exception of an increased appetite) are noted. BX-Bwpxxognbi-Ifeptj 220 Work Phone: History of Present illness Narrative* This visit was completed via [employer] due to the restrictions of the COVID-19 [...] and was agitated. She was taken to [facility]. During this time, she was not sleeping at night and was more upset. She slept last Sunday night after receiving Ambien. [facility] She was better after a fluid load.She was on cefdinir. She has been sleeping. Today, she is walking well. [facility] 220 Work Phone: History of Present illness Narrative* This visit was completed via [employer] due to the restrictions of the COVID-19 [...] and was agitated. She was taken to [facility]. During this time, she was not sleeping at night and was more upset. She slept last Sunday night after receiving Ambien. Testing at [facility] was except an increased WBC count She was better after a fluid load.She was on cefdinir.She has been sleeping. Today, she is walking well. WX-Ikobzkekxb-Ymisst 220 Work Phone: History of Present illness Narrative* This visit was completed via [employer] due to the restrictions of the COVID-19 [...] and was agitated. She was taken to [facility]. During this time, she was not sleeping at night and was more upset. She slept last Sunday night after receiving Ambien. Testing at [facility] was except an increased WBC count She was better after a fluid load.She was on cefdinir.She has been sleeping. Today, she is walking well. VT-Edjgyfxmrt-Zkaenmnxu-Admin RBC 585 Work Phone: History of Present illness Narrative* This visit was completed via [employer] due to the restrictions of the COVID-19 [...] and was agitated. She was taken to [facility]. During this time, she was not sleeping at night and was more upset. She slept last Sunday night after receiving Ambien. Testing at [facility] was except an increased WBC count She was better after a fluid load. She was on cefdinir. JZ-Ehjrbamamf-Ertmin 220 Work Phone: History of Present illness Narrative* This visit was completed via [employer] due to the restrictions of the COVID-19 [...] and was agitated. She was taken to [facility]. During this time, she was not sleeping at night and was more upset. She slept last Sunday night after receiving Ambien. Testing at [facility] was except an increased WBC count She was better after a fluid load. She was on cefdinir. VW-Sleypucgmy-Jqqysjcts-Admin RBC 585 Work Phone: History of Present illness Narrative* This visit was completed [facility]. All issues as below were discussed and [...] and was agitated. She was taken to [facility]. During this time, she was not sleeping at night and was more upset. She slept last Sunday night after receiving Ambien. Testing at [facility] was except an increased WBC count She was better after a fluid load. She was on cefdinir. * Amena was admitted to [facility] due to worsening behavior (throw self down, aggression,hitting self). She had a tooth/dental abscess treated with antibiotics. She was readmitted to [facility] for worsening behavior and was found to have a fractured rib and tailbone. Behavior isbetter at this time. She has a scheduled dental surgery on June 27, 2023. * Eber had a gastrointestinal illness in October 2022. TN-Masfxjzljk-Lnpvwwzyl-Admin RBC 585 Work Phone: Hospital Discharge instructions Additional Instructions Take Ativan if needed for anxiety/aggression Rest Push fluids Continue home medications as scheduled This important that you follow-up with PCP to see about any further adjustments of medications Continue antibiotics as prescribed Return for any difficulty breathing, vomiting, fever, low blood pressure. [facility] Work Phone: Reason for referral (narrative)* Consultation (Routine) - Authorized Specialty Diagnoses / Procedures Referred By Joann aceves Referred To Contact Pediatric Neurology Diagnoses Anxiety disorder, unspecified type Mood disorder ([facility]) Procedures Follow Up [place] [address] Department of Pediatric[place] [address] Referral ID Status Reason Start Date Expiration Date V isits Requested Visits Authorized [id number] Authorized 12/06/2023 12/05/2024 1 1 [facility] Work Phone: Family History Mother Name Dates [...] office visit * Accompanied by mother and correction staff. * follow up office visit * Accompanied by mother and correction staff. Chief Complaint and Reason for Visit Chief Complaint MHP ( UTI ) Additional Source Comments INFORMATION SOURCE (unrecogn ized section and content) DATE CREATED AUTHOR 11/09/2021 [facility] DATE CREATED AUTHOR AUTHOR'S ORGANIZ ATION 03/02/2023 [facility] DATE CREATED AUTHOR AUTHOR'S ORGANIZ ATION 04/05/2023 [facility] DATE CREATED AUTHOR AUTHOR'S ORGANIZ ATION 06/09/2023 [facility] DATE CREATED AUTHOR AUTHOR'S ORGANIZ ATION 06/09/2023 [employer] DATE CREATED AUTHOR AUTHOR'S ORGANIZ ATION 08/16/2023 [facility] DATE CREATED AUTHOR AUTHOR'S ORGANIZ ATION 09/29/2023 [facility] DATE CREATED AUTHOR AUTHOR'S ORGANIZ ATION 12/07/2024 [facility] Care Teams (unrecognized sec tion and content) Team Status: Active Member Role Status Dates Simon Haas DO Primary Care Provider Active Team Status: Inactive Member Role Status Dates Simon Haas DO Primary Care Provider Active Vanessa Munoz MD Emergency Provider Active Official Greeter Relationship Specialty Start Date End Date Simon Haas DO [address] [place] [address] PCP - General 12/12/10 [place] [address] Department of Pediatric[place] [address] PCP - [facility] Medicaid PCP 12/23/22 Official Greeter Relationship Specialty Start Date End Date Simon Haas DO [address] [place] [address] PCP - General 12/12/10 [place] [address] Department of Pediatric[place] [address] PCP - [facility] Medicaid PCP 12/23/22 Official Greeter Relationship Specialty Start Date End Date Simon Haas DO [address] [place] [address] PCP - General 12/12/10 [place] [address] Department of [place] [address] PCP - [facility] Medicaid PCP 06/24/24 Goals [...] THE PRIMARY CLINICAL RECORDS. [facility] EHR [facility]. provides no warranty or guarantee of the accuracy or completeness of information in this document.
[2025-05-26 12:33] LABS: Glucose Urine UA NEGATIVE (NEGATIVE)
== END 2025-05-26 11:15 | disposition home or self-care (01) ==
LOC: LAB 11:14
PROVIDERS: PCP Family Medicine; Visit Provider Family Medicine
DX: R45.1 Restlessness and agitation (principal); R53.1 Weakness; R33.9 Retention of urine, unspecified
CPT/HCPCS: 81003

== ENCOUNTER 2025-07-01 07:00 | Outpatient (OUT) | payer MEDICAID, SELFPAY ==
--- OUTSIDE RECORDS SUMMARY | 2025-06-18 10:40 | XMS_ITS | Encounter Summary ---
Author Organization [facility] Address [address] [place] [address] Phone Care Team Providers Care Digitizer Name Role Phone Simon Tracey DO Primary Care Provider Cruz Adler MD Unavailable [phone] Reason for Visit * Reason Comments Follow-up Encounter Details Date Type Department Care Team (Latest Contact Info) Description 06/18/2025 10:40 AM EDT Office Visit [facility] [address] [place] [address] [place] [address] Department of Pediatrics-Neuro [place], [place] [id number] Nonintractable epilepsy without status epilepticus, unspecified epilepsy type (Multi) (Primary Dx); Anxiety disorder, unspecified type; Disruptive behavior disorder; Intellectual disability Discharge Disposition: Home Social History Tobacco Use Types Packs/Day Years [...] on file documented as of this encounter Last Filed Vital Signs Vital Sign Reading Time Taken Comments Blood Pressure - - Pulse - - Temperature - - Respiratory Rate - - Oxygen Saturation - - Inhaled Oxygen Concentration - - Weight 56 kg (123 lb 5.6 oz) 06/18/2025 10:35 AM EDT Height 160 cm (5' 3 ) 06/18/2025 10:35 AM EDT Body Mass Index 21.85 06/18/2025 10:35 AM EDT documented in this encounter Functional Status * Communicable Disease Screening Question Answer Date of Assessment Author Do you have any of the following new or worsening symptoms? None of these 06/18/2025 10:05 AM EDT Corky Quiroz documented as of this encounter Patient Instructions * Patient Instructions* Cruz Adler MD - 06/18/2025 10:40 AM EDT Cyndi's overall behavior is good. Her poor sleep streak in late April- May 2025 may have been associated with illness or with medication side effect since it has slowed in the last week. Eating appears to be influenced by food choices. Her shoe interest is unchanged. No change in medication Agree with behavioral approaches (remove shoes so she can focus on other activity, encourage activity so she is tired at night) Check a valproic acid level, CBC, comprehensive metabolic panel and lipids as her yearly lab by theend of the year Follow up in 6 months documented in this encounter Progress Notes * Cruz Adler MD - 06/18/2025 10:40 AM EDT Toshia Singleton is a 35 y.o. woman with intellectual disability and behavioral challenges. ELENI Beckwith is a 35 year old young woman with seizures, cognitive impairment and anxiety. Affect and anxiety are stable. She is normally in a good mood. She is sensitive to commotion and change in the [facility], such as different/changing staff members. She has a habit of putting on and removing or throwing shoes (hers and others). She is in a day program 2 days weekly (Sunday and Sunday) and doesactivity such as sorting. She is less likely to eat lunch (cold cut sandwich) and eats well at home. She had days when she did not sleep, this improving after stopping Periactin. Parents report good behavior at home. She sits with the family at mealtime and plays with her toys.She watches music on TV. When she stays overnight, she has a good night's sleep. Amena gets Colace and Senna for bowel function with improved function. She has no seizures. Shetakes bupropion 100 mg SR BID, Depakote sprinkles 3 BID (level 53.5 ugm/ml), Risperidone 0.5 mg qHS(lower dose with no change and treatment options available if stopped and new medication is needed), and fluoxetine 40 mg daily. No medication side effects are noted. Amena was in the hospital early 2021 due to a problem with her right leg and a diagnosis of rhabdomyolysis. Amena was admitted to [facility] due to worsening behavior (throw self down,aggression, hitting self). She had a tooth/dental abscess treated with antibiotics. She was readmitted to [facility] for worsening behavior and was found to have a fractured rib and tailbone.She had a syncopal spell on 06/01/25 that has not recurred since stopping Periactin and maintaining hydration. Labs in September 2024 VPA 50.4 mcg/ml Normal CBC Review of Systems A review of systems finds no pertinent positives. Depo-Provera was stopped with a concern for behavioral worsening with menses. She gets loratadine and montelukast for respiratory issues. She gets Prolia for bone health. Objective Neurological Exam Mental Status Awake and alert. Sits quietly and eats snacks Good mood Lets me shake her hand. Motor No abnormal involuntary movements. Coordination No tremor or ataxia. Physical Exam Constitutional: General: She is awake. Neurological: Mental Status: She is alert. Assessment/Plan Cyndi's overall behavior is good. Her poor sleep streak in late April- May 2025 may have been associated with illness or with medication side effect since it has slowed in the last week. Eating appears to be influenced by food choices. Her shoe interest is unchanged. No change in medication Agree with behavioral approaches (remove shoes so she can focus on other activity, encourage activity so she is tired at night) Check a valproic acid level, CBC, comprehensive metabolic panel and lipids as her yearly lab by theend of the year Follow up in 6 months documented in this encounter Plan of Treatment Upcoming Encounters Date Type Department Care Team (Late st Contact Info) Description 12/17/2025 10:40 AM EDT Office Visit [facility] [address] [place] [id number] [place] [address] Department [place] [address] documented as of this encounter Visit Diagnoses Diagnosis Nonintractable epilepsy without status epilepticus, unspecified epilepsy type (Multi)- Primary Anxiety disorder, unspecified type Disruptive behavior disorder Unspecified disturbance of conduct Intellectual disability Unspecified mental retardation documented in this encounter Additional Health Concerns Assessment Noted Time A fall risk assessment has been complete d for the patient 06/18/2025 10:40 AM EDT documented as of this encounter Care Teams Digitizer Relationship Specialty Start Date End Date Simon Tracey DO [address] [place] [address] PCP - General 12/12/10 [place] [address] Department [place] [address] PCP - [facility] Medicaid PCP 06/24/24 documented as of this encounter
--- OUTSIDE RECORDS SUMMARY | 2025-07-01 07:02 | XMS_ITS | Encounter Summary ---
Author Organization [facility] Address [address] [place] [address] Phone Care Team Providers Care Hand Mica Plate Layer Name Role Phone Simon Tracey DO Primary Care Provider Cruz Adler MD Unavailable [phone] Cruz Adler MD Unavailable [phone] Encounter Details Date Type Department Care Team (Late st Contact Info) Description 09/26/2023 Patient Risk Score [facility] [address] [place] [address] Social History Tobacco Use Types [...] Description 12/17/2025 10:40 AM EDT Office Visit [facility] [address] [place] [address] [place] [address] [address] Department of Pediatrics-Neurology [place], [place] [id number] documented as of this encounter Visit Diagnoses Not on filedocumented in this encounter Care Teams Hand Mica Plate Layer Relationship Specialty Start Date End Date Simon Tracey DO [address] [place] [address] PCP - General 12/12/10 [place] [address] Department of [place] [address] PCP - [facility] Medicaid PCP 12/23/22 4 [place] [address] Department [place] [address] PCP - [facility] Medicaid PCP 06/24/24 documented as of this encounter
--- OUTSIDE RECORDS SUMMARY | 2025-07-01 07:02 | XMS_ITS | Encounter Summary ---
Author Organization [facility] Address [address] [place] [address] Care Team Providers Care Developer Support Engineer Name Role Phone Unavailable Primary Care Provider [...]
--- OUTSIDE RECORDS SUMMARY | 2025-07-01 07:02 | XMS_ITS | Encounter Summary ---
Author Organization [facility] Address [address] [place] [address] Phone Care Team Providers Care Denitrator Name Role Phone Simon Tracey DO Primary Care Provider Cruz Adler MD Unavailable [phone] Encounter Details Date Type Department Care Team (Latest Contact Info) Description 06/18/2025 Travel Social History Tobacco Use Types Packs/Day Years [...] on file documented as of this encounter Functional Status * Communicable Disease Screening Question Answer Date of Assessment Author Do you have any of the following new or worsening symptoms? None of these 06/18/2025 10:05 AM EDT Corky Quiroz documented as of this encounter Plan of Treatment Upcoming Encounters Date Type Department Care Team (Late st Contact Info) Description 12/17/2025 10:40 AM EDT Office Visit [facility] [address] [place] [address] [place] [address] Department of Pediatrics-Neurology [place], [place] [id number] documented as of this encounter Visit Diagnoses Not on filedocumented in this encounter Additional Health Concerns Assessment Noted Time A fall risk assessment has been complete d for the patient 06/18/2025 10:40 AM EDT documented as of this encounter Care Teams Denitrator Relationship Specialty Start Date End Date Simon Tracey DO [address] [place] [address] PCP - General 12/12/10 [place] [address] [address] Department [place] [address] PCP - [facility] Medicaid PCP 06/24/24 documented as of this encounter
--- OUTSIDE RECORDS SUMMARY | 2025-07-01 07:02 | XMS_ITS | Encounter Summary ---
Author Organization [facility] Address [address] [place] [address] Phone Care Team Providers Care Digital Media Buyer Name Role Phone Simon Tracey DO Primary Care Provider Cruz Adler MD Unavailable [phone] Encounter Details Date Type Department Care Team (Late st Contact Info) Description 06/27/2025 Patient Risk Score [facility] Care Management [address] [place] [address] Social History Tobacco Use Types [...] Description 12/17/2025 10:40 AM EDT Office Visit [facility] [address] [place] [address] [place] [address] [address] Department of Pediatrics-Neurology [place], [place] [id number] documented as of this encounter Visit Diagnoses Not on filedocumented in this encounter Additional Health Concerns Assessment Noted Time A fall risk assessment has been complete d for the patient 06/18/2025 10:40 AM EDT documented as of this encounter Care Teams Digital Media Buyer Relationship Specialty Start Date End Date Simon Tracey DO [address] [place] [address] PCP - General 12/12/10 [place] [address] [address] Department [place] [address] PCP - [facility] Medicaid PCP 06/24/24 documented as of this encounter
--- OUTSIDE RECORDS SUMMARY | 2025-07-01 07:02 | XMS_ITS | Encounter Summary ---
Author Organization [facility] Address [address] [place] [address] Phone Care Team Providers Care Plateman Name Role Phone Simon Trcaey DO Primary Care Provider Cruz Adler MD Unavailable [phone] Cruz Adler MD Unavailable [phone] Encounter Details Date Type Department Care Team (Late st Contact Info) Description 06/26/2023 Patient Risk Score [facility] [address] [place] [address] Social History Tobacco Use Types [...] 12/17/2025 10:40 AM EDT Office Visit [facility] [address] [place] [address] [place] [address] [address] Department of Pediatrics-Neurology [place], [place] [id number] documented as of this encounter Visit Diagnoses Not on filedocumented in this encounter Care Teams Plateman Relationship Specialty Start Date End Date Simon Tracey DO [address] [place] [address] PCP - General 12/12/10 [place] [address] [address] Department [place] [address] PCP - [facility] Medicaid PCP 12/23/22 4 [place] [address] Department [place] [address] PCP - [facility] Medicaid PCP 06/24/24 documented as of this encounter
--- OUTSIDE RECORDS SUMMARY | 2025-07-01 07:02 | XMS_ITS | Encounter Summary ---
Author Organization [facility] Address [address] [place] [address] Phone Care Team Providers Care Patient Registration Representative Name Role Phone Simon Tracey DO Primary Care Provider Cruz Adler MD Unavailable [phone] Cruz Adler MD Unavailable [phone] Encounter Details Date Type Department Care Team (Late st Contact Info) Description 05/27/2023 Patient Risk Score [facility] [address] [place] [address] Social History Tobacco Use Types [...] Description 12/17/2025 10:40 AM EDT Office Visit [facility] [address] [place] [address] [place] [address] Department of Pediatrics-Neurology [place], [place] [id number] documented as of this encounter Visit Diagnoses Not on filedocumented in this encounter Care Teams Patient Registration Representative Relationship Specialty Start Date End Date Simon Tracey DO [address] [place] [address] PCP - General 12/12/10 [place] [address] Department [place] [address] PCP - [facility] Medicaid PCP 12/23/22 4 [place] [address] Department [place] [address] PCP - [facility] Medicaid PCP 06/24/24 documented as of this encounter
--- OUTSIDE RECORDS SUMMARY | 2025-07-01 07:02 | XMS_ITS | Encounter Summary ---
Author Organization [facility] Address [address] [place] [address] Phone Care Team Providers Care Leasing Director Name Role Phone Simon Tracey DO Primary Care Provider Cruz Adler MD Unavailable [phone] Cruz Adler MD Unavailable [phone] Encounter Details Date Type Department Care Team (Late st Contact Info) Description 07/27/2023 Patient Risk Score [facility] Care [facility] [address] [place] [address] Social History Tobacco Use Types [...] Description 12/17/2025 10:40 AM EDT Office Visit [facility] [address] [place] [address] [place] [address] Department of Pediatrics-Neurology [place], [place] [id number] documented as of this encounter Visit Diagnoses Not on filedocumented in this encounter Care Teams Leasing Director Relationship Specialty Start Date End Date Simon Tracey DO [address] [place] [address] PCP - General 12/12/10 [place] [address] Department [place] [address] PCP - [facility] Medicaid PCP 12/23/22 4 [place] [address] Department [place] [address] PCP - [facility] Medicaid PCP 06/24/24 documented as of this encounter
--- OUTSIDE RECORDS SUMMARY | 2025-07-01 07:02 | XMS_ITS | CCD ---
Author Organization [facility] CliniSyri Care Team Providers Care Medical Pathologist Name Role Phone Cruz Adler Unavailable Unavailable [...] DR SIMON Louis Consulting Unavailable ZIEBER, DR RNIA Shoemaker Consulting Unavailable HAAS, DR SIMON Louis [...] Simon Louis Primary Care Provider MD Vanessa Mnuoz Emergency Provider Simon Haas Primary Care Unavailable [...] Unavailable HaasSimon berger DO Primary Care Provider Vitor BENTLEY, Cruz Unavailable Simon Haas DO Primary Care Provider Vitor BENTLEY, Cruz Unavailable CRUZ ADLER Attending Unavailable SIMON HAAS Primary Care Unavailab le CRUZ ADLER Attending Unavailable SIMON HAAS Primary Care Unavailab le Allergies Allergy Classification Reported Allergen(s) Allergy Type Date of Onset Reaction(s) Facility (16 sources) Meperidine; Translations: [Demerol TABS] [facility] Meperidine Drug Allergy 2 [facility] (1 source) Methylphenidate Drug Allergy 2 [facility] (1 source) Pseudoephedrine Drug Allergy 2 [facility] (4 sources) Meperidine; Translations: [meperidine] Drug Allergy 5 Unknown Reaction [facility] (2 sources) Methylphenidate; Translations: [methylphenidate] Drug Allergy 3 Unknown Reaction [facility] (1 source) Meperidine; Translations: [Demerol HCl] Drug Allergy [facility] Repository Medications Current Medications Medication Drug [...] Active buPROPion hydrochloride 100 mg oral tablet (19 sources) Aminoketone take 1 tablet by mouth twice daily buPROPion (Wellbutrin) 100 mg tablet Take 1 tablet (100 mg) by mouth twice a day. Active take 1 tablet by mouth twice justo ly buPROPion HCl ER (SR) 100 MG Oral Tablet Extended Release 12 Hour TAKE 1 TABLET TWICE DAILY. Quantity: 0 Refills: 0 Ordered: 03-Sep-2014 DO Active cholecalciferol 0.05 mg oral capsule (19 sources) Vitamin D cholecalciferol (Vitamin D-3) 50 mcg (2,000 unit) capsule Take by mouth. Active Cholecalciferol (VITAMIN D3) 2000 UNITS CAPS Take by mouth. Active Vitamin D3 50 MC G (2000 UT) Oral Tablet Quantity: 0 Refills: 0 Ordered: 03-Sep-2014 DO Active 1 ml denosumab 60 mg/ml prefilled syringe (12 sources) RANK Ligand Inhibitor Start: 07-12-2021 Prolia 6 0 mg/mL syringe Inject under the skin. 07/12/2021 Active docusate sodium 100 mg oral capsule (12 sources) docusate sodium (Colace) 100 mg capsule [...] Pain. Active LORazepam 1 mg oral tablet (5 sources) Benzodiazepine Start: 03-29-2023 take 1 tablet [...] 200-250 tablets by mouth three times daily [place] Calcium/Vitamin D 200-250 MG-UNIT TABS TAKE TWO [...] sodium 125 mg delayed release oral capsule (19 sources) Mood Stabilizer, Anti-epileptic Agent Start: 04-05-2021 [...] 2013-09-21; Attention-deficit conduct and disruptive behavior disorders (17 sources) Disruptive behavior disorder; Translations: [Unspecified disturbance of conduct] Onset: 12-06-2023 12-06-2023 Chronic Comment on above: Added by Problem Mitzy aceves Migration; 2013-09-21; Attention-deficit, conduct, and disruptive behavior disorders (3 sources) Conduct disorder, unspecified; Translations: [Conduct disorder, unspecified] Onset: 11-30-2022 Chronic Developmental disorders (20 sources) Intellectual disability; Translations: [Unspecified intellectual disabilities] [...] 08-26-2022 Episodic Other aftercare (5 sources) Other halfway (current) drug therapy; Translations: [OTH LONGTERM CURRENT DRUG THERAPY] Onset: 08-29-2022 Episodic Other nervous system disorders (1 source) Unsteadiness on feet; Translations: [UNSTEADINESS ON FEET] Onset: 09-02-2022 Episodic Unclassified (2 sources) Intellectual disability; Translations: [Intellectual disability] Unclassified (1 source) Onset: 06-18-2025 06-18-2025 NEGATED: Highlighted row has not occurred!Residual codes; unclassified (11 sources) Disease Episodic Results Test Name Value Interpretation Reference Range Facility T3 on 09-28-2023 Free T3 [Mass/Vol] 2.8 pg/mL Invalid Interpretation Code 2.0-4.4 [facility] Comment on above: Result Comment: Perf ormed at: [facility] [address] [id number] PhD Zhang Connell Performed By: #### 2 334125, 61239111, 76482491, 4417366, 928123958, 0266426, 9681009, 3042775, 2405673 ####[address] [place] [address] [facility] 09-27-2023 Albumin [Mass/Vol] 4.0 g/dL Normal 3.3-5.0 [facility] Comment on above: Performed By: #### 2 403232, 45722499, 23092156, 8737074, 091970577, 9530680, 8738107, 1545944, 3018951 #### [facility] [address] [place] [address] Albumin/Globulin [Mass ratio] 1.5 {ratio} Normal 1.1-2.2 [facility] Comment on above: Performed By: #### 2 685727, 44208735, 36603120, 5880574, 566047678, 4382791, 0189586, 4501496, 5477069 #### [facility] [address] [place] [address] Alk Phos 40 Int._Unit/L Normal 21-98 [facility] Comment on above: Performed By: #### 2 433015, 37470243, 55412348, 2534865, 767389141, 7835631, 6077534, 7688472, 8200153 #### [facility] [address] [place] [address] ALT 12 Int._Unit/L Normal 6-46 [facility] Comment on above: Performed By: #### 2 040625, 25102623, 74670334, 7659114, 404263850, 9787933, 2206550, 8695200, 6250257 #### [facility] [address] [place] [address] Anion gap [Moles/Vol] 14 mmol/L Normal 6-16 [facility] Comment on above: Performed By: #### 2 860063, 95122120, 09870231, 8145981, 579159741, 8087947, 6576021, 8683834, 7467262 #### [facility] [address] [place] [address] AST 18 Int._Unit/L Normal 5-43 [facility] Comment on above: Performed By: #### 2 752772, 81078361, 33797766, 0414737, 877038953, 0285957, 7921092, 3164898, 8829073 #### [facility] [address] [place] [address] Bili Total 0.5 mg/dL Normal 0.0-1.1 [facility] Comment on above: Performed By: #### 2 175765, 40553858, 68254853, 6568549, 879997748, 6791594, 5209121, 5088511, 4274221 #### [facility] [address] [place] [address] BUN/Creat Ratio 16 No Units Normal 10-20 [facility] Comment on above: Performed By: #### 2 888988, 17350440, 15980875, 4030725, 873192700, 7155552, 0235525, 1388804, 7908189 #### [facility] [address] [place] [address] Calcium [Mass/Vol] 9.4 mg/dL Normal 8.9-11.1 [facility] Comment on above: Performed By: #### 2 864405, 66525045, 01797031, 2916338, 004689195, 5198166, 5875848, 0694331, 8847021 #### [facility] [address] [place] [address] Chloride [Moles/Vol] 106 mmol/L Normal 101-111 [facility] Comment on above: Performed By: #### 2 120615, 75924340, 95427416, 0492397, 718796333, 6688421, 8907220, 5523978, 6496130 #### [facility] [address] [place] [address] CO2 [Moles/Vol] 25 mmol/L Normal 21-31 [facility] Comment on above: Performed By: #### 2 700775, 79996037, 52900479, 2226908, 867520429, 4620529, 4607820, 4446685, 9005606 #### [facility] [address] [place] [address] Creatinine [Mass/Vol] 0.7 mg/dL Normal 0.5-1.3 [facility] Comment on above: Performed By: #### 2 195391, 14937639, 61962065, 9092343, 450272063, 3636027, 7917763, 4052467, 9172315 #### [facility] [address] [place] [address] Globulin (S) [Mass/Vol] 2.7 g/dL Normal 1.4-4.0 [facility] Comment on above: Performed By: #### 2 894347, 80763973, 56741018, 8063387, 851940771, 2342624, 5742019, 9248586, 9748811 #### [facility] [address] [place] [address] Glucose [Mass/Vol] 86 mg/dL Normal 55-199 [facility] Comment on above: Performed By: #### 2 643843, 51399734, 86867710, 5522020, 860136944, 5210723, 7288408, 3816890, 1027094 #### [facility] [address] [place] [address] Potassium [Moles/Vol] 4.5 mmol/L Normal 3.5-5.3 [facility] Comment on above: Performed By: #### 2 802502, 53331211, 25517819, 9784197, 349058767, 4294340, 8583840, 4771969, 6344360 #### [facility] [address] [place] [address] Protein [Mass/Vol] 6.7 g/dL Normal 6.0-7.8 [facility] Comment on above: Performed By: #### 2 493474, 59437338, 20035782, 3980958, 560675298, 5873838, 7431506, 8928231, 7010057 #### [facility] [address] [place] [address] Sodium [Moles/Vol] 140 mmol/L Normal 135-145 [facility] Comment on above: Performed By: #### 2 212200, 43866742, 19058166, 5732938, 822548704, 0967409, 3609382, 7416917, 6354429 #### [facility] [address] [place] [address] Urea nitrogen [Mass/Vol] 11 mg/dL Normal 5-21 [facility] Comment on above: Performed By: #### 2 074139, 99744189, 92821591, 4432614, 254620788, 9471287, 1342303, 4528175, 1310998 #### [facility] [address] [place] [address] Free T4on 09-27-2023 Free T4 [Mass/Vol] 0.80 ng/dL Normal 0.58-1.64 [facility] Comment on above: Performed By: #### 2 717945, 00500075, 39712226, 0611215, 992764379, 5685555, 6771109, 0888868, 1787974 #### [facility] [address] [place] [address] Prealbuminon 09-27-2023 Prealbumin [Mass/Vol] 24 mg/dL Normal 17-42 [facility] Comment on above: Performed By: #### 2 148279, 18902810, 95899084, 0562429, 192732212, 5826707, 0401973, 6021230, 6648792 #### [facility] [address] [place] [address] TSHon 09-27-2023 TSH Qn 0.97 m[IU]/L Normal 0.34-5.60 [facility] Comment on above: Performed By: #### 2 186538, 03423333, 77693124, 5210072, 154513878, 2174072, 6269666, 3388384, 6224926 #### [facility] [address] [place] [address] Vitamin D 25 Hydroxyon 09-27 Vitamin D 25 Hydroxy 44.5 ng/mL Normal 30.0-100.0 [facility] Comment on above: Performed By: #### 2 598317, 56589070, 20570697, 8771781, 357385343, 3586721, 5730817, 1680467, 6900098 #### [facility] [address] [place] [address] eGFRon 09-27-2023 GFR/1.73 sq M.predicted among non-blacks MDRD (S/P/Bld) [Vol rate/Area] mL/min/{1.73_m2} Normal >=59 [facility] Comment on above: Order Comment: Order added by Discern Expert. Performed By: #### 2 216924, 41924933, 27263672, 6272119, 355391484, 1265133, 3142258, 2145467, 2300785 #### [facility] [address] [place] [address] CBC w/Indiceson 09-26-2023 Erythrocyte distribution width (RBC) [Ratio] 13.8 % Normal 10.9-14.2 [facility] Comment on above: Performed By: #### 2 775115, 18329561, 48254219, 4295031, 445839843, 7105840, 1852270, 9326652, 8066213 #### [facility] [address] [place] [address] Hematocrit (Bld) [Volume fraction] 40.2 % Normal 34.0-46.0 [facility] Comment on above: Performed By: #### 2 430495, 91870768, 27709042, 9486866, 269146447, 2593649, 9888026, 6798533, 5507622 #### [facility] [address] [place] [address] Hemoglobin (Bld) [Mass/Vol] 13.6 g/dL Normal 12.0-16.0 [facility] Comment on above: Performed By: #### 2 326116, 90930175, 09480654, 2680118, 525030769, 7434098, 2309711, 3888204, 4895755 #### [facility] [address] [place] [address] MCH (RBC) [Entitic mass] 30.3 pg Normal 27.0-34.0 [facility] Comment on above: Performed By: #### 2 803905, 33368734, 36206355, 4816395, 836847617, 1788056, 9242909, 7537644, 2583026 #### [facility] [address] [place] [address] MCHC (RBC) [Mass/Vol] 34.0 g/dL Normal 31.4-36.0 [facility] Comment on above: Performed By: #### 2 513955, 34761815, 37973300, 3304204, 024285860, 2350957, 6242972, 3697628, 1435326 #### [facility] [address] [place] [address] MCV (RBC) [Entitic vol] 89.0 fL Normal 80.0-100.0 [facility] Comment on above: Performed By: #### 2 566188, 83839758, 66743067, 6583285, 038565700, 3689313, 3303182, 7739931, 8557718 #### [facility] [address] [place] [address] Platelet mean volume (Bld) [Entitic vol] 7.9 fL Normal 6.4-10.8 [facility] Comment on above: Performed By: #### 2 395467, 09090980, 70375851, 3324530, 613416760, 5056657, 8238291, 3224200, 1296046 #### [facility] [address] [place] [address] Platelets (Bld) [#/Vol] 336.0 E9/L Normal 150.0-500.0 [facility] Comment on above: Performed By: #### 2 867359, 66815511, 54794601, 6091164, 882583833, 1935445, 2884393, 1320899, 4499807 #### [facility] [address] [place] [address] RBC (Bld) [#/Vol] 4.5 E12/L Normal 4.3-5.9 [facility] Comment on above: Performed By: #### 2 554053, 38383174, 74961978, 9138107, 433117133, 1174925, 9474103, 1014708, 2903061 #### [facility] [address] [place] [address] WBC corrected for nucl RBC Auto (Bld) [#/Vol] 9.6 E9/L Normal 4.0-11.0 [facility] Comment on above: Performed By: #### 2 633417, 09578627, 01497269, 2539594, 751004590, 2305256, 3548100, 1127195, 2492010 #### [facility] [address] [place] [address] Physician Orderon 09-26-2023 Physician Order [id number] 6#1.00TIFF Normal [facility] Valproic Acidon 09-26-2023 Valpro Acid Lvl 50 microgram/mL Normal 50-99 [facility] Comment on above: Performed By: #### 2 466409, 18052853, 33255123, 8787168, 287928721, 9908121, 6975620, 6146445, 0885562 #### [facility] [address] [place] [address] [employer] Workers Comp Forms [id number] 4#1.00TIFF Normal [facility] Progress Noteson 08-09-2023 Transit Worker Authentication Interface Message Text ----- July at 12:29:46 PM ----- ----- Provider: [id number] Max Bradshaw, -- Clinic: [place] ----- OR EVALUATION Patient presents for evaluation [...] available. Legal Guardian: Brody and/or Altagracia Singleton home;[phone] [facility]; [phone] [facility]; [phone] Next Visit: OR ----- Signed on July at 1:47:32 PM ----- ----- Provider: [id number] Max Samson DDS -- Clinic: [place] ----- Normal [facility]07-2023 Follow-up visit Diagnoses/Problems Anxiety disorder (300.00) [...] up office visit Accompanied by mother and prison staff. History of Present Illness This visit [...] and was agitated. She was taken to [facility]. During this time, she was not sleeping at night and was more upset. She slept last Sunday night after receiving Ambien. Testing at [facility] was except an increased WBC count She was better after a fluid load. She was on cefdinir. Amena was admitted to [facility] due to worsening behavior (throw self down, aggression, hitting self). She had a tooth/dental abscess treated with antibiotics. She was readmitted to [facility] for worsening behavior and was found [...] Anxiety Social History Depo-Provera shot Lives in prison (V60.6) (Z59.3) Never smoker No alcohol use Allergies Demerol TABS Recorded By: Vanessa Castro; 01/06/2014 2:44:07 PM Current Meds Medication NameInstruction buPROPion HCl ER (SR) 100 MG Oral Tablet Extended Release 12 HourTAKE 1 TABLET TWICE DAILY. Chest Congestion Relief 400 MG Oral TabletTAKE ONE TABLET BY MOUTH TWICE A DAY NEEDED FOR CONGESTION OR COUGH [place] Calcium/Vitamin D 200-250 MG-UNIT TABSTAKE TWO TABLETS BY MOUTH 3 TIMES DAILY Divalproex Sodium 125 MG Oral Capsule (more content not included)... [facility] abdomen pelvis w [facility] [place] [address] [place] [address] Scan Report Signed Patient: Amena Singleton MR#: [id number] : 1990 Acct:[id number] Age/Sex: 32 / F ADM Date: 03/29/23 Loc: ER Room: Type: [facility] ER Attending Dr: Copies to: MD [...] Kei Jordan M.D.03/30/2023 8:37 AM Dictation Location: [place] [address] Transcribed By: [facility] 03/30/23 0837 Dictated By: Kei Jordan DO 03/30/23 0832 Signed By: 03/30/23 0837 [facility] XR femur LT 2V*on 03-30-2023 XR femur LT 2V* [facility] [address] XRay Report Signed Patient: Amena Singleton MR#: [id number] : 1990 Acct:[id number] Age/Sex: 32 / F ADM Date: 03/29/23 Loc: ER Room: Type: [facility] ER Attending Dr: Copies to: Vanessa [...] Kei Jordan M.D.03/30/2023 8:53 AM Dictation Location: [place] [address] Transcribed By: [facility] 03/30/23 0853 Dictated By: Kei Jordan DO 03/30/23 0852 Signed By: 03/30/23 0853 Normal [facility] Alanine aminotransferase [En zymatic activity/volume] in Serum or PlasmaOrdered By: Rocio Emmanuel on 03-29-2023 ALT [Catalytic activity/Vol] 28 U/L 7-52 [facility] Albumin [Mass/volume] in Ser um or Plasma by Bromocresol green (BCG) dye binding methoOrdered By: Rocio Emmanuel on 03-29-2023 Albumin BCG dye [Mass/Vol] 3.9 g/dL 3.5-5.7 [facility] Alkaline phosphatase [Enzyma tic activity/volume] in Serum or PlasmaOrdered By: Rocio Emmanuel on 03-29-2023 ALP [Catalytic activity/Vol] 47 U/L 34-104 [facility] Amphetamine Screen Ql (U)Ord ered By: Rocio Emmanuel on 03-29-2023 Amphetamines Ql (U) Negative Negative [facility] Aspartate aminotransferase [ Enzymatic activity/volume] in Serum or PlasmaOrdered By: Rocio Emmanuel on 03-29-2023 AST [Catalytic activity/Vol] 25 U/L 13-39 [facility] Automated erythrocytes count in urine sediment (number/area)Ordered By: Rocio Emmanuel on 03-29-2023 RBC Auto (Urine sed) [#/Area] 3-4 [HPF] 0-4 [facility] Automated leukocytes count i n urine sediment (number/area)Ordered By: Rocio Emmanuel on 03-29-2023 WBC Auto (Urine sed) [#/Area] 3-4 [HPF] 0-4 [facility] Band form neutrophils/100 WB C Manual cnt (Bld)Ordered By: Rocio Emmanuel on 03-29-2023 Band form neutrophils/100 WBC (Bld) 1 % 0-5 [facility] Barbiturates [Presence] in U rine by Screen methodOrdered By: Rocio Emmanuel on 03-29-2023 Barbiturates Screen Ql (U) Negative Negative [facility] Basophils Auto (Bld) [#/Vol] Ordered By: Rocio Emmanuel on 03-29-2023 Basophils (Bld) [#/Vol] N/A [facility] Basophils/100 WBC Auto (Bld) Ordered By: Rocio Emmanuel on 03-29-2023 Basophils/100 WBC (Bld) N/A [facility] Basophils/100 WBC Manual cnt (Bld)Ordered By: Rocio Emmanuel on 03-29-2023 Basophils/100 WBC (Bld) 0 % 0-2 [facility] Benzodiazepines Screen Ql (U )Ordered By: Rocio Emmanuel on 03-29-2023 Benzodiazepines Ql (U) Negative Negative [facility] Benzoylecgonine [Presence] i n Urine by Screen methodOrdered By: Rocio Emmanuel on 03-29-2023 Benzoylecgonine Screen Ql (U) Negative Negative [facility] Bilirubin Test strip Ql (U)O rdered By: Rocio Emmanuel on 03-29-2023 Bilirubin Ql (U) Negative Negative [facility] Bilirubin.total [Mass/volume ] in Serum or PlasmaOrdered By: Rocio Emmanuel on 03-29-2023 Bilirubin [Mass/Vol] 1.2 mg/dL 0.3-1.0 [facility] Calcium [Mass/volume] in Ser um or PlasmaOrdered By: Rocio Emmanuel on 03-29-2023 Calcium [Mass/Vol] 9.6 mg/dL 8.6-10.3 [facility] Cannabinoids [Presence] in U rine by Screen methodOrdered By: Rocio Emmanuel on 03-29-2023 Cannabinoids Screen Ql (U) Negative Negative [facility] Comment on above: These are unconfirme d results and should not be used for legal purposes. Drug Cut-Off Concentration: AMPH 1000 ng/mL ADRIA 200 ng/mL MARAH 200 ng/mL COCM 300 ng/mL OP 300 ng/mL PCP 25 ng/mL THC 20 ng/mL Carbon dioxide, total [Moles /volume] in Serum or PlasmaOrdered By: Rocio Emmanuel on 03-29-2023 CO2 [Moles/Vol] 27.9 mmol/L 21.0-31.0 [facility] Casts typing in urine sedime nt by light microscopyOrdered By: Rocio Emmanuel on 03-29-2023 Casts LM Nom (Urine sed) None seen [LPF] None Seen [facility] Chloride [Moles/volume] in S nayana or PlasmaOrdered By: Rocio Emmanuel on 03-29-2023 Chloride [Moles/Vol] 103 mmol/L 98-107 [facility] Color Auto (U)Ordered By: Co peter Emmanuel on 03-29-2023 Color (U) Dark yellow Yellow [facility] Comprehensive Metabolic Pane alexi 03-29-2023 Albumin [Mass/Vol] 3.9 g/dL Normal 3.5-5.7 [facility] Comment on above: Performed By: #### D IFF CBC, CMP, ETOH #### [facility] [address] Albumin/Globulin [Mass ratio] 1.6 {ratio} Normal [facility] Comment on above: Performed By: #### D IFF CBC, CMP, ETOH #### [facility] [address] [place] [address] [place] ALP [Catalytic activity/Vol] 47 U/L Normal 34-104 [facility] Comment on above: Performed By: #### D IFF CBC, CMP, ETOH #### [facility] [address] ALT [Catalytic activity/Vol] 28 U/L Normal 7-52 [facility] Comment on above: Performed By: #### D IFF CBC, CMP, ETOH #### [facility] [address] Anion gap [Moles/Vol] 13.0 mmol/L Normal 6.0-15.0 [facility] Comment on above: Performed By: #### D IFF CBC, CMP, ETOH #### [address] AST [Catalytic activity/Vol] 25 U/L Normal 13-39 [facility] Comment on above: Performed By: #### D IFF CBC, CMP, ETOH #### [address] Bilirubin [Mass/Vol] 1.2 mg/dL High 0.3-1.0 [facility] Comment on above: Performed By: #### D IFF CBC, CMP, ETOH #### [address] Calcium [Mass/Vol] 9.6 mg/dL Normal 8.6-10.3 [facility] Comment on above: Performed By: #### D IFF CBC, CMP, ETOH #### [place] [address] [place] Chloride [Moles/Vol] 103 mmol/L Normal 98-107 [facility] Comment on above: Performed By: #### D IFF CBC, CMP, ETOH #### [address] CO2 [Moles/Vol] 27.9 mmol/L Normal 21.0-31.0 [facility] Comment on above: Performed By: #### D IFF CBC, CMP, ETOH #### [address] [place] [address] [place] Creatinine [Mass/Vol] 0.57 mg/dL Low 0.60-1.20 [facility] Comment on above: Performed By: #### D IFF CBC, CMP, ETOH #### [facility] [address] Creatinine Clr Calc Pharmacy 123.48 Normal [facility] Comment on above: Result Comment: PERF ORMED BY: [facility] [address] [place] [address] PATHOLOGIST LENS GRINDER APPRENTICE BRENDON KANG M.D. Performed By: #### D IFF CBC, CMP, ETOH #### [facility] [address] GFR/1.73 sq M.predicted MDRD (S/P/Bld) [Vol rate/Area] mL/min/{1.73_m2} [facility] Comment on above: Performed By: #### D IFF CBC, CMP, ETOH #### [address] Globulin (S) [Mass/Vol] 2.4 g/dL Normal [facility] Comment on above: Performed By: #### D IFF CBC, CMP, ETOH #### [address] Glucose [Mass/Vol] 112 mg/dL High 70-100 [facility] Comment on above: Result Comment: [place] Glucose Reference Range is dependent on time and content of last meal. Glucose of more than 200 mg/dL in a nonstressed, ambulatory subject supports the diagnosis of Diabetes Mellitus. ADA recommended reference range Performed By: #### D IFF CBC, CMP, ETOH #### [facility] [address] Potassium [Moles/Vol] 4.9 mmol/L Normal 3.5-5.1 [facility] Comment on above: Performed By: #### D IFF CBC, CMP, ETOH #### [facility] [address] Protein [Mass/Vol] 6.3 g/dL Low 6.4-8.9 [facility] Comment on above: Performed By: #### D IFF CBC, CMP, ETOH #### [facility] [address] Sodium [Moles/Vol] 139 mmol/L Normal 136-145 [facility] Comment on above: Performed By: #### D IFF CBC, CMP, ETOH #### [facility] [address] [place] [address] [place] Urea nitrogen [Mass/Vol] 9 mg/dL Normal 7-25 [facility] Comment on above: Performed By: #### D IFF CBC, CMP, ETOH #### [facility] [address] Creatine Kinaseon 03-29-2023 CK [Catalytic activity/Vol] 528 U/L High 30- [facility] Comment on above: Result Comment: PERF ORMED BY: [place] [address] PATHOLOGIST LENS GRINDER APPRENTICE BRENDON KANG M.D. Performed By: #### C K #### [facility] [address] [place] [address] Creatine kinase [Enzymatic a ctivity/volume] in Serum or PlasmaOrdered By: Rocio Emmanuel on 03-29-2023 CK [Catalytic activity/Vol] 528 U/L 30- [facility] Creatinine [Mass/volume] in Serum or PlasmaOrdered By: Rocio Emmanuel on 03-29-2023 Creatinine [Mass/Vol] 0.57 mg/dL 0.60-1.20 [facility] Diff and CBCon 03-29-2023 Band form neutrophils/100 WBC (Bld) 1 % Normal 0-5 [facility] Comment on above: Performed By: #### D IFF CBC, CMP, ETOH #### [facility] [address] [place] [address] [place] Basophils/100 WBC (Bld) 0 % Normal 0-2 [facility] Comment on above: Performed By: #### D IFF CBC, CMP, ETOH #### [facility] [address] [place] [address] [place] Eosinophils/100 WBC (Bld) 1 % Normal 1-3 [facility] Comment on above: Performed By: #### D IFF CBC, CMP, ETOH #### [facility] [address] Erythrocyte distribution width (RBC) [Ratio] 13.2 % Normal 11.9-15.3 [facility] Comment on above: Performed By: #### D IFF CBC, CMP, ETOH #### [address] Hematocrit (Bld) [Volume fraction] 31.5 % Low 34.0-46.4 [facility] Comment on above: Performed By: #### D IFF CBC, CMP, ETOH #### [address] Hemoglobin (Bld) [Mass/Vol] 10.4 g/dL Low 11.8-15.4 [facility] Comment on above: Performed By: #### D IFF CBC, CMP, ETOH #### [address] Lymphocytes/100 WBC (Bld) 25 % Normal 18-42 [facility] Comment on above: Performed By: #### D IFF CBC, CMP, ETOH #### [address] MCH (RBC) [Entitic mass] 28.9 pg Normal 24.7-34.3 [facility] Comment on above: Performed By: #### D IFF CBC, CMP, ETOH #### [address] MCV (RBC) [Entitic vol] 87.2 fL Normal 80-100 [facility] Comment on above: Performed By: #### D IFF CBC, CMP, ETOH #### [address] Mean Corpuscular HGB Conc 33.1 g/dL Normal 32.0-35.0 [facility] Comment on above: Performed By: #### D IFF CBC, CMP, ETOH #### [facility] [address] [place] [address] Metamyelocytes 1 % High 0-0 [facility] Comment on above: Performed By: #### D IFF CBC, CMP, ETOH #### [facility] [address] Monocytes/100 WBC (Bld) 7 % Normal 2-11 [facility] Comment on above: Performed By: #### D IFF CBC, CMP, ETOH #### [facility] [address] Myelocytes 1 % High 0-0 [facility] Comment on above: Performed By: #### D IFF CBC, CMP, ETOH #### [address] Platelet Estimate Increased Normal Normal [facility] Comment on above: Performed By: #### D IFF CBC, CMP, ETOH #### [facility] [address] [place] [address] Platelet mean volume (Bld) [Entitic vol] 6.8 fL Normal 6.3-10.7 [facility] Comment on above: Performed By: #### D IFF CBC, CMP, ETOH #### [address] Platelet Morphology Normal Normal Normal [facility] Comment on above: Result Comment: PERF ORMED BY: [place] [address] PATHOLOGIST LENS GRINDER APPRENTICE BRENDON KANG M.D. Performed By: #### D IFF CBC, CMP, ETOH #### [place] [address] [place] Platelets (Bld) [#/Vol] 525 10*3/uL High 150-450 [facility] Comment on above: Performed By: #### D IFF CBC, CMP, ETOH #### [facility] [address] [place] [address] [place] Polychromasia Slight Normal [facility] Comment on above: Performed By: #### D IFF CBC, CMP, ETOH #### [facility] [address] [place] [address] [place] Promyelocytes 1 % High 0-0 [facility] Comment on above: Performed By: #### D IFF CBC, CMP, ETOH #### [facility] [address] RBC (Bld) [#/Vol] 3.61 10*6/uL Normal 3.60-5.00 [facility] Comment on above: Performed By: #### D IFF CBC, CMP, ETOH #### [facility] [address] [place] [address] Segmented neutrophils/100 WBC (Bld) 63 % Normal 50-70 [facility] Comment on above: Performed By: #### D IFF CBC, CMP, ETOH #### [facility] [address] [place] [address] [place] Stomatocytes Slight Normal [facility] Comment on above: Performed By: #### D IFF CBC, CMP, ETOH #### [facility] [address] [place] [address] [place] WBC (Bld) [#/Vol] 16.8 10*3/uL High 3.8-11.6 [facility] Comment on above: Performed By: #### D IFF CBC, CMP, ETOH #### [facility] [address] [place] [address] [place] Dipstick and Microscopicon 0 03-29-2023 Appearance (U) Clear Normal Clear [facility] Comment on above: Order Comment: Name Collection Type:: Clean-Voided Midstream Performed By: #### U HCG, URDS, ADDONUAPLUS #### [place] [address] [place] Bacteria,Urine None Seen Normal None Seen [facility] Comment on above: Order Comment: Name Collection Type:: Clean-Voided Midstream Performed By: #### U HCG, URDS, ADDONUAPLUS #### [place] [address] [place] Bilirubin,Urine Negative Normal Negative [facility] Comment on above: Order Comment: Name Collection Type:: Clean-Voided Midstream Performed By: #### U HCG, URDS, ADDONUAPLUS #### [facility] [address] Color (U) Dark Yellow Critically abnormal Yellow [facility] Comment on above: Order Comment: Name Collection Type:: Clean-Voided Midstream Performed By: #### U HCG, URDS, ADDONUAPLUS #### [facility] [address] Glucose Ql (U) Normal Normal Normal [facility] Comment on above: Order Comment: Name Collection Type:: Clean-Voided Midstream Performed By: #### U HCG, URDS, ADDONUAPLUS #### [facility] [address] [place] [address] [place] Hyaline Casts,Urine 1-2 Normal 0-8 [facility] Comment on above: Order Comment: Name Collection Type:: Clean-Voided Midstream Performed By: #### U HCG, URDS, ADDONUAPLUS #### [facility] [address] [place] [address] [place] Ketones Ql (U) Trace High Negative [facility] Comment on above: Order Comment: Name Collection Type:: Clean-Voided Midstream Performed By: #### U HCG, URDS, ADDONUAPLUS #### [facility] [address] [place] [address] [place] Leukocyte esterase Test strip Ql (U) 1+ High Negative [facility] Comment on above: Order Comment: Name Collection Type:: Clean-Voided Midstream Performed By: #### U HCG, URDS, ADDONUAPLUS #### [facility] [address] [place] [address] [place] Nitrite,Urine Negative Normal Negative [facility] Comment on above: Order Comment: Name Collection Type:: Clean-Voided Midstream Performed By: #### U HCG, URDS, ADDONUAPLUS #### [facility] [address] [place] [address] [place] Occult Blood,Urine Negative Normal Negative [facility] Comment on above: Order Comment: Name Collection Type:: Clean-Voided Midstream Performed By: #### U HCG, URDS, ADDONUAPLUS #### [address] Other Casts,Urine None Seen Normal None Seen [facility] Comment on above: Order Comment: Name Collection Type:: Clean-Voided Midstream Performed By: #### U HCG, URDS, ADDONUAPLUS #### [address] pH (U) 6.5 [pH] Normal 5.0-9.0 [facility] Comment on above: Order Comment: Name Collection Type:: Clean-Voided Midstream Performed By: #### U HCG, URDS, ADDONUAPLUS #### [address] Protein,Urine Trace High Negative [facility] Comment on above: Order Comment: Name Collection Type:: Clean-Voided Midstream Performed By: #### U HCG, URDS, ADDONUAPLUS #### [address] RBC,Urine 3-4 Normal 0-4 [facility] Comment on above: Order Comment: Name Collection Type:: Clean-Voided Midstream Performed By: #### U HCG, URDS, ADDONUAPLUS #### [address] Specificy [place],Urine 1.028 Normal 1.001-1.030 [facility] Comment on above: Order Comment: Name Collection Type:: Clean-Voided Midstream Performed By: #### U HCG, URDS, ADDONUAPLUS #### [address] Squamous Epithelial Cell,Urine 3-4 High 0-2 [facility] Comment on above: Order Comment: Name Collection Type:: Clean-Voided Midstream Performed By: #### U HCG, URDS, ADDONUAPLUS #### [address] Urobilinogen,Urine Normal Normal Normal [facility] Comment on above: Order Comment: Name Collection Type:: Clean-Voided Midstream Performed By: #### U HCG, URDS, ADDONUAPLUS #### [place] [address] [place] WBC,Urine 3-4 Normal 0-4 [facility] Comment on above: Order Comment: Name Collection Type:: Clean-Voided Midstream Performed By: #### U HCG, URDS, ADDONUAPLUS #### [place] [address] [place] Drug Screen,Urineon 03-29-20 Amphetamine Screen,Urine Negative Normal Negative [facility] Comment on above: Performed By: #### U HCG, URDS, ADDONUAPLUS #### [address] Barbiturate Screen,Urine Negative Normal Negative [facility] Comment on above: Performed By: #### U HCG, URDS, ADDONUAPLUS #### [place] [address] [place] Benzodiazepines Screen,Urine Negative Normal Negative [facility] Comment on above: Performed By: #### U HCG, URDS, ADDONUAPLUS #### [address] Cannabinoid Screen,Urine Negative Normal Negative [facility] Comment on above: Result Comment: Thes e are unconfirmed results and should not be used for legal purposes. Drug Cut-Off Concentration: AMPH 1000 ng/mL ADRIA 200 ng/mL MARAH 200 ng/mL COCM 300 ng/mL OP 300 ng/mL PCP 25 ng/mL THC 20 ng/mL PERFORMED BY: [place] [address] PATHOLOGIST LENS GRINDER APPRENTICE BRENDON KANG M.D. Performed By: #### U HCG, URDS, ADDONUAPLUS #### [address] Cocaine Screen,Urine Negative Normal Negative [facility] Comment on above: Performed By: #### U HCG, URDS, ADDONUAPLUS #### [facility] [address] Opiate Screen,Urine Negative Normal Negative [facility] Comment on above: Performed By: #### U HCG, URDS, ADDONUAPLUS #### [facility] [address] Phencyclidine Screen,Urine Negative Normal Negative [facility] Comment on above: Performed By: #### U HCG, URDS, ADDONUAPLUS #### [facility] [address] [place] [address] [place] Eosinophils Auto (Bld) [#/Vo l]Ordered By: Rocio Emmanuel on 03-29-2023 Eosinophils (Bld) [#/Vol] N/A [facility] Eosinophils/100 WBC Auto (Bl d)Ordered By: Rocio Emmanuel on 03-29-2023 Eosinophils/100 WBC (Bld) N/A [facility] Eosinophils/100 WBC Manual c nt (Bld)Ordered By: Rocio Emmanuel on 03-29-2023 Eosinophils/100 WBC (Bld) 1 % 1-3 [facility] Erythrocyte distribution wid th Auto (RBC) [Ratio]Ordered By: Rocio Emmanuel on 03-29-2023 Erythrocyte distribution width (RBC) [Ratio] 13.2 % 11.9-15.3 [facility] Ethanol [Mass/volume] in Ser um or PlasmaOrdered By: Rocio Emmanuel on 03-29-2023 Ethanol [Mass/Vol] mg/dL [facility] Ethanol [Mass/Vol] TNP [facility] Comment on above: Test not performed Ethyl Alcohol Profileon Ethanol [Mass/Vol] mg/dL Normal [facility] Comment on above: Performed By: #### D IFF CBC, CMP, ETOH #### [facility] [address] Percent Ethanol Not performed Normal [facility] Comment on above: Result Comment: PERF ORMED BY: [address] [place] [address] PATHOLOGIST LENS GRINDER APPRENTICE BRENDON KANG M.D. Performed By: #### D IFF CBC, CMP, ETOH #### [facility] [address] Globulin Calc (S) [Mass/Vol] Ordered By: Rocio Emmanuel on 03-29-2023 Globulin (S) [Mass/Vol] 2.4 g/dL [facility] Glucose [Mass/volume] in Ser um or PlasmaOrdered By: Rocio Emmanuel on 03-29-2023 Glucose [Mass/Vol] 112 mg/dL 70-100 [facility] Comment on above: ADA recommended refe rence rangeRandom Glucose Reference Range is dependent on time and content of last meal. Glucose of more than 200 mg/dL in a nonstressed, ambulatory subject supports the diagnosis of Diabetes Mellitus. HCG ( test) IA.rapi d Ql (U)Ordered By: Rocio Emmanuel on 03-29-2023 HCG ( test) Ql (U) Negative [facility] HCG,Urineon 03-29-2023 Beta HCG ( test) Ql (U) Negative Normal [facility] Comment on above: Order Comment: Name Collection Type:: Clean-Voided Midstream Result Comment: PERF ORMED BY: [place] [address] PATHOLOGIST LENS GRINDER APPRENTICE BRENDON KANG M.D. Performed By: #### U HCG, URDS, ADDONUAPLUS #### [facility] [address] Hematocrit Auto (Bld) [Volum e fraction]Ordered By: Rocio Emmanuel on 03-29-2023 Hematocrit (Bld) [Volume fraction] 31.5 % 34.0-46.4 [facility] Hemoglobin [Mass/volume] in BloodOrdered By: Rocio Emmanuel on 03-29-2023 Hemoglobin (Bld) [Mass/Vol] 10.4 g/dL 11.8-15.4 [facility] Ketones Auto test strip (U) [Mass/Vol]Ordered By: Rocio Emmanuel on 03-29-2023 Ketones (U) [Mass/Vol] Trace Negative [facility] - UrinalysisOrder ed By: Rocio Emmanuel on 03-29-2023 Hyaline casts LM Ql (Urine sed) 1-2 [LPF] 0-8 [facility] Leukocytes [#/volume] correc leanna for nucleated erythrocytes in Blood by Automated counOrdered By: Rocio Emmanuel on 03-29-2023 WBC corrected for nucl RBC Auto (Bld) [#/Vol] 16.8 10*3/uL 3.8-11.6 [facility] Lymphocytes Auto (Bld) [#/Vo l]Ordered By: Rocio Emmanuel on 03-29-2023 Lymphocytes (Bld) [#/Vol] N/A [facility] Lymphocytes/100 WBC Auto (Bl d)Ordered By: Rocio Emmanuel on 03-29-2023 Lymphocytes/100 WBC (Bld) N/A [facility] Lymphocytes/100 WBC Manual c nt (Bld)Ordered By: Rocio Emmanuel on 03-29-2023 Lymphocytes/100 WBC (Bld) 25 % 18-42 [facility] MCH Auto (RBC) [Entitic mass ]Ordered By: Rocio mEmanuel on 03-29-2023 MCH (RBC) [Entitic mass] 28.9 pg 24.7-34.3 [facility] MCHC Auto (RBC) [Mass/Vol]Or dered By: Rocio Emmanuel on 03-29-2023 MCHC (RBC) [Mass/Vol] 33.1 g/dL 32.0-35.0 [facility] MCV Auto (RBC) [Entitic vol] Ordered By: Rocio Emmanuel on 03-29-2023 MCV (RBC) [Entitic vol] 87.2 fL 80-100 [facility] Metamyelocytes/100 WBC Manua l cnt (Bld)Ordered By: Rocio Emmanuel on 03-29-2023 Metamyelocytes/100 WBC (Bld) 1 % 0-0 [facility] Monocytes Auto (Bld) [#/Vol] Ordered By: Rocio Emmanuel on 03-29-2023 Monocytes (Bld) [#/Vol] N/A [facility] Monocytes/100 WBC Auto (Bld) Ordered By: Rocio Emmanuel on 03-29-2023 Monocytes/100 WBC (Bld) N/A [facility] Monocytes/100 WBC Manual cnt (Bld)Ordered By: Rocio Emmanuel on 03-29-2023 Monocytes/100 WBC (Bld) 7 % 2-11 [facility] Myelocytes/100 WBC Manual cn t (Bld)Ordered By: Rocio Emmanuel on 03-29-2023 Myelocytes/100 WBC (Bld) 1 % 0-0 [facility] Neutrophils Auto (Bld) [#/Vo l]Ordered By: Rocio Emmanuel on 03-29-2023 Neutrophils (Bld) [#/Vol] N/A [facility] Neutrophils/100 WBC Auto (Bl d)Ordered By: Rocio Emmanuel on 03-29-2023 Neutrophils/100 WBC (Bld) N/A [facility] Nitrite Test strip Ql (U)Ord ered By: Rocio Emmanuel on 03-29-2023 Nitrite Ql (U) Negative Negative [facility] No Panel InformationOrdered By: Rocio Emmanuel on 03-29-2023 Estimated GFR (CKD-EPI) > 60.0 mL/Min [facility] Creatinine Clearance (Chem 123.48 [facility] Nucleated erythrocytes [Pres ence] in Blood by Automated countOrdered By: Rocio Emmanuel on 03-29-2023 Nucleated RBC Auto Ql (Bld) N/A [facility] Opiates [Presence] in Urine by Screen methodOrdered By: Rocio Emmanuel on 03-29-2023 Opiates Screen Ql (U) Negative Negative [facility] Phencyclidine Screen Ql (U)O rdered By: Rocio Emmanuel on 03-29-2023 Phencyclidine Ql (U) Negative Negative [facility] Platelet adequacy [Presence] in Blood by Light microscopyOrdered By: Rocio Emmanuel on 03-29-2023 Platelets LM Ql (Bld) Increased Normal [facility] Platelet mean volume Auto (B ld) [Entitic vol]Ordered By: Rocio Emmanuel on 03-29-2023 Platelet mean volume (Bld) [Entitic vol] 6.8 fL 6.3-10.7 [facility] Platelet morphology finding [Identifier] in BloodOrdered By: Rocio Emmanuel on 03-29-2023 Platelet morphology finding Nom (Bld) Normal Normal [facility] Platelets Auto (Bld) [#/Vol] Ordered By: Rocio Emmanuel on 03-29-2023 Platelets (Bld) [#/Vol] 525 10*3/uL 150-450 [facility] Polychromasia [Presence] in Blood by Light microscopyOrdered By: Rocio Emmanuel on 03-29-2023 Polychromasia LM Ql (Bld) Slight [facility] Potassium [Moles/volume] in Serum or PlasmaOrdered By: Rocio Emmanuel on 03-29-2023 Potassium [Moles/Vol] 4.9 mmol/L 3.5-5.1 [facility] Promyelocytes/100 WBC Manual cnt (Bld)Ordered By: Rocio Emmanuel on 03-29-2023 Promyelocytes/100 WBC (Bld) 1 % 0-0 [facility] Protein Auto test strip (U) [Mass/Vol]Ordered By: Rocio Emmanuel on 03-29-2023 Protein (U) [Mass/Vol] Trace mg/dL Negative [facility] Protein [Mass/volume] in Ser um or PlasmaOrdered By: Rocio Emmanuel on 03-29-2023 Protein [Mass/Vol] 6.3 g/dL 6.4-8.9 [facility] RBC Auto (Bld) [#/Vol]Ordere d By: Rocio Emmanuel on 03-29-2023 RBC (Bld) [#/Vol] 3.61 10*6/uL 3.60-5.00 [facility] RBC morphologyOrdered By: Cande Emmanuel on 03-29-2023 RBC morphology finding Nom (Bld) N/A [facility] Red blood cell stomatocyte d etectionOrdered By: Rocio Emmanuel on 03-29-2023 Stomatocytes LM Ql (Bld) Slight [facility] Segmented neutrophils/100 WB C Manual cnt (Bld)Ordered By: Rocio Emmanuel on 03-29-2023 Segmented neutrophils/100 WBC (Bld) 63 % 50-70 [facility] Serum or plasma albumin/glob ulin mass ratioOrdered By: Rocio Emmanuel on 03-29-2023 Albumin/Globulin [Mass ratio] 1.6 {ratio} [facility] Serum or plasma anion gap de terminationOrdered By: Rocio Emmanuel on 03-29-2023 Anion gap [Moles/Vol] 13.0 mmol/L 6.0-15.0 [facility] Sodium [Moles/volume] in Ser um or PlasmaOrdered By: Rocio Emmanuel on 03-29-2023 Sodium [Moles/Vol] 139 mmol/L 136-145 [facility] Specific gravity Auto test s trip (U) [Rel density]Ordered By: Rocio Emmanuel on 03-29-2023 Specific gravity (U) [Rel density] 1.028 1.001-1.030 [facility] Squamous epithelial cells de tection in urine sediment by light microscopyOrdered By: Rocio Emmanuel on 03-29-2023 Epithelial cells.squamous LM Ql (Urine sed) 3-4 [HPF] 0-2 [facility] Urea nitrogen [Mass/volume] in Serum or PlasmaOrdered By: Rocio Emmanuel on 03-29-2023 Urea nitrogen [Mass/Vol] 9 mg/dL 7-25 [facility] Urine bacteria detection by automated methodOrdered By: Rocio Emmanuel on 03-29-2023 Bacteria Auto Ql (U) None seen None Seen [facility] Urine clarity by refractomet ry automatedOrdered By: Rocio Emmanuel on 03-29-2023 Clarity Refractometry automated (U) Clear Clear [facility] Urine glucose measurement by automated test strip (mass/volume)Ordered By: Rocio Emmanuel on 03-29-2023 Glucose Auto test strip (U) [Mass/Vol] Normal mg/dL Normal [facility] Urine hemoglobin detection b y automated test stripOrdered By: Rocio Emmanuel on 03-29-2023 Hemoglobin Auto test strip Ql (U) Negative Negative [facility] Urine leukocyte esterase det ection by automated test stripOrdered By: Rocio Emmanuel on 03-29-2023 Leukocyte esterase Auto test strip Ql (U) 1+ Negative [facility] Urobilinogen Auto test strip (U) [Mass/Vol]Ordered By: Rocio Emmanuel on 03-29-2023 Urobilinogen (U) [Mass/Vol] Normal mg/dL Normal [facility] WBC Auto (Bld) [#/Vol]Ordere d By: Rocio Emmanuel on 03-29-2023 WBC (Bld) [#/Vol] 16.8 10*3/uL 3.8-11.6 [facility] pH Auto test strip (U)Ordere d By: Rocio Emmanuel on 03-29-2023 pH (U) 6.5 [pH] 5.0-9.0 [facility] US THYROIDon 02-13-2023 US THYROID EXAMINATION: US [...] RINA CARRANZA Date: 2023-02-13 13:32 Normal [facility] Falls Screening (Age 18+)on 11-30-2022 Fall risk assessment a) No falls within the last year -Pediatrics -[address] Work Phone: Tobacco use status [facility] c) Screening not indicated -Pediatrics -[address] Work Phone: Office Visit (Pediatric Neur ology)on 11-30-2022 Follow-up visit Diagnoses/Problems Epilepsy (345.90) (G40.909) Disruptive behavior disorder (312.9) (F91.9) Added by Problem List Migration; 2013-09-21 Anxiety disorder (300.00) (F41.9) Added by Problem List Migration; 2013-09-21 Intellectual disability (319) (L74) Patient Discussion/Summary Amena's mood and behaviors are [...] up office visit Accompanied by mother and prison staff. History of Present Illness Amena is [...] and was agitated. She was taken to [facility]. During this time, she was not sleeping at night and was more upset. She slept last Sunday night after receiving Ambien. Testing at [facility] was except an increased WBC count [...] Anxiety Social History Depo-Provera shot Lives in prison (V60.6) (Z59.3) Never smoker No alcohol use Allergies Demerol TABS Recorded By: Vanessa Castro; 01/06/2014 2:44:07 PM Current Meds Medication NameInstruction buPROPion HCl ER (SR) 100 MG Oral Tablet Extended Release 12 HourTAKE 1 TABLET TWICE DAILY. Chest Congestion Relief 400 MG Oral TabletTAKE ONE TABLET BY MOUTH TWICE A DAY NEEDED FOR CONGESTION OR COUGH [place] Calcium/Vitamin D 200-250 MG-UNIT TABSTAKE TWO TABLETS [...] Recorded: 30Nov2022 10:00AM Height5 ft 3 in Sacrxh289 lb 5.02 oz BMI Dqcfkjzhij52.03 kg/m2 BSA Calculated1.67 Tobacco U[facility]) Screening not indicated Falls Screening (Age 18+)a) No falls within the last year Physical Exam Awake and alert Eats snacks (looks for the food) Moves well FROM Lets me examine her Signatures Electronically signed by : Cruz Adler MD; Dec 01 2022 9:47AM EST (Author) Normal [employer] CBC AUTO DIFFon 10-04-2022 BASO # 0.0 103/ul Normal 0.0-0.[address] [facility] Comment on above: Performed By: #### C BC ####[facility] [address] [place], [place] [address]DrIan Garcia Basophils/100 WBC (Bld) 0.4 % Normal 0.2-2.0 [facility] Comment on above: Performed By: #### C BC ####[facility] N[address] [place], [place] [address]DrIan Garcia EO # 0.1 103/ul Normal 0.0-0.[address] [facility] Comment on above: Performed By: #### C BC ####[facility] [address] [place], [place] [address]DrIan Garcia Eosinophils/100 WBC (Bld) 1.2 % Normal 0.9-7.[address] [facility] Comment on above: Performed By: #### C BC ####[facility] Nk[address]jw[address] [place], [place] [address]DrIan Garcia Erythrocyte distribution width (RBC) [Ratio] 12.5 % Normal 11.0-15.[address] [facility] Comment on above: Performed By: #### C BC ####[facility] Tuyerxngqo[address] [place], [place] [address]DrIan Garcia Hematocrit (Bld) [Volume fraction] 41.6 % Normal 36.0-48.[address] [facility] Comment on above: Performed By: #### C BC ####[facility] [address] [place], [place] [address]Dr. Jonathan Garcia Hemoglobin (Bld) [Mass/Vol] 13.9 g/dL Normal 12.0-16.0 [facility] Comment on above: Performed By: #### C BC ####[facility] [address] [address]DrIan Watsonlamar Garcia IG # 0.08 10e3/ul Critically high 0.00-0.03 [facility] Comment on above: Performed By: #### C BC ####[facility] [address] [address]DrIan Garcia IG % 0.9 % Critically high 0.0-0.5 [facility] Comment on above: Performed By: #### C BC ####[facility] [address] [place], [place] [address]DrIan Garcia LYMPH # 3.1 103/ul Normal 1.2-3.8 [facility] Comment on above: Performed By: #### C BC ####[facility] Fsavnuodlo[address] [place], [place] [address]DrIan Garcia Lymphocytes/100 WBC (Bld) 33.4 % Normal 20.5-60.[address] [facility] Comment on above: Performed By: #### C BC ####[facility] Fr[address] [place], [place] [address]DrIan Garcia MANUAL DIFF REQ NO Normal [facility] Comment on above: Performed By: #### C BC ####[facility] [address] [address]DrIan Garcia MCH (RBC) [Entitic mass] 28.9 pg Normal 26.7-34.0 [facility] Comment on above: Performed By: #### C BC ####[facility] F[address]ymuibvbb[address] [place], [place] [address]DrIan Garcia MCHC (RBC) [Mass/Vol] 33.4 g/dL Normal 29.9-35.2 [facility] Comment on above: Performed By: #### C BC ####[facility] Kr[address]apobn[address] [place], [place] [address]DrIan Garcia MCV (RBC) [Entitic vol] 86.5 fL Normal 81.0-99.0 [facility] Comment on above: Performed By: #### C BC ####[facility] [address] [address]DrIan Jonathan Garcia MONO # 0.6 103/ul Normal 0.3-0.[address] [facility] Comment on above: Performed By: #### C BC ####[facility] Udqwcsqjit[address] [place], [place] [address]DrIan Jonathan Garcia Monocytes/100 WBC (Bld) 5.9 % Normal 1.7-12.0 [facility] Comment on above: Performed By: #### C BC ####[facility] Omdz[address]zrod[address] [place], [place] [address]DrIan Jonathan Garcia NEUT # 5.4 103/ul Normal 1.4-6.[address] [facility] Comment on above: Performed By: #### C BC ####[facility] Lpmdonyect[address] [place], [place] [address]DrIan Jonathan Garcia Neutrophils/100 WBC (Bld) 58.2 % Normal 43.0-75.[address] [facility] Comment on above: Performed By: #### C BC ####[facility] D[address]oa[address] [place], [place] [address]DrIan Jonathan Garcia Platelet mean volume (Bld) [Entitic vol] 9.4 fL Critically low 9.5-13.[address] [facility] Comment on above: Performed By: #### C BC ####[facility] Aplknyrlsu[address] [place], [place] [address]Dr. Jonathan Garcia PLT 327 103/ul Normal 150-450 [facility] Comment on above: Performed By: #### C BC ####[facility] Rjncmfiunq[address] [place], [place] [address]DrIan Jonathan Jose RBC 4.81 106/ul Normal 4.20-5.40 [facility] Comment on above: Performed By: #### C BC ####[facility] Cs[address]mufvss[address] [place], [place] [address]DrIan Watsonlamar Jose WBC 9.3 103/ul Normal 4.0-11.[address] [facility] Comment on above: Performed By: #### C BC ####[facility] [address] [address]Dr. Jonathan Garcia DEPAKENE/ VALPROIC ACIDon DEPAKENE 55.8 ug/ml Normal 50.0-100.[address] [facility] Comment on above: Performed By: #### C ZOEY, VALP #### [facility] [address] [address] [address] Jonathan Garcia PROF 14(COMP METB)on 023 Albumin [Mass/Vol] 3.6 g/dL Normal 3.4-5.0 [facility] Comment on above: Performed By: #### C ZOEY, VALP #### [facility] [address] [address] [address] Jonathan Garcia Albumin/Globulin [Mass ratio] 1.0 {ratio} Normal [facility] Comment on above: Performed By: #### C ZOEY, VALP #### [facility] [address] [place] [address] Dr. Jonathan Garcia ALP [Catalytic activity/Vol] 50 U/L Normal 46-[address] [facility] Comment on above: Performed By: #### C ZOEY, VALP #### [facility] [address] [address] [address] Jonathan Garcia ALT [Catalytic activity/Vol] 11 U/L Critically low 14-[address] [facility] Comment on above: Performed By: #### C ZOEY, VALP #### [facility] [address] [place] [address] Dr. Jonathan Garcia Anion gap [Moles/Vol] 10.5 mmol/L Normal [facility] Comment on above: Performed By: #### C MP, VALP #### [facility] [address] [place] [address] Dr. Jonathan Garcia AST [Catalytic activity/Vol] 10 U/L Critically low 15-[address] [facility] Comment on above: Performed By: #### C MP, VALP #### [facility] [address] [place] [address] Dr. Jonathan Garcia Bilirubin [Mass/Vol] 0.5 mg/dL Normal 0.2-1.[address] [facility] Comment on above: Performed By: #### C MP, VALP #### [facility] [address] [place] [address] Dr. Jonathan Garcia Calcium [Mass/Vol] 9.1 mg/dL Normal 8.5-10.1 [facility] Comment on above: Performed By: #### C MP, VALP #### [facility] [address] [place] [address] Dr. Jonathan Garcia Chloride [Moles/Vol] 102 mmol/L Normal 98-[address] [facility] Comment on above: Performed By: #### C MP, VALP #### [facility] [address] [place] [address] Dr. Jonathan Garcia CO2 [Moles/Vol] 30.7 mmol/L Normal 21.0-32.0 [facility] Comment on above: Performed By: #### C MP, VALP #### [facility] [address] [place] [address] Dr. Jonathan Garcia Creatinine [Mass/Vol] 0.72 mg/dL Normal 0.55-1.[address] [facility] Comment on above: Performed By: #### C MP, VALP #### [facility] [address] [place] [address] Dr. Jonathan Garcia EGFR-AF MAURITIAN >60 Normal >=60 [facility] Comment on above: Performed By: #### C MP, VALP #### [facility] [address] [place] [address] Dr. Jonathan Garcia EGFR-NON AF MAURITIAN >60 Normal >=[address] [facility] Comment on above: Performed By: #### C MP, VALP #### [facility] [address] [place] [address] Dr. Jonathan Garcia Globulin (S) [Mass/Vol] 3.6 g/dL Normal T [facility] Comment on above: Performed By: #### C MP, VALP #### [facility] [address] [address] [address] Jonathan Garcia Glucose [Mass/Vol] 102 mg/dL Normal 74-106 [facility] Comment on above: Performed By: #### C MP, VALP #### [facility] [address] [address] [address] Jonathan Garcia Potassium [Moles/Vol] 4.2 mmol/L Normal 3.5-5.1 [facility] Comment on above: Performed By: #### C MP, VALP #### [facility]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 58.8 ug/ml Normal 50.0-100.0 [facility] Comment on above: Performed By: #### 9 [id number] #### [facility] [address] [place] [address]47 [employer] Supervisor: Rudy Posey MD Vital Signs Date Time Vital Sign Value Performing Clinician Facility 06-18-2025 10:35-0400 Body height 160 cm Cruz Adler MD Work Phone: [facility] 06-18-2025 10:35-0400 Body mass index (BMI) [Ratio] 21.85 kg/m2 Max Vitor BENTLEY Work Phone: [facility] 06-18-2025 10:35-0400 Body weight 55.95 kg Max Vitor BENTLEY Work Phone: [facility] 12-04-2024 11:23-0400 Body height 160 cm Max Vitor BENTLEY Work Phone: [facility] 12-04-2024 11:23-0400 Body mass index (BMI) [Ratio] 23.63 kg/m2 Max Vitor BENTLEY Work Phone: [facility] 12-04-2024 11:23-0400 Body weight 60.5 kg Max Vitor BENTLEY Work Phone: [facility] 05-15-2024 10:52-0400 Body height 160 cm Max Vitor BENTLEY Work Phone: [facility] 05-15-2024 10:52-0400 Body mass index (BMI) [Ratio] 22.73 kg/m2 Max Vitor BENTLEY Work Phone: [facility] 05-15-2024 10:52-0400 Body weight 58.2 kg Max Vitor BENTLEY Work Phone: [facility] 03-30-2023 02:21-0400 Diastolic blood pressure 59 mm[Hg] DO Simon Haas Work Phone: [facility] 03-30-2023 02:21-0400 Heart rate 94 /min DO Simon Haas Work Phone: [facility] 03-30-2023 02:21-0400 Respiratory rate 20 /min DO Simon Haas Work Phone: [facility] 03-30-2023 02:21-0400 SaO2% (BldA) [Mass fraction] 100 % DO Simon Haas Work Phone: [facility] 03-30-2023 02:21-0400 Systolic blood pressure 105 mm[Hg] DO Simon Haas Work Phone: [facility] 03-30-2023 00:06-0400 Body temperature 97.2 [degF] DO Simon Haas Work Phone: [facility] 03-29-2023 16:32-0400 Body height 157.48 cm DO Simon Haas Work Phone: [facility] 03-29-2023 16:32-0400 Body weight 60.35 kg DO Simon Haas Work Phone: [facility] 11-30-2022 10:00-0500 Body height 160.02 cm Simon Haas Work Phone: IH-Ujqbktbbin-Pwuth a 220 Work Phone: 11-30-2022 10:00-0500 Body mass index (BMI) [Ratio] 25.03 kg/m2 Simonryanne Haas Work Phone: PY-Aabbrwmlfz-Uasib a 220 Work Phone: 11-30-2022 10:00-0500 Body surface area Derived from formula 1.67 m2 Simon Haas Work Phone: JB-Tzefknwxex-Whwnp a 220 Work Phone: 11-30-2022 10:00-0500 Body weight 64.1 kg Simonryanne Haas Work Phone: RL-Dugpuotshd-Qupwk a 220 Work Phone: 01-19-2022 14:38-0400 Body height 160.02 cm Simon Haas Work Phone: FX-Xxidsyhrzn-Fizle a 220 Work Phone: 01-19-2022 14:38-0400 Body mass index (BMI) [Ratio] 25.15 kg/m2 Simon Heriberto Haas Work Phone: GR-Reeiozkbfg-Hxabg a 220 Work Phone: 01-19-2022 14:38-0400 Body surface area Derived from formula 1.67 m2 Simon Haas Work Phone: MW-Euvkrmshpe-Vbeop a 220 Work Phone: 01-19-2022 14:38-0400 Body weight 64.41 kg Simon Haas Work Phone: FC-Pbqxsxtiix-Nqvpz a 220 Work Phone: 07-21-2021 14:30-0400 Body mass index (BMI) [Ratio] 26.35 kg/m2 Simon Haas Work Phone: FW-Rmgdurfcuz-Wzdvf a 220 Work Phone: 07-21-2021 14:30-0400 Body surface area Derived from formula 1.71 m2 Simon Haas Work Phone: NG-Bcsphudwpp-Gyaex a 220 Work Phone: 07-21-2021 14:30-0400 Body weight 67.47 kg Simon Haas Work Phone: GZ-Diliunyzow-Pqofq a 220 Work Phone: 07-03-2019 12:01-0400 BMI (Body Mass Index) 27.86 kg/m2 Max Wiznitzer MG-Pediatr ics-Neuro log-Admin RBC 585 Work Phone: 07-03-2019 12:01-0400 Body weight 70.7 kg Max Wiznitzer AH-Cmhewsdwpe-Tx uro log-Admin RBC 585 Work Phone: 07-03-2019 12:01-0400 BSA (Body Surface Area) 1.73 m2 Max Wiznitzer MI-Pnfrswnvcj-Azfjt log-Admin RBC 585 Work Phone: 07-03-2019 12:01-0400 Height 159.31 cm Max Wiznitzer GE-Rjbtkctkeg-Ff uro log-Admin RBC 585 Work Phone: Encounters Encounter Date Encounter Type Care Provider Facility Start: 06-18-2025 End: 06-18-2025 Office outpatient visit 15 minutes Cruz Adler MD Work Phone: [facility] Comment on above: Nonintractable epile psy without status epilepticus, unspecified epilepsy type (Multi) (Primary Dx); Anxiety disorder, unspecified type; Disruptive behavior disorder; Intellectual disability Start: 06-18-2025 End: 06-18-2025 ambulatory [facility] Start: 05-09-2025 End: 05-09-2025 [facility] Start: 12-04-2024 End: 12-04-2024 ambulatory [facility] Start: 12-04-2024 End: 12-04-2024 Office outpatient visit 15 minutes Cruz Adler MD Work Phone: [facility] Comment on above: Nonintractable epile psy without status epilepticus, unspecified epilepsy type (Multi) (Primary Dx); Anxiety disorder, unspecified type; Intellectual disability Start: 05-15-2024 End: 05-15-2024 Office outpatient visit 15 minutes Cruz Adler MD Work Phone: [facility] Comment on above: Intellectual disabil ity (Primary Dx); Nonintractable epilepsy without status epilepticus, unspecified epilepsy type (Multi); Anxiety disorder, unspecified type; Mood disorder (CMS-HCC) Start: 12-06-2023 End: 12-06-2023 Office outpatient visit 15 minutes Cruz Adler MD Work Phone: [facility] Comment on above: Anxiety disorder, un specified type (Primary Dx); Mood disorder (CMS/HCC); Nonintractable epilepsy without status epilepticus, unspecified epilepsy type (CMS/HCC) Start: 09-26-2023 End: 09-27-2023 ambulatory SIMON HAAS [place] Start: 08-09-2023 End: 08-14-2023 ambulatory UNKNOWN PROVIDER Facility:[facility] Start: 08-09-2023 End: 08-14-2023 Patient encounter procedure Carolina Trevizo [facility] Work Phone: [facility] Start: 06-07-2023 Office outpatient vi sit 25 minutes Simon Haas Work Phone: AT-Awcqybnrvv-Trwuhwwk y-Admin RBC 585 Work Phone: Start: 06-07-[address] Cruz Adler Facil ity:[id number] Start: 03-29-2023 End: 03-30-2023 Emergency department patient visit Simon Haas Facility:[facility] Start: 03-29-2023 End: 03-30-2023 Emergency department patient visit DO Simon Haas Work Phone: [facility] Work Phone: Start: 02-13-2023 End: 02-14-[address] SIMON HAAS Facility:[facility] Start: 11-30-2022 Office outpatient vi sit 15 minutes Simon Haas Work Phone: DL-Kzchvxtyin-Nklrshfn Work Phone: Start: 11-30-2022 Patient encounter procedure Simon Haas Work Phone: JV-Leonvxzgdo-Pvyzel 220 Work Phone: Start: 11-30-[address] Cruz Adler Facil ity:[id number] Start: 11-03-2022 Letter encounter [facility] Start: 10-04-2022 End: 10-05-[address] SIMON HAAS Facility:[facility] Start: 08-29-2022 End: 08-30-[address] SIMON HAAS Facility:[facility] Start: 08-26-2022 End: 08-26-[address] SIMON HAAS Facility:H1 Start: 08-25-2022 End: 08-25-[address] SIMON HAAS Facility:H1 Start: 07-20-2022 Office consultation new/estab patient 40 min Simon Haas Work Phone: [facility] Work Phone: Start: 07-20-[address] Montes And emily Haas Facility:[facility] Start: 06-01-2022 Office outpatient vi sit 15 minutes Simon Haas Work Phone: OQ-Svvhmtrbha-Oyrwvhon y-Admin [facility] 585 Work Phone: Start: 06-01-2022 Patient encounter procedure Simon Haas Work Phone: RA-Eivnvqtatg-Wptvgq 220 Work Phone: Start: 01-19-2022 Office outpatient vi sit 15 minutes Simon Haas Work Phone: XA-Kqoijuvjdc-Ymvmnycs y-Admin [facility] 585 Work Phone: Start: 01-19-2022 Patient encounter procedure Simon Haas Work Phone: SL-Qxynahilti-Bljyrd 220 Work Phone: Start: 10-20-2021 Office outpatient vi sit 15 minutes Simon Haas Work Phone: YG-Nyfcqsjeif-Puzitiir ook 220 Work Phone: Start: 07-21-2021 Patient encounter procedure Simon Haas Work Phone: VK-Gdugtzzhwv-Umcnmg 220 Work Phone: Start: 01-22-2020 Patient encounter procedure Max Wiznitzer SU-Jexxscuxgv-Dmuddx 220 Work Phone: Start: 07-03-2019 Patient encounter procedure Max Wiznitzer SC-Tctprsogye-Kijavsos -Admin [facility] 585 Work Phone: Start: 01-02-2019 Patient encounter procedure Max Wiznitzer EH-Cryqpphner-Akuhofil -Admin [facility] 585 Work Phone: Start: 11-25-2018 Patient encounter procedure Max Wiznitzer TK-Mgndalvnzq-Irpmcpwf -Admin [facility] 585 Work Phone: Start: 07-04-2018 Patient encounter procedure Max Wiznitzer EF-Whmruemosz-Jdrtsbiq -Admin [facility] 585 Work Phone: Start: 01-17-2018 Patient encounter procedure Max Vitor MN-Ujaptjddsq-Zyleymkp -Admin [facility] 585 Work Phone: Start: 07-19-2017 Patient encounter procedure Cruz Shearerastriduraih QUINTEROGK-Gxjyjxwmvd-Hmymavhd -Admin [facility] 585 Work Phone: Plan of Treatment Date Care Activity Detail Author Start: 2042 Shingles (RZV) Vaccine (1 of 2) Shingles (RZV) Vaccine (1 of 2) [facility] Start: 2042 Zoster Vaccines (1 of 2) Zoster Vaccines (1 of 2) [facility] Start: 10-31-2026 DTaP/Tdap/Td Vaccines (2 - Td or Tdap) DTaP/Tdap/Td Vaccines (2 - Td or Tdap) [facility] Start: 10-31-2026 Tetanus vaccination Tetanus (Td or Tdap) Booster [facility] Start: 12-17-2025 End: 12-17-2025 Patient encounter procedure 12/17/2025 10:40 AM EDT Office Visit [facility] [address] [place] [address] [place] [id number] [address] Department of Pediatrics-Neurology [place] [id number] [facility] Start: 06-24-2025 Influenza vaccination Influenza Vaccine (#1) [facility] Start: 06-18-2025 End: 06-18-2025 Patient encounter procedure 06/18/2025 10:40 AM EDT Office Visit [facility] [address] [place] [id number] [place] [id number] [address] Department of Pediatrics-Neurology [place] [id number] [facility] Start: 05-25-2025 COVID-19 Vaccine ( season) COVID-19 Vaccine ( season) [facility] Start: 05-25-2025 Influenza vaccination Influenza Vaccine (#1) [place] Start: 11-06-2024 End: 11-06-2024 Patient encounter procedure 11/06/2024 11:20 AM EST Office Visit [facility] [address] [place] [address] [place] [address] Department [place] [address] [facility] Start: 05-25-2024 COVID-19 Vaccine ( season) COVID-19 Vaccine () [facility] Start: 05-25-2024 COVID-19 Vaccine () COVID-19 Vaccine () [facility] Start: 05-25-2024 Influenza vaccination Influenza Vaccine (#1) [place] Start: 12-06-2023 FUV, Provider: Cruz Adler, Status: Pen, Time: 10:00 AM FUV, Provider: Cruz Adler, Status: Pen, Time: 10:00 AM DC-Eudgbsemty-Zhrlaeeik -Admin [facility] 585 Work Phone: Start: 06-07-2023 FUV, Provider: Cruz Adler, Status: Pen, Time: 10:40 AM FUV, Provider: Cruz Adler, Status: Pen, Time: 10:40 AM ZR-Hnwlhejjyo-Pjhzds 220 Work Phone: Start: 05-25-2023 COVID-19 Vaccine ( season) COVID-19 Vaccine ( season) [facility] Start: 05-25-2023 COVID-19 Vaccine ( season) COVID-19 Vaccine ( season) [facility] Start: 05-25-2023 Influenza vaccination Influenza Vaccine (#1) [facility] Start: 03-30-2023 Plain X-ray of left femur XR femur LT 2V* [facility] Start: 03-30-2023 XR Femur - left 2 Views [facility] Start: 03-29-2023 [facility] Start: 03-29-2023 Computed tomography of abdomen and pelvis with contrast CT abdomen pelvis w con [facility] Start: 03-29-2023 CT Abdomen and Pelvis W contrast IV [facility] Start: 12-25-2022 End: 12-25-2022 Patient encounter procedure 12/25/2022 Procedure Visit Dentistry Carolina Trevizo, [facility] [address] [place] [address] [facility] Start: 11-30-2022 FUV, Provider: Cruz Adler, Status: Pen, Time: 10:00 AM FUV, Provider: Cruz Adler, Status: Pen, Time: 10:00 AM ZA-Thwycfegiu-Dsyuuuijh -Admin [facility] 585 Work Phone: Start: 07-20-2022 FUV, Provider: Yadi Pedro, Status: Pen, Time: 10:00 AM FUV, Provider: Yadi Pedro, Status: Pen, Time: 10:00 AM SI-Jkmpidqvrl-Hhvdwyfbi -Admin [facility] 585 Work Phone: Start: 06-24-2022 Influenza vaccination Influenza Vaccine (#1) [facility] Start: 06-01-2022 FUV, Provider: Cruz Adler, Status: Pen, Time: 10:40 AM FUV, Provider: Cruz Adler, Status: Pen, Time: 10:40 AM WY-Nlxyjkxzmh-Vbjofstwz -Admin [facility] 585 Work Phone: Start: 05-23-2022 VIRFUVHOME, Provider: Cruz Adler, Status: Pen, Time: 10:20 AM VIRFUVHOME, Provider: Cruz Adler, Status: Pen, Time: 10:20 AM UH-Pdcthvwhqi-Sibtlz 220 Work Phone: Start: 01-19-2022 FUV, Provider: Cruz Adler, Status: Pen, Time: 2:20 PM FUV, Provider: Cruz Adler, Status: Pen, Time: 2:20 PM DK-Azejnkvrre-Sethuvjcd ok 220 Work Phone: Start: 2019 HPV Vaccine (optional start 27-45 years) HPV Vaccine (optional start 27-45 years) [facility] Start: 2019 HPV Vaccines (1 - 3-dose standard series) HPV Vaccines (1 - 3-dose standard series) [facility] Start: 2013 Screening for malignant neoplasm of [...] (1 of 3 - 19+ 3-dose series) [facility] Start: 2010 Hepatitis C screening [facility] Start: 09-08-2009 MMR Vaccines (1 of 1 - Standard series) MMR Vaccines (1 of 1 - Standard series) [facility] Start: 09-08-[address] [facility] Start: 2007 HIV screening HIV Test [facility] Start: 1993 MMR Vaccines (1 of 1 - Standard series) MMR Vaccines (1 of 1 - Standard series) [facility] Start: 1992 Hepatitis B Vaccines (1 of 3 - 3-dose series) Hepatitis B Vaccines (1 of 3 - 3-dose series) [facility] Start: 1992 HIV screening HIV Screening [facility] Start: 1992 Lipid panel Lipid Panel [facility] Start: 1992 Yearly Adult Physical Yearly Adult Physical [facility] Patient Education Rib Fracture (DC) [facility] Work Phone: Patient referral [facility] Work Phone: Immunizations Immunization Date Immunization Notes Care Provider Fa cili 07-20-2021 influenza, injectabl e, quadrivalent, preservative free [facility] 07-20-2021 influenza virus vacc ine, unspecified formulation [facility] 10-26-2020 [facility] (12+ yrs) [facility] S-COV-2 (COVID-19) vaccine, mRNA, spike protein, LNP, pres. free, 30 mcg/0.3mL dose (XTA=104) [facility] 10-05-2020 [facility] (12+ yrs) [facility] S-COV-2 (COVID-19) vaccine, mRNA, spike protein, LNP, pres. free, 30 mcg/0.3mL dose (QCU=416) [facility] 06-30-2020 influenza, injectabl e, quadrivalent, preservative free [facility] 07-18-2019 influenza, injectabl e, quadrivalent, preservative free [facility] 07-03-2018 influenza, injectabl e, quadrivalent, contains preservative [facility] 07-18-2017 influenza, injectabl e, quadrivalent, contains preservative [facility] 10-31-2016 tetanus toxoid, redu amauri diphtheria toxoid, and acellular pertussis vaccine, adsorbed [facility] 06-28-2016 influenza, seasonal, injectable [facility] 07-15-2015 influenza, injectabl e, quadrivalent, preservative free [facility] 07-30-2014 influenza, injectabl e, quadrivalent, preservative free [facility] 07-22-2013 influenza, seasonal, injectable [facility] 07-17-2012 influenza, seasonal, injectable [facility] 06-07-2011 influenza, seasonal, injectable [facility] 07-20-2010 influenza virus vacc ine, whole virus [facility] 08-11-2009 novel influenza-H1N1 -09, preservative-free, injectable [facility] 06-23-2009 influenza, seasonal, injectable [facility] 07-20-2008 influenza, seasonal, injectable [facility] 07-16-2008 influenza virus vacc ine, whole virus [facility] Payers Date Payer Category Payer Self-pay [id number] Dental --Stand Alone DENTAL-MEDI CAID Member Subscriber Plan / Payer (Effective 2014-Present) Name: Amena Singleton Relation to Subscriber: Self Name: Amena Singleton Payer ID: Not on file Group ID: Not on file Type: Medicaid Address: [address] [address] [id number] 2014 Medicaid [id number] 1992 Unknown [id number] 93 1992 Unknown [id number] 93 1992 Unknown [id number] 93 1992 Unknown [id number] 93 1992 Unknown [id number] [id number] 93 1992 Unknown [id number] [id number] 32 1992 Unknown [id number] [id number] 27 1992 Unknown [id number] [id number] 245 1992 Unknown [id number] [id number] 245 1962 Unknown [id number] [id number] 56 1962 Unknown [id number] [id number] 56 1962 Unknown [id number] [id number] 56 1959 Medicaid [id number] Unknown Unknown [id number] 31 Social History Date Type Detail Facility Start: 12-06-2023 Depo-Provera shot Depo-Provera shot YD-Envttiuwgv-Ackrnu 220 Work Phone: Tobacco smoking status PAIS Tobacco smoking consumption unknown [facility] Start: 1992 Sex Assigned At Not on file [facility] Start: 03-29-2023 End: 12-06-2023 Tobacco smoking status PAIS Never smoked tobacco (finding) [facility] Start: 1992 Sex Assigned At Female [facility] Start: 12-06-2023 Gender identity Not on file [facility] Start: 12-06-2023 Tobacco use and exposure Smokeless tobacco non-user [facility] Work Phone: Start: 12-06-2023 End: 06-18-2025 Alcohol intake Lifetime non-drinker (finding) [facility] Work Phone: Start: 05-05-2024 End: 12-04-2024 Exposure to SARS-CoV-2 (event) Not sure [facility] Start: 07-28-2012 Sex Female (finding) [facility] Start: 08-19-2022 Sex Female [facility] NEGATED: Highlighted row - - YV-Bhyxuucbze-Dyumkc og -Admin RBC 585 Work Phone: Functional Status Date Assessment Result Facility 06-18-2025 Functional status [facility] 06-18-2025 [place] Work Phone: NEGATED: Highlighted row Functional performance Functional status health issues are not documented Disease CR-Dugmpaifzw-Bxxbhy og-Admin RBC 585 Work Phone: Mental Status Date Assessment Result Facility NEGATED: Highlighted row Cognitive function [Interpretation] Cognitive status health issues are not documented Disease EF-Qcsbjgdcqi-Datyt log-Admin [facility] 585 Work Phone: Clinical Notes 07-21-2021 to 06-18-2025 Cruz Adler MD - 06/18/2025 10:40 AM EDTPatient InstructionsCruz Adler MD - 12/04/2024 11:20 AM EDTPatient InstructionsCruz Adler MD - 05/15/2024 11:00 AM EDTPatient Instructions Note Date & Type Note Facility 06-18-2025 History of Present illness Narrative Subjective Amena Singleton is a 35 y.o. woman with [...] and does activity such as sorting. She is less likely to eat lunch (cold cut sandwich) and eats well at home. She had days when she did not sleep, this improving after stopping Periactin. Parents report good behavior at home. She sits with the family at mealtime and plays with her toys. She watches music on TV. When she stays overnight, she has a good night's sleep. Amena gets Colace and Senna for bowel function with improved function. She has no seizures. She takes bupropion 100 mg SR BID, Depakote sprinkles 3 BID (level 53.5 ugm/ml), Risperidone 0.5 mg qHS (lower dose with no change and treatment options available if stopped and new medication is needed), and fluoxetine 40 mg daily. No medication side effects are noted. Amena was in the hospital early 2021 due to a problem with her right leg and a diagnosis of rhabdomyolysis. Amena was admitted to [facility] due to worsening behavior (throw self down, aggression, hitting self). She had a tooth/dental abscess treated with antibiotics. She was readmitted to [facility] for worsening behavior and was found to have a fractured rib and tailbone. She had a syncopal spell on 06/01/25 that [...] good. Her poor sleep streak in late April-May 2025 may have been associated with illness [...] and lipids as her yearly lab by the end of the year Follow up in 6 months documented in this encounter [facility] Work Phone: 06-18-2025 Instructions Cruz Adler MD - 06/18/2025 10:40 AM EDT Cyndi's overall behavior is good. Her poor sleep streak in late April-May 2025 may have been associated with illness [...] and lipids as her yearly lab by the end of the year Follow up in 6 months documented in this encounter [facility] Work Phone: 12-04-2024 History of Present illness Narrative Subjective [...] diagnosis of rhabdomyolysis. Amena was admitted to [facility] due to worsening behavior (throw self down, aggression, hitting self). She had a tooth/dental abscess treated with antibiotics. She was readmitted to [facility] for worsening behavior and was found [...] in 6 months documented in this encounter [facility] Work Phone: 12-04-2024 Instructions Cruz Adler MD - 12/04/2024 11:20 AM EDT Cyndi has stable behaviors. Since she tolerated a rispeirdone decrease, drop the dose to 0.5 mg at bedtime and see how she does. If no change after 2 months, stop it and note effect. No change in other medications. Follow up in 6 months documented in this encounter [facility] Work Phone: 05-15-2024 History of [...] diagnosis of rhabdomyolysis. Amena was admitted to [facility] due to worsening behavior (throw self down, aggression, hitting self). She had a tooth/dental abscess treated with antibiotics. She was readmitted to [facility] for worsening behavior and was found [...] before that time. documented in this encounter [facility] Work Phone: 05-15-2024 Instructions Cruz [...] before that time. documented in this encounter [facility] Work Phone: 12-06-2023 History of [...] diagnosis of rhabdomyolysis. Amena was admitted to [facility] due to worsening behavior (throw self down, aggression, hitting self). She had a tooth/dental abscess treated with antibiotics. She was readmitted to [facility] for worsening behavior and was found [...] in 6 months.. documented in this encounter [facility] Work Phone: 12-06-2023 Instructions Cruz Adler MD - 12/06/2023 10:00 AM EDT Amena's mood and behaviors are stable. No seizures are noted. 1. No change in medication 2. Check Depakote level, CBC, CMP and lipids yearly 3. Follow up in 6 months.. documented in this encounter [facility] Work Phone: 08-09-2023 History of Present illness Narrative ----- July at 12:29:46 PM ----- ----- Provider: Graham Bradshaw, Resident -- Clinic: [place] ----- OR EVALUATION Patient presents for evaluation [...] becomes available. Legal Guardian: Brody and/or Altagracia Mani home;[phone] dad; [phone] [facility]; [phone] Next Visit: OR ----- Signed on July at 1:47:32 PM ----- ----- Provider: Dev Samson DDS -- Clinic: [place] ----- documented in this encounter [facility] 06-07-2023 Chief complaint Narrative - Reported An [...] visit.follow up office visitAccompanied by mother and prison staff. XB-Purhonozwv-Vyxljozjj-Ad min RBC 585 Work Phone: 11-28-2022 History [...] and was agitated. She was taken to [facility]. During this time, she was not sleeping at night and was more upset. She slept last Sunday night after receiving Ambien. Testing at [facility] was except an increased WBC count She was better after a fluid load. She was on cefdinir.Eber had a gastrointestinal illness in October 2022. ZD-Miuohbsrpn-Gmhaehws Work Phone: 11-27-2022 History of Present illness [...] and was agitated. She was taken to [facility]. During this time, she was not sleeping at night and was more upset. She slept last Sunday night after receiving Ambien. Testing at [facility] was except an increased WBC count She was better after a fluid load. She was on cefdinir.Eber had a gastrointestinal illness in October 2022. [facility] 220 Work Phone: 07-20-2022 History of Present illness Narrative Amena Singleton is a 32 year old young woman with seizures, cognitive impairment and anxiety. I am seeing her for the first time today, July 20, 2022 at the request of Dr. Cruz Adler for concerns of behavioral changes secondary to constipation.This visit was completed via [employer].The patient's mother verbally consented to and participated [...] for toileting but does not always use. [facility] Work Phone: 06-01-2022 Chief complaint Narrative [...] and behavior FUAccompanied by mother and Staff. YO-Mwxzfgxbmv-Bejwfp 220 Work Phone: 06-01-2022 Chief complaint Narrative [...] and behavior FUAccompanied by mother and Staff. SW-Gddknvryhe-Rsecozjhx-Ad min RBC 585 Work Phone: 01-19-2022 Chief [...] and behavior FUAccompanied by mother and Staff. [facility] 220 Work Phone: 01-19-2022 Chief complaint Narrative [...] telehealth visit.Seizure and behavior FUAccompanied by Staff. AN-Ocqhweuisq-Dcnhfbtdw-Ad min RBC 585 Work Phone: 10-20-2021 Chief [...] and behavior FUAccompanied by mother and Staff. TS-Pprtefivde-Nphcloekggf 220 Work Phone: 07-21-2021 Chief complaint Narrative [...] and behavior FUAccompanied by mother and Staff. QL-Mknutylkgm-Jazvyl 220 Work Phone: Evaluation note No assessment inform ation available [facility] Work Phone: Evaluation note Diagnosis Anxiety disorder, unspecified type- Primary Mood disorder (CMS/HCC) Unspecified episodic mood disorder Nonintractable epilepsy without status epilepticus, unspecified epilepsy type (CMS/HCC) documented in this encounter [facility] Work Phone: Evaluation note* Diagnosis Intellectual disability- Primary Unspecified mental retardation Nonintractable epilepsy without status epilepticus, unspecified epilepsy type (Multi) Anxiety disorder, unspecified type Mood disorder (CMS-HCC) Unspecified episodic mood disorder documented in this encounter [facility] Work Phone: Evaluation note* Diagnosis Nonintractable epilepsy without status epilepticus, unspecified epilepsy type (Multi)- Primary Anxiety disorder, unspecified type Intellectual disability Unspecified mental retardation documented in this encounter [facility] Work Phone: Evaluation note* Diagnosis Nonintractable epilepsy without status epilepticus, unspecified epilepsy type (Multi)- Primary Anxiety disorder, unspecified type Disruptive behavior disorder Unspecified disturbance of conduct Intellectual disability Unspecified mental retardation documented in this encounter [facility] Work Phone: History of Present illness Narrative* This visit was completed via [employer] due to the restrictions of the COVID-19 [...] exception of an increased appetite) are noted. OK-Solbdrwrzk-Zyefct 220 Work Phone: History of Present illness Narrative* This visit was completed via [employer] due to the restrictions of the COVID-19 [...] and was agitated. She was taken to [facility]. During this time, she was not sleeping at night and was more upset. She slept last Sunday night after receiving Ambien. [facility] She was better after a fluid load.She was on cefdinir. She has been sleeping. Today, she is walking well. [facility] 220 Work Phone: History of Present illness Narrative* This visit was completed via [employer] due to the restrictions of the COVID-19 [...] and was agitated. She was taken to [facility]. During this time, she was not sleeping at night and was more upset. She slept last Sunday night after receiving Ambien. Testing at [facility] was except an increased WBC count She was better after a fluid load.She was on cefdinir.She has been sleeping. Today, she is walking well. KE-Bqsodmeqef-Sebxcd 220 Work Phone: History of Present illness Narrative* This visit was completed via [employer] due to the restrictions of the COVID-19 [...] and was agitated. She was taken to [facility]. During this time, she was not sleeping at night and was more upset. She slept last Sunday night after receiving Ambien. Testing at [facility] was except an increased WBC count She was better after a fluid load.She was on cefdinir.She has been sleeping. Today, she is walking well. RQ-Vvmtlvtdul-Tmapexuri-Admin [facility] 585 Work Phone: History of Present illness Narrative* This visit was completed via [employer] due to the restrictions of the COVID-19 [...] and was agitated. She was taken to [facility]. During this time, she was not sleeping at night and was more upset. She slept last Sunday night after receiving Ambien. Testing at [facility] was except an increased WBC count She was better after a fluid load. She was on cefdinir. OH-Oezlqrxirf-Lrsnlv 220 Work Phone: History of Present illness Narrative* This visit was completed via [employer] due to the restrictions of the COVID-19 [...] and was agitated. She was taken to [facility]. During this time, she was not sleeping at night and was more upset. She slept last Sunday night after receiving Ambien. Testing at [facility] was except an increased WBC count She was better after a fluid load. She was on cefdinir. FF-Hyqztjynrc-Qkafjzism-Admin RBC 585 Work Phone: History of Present illness Narrative* This visit was completed [facility]. All issues as below were discussed [...] and was agitated. She was taken to [facility]. During this time, she was not sleeping at night and was more upset. She slept last Sunday night after receiving Ambien. Testing at [facility] was except an increased WBC count She was better after a fluid load. She was on cefdinir. * Amena was admitted to [facility] due to worsening behavior (throw self down, aggression,hitting self). She had a tooth/dental abscess treated with antibiotics. She was readmitted to [facility] for worsening behavior and was found to have a fractured rib and tailbone. Behavior isbetter at this time. She has a scheduled dental surgery on June 27, 2023. * Eber had a gastrointestinal illness in October 2022. NT-Spbjcqjdto-Ktnqomuyj-Admin RBC 585 Work Phone: Hospital Discharge instructions Additional Instructions Take Ativan if needed for anxiety/aggression Rest Push fluids Continue home medications as scheduled This important that you follow-up with PCP to see about any further adjustments of medications Continue antibiotics as prescribed Return for any difficulty breathing, vomiting, fever, low blood pressure. [facility] Work Phone: Reason for referral (narrative)* Consultation (Routine) - Authorized Specialty Diagnoses / Procedures Referred By Joann aceves Referred To Contact Pediatric Neurology Diagnoses Anxiety disorder, unspecified type Mood disorder ([facility]) Procedures Follow [place] [address] Department [place] [address] Referral ID Status Reason Start Date Expiration Date V isits Requested Visits Authorized [id number] Authorized 12/06/2023 12/05/2024 1 1 [facility] Work Phone: Family History No Family History [...] Response Recorded Date/ Time Advance Directives No Lynn 26th, 2022 6:54pm Chief Complaint * follow up office visit * Accompanied by mother and prison staff. * follow up office visit * Accompanied by mother and prison staff. Chief Complaint and Reason for Visit Chief Complaint MHP ( UTI ) Additional Source Comments INFORMATION SOURCE (unrecogn ized section and content) DATE CREATED AUTHOR 11/09/2021 [facility] DATE CREATED AUTHOR AUTHOR'S ORGANIZ ATION 03/02/2023 [facility] DATE CREATED AUTHOR AUTHOR'S ORGANIZ ATION 04/05/2023 [facility] DATE CREATED AUTHOR AUTHOR'S ORGANIZ ATION 06/09/2023 [facility] DATE CREATED AUTHOR AUTHOR'S ORGANIZ ATION 06/09/2023 [facility] DATE CREATED AUTHOR AUTHOR'S ORGANIZ ATION 08/16/2023 [facility] DATE CREATED AUTHOR AUTHOR'S ORGANIZ ATION 09/29/2023 [facility] DATE CREATED AUTHOR AUTHOR'S ORGANIZ ATION 06/19/2025 [facility] Care Teams (unrecognized sec tion and content) Team Status: Active Member Role Status Dates Simon Haas DO Primary Care Provider Active Team Status: Inactive Member Role Status Dates Simon Haas DO Primary Care Provider Active Vanessa Munoz MD Emergency Provider Active Medical Pathologist Relationship Specialty Start Date End Date Simon Haas DO [address] [place] [address] PCP - General 12/12/10 [place] [address] [place] [address] PCP - [facility] Medicaid PCP 12/23/22 Medical Pathologist Relationship Specialty Start Date End Date Simon Haas DO [address] [place] [address] PCP - General 12/12/10 [place] [address] [facility] [place] [address] PCP - [facility] Medicaid PCP 12/23/22 Medical Pathologist Relationship Specialty Start Date End Date Simon Haas DO [address] [place] [address] PCP - General 12/12/10 [place] [address] [facility] [place] [address] PCP - [facility] Medicaid PCP 06/24/24 Medical Pathologist Relationship Specialty Start Date End Date Simon Haas, DO [address] [place] [address] PCP General 12/12/10 [place] [address] [place] [address] PCP - [facility] Medicaid PCP 06/24/24 Goals [...] BE BASED ON THE PRIMARY CLINICAL RECORDS. [facility]. provides no warranty or guarantee of the accuracy or completeness of information in this document.
--- OUTSIDE RECORDS SUMMARY | 2025-07-01 07:02 | XMS_ITS | Encounter Summary ---
Author Organization [facility] Address [address] [place] [address] Phone Care Team Providers Care Marine Equipment Research Engineer Name Role Phone Simon Tracey DO Primary Care Provider Cruz Adler MD Unavailable [phone] Cruz Adler MD Unavailable [phone] Encounter Details Date Type Department Care Team (Late st Contact Info) Description 08/26/2023 Patient Risk Score [facility] Care Management [address] [place] [address] Social History Tobacco Use Types [...] Description 12/17/2025 10:40 AM EDT Office Visit [facility] [address] [place] [address] [place] [address] Department of Pediatrics-Neurology [place], [place] [id number] documented as of this encounter Visit Diagnoses Not on filedocumented in this encounter Care Teams Marine Equipment Research Engineer Relationship Specialty Start Date End Date Simon Tracey DO [address] [place] [address] PCP - General 12/12/10 [place] [address] Department [place] [address] PCP - [facility] Medicaid PCP 12/23/22 4 [place] [address] Department [place] [address] PCP - [facility] Medicaid PCP 06/24/24 documented as of this encounter
--- OUTSIDE RECORDS SUMMARY | 2025-07-01 07:03 | XMS_ITS | Encounter Summary ---
Author Organization [facility] Address [address] [place] [address] Phone Care Team Providers Care Hoisting Engineer Name Role Phone Simon Tracey DO Primary Care Provider Cruz Adler MD Unavailable [phone] Cruz Adler MD Unavailable [phone] Encounter Details Date Type Department Care Team (Late st Contact Info) Description 12/27/2023 Patient Risk Score [facility] Care Management [address] [place] [address] Social History Tobacco Use Types [...] 12/17/2025 10:40 AM EDT Office Visit [facility] [address] [place] [address] [place] [address] Department of Pediatrics-Neurology [place], [place] [address] documented as of this encounter Visit Diagnoses Not on filedocumented in this encounter Care Teams Hoisting Engineer Relationship Specialty Start Date End Date Simon TraceyDO [address] [place] [address] PCP - General 12/12/10 [place] [address] Department of Pediatric[place] [address] PCP - [facility] Medicaid PCP 12/23/22 4 [place] [address] Department of [place] [address] PCP - [facility] Medicaid PCP 06/24/24 documented as of this encounter
--- OUTSIDE RECORDS SUMMARY | 2025-07-01 07:03 | XMS_ITS | Encounter Summary ---
Author Organization [facility] Address [address] [place] [address] Care Team Providers Care Gas Controller Name Role Phone Unavailable Primary Care Provider Unavailabl e Encounter Details Date Type Department Care Team (Late st Contact Info) Description 11/25/2020 Prep for Surgery [facility] Dentistry [address] [place] [address] Cedric Armijo DDS [address] [place] [address] Social History Tobacco Use Types Packs/Day Years [...]
--- OUTSIDE RECORDS SUMMARY | 2025-07-01 07:03 | XMS_ITS | Clinical Summary ---
Author Organization [facility] Address [address] [place] [address] Care Team Providers Care County Nurse Name Role Phone Unavailable Primary Care Provider [...] Description 07/29/2025 10:30 AM EST Office Visit [facility] [address], [address] [place] [address] Paolo Kimberly [address], [address] [place] [phone] Holman Angelagarcia [address], [address] [place] [address] Health Maintenance Due Date Last Done Comments HEPATITIS C VIRUS SCREENING 1992 TETANUS 1992 HIV SCREENING DISCUSSION 2007 HEP B VACCINE (1 of 3 - 19+ 3-dose series) 2011 TDAP (ADULT) 2011 CERVICAL CANCER SCREENING DISCUSSION 2013 HPV VACCINE (1 - 3-dose SCDM series) 2019 COVID-19 VACCINE ( - 2023-2 5 season) 2025 INFLUENZA VACCINE (#1) 2025 PNEUMOCOCCAL VACCINE SERIES Aged Out No longer eligible based on patient's age to complete this topic
--- OUTSIDE RECORDS SUMMARY | 2025-07-01 07:03 | XMS_ITS | Encounter Summary ---
Author Organization [facility] Address [address] [place] [address] Phone Care Team Providers Care Airplane Tester Name Role Phone Simon Tracey DO Primary Care Provider Cruz Adler MD Unavailable [phone] Encounter Details Date Type Department Care Team (Late st Contact Info) Description 12/26/2024 Patient Risk Score [facility] Care Management [address] [place] [address] Social History Tobacco Use Types [...] 12/17/2025 10:40 AM EDT Office Visit [facility] [address] [place] [address] [place] [address] Department of Pediatrics-Neurology [place], [place] [id number] documented as of this encounter Visit Diagnoses Not on filedocumented in this encounter Care Teams Airplane Tester Relationship Specialty Start Date End Date Simon Tarcey DO [address] [place] [address] PCP - General 12/12/10 [place] [address] Department [place] [address] PCP - [facility] Medicaid PCP 06/24/24 documented as of this encounter
--- OUTSIDE RECORDS SUMMARY | 2025-07-01 07:03 | XMS_ITS | Encounter Summary ---
Author Organization [facility] Address [address] [place] [address] Phone Care Team Providers Care Strapping Machine Tender Name Role Phone Simon Tracey DO Primary Care Provider Cruz Adler MD Unavailable [phone] Encounter Details Date Type Department Care Team (Late st Contact Info) Description 08/27/2024 Patient Risk Score [facility] Care Management [address] [place] [address] Social History Tobacco Use Types [...] Description 12/17/2025 10:40 AM EDT Office Visit [facility] [address] [place] [address] [place] [address] Department of Pediatrics-Neurology [place], [place] [address] documented as of this encounter Visit Diagnoses Not on filedocumented in this encounter Care Teams Strapping Machine Tender Relationship Specialty Start Date End Date Simon Tracey DO [address] [place] [address] PCP - General 12/12/10 [place] [address] Department [place] [address] PCP - [facility] Medicaid PCP 06/24/24 documented as of this encounter
--- OUTSIDE RECORDS SUMMARY | 2025-07-01 07:03 | XMS_ITS | Encounter Summary ---
Author Organization [facility] Address [address] [place] [address] Care Team Providers Care Marshmallow Machine Operator Name Role Phone Unavailable Primary Care Provider Unavailabl e Encounter Details Date Type Department Care Team (Late st Contact Info) Description 03/05/2017 Prep for Surgery [facility] Dentistry [address] [place] [address] Maurilio Ortiz, DDS [address] [id number] Social History Tobacco Use Types Packs/Day Years [...]
--- OUTSIDE RECORDS SUMMARY | 2025-07-01 07:03 | XMS_ITS | Clinical Summary ---
Author Organization [facility] Address [address] [facility] [place] [address] Care Team Providers Care Communications Programmer Name Role Phone Unavailable Primary Care Provider Unavailabl e Source Comments The following information is NOT included in Care Everywhere downloads:Psychiatric notes, ECG results, Cardiac Rehab notes, Pulmonary Function notes, data from SmartForms (includes but not limited toPregnancy data,audiograms, eye exams, pre-surgical evaluation notes, well-child exam data).[facility] Allergies Active Allergy Reactions Criticality [...] (11/25/2020): Added automatically from request for surgery [id number] Immunizations Immunization Administration Dates Next Due Influenza, injectable, quadr ivalent, preservative (ZJR=666) 07/03/2018,07/18/2017 Influenza, injectable, quadr ivalent, preservative free (RDU=218) 07/20/2021,06/30/2020,07/18/2019,2014,07/30/2014 Influenza, injectable, triva lent, preservative (GCW=316) 06/28/2016,07/22/2013,07/17/2012,2010,06/23/2009,07/20/2008 Influenza, novel S8A5-64, in jectable, preservative-free (DAM=626) 08/11/2009 Influenza, whole virus (CVX=16) 07/20/2010,07/16 Pfizer Monovalent (12+ yrs) SARS-COV-2 (COVID-19) vaccine, mRNA, spike protein, LNP, pres. free, 30 mcg/0.3mL dose (MVH=627) 10/26/2020,10/05/2020 Tdap (ECW=583) 10/31/2016 Social History Tobacco Use Types Packs/Day [...] of Phone Billing Address Personal/Family Self 1990 [phone] (Work) [address] [place] [address] MEDICAID * Guarantor: Amena Singleton Account Type Relation to Patient Date of Phone Billing Address Personal/Family Self 1990 [phone] (Work) [address] [place], [place] [id number]
--- OUTSIDE RECORDS SUMMARY | 2025-07-01 07:03 | XMS_ITS | Encounter Summary ---
Author Organization [facility] Address [address] [place] [address] Phone Care Team Providers Care Italian Tutor Name Role Phone Simon Tracey DO Primary Care Provider Cruz Adler MD Unavailable [phone] Cruz Adler MD Unavailable [phone] Encounter Details Date Type Department Care Team (Late st Contact Info) Description 08/29/2018 Orders Only [facility] [address] [place] [address] Conversion, Onbase Social History Tobacco Use Types [...] Description 12/17/2025 10:40 AM EDT Office Visit [facility] [address] [place] [address] [place] [address] Department of Pediatrics-Neurology [place], [place] [phone] Scheduled Orders Name Type Priority Associated Diagnoses Orde r Schedule OUTSIDE LAB SCAN Lab Ordered: 08/29/2018 documented as of this encounter Visit Diagnoses Not on filedocumented in this encounter Care Teams Italian Tutor Relationship Specialty Start Date End Date Simon Tracey TangDO [address] [place] [address] PCP - General 12/12/10 [place] [address] Department [place] [address] PCP - [facility] Medicaid PCP 12/23/22 4 [place] [address] Department [place] [address] PCP - [facility] Medicaid PCP 06/24/24 documented as of this encounter
--- OUTSIDE RECORDS SUMMARY | 2025-07-01 07:03 | XMS_ITS | Encounter Summary ---
Author Organization [facility] Address [address] [place] [address] Phone Care Team Providers Care Organ Grinder Name Role Phone Simon Tracey DO Primary Care Provider Cruz Adler MD Unavailable [phone] Cruz Adler MD Unavailable [phone] Encounter Details Date Type Department Care Team (Late st Contact Info) Description 10/28/2023 Patient Risk Score [facility] Care Management [address] [place] [address] Social History Tobacco Use Types [...] Description 12/17/2025 10:40 AM EDT Office Visit [facility] [address] [place] [address] [place] [address] Department of Pediatrics-Neurology [place], [place] [address] documented as of this encounter Visit Diagnoses Not on filedocumented in this encounter Care Teams Organ Grinder Relationship Specialty Start Date End Date Simon Tracey DO [address] [place] [address] PCP - General 12/12/10 [place] [address] Department [place] [address] PCP - [facility] Medicaid PCP 12/23/22 4 [place] [address] Department [place] [address] PCP - [facility] Medicaid PCP 06/24/24 documented as of this encounter
--- OUTSIDE RECORDS SUMMARY | 2025-07-01 07:03 | XMS_ITS | Encounter Summary ---
Author Organization [facility] Address [address] [place] [address] Phone Care Team Providers Care Concrete Engineer Name Role Phone Simon Tracey DO Primary Care Provider Cruz Adler MD Unavailable [phone] Cruz Adler MD Unavailable [phone] Encounter Details Date Type Department Care Team (Late st Contact Info) Description 08/30/2018 Orders Only [facility] [address] [place] [address] Conversion, Onbase Social History Tobacco Use Types [...] Visit [facility] [address] [place] [address] [place] [address] Department of Pediatrics-Neurology [place], [place] [address] Scheduled Orders Name Type Priority Associated Diagnoses Orde r Schedule OUTSIDE LAB SCAN Lab Ordered: 08/30/2018 documented as of this encounter Visit Diagnoses Not on filedocumented in this encounter Care Teams Concrete Engineer Relationship Specialty Start Date End Date Simon Tracey TangDO [address] [place] [address] PCP - General 12/12/10 [place] [address] Department [place] [address] PCP - [facility] Medicaid PCP 12/23/22 4 [place] [address] Department [place] [address] PCP - [facility] Medicaid PCP 06/24/24 documented as of this encounter
--- OUTSIDE RECORDS SUMMARY | 2025-07-01 07:03 | XMS_ITS | Encounter Summary ---
Author Organization [facility] Address [address] [place] [address] Phone Care Team Providers Care Clinical Operations Manager Name Role Phone Simon Tracey DO Primary Care Provider Curz Adler MD Unavailable [phone] Cruz Adler MD Unavailable [phone] Encounter Details Date Type Department Care Team (Late st Contact Info) Description 01/26/2024 Patient Risk Score [facility] Care Management [address] [place] [address] Social History Tobacco Use Types [...] 12/17/2025 10:40 AM EDT Office Visit [facility] [address] [place] [address] [place] [address] Department of Pediatrics-Neurology [place], [place] [address] documented as of this encounter Visit Diagnoses Not on filedocumented in this encounter Care Teams Clinical Operations Manager Relationship Specialty Start Date End Date Simon TraceyDO [address] [place] [address] PCP - General 12/12/10 [place] [address] Department [place] [address] PCP - [facility] Medicaid PCP 12/23/22 4 [place] [address] Department [place] [address] PCP - [facility] Medicaid PCP 06/24/24 documented as of this encounter
--- OUTSIDE RECORDS SUMMARY | 2025-07-01 07:03 | XMS_ITS | Clinical Summary ---
Author Organization [facility] Address [address] [place] [address] Phone Care Team Providers Care Nuclear Test Technician Name Role Phone TraceySimon Primary Care Provider Cruz Adler MD Unavailable [phone] Allergies Active Allergy Reactions Criticality Noted Date Comments Meperidine Other High 06/03/2015 Seizure Medications buPROPion (Wellbutrin) 100 mg tablet Take [...] Anxiety disorder 12/06/2023 Mood disorder 12/06/2023 Epilepsy (Multi) 12/06/2023 Disruptive behavior disorder 12/06/2023 Intellectual disability 12/06/2023 Encounters Date Type Department Care Team Description 06/27/2025 Patient Risk Score [facility] Care Management [address] [place] [address] 06/18/2025 10:40 AM EDT Office Visit [facility] [address] [place] [address] Cruz Adler MD Nonintractable epilepsy without status epilepticus, unspecified epilepsy type (Multi) (Primary Dx); Anxiety disorder, unspecified type; Disruptive behavior disorder; Intellectual disability Discharge Disposition: Home 06/18/2025 Travel 05/28/2025 Patient Risk Score [facility] Care Management [address] [place] [address] 04/27/2025 [facility] [address] [place] [address] from Last 3 Months Social History Tobacco [...] Mass Index 21.85 06/18/2025 10:35 AM EDT Plan of Treatment Upcoming Encounters Date Type Department Care Team (Late st Contact Info) Description 12/17/2025 10:40 AM EDT Office Visit [facility] [address] [place] [address] [place] [address] Department [place] [address] [phone] (work) Health Maintenance Due Date Last Done Comments HIV Screening 1992 Lipid Panel 1992 Yearly Adult Physical 1992 MMR Vaccines (1 of 1 - Standard series) 1993 Hepatitis C Screening 2010 Hepatitis B Vaccines (1 of 3 - 19+ 3-dose series) 2011 Cervical Cancer Screening 2013 HPV/Cotest 2013 Pap Smear 2013 HPV Vaccines (1 - 3-dose standard series) 2019 COVID-19 Vaccine (1 - season) 2025 Influenza Vaccine (#1) 2025 , 06/30/2020, 07/18/2019, Additional history exists DTaP/Tdap/Td Vaccines [...] this topic Insurance MEDICAID MEDICAID Care Teams Nuclear Test Technician Relationship Specialty Start Date End Date Simon Tracey DO [address] [place] [address] PCP - General 12/12/10 [place] [address] Department [place] [address] PCP - [facility] Medicaid PCP 06/24/24
--- OUTSIDE RECORDS SUMMARY | 2025-07-01 07:03 | XMS_ITS | Encounter Summary ---
Author Organization [facility] Address [address] [place] [address] Phone Care Team Providers Care Palliative Care Specialist Name Role Phone Simon Tracey DO Primary Care Provider Cruz Adler MD Unavailable [phone] Cruz Adler MD Unavailable [phone] Encounter Details Date Type Department Care Team (Late st Contact Info) Description 03/26/2023 Patient Risk Score [facility] Care Management [address] [place] [address] Social History Tobacco Use Types [...] 12/17/2025 10:40 AM EDT Office Visit [facility] [address] [place] [address] [place] [address] Department of Pediatrics-Neurology [place], [place] [address] documented as of this encounter Visit Diagnoses Not on filedocumented in this encounter Care Teams Palliative Care Specialist Relationship Specialty Start Date End Date Simon Tracey DO [address] [place] [address] PCP - General 12/12/10 [place] [address] Department [place] [address] PCP - [facility] Medicaid PCP 12/23/22 4 [place] [address] Department [place] [address] PCP - [facility] Medicaid PCP 06/24/24 documented as of this encounter
--- OUTSIDE RECORDS SUMMARY | 2025-07-01 07:03 | XMS_ITS | Encounter Summary ---
Author Organization [facility] Address [address] [place] [address] Phone Care Team Providers Care Clinical Rn Liaison Name Role Phone Simon Tracey DO Primary Care Provider Cruz Adler MD Unavailable [phone] Encounter Details Date Type Department Care Team (Late st Contact Info) Description 04/27/2024 Patient Risk Score [facility] Care Management [address] [place] [address] Social History Tobacco Use Types [...] Description 12/17/2025 10:40 AM EDT Office Visit [facility] [address] [place] [address] [place] [address] Department of Pediatrics-Neurology [place], [place] [id number] documented as of this encounter Visit Diagnoses Not on filedocumented in this encounter Care Teams Clinical Rn Liaison Relationship Specialty Start Date End Date Simon Tracey DO [address] [place] [address] PCP - General 12/12/10 [place] [address] Department [place] [address] PCP - [facility] Medicaid PCP 06/24/24 documented as of this encounter
--- OUTSIDE RECORDS SUMMARY | 2025-07-01 07:03 | XMS_ITS | Encounter Summary ---
Author Organization [facility] Address [address] [place] [address] Phone Care Team Providers Care Greenhouse Transplanter Name Role Phone Simon Tracey DO Primary Care Provider Cruz Adler MD Unavailable [phone] Encounter Details Date Type Department Care Team (Late st Contact Info) Description 11/25/2024 Patient Risk Score [facility] Care Management [address] [place] [address] Social History Tobacco Use Types [...] AM EDT Office Visit [facility] [address] [place] [address] [place] [address] Department of Pediatrics-Neurology [place], [place] [id number] documented as of this encounter Visit Diagnoses Not on filedocumented in this encounter Care Teams Greenhouse Transplanter Relationship Specialty Start Date End Date Simon Tracey DO [address] [place] [address] PCP - General 12/12/10 [place] [address] Department [place] [address] PCP - [facility] Medicaid PCP 06/24/24 documented as of this encounter
--- OUTSIDE RECORDS SUMMARY | 2025-07-01 07:03 | XMS_ITS | Encounter Summary ---
Author Organization [facility] Address [address] [place] [address] Phone Care Team Providers Care Automatic I Threading Machine Feeder Name Role Phone Simon Tracey DO Primary Care Provider Cruz Adler MD Unavailable [phone] Encounter Details Date Type Department Care Team (Late st Contact Info) Description 03/27/2024 Patient Risk Score [facility] Care Management [address] [place] [address] Social History Tobacco Use Types [...] Description 12/17/2025 10:40 AM EDT Office Visit [facility] [address] [place] [address] [place] [address] Department of Pediatrics-Neurology [place], [place] [id number] documented as of this encounter Visit Diagnoses Not on filedocumented in this encounter Care Teams Automatic I Threading Machine Feeder Relationship Specialty Start Date End Date Simon Tracey DO [address] [place] [address] PCP - General 12/12/10 [place] [address] Department [place] [address] PCP - [facility] Medicaid PCP 06/24/24 documented as of this encounter
--- OUTSIDE RECORDS SUMMARY | 2025-07-01 07:03 | XMS_ITS | Encounter Summary ---
Author Organization [facility] Address [address] [place] [address] Phone Care Team Providers Care Almond Paste Mixer Name Role Phone Simon Tracey DO Primary Care Provider Cruz Adler MD Unavailable [phone] Cruz Adler MD Unavailable [phone] Encounter Details Date Type Department Care Team (Late st Contact Info) Description 02/26/2024 Patient Risk Score [facility] [address] [place] [address] Social History Tobacco Use Types [...] Office Visit [facility] [address] [place] [address] [place] [address] Department of Pediatrics-Neurology [place], [place] [id number] documented as of this encounter Visit Diagnoses Not on filedocumented in this encounter Care Teams Almond Paste Mixer Relationship Specialty Start Date End Date Simon TraceyDO [address] [place] [address] PCP - General 12/12/10 [place] [address] Department [place] [address] PCP - [facility] Medicaid PCP 12/23/22 4 [place] [address] Department [place] [address] PCP - [facility] Medicaid PCP 06/24/24 documented as of this encounter
--- OUTSIDE RECORDS SUMMARY | 2025-07-01 07:03 | XMS_ITS | Encounter Summary ---
Author Organization [facility] Address [address] [place] [address] Phone Care Team Providers Care Network Control Supervisor Name Role Phone Simon Tracey DO Primary Care Provider Cruz Adler MD Unavailable [phone] Encounter Details Date Type Department Care Team (Late st Contact Info) Description 10/28/2024 Patient Risk Score [facility] Care Management [address] [place] [address] Social History Tobacco Use Types [...] Description 12/17/2025 10:40 AM EDT Office Visit [facility] [address] [place] [address] [place] [address] Department of Pediatrics-Neurology [place], [place] [id number] documented as of this encounter Visit Diagnoses Not on filedocumented in this encounter Care Teams Network Control Supervisor Relationship Specialty Start Date End Date Simon Tracey DO [address] [place] [address] PCP - General 12/12/10 [place] [address] Department [place] [address] PCP - [facility] Medicaid PCP 06/24/24 documented as of this encounter
--- OUTSIDE RECORDS SUMMARY | 2025-07-01 07:03 | XMS_ITS | Encounter Summary ---
Author Organization [facility] Address [address] [place] [address] Phone Care Team Providers Care Bursar Name Role Phone Simon Tracey DO Primary Care Provider Cruz Adler MD Unavailable [phone] Encounter Details Date Type Department Care Team (Late st Contact Info) Description 09/27/2024 Patient Risk Score [facility] [place] [address] [place] [address] Social History Tobacco Use Types [...] Description 12/17/2025 10:40 AM EDT Office Visit [facility] [address] [place] [address] [place] [address] Department of Pediatrics-Neurology [place], [place] [address] documented as of this encounter Visit Diagnoses Not on filedocumented in this encounter Care Teams Bursar Relationship Specialty Start Date End Date Simon Tracey DO [address] [place] [address] PCP - General 12/12/10 [place] [address] Department of Pediatric[place] [address] PCP - [facility] Medicaid PCP 06/24/24 documented as of this encounter
--- OUTSIDE RECORDS SUMMARY | 2025-07-01 07:03 | XMS_ITS | Encounter Summary ---
Author Organization [facility] Address [address] [place] [address] Phone Care Team Providers Care Ocean Rescue Lieutenant Name Role Phone Simon Tracey DO Primary Care Provider Cruz Adler MD Unavailable [phone] Cruz Adler MD Unavailable [phone] Encounter Details Date Type Department Care Team (Late st Contact Info) Description 11/26/2023 Patient Risk Score [facility] [address] [place] [address] Social History Tobacco Use Types [...] [facility] [address] [place] [address] [place] [address] Department of Pediatrics-Neurology [place], [place] [address] documented as of this encounter Visit Diagnoses Not on filedocumented in this encounter Care Teams Ocean Rescue Lieutenant Relationship Specialty Start Date End Date Simon Tracey DO [address] [place] [address] PCP - General 12/12/10 [place] [address] Department of [place] [address] PCP - [facility] Medicaid PCP 12/23/22 4 [place] [address] Department [place] [address] PCP - [facility] Medicaid PCP 06/24/24 documented as of this encounter
--- OUTSIDE RECORDS SUMMARY | 2025-07-01 07:03 | XMS_ITS | Encounter Summary ---
Author Organization [facility] Address [address] [place] [address] Phone Care Team Providers Care Finish Repair Worker Name Role Phone Simon Tracey DO Primary Care Provider Cruz Adler MD Unavailable [phone] Encounter Details Date Type Department Care Team (Late st Contact Info) Description 05/28/2025 Patient Risk Score [facility] Care Management [address] [place] [address] Social History Tobacco Use Types [...] Visit [facility] [address] [place] [address] [place] [address] Department of Pediatrics-Neurology [place], [place] [id number] documented as of this encounter Visit Diagnoses Not on filedocumented in this encounter Care Teams Finish Repair Worker Relationship Specialty Start Date End Date Simon Tracey DO [address] [place] [address] PCP - General 12/12/10 [place] [address] Department [place] [address] PCP - [facility] Medicaid PCP 06/24/24 documented as of this encounter
--- OUTSIDE RECORDS SUMMARY | 2025-07-01 07:03 | XMS_ITS | Encounter Summary ---
Author Organization [facility] Address [address] [facility] [place] [address] Care Team Providers Care Instructional Materials Director Name Role Phone Unavailable Primary Care Provider Unavailabl e Encounter Details Date Type Department Care Team (Late st Contact Info) Description 03/05/2017 Prep for Surgery [facility] Dentistry [address] [place] [address] Velasquez Dent DDS [address] [facility] [address] Social History Tobacco Use Types Packs/Day Years [...]
--- OUTSIDE RECORDS SUMMARY | 2025-07-01 07:03 | XMS_ITS | Encounter Summary ---
Author Organization [facility] Address [address] [place] [address] Phone Care Team Providers Care Senior Education Specialist Name Role Phone Simon Tracey DO Primary Care Provider Cruz Adler MD Unavailable [phone] Encounter Details Date Type Department Care Team (Late st Contact Info) Description 05/27/2024 Patient Risk Score [facility] Care Management [address] [place] [address] Social History Tobacco Use Types [...] Description 12/17/2025 10:40 AM EDT Office Visit [facility] [address] [place] [address] [place] [address] Department of Pediatrics-Neurology [place], [place] [address] documented as of this encounter Visit Diagnoses Not on filedocumented in this encounter Care Teams Senior Education Specialist Relationship Specialty Start Date End Date Simon Tracey DO [address] [place] [address] PCP - General 12/12/10 [place] [address] Department [place] [address] PCP - [facility] Medicaid PCP 06/24/24 documented as of this encounter
--- OUTSIDE RECORDS SUMMARY | 2025-07-01 07:03 | XMS_ITS | Encounter Summary ---
Author Organization [facility] Address [address] [place] [address] Care Team Providers Care Copper Plate Lithographer Name Role Phone Unavailable Primary Care Provider Unavailabl e Encounter Details Date Type Department Care Team (Late st Contact Info) Description 07/17/2016 Prep for Surgery [facility] Dentistry [address] [place] [address] Maurilio Ortiz, DDS [address] [id number] Social History Tobacco Use Types Packs/Day Years [...]
--- OUTSIDE RECORDS SUMMARY | 2025-07-01 07:03 | XMS_ITS | Encounter Summary ---
Author Organization [facility] Address [address] [place] [address] Care Team Providers Care Circulation Crew Leader Name Role Phone Unavailable Primary Care Provider Unavailabl e Encounter Details Date Type Department Care Team (Late st Contact Info) Description 08/09/2023 Abstract [facility] Dentistry [address] [place] [address] Art Birmingham, DDS [address] [id number] Social History Tobacco Use Types Packs/Day Years Used Date Smoking Tobacco: Never Assessed Comments No Sex and Gender Information Value Date Recorded Sex Assigned at Not on file Legal Sex Female 9:09 AM EST Gender Identity Not on file Sexual Orientation Not on file documented as of this encounter Plan of Treatment Scheduled Orders Name Type Priority Associated Diagnoses Orde r Schedule DENTAL CONSULTATION Dental Routine 1 Occ urrences starting 06/08/2025 documented as of this encounter Visit Diagnoses Not on filedocumented in this encounter
--- OUTSIDE RECORDS SUMMARY | 2025-07-01 07:03 | XMS_ITS | Encounter Summary ---
Author Organization [facility] Address [address] [facility] [place] [address] Care Team Providers Care Automatic Beam Warper Tender Name Role Phone Unavailable Primary Care Provider Unavailabl e Encounter Details Date Type Department Care Team (Late st Contact Info) Description 08/09/2023 Abstract [facility] [address] [place] [address] Felisa Langston, [place] [address] [facility] [address] Social History Tobacco Use Types Packs/Day Years Used Date Smoking Tobacco: Never Assessed Comments No Sex and Gender Information Value Date Recorded Sex Assigned at Not on file Legal Sex Female 9:09 AM EST Gender Identity Not on file Sexual Orientation Not on file documented as of this encounter Plan of Treatment Not on file documented as of this encounter Procedures Procedure Name Priority Date/Time Associated Diagnosis Comments LIMITED ORAL EVALUATION Routine 08/09/20 12:00 AM EST documented in this encounter Visit Diagnoses Not on filedocumented in this encounter
--- OUTSIDE RECORDS SUMMARY | 2025-07-01 07:04 | XMS_ITS | Encounter Summary ---
Author Organization [facility] Address [address] [place] [address] Phone Care Team Providers Care Personal Financial Planner Name Role Phone Simon [place] DO Primary Care Provider Cruz Adler MD Unavailable [phone] Encounter Details Date Type Department Care Team (Late st Contact Info) Description 01/25/2025 Patient Risk Score [facility] Care Management [address] [place] [address] Social History Tobacco Use Types [...] Description 12/17/2025 10:40 AM EDT Office Visit [facility] [address] [place] [address] [place] [address] Department of Pediatrics-Neurology [place], [place] [address] documented as of this encounter Visit Diagnoses Not on filedocumented in this encounter Care Teams Personal Financial Planner Relationship Specialty Start Date End Date Simon Tracey DO [address] [place] [address] PCP - General 12/12/10 [place] [address] Department [place] [address] PCP - [facility] Medicaid PCP 06/24/24 documented as of this encounter
--- OUTSIDE RECORDS SUMMARY | 2025-07-01 07:04 | XMS_ITS | Encounter Summary ---
Author Organization [facility] Address [address] [place] [address] Phone Care Team Providers Care Supervisor Wood Room Name Role Phone Simon Tracey DO Primary Care Provider Cruz Adler MD Unavailable [phone] Encounter Details Date Type Department Care Team (Late st Contact Info) Description 04/27/2025 Patient Risk Score [facility] Care Management [address] [place] [address] Social History Tobacco Use Types [...] Description 12/17/2025 10:40 AM EDT Office Visit [facility] [address] [place] [address] [place] [address] Department of Pediatrics-Neurology [place], [place] [id number] documented as of this encounter Visit Diagnoses Not on filedocumented in this encounter Care Teams Supervisor Wood Room Relationship Specialty Start Date End Date Simon Tracey DO [address] [place] [address] PCP - General 12/12/10 [place] [address] Department [place] [address] PCP - [facility] Medicaid PCP 06/24/24 documented as of this encounter
--- OUTSIDE RECORDS SUMMARY | 2025-07-01 07:04 | XMS_ITS | Encounter Summary ---
Author Organization [facility] Address [address] [place] [address] Care Team Providers Care Bottle Feeder Name Role Phone Unavailable Primary Care Provider Unavailabl e Encounter Details Date Type Department Care Team (Late st Contact Info) Description 04/21/2015 Prep for Surgery [facility] Dentistry [address] [place] [address] Shine Bell, DDS [address] [id number] Social History Tobacco Use Types Packs/Day Years [...]
--- OUTSIDE RECORDS SUMMARY | 2025-07-01 07:04 | XMS_ITS | Encounter Summary ---
Author Organization [facility] Address [address] [place] [address] Phone Care Team Providers Care Sailboat Captain Name Role Phone Simon Tr[place] DO Primary Care Provider Cruz Adler MD Unavailable [phone] Encounter Details Date Type Department Care Team (Late st Contact Info) Description 03/27/2025 Patient Risk Score [facility] [place] [address] [place] [address] Social History Tobacco Use Types [...] 12/17/2025 10:40 AM EDT Office Visit [facility] [address] [place] [address] [place] [address] Department of Pediatrics-Neurology [place], [place] [id number] documented as of this encounter Visit Diagnoses Not on filedocumented in this encounter Care Teams Sailboat Captain Relationship Specialty Start Date End Date Simon Tracey DO [address] [place] [address] PCP - General 12/12/10 [place] [address] Department [place] [address] PCP - [facility] Medicaid PCP 06/24/24 documented as of this encounter
--- OUTSIDE RECORDS SUMMARY | 2025-07-01 07:04 | XMS_ITS | Patient Health Record ---
Author Organization [facility] Address [address] [place] [address] Care Team Providers Care Master Esthetician Name Role Phone Demi Rodriguez Primary Care Provider [phone] Reason For Referral No Information Plan Of Treatment No Information Insurance Providers Payer Name Payer Address Payer Phone Subscriber Number Group Number Insured Name Patient Relationship to Insured Coverage Start Date Coverage End Date [place] [address] [place] [phone] [id number] NIC SANDHU Self - patient is the insured 3 DENTAL [place]ICAID [place] [address] [place] [address] [id number] NIC SANDHU Self - patient is the insured 3
--- OUTSIDE RECORDS SUMMARY | 2025-07-01 07:04 | XMS_ITS | Encounter Summary ---
Author Organization [facility] Address [address] [place] [address] Phone Care Team Providers Care Rattan Worker Name Role Phone Simon [place] DO Primary Care Provider Cruz Adler MD Unavailable [phone] Encounter Details Date Type Department Care Team (Late st Contact Info) Description 02/25/2025 Patient Risk Score [facility] Care Management [address] [place] [address] Social History Tobacco Use Types [...] [facility] [address] [place] [address] [place] [address] Department of Pediatrics-Neurology [place], [place] [id number] documented as of this encounter Visit Diagnoses Not on filedocumented in this encounter Care Teams Rattan Worker Relationship Specialty Start Date End Date Simon Tracey DO [address] [place] [address] PCP - General 12/12/10 [place] [address] Department [place] [address] PCP - [facility] Medicaid PCP 06/24/24 documented as of this encounter
[2025-07-01 08:12] LABS: Hematocrit 38.2 % (36.0-48.0); Hemoglobin 12.8 g/dL (12.0-16.0); Immature Granulocytes Abs Auto 0.12 10^3/uL (0.00-0.03); Immature Granulocytes Pct Auto 1.5 % (0.0-0.5); Lymphocytes Absolute Auto 2.9 10^3/uL (1.2-3.8); Mean Corpuscular HGB Conc 33.5 g/dL (29.9-35.2); Mean Corpuscular Hemoglobin 29.5 pg (26.7-34.0); Mean Corpuscular Volume 88.0 fL (81.0-99.0); Platelet Count 330 10^3/uL (150-450); Red Blood Count 4.34 10^6/uL (4.20-5.40); White Blood Count 8.3 10^3/uL (4.0-11.0)
[2025-07-01 08:24] LABS: Alanine Aminotransferase 14 U/L (14-59); Albumin Globulin Ratio 0.9; Albumin Level 3.3 g/dL (3.4-5.0); Alkaline Phosphatase 46 U/L (46-116); Anion Gap 13.3; Aspartate Amino Transferase 12 U/L (15-37); Blood Urea Nitrogen 10.0 mg/dL (7.0-18.0); Calcium 8.2 mg/dL (8.5-10.1); Carbon Dioxide 24.7 mmol/L (21.0-32.0); Chloride 105 mmol/L (98-107); Cholesterol 187 mg/dL (<=200); Estimated GFR (African America >60 (>=60 mL/min/1.73m^2); Estimated GFR (Non-African Ame >60 (>=60 mL/min/1.73m^2); Globulin 3.5 g/dL; Glucose 96 mg/dL (74-106); HDL Cholesterol 75 mg/dL (40-60); Potassium 4.0 mmol/L (3.5-5.1); Sodium 139 mmol/L (136-145); Total Protein 6.8 g/dL (6.4-8.2); Triglycerides 60 mg/dL (<=150); VLDL CHOLESTEROL 12.0 mg/dL
== END 2025-07-01 07:01 | disposition home or self-care (01) ==
LOC: LAB 07:00
PROVIDERS: PCP Family Medicine; Visit Provider Family Medicine
DX: F41.0 Panic disorder [episodic paroxysmal anxiety] (principal); F41.9 Anxiety disorder, unspecified; Z79.899 Other long term (current) drug therapy; K59.00 Constipation, unspecified; G40.909 Epilepsy, unspecified, not intractable, without status epilepticus; F39 Unspecified mood [affective] disorder
CPT/HCPCS: 36415; 80053; 80061; 80164; 85025